=== PATIENT | male | born 1955 | race Caucasian/White ===

== ENCOUNTER 2017-01-03 12:47 | Outpatient (CLI) | payer MEDICAID ==
[~2017-01-03 12:47] MED LIST: CARVEDILOL 25MG25 MG PO; FENOFIBRIC ACI135 MG PO; FUROSEMIDE40 MG PO; GLIMEPIRIDE 2MG2 MG PO; LANOXIN0.125 MG PO; LEVOTHYROXIN0.125 MG PO; LISINOPRIL/HCTZ1 TA3 FT; PRAVASTATIN 40M40 MG PO; SPIRONOLACTONE25 MG NG; WARFARIN 3MG TAB3 MG PO
== END 2017-01-03 15:28 ==
LOC: ACC 12:47
DX: Z95.2 Presence of prosthetic heart valve (principal); Z79.01 Long term (current) use of anticoagulants; Z51.81 Encounter for therapeutic drug level monitoring
CPT/HCPCS: G0463

== ENCOUNTER 2017-01-07 12:42 | Outpatient (CLI) | payer MEDICAID | END 2017-01-07 14:48 | LOC: ACC 12:42 | DX: Z95.2 Presence of prosthetic heart valve (principal); Z79.01 Long term (current) use of anticoagulants; Z51.81 Encounter for therapeutic drug level monitoring | CPT/HCPCS: G0463 ==

== ENCOUNTER 2017-01-17 23:47 | Emergency (ER) | payer MEDICAID ==
[~2017-01-17] VITALS: Ht 170.2 cm; Wt 117.9 kg
[2017-01-18] MEDS ORDERED: NATURE'S BLEND500 M2 PO (00:06)
[2017-01-18 00:41] LABS: HEMOGLOBIN 11.8 g/dL (14.1-18.0); LYMPH # 1.7 K/mm3 (0.7-4.5); LYMPH % 19.9 % (10-50)
--- NOTE | 2017-01-18 00:46 | Emergency Room Report ---
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 N Clinical Suspician of Infection? N Mental Status: 1 - Regular (Normal Baseline) Sepsis Risk:Low Sepsis Risk Have you (or family members/close friends) recently traveled outside the [place]? N If Yes, where/when: Have you had exposure to infectious disease within the past month? N TB? Other? Specify: Source patient, RN notes reviewed, family, old records Exam Limitations no limitations Comment acute onset of lt upper ext pain with dec use and feeling - pt is diabetic and has a fib with mech valve placed in 09/05- he has been compliant with coumadin but inr 1.8 friday - Cardiac Chest Pain Chest pain indicative of cardiac No Timing/Duration this evening Severity severe ALLERGIES Coded Allergies: Penicillins (01/18/17) Home Medications Reported Medications Glimepiride (Glimepiride 2MG Tablet) 2 MG PO DAILY #1.5 Spironolactone (Spironolactone) 25 MG NG BID #0.5 PRAVASTATIN SODIUM (Pravastatin Sodium) 80 MG PO QHS Carvedilol (Carvedilol 25MG) 25 MG PO BID Lisinopril & Hctz (Lisinopril-Hctz 10-12.5 MG Tab) 1 TAB FT DAILY WARFARIN SOD (Warfarin 3MG) 3 MG PO DAILY Furosemide (Furosemide 40MG) 40 MG PO QHS Levothyroxine Sodium (Levothyroxine 0.125MG) 0.125 MG PO DAILY FENOFIBRIC ACID (CHOLINE) (Fenofibric Acid) 135 MG PO QHS DIGOXIN (Digox) 0.125 MG PO QHS CINNAMON BARK (Cinnamon) 1,000 MG PO BID History Medical History General CAD? No Angina: Yes [place]: Yes Hypertension? Yes Hyperlipidemia? Yes CHF? No DVT? No PE? No COPD? No Asthma? No Anemia? No GERD? No Gastric ulcers? No GI Bleed? No Hernia? No Thyroid Problems? No Hypothyroidism? No CVA? No Seizures? No Diabetes? Yes Insulin Dependent: No Insulin Pump: No Home FSBS? Yes Renal Insuffiency? No End Stage Renal Disease? No UTI? No Stones? No BPH? No GB Disease: No Nephritic Syndrome? No Asplenia? No Hepatitis? No Arthritis? No Migraines? No Cataracts? No Glaucoma? No MRSA? No HIV? No TB? No Anxiety? No Depression? No Cancer? No More? No Immunization Hx Ped.Immunizations UTD No DT/Tetanus Unknown Surgical Hx Previous Surgery?Y ANGIOPLASTY X2 HERNIA X4 GALLBLADDER Coronary Artery Bypass mechanical heart valve Social History Smoking Hx Smoker: Never Smoker Tobacco: No Alcohol Alcohol: Yes Drugs none Review of Systems All Other Systems Reviewed and Negative Constitutional denies fever Eyes denies drainage ENT denies: ear discharge, epistaxis, throat pain. Respiratory denies cough, denies shortness of breath, denies wheezing Cardiovascular denies chest pain, denies syncope Gastrointestinal denies abdominal pain, denies diarrhea, denies vomiting Genitourinary denies: dysuria, frequency, hesitancy, hematuria. Musculoskeletal denies back pain, denies joint pain, denies neck pain Skin denies rash Psychiatric/Neurological denies headache, denies seizure Physical Exam Vital Signs Vital Signs Date Time Temp Pulse Resp B/P Pulse O2 O2 Flow FiO2 Ox Delivery Rate 01/18 0302 62 20 116/46 100 01/18 0154 64 20 109/61 95 01/17 2355 98.0 72 20 118/53 95 - WBC >12,000 or <4,000 or 10% bands? 2 or more SIRS Criteria Met? B/P:116/46 MAP:74 Creatinine >2.0? UA output<0.5ml/kg/hr for 2 hrs? Platelet count >100,000? Lactate >2.0mmol/1? INR >1.2 or PTT > than 60 sec? Evidence of Organ Dysfunction? Provider documented clinical suspician of infection? N Sepsis Criteria Count: 1 Sepsis Risk: Low Sepsis Risk General Appearance no apparent distress Eye Exam - bilateral eye PERRL, bilateral eye EOMI Ear, Nose, Throat normal ENT inspection Neck non-tender Respiratory Status No: respiratory distress. Lung Sounds bilateral: lungs clear. 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 No Results/Orders Laboratory Tests 01/18/1729: Hemoglobin A1c 10.6 H 01/18/1729: Sodium 123 L, Potassium 3.5, Chloride 88 L, Carbon Dioxide 23, BUN 57 H, Creatinine 2.3 H, Estimated Creat Clear 56, Estimated GFR (MDRD) 29, Glucose 397 H, Calcium 9.2, Total Bilirubin 0.6, AST 39 H, ALT 25, Alkaline Phosphatase 40 L, Troponin I 0.15 H, Total Protein 7.0, Albumin 2.9 L, Globulin 4.1 H, Albumin/Globulin Ratio 0.7 L, PT 14.8 H, INR 1.38 H, WBC 8.7 , RBC 3.78 L, Hgb 11.8 L, Hct 34.2 L, MCV 90.5, RDW 13.6, Plt Count 247, MPV 6.6 L, Gran % 73.5, Gran # 6.4, Lymphocytes % 19.9, Monocytes % 4.6, Eosinophils % 1.3, Basophils % 0.7, Lymphocytes # 1.7, Monocytes # 0.4, Eosinophils # 0.1, Basophils # 0.1, PUBS MCHC 34.7, MCH 31.4 H Current Medication Orders Sig/Henny Start time Last Medication Dose Route Stop Time Status Admin Heparin Sodium 7,500 UNITS ONCE ONE 01/18 300 DC 01/18 (Porcine) IV 01/18 301 0303 Heparin Sodium/ 500 ML .[id number] 01/18 300 AC 01/18 Dextrose IV 0303 Heparin Sodium/ 500 ML .STK-MED ONE 01/18 0257 DC Dextrose IV Heparin Sodium 0 .STK-MED ONE 01/18 0256 DC (Porcine) .ROUTE Sodium Chloride 10 ML PRN PRN 01/18 30 AC IV 01/19 0023 Orders Procedure Date/time Status PROTHROMBIN TIME 01/18 0230 Complete 12 LEAD EKG-BESSON (INITIAL) 01/18 0134 Active 12 LEAD EKG-BESSON (INITIAL) 01/18 38 Active ELECTROCARDIOGRAM REQUEST 01/19 24 Active [id number] VIEWS 01/19 24 Active IV SALINE LOCK 01/19 24 Active TROPONIN I 01/19 24 Complete GLYCOHEMOGLOBIN (A1C) 01/19 24 Complete COMPLETE METABOLIC PANEL 01/19 24 Complete CBC WITH AUTO DIFF 01/19 24 Complete CM/EKG CM/EKG 1 Monitor Rhythm Atrial Fibrillation EKG no EKG for comparison, non-spec. ST/Twave chgs CM/EKG 2 Monitor Rhythm Atrial Fibrillation EKG non-spec. ST/Twave chgs Departure Departure Time of Disposition 236 Disposition DC/XFER from ER to [facility] Clinical Impression Primary Impression: Occlusion of artery of upper extremity Secondary Impressions: A-fib Qualifiers: Atrial fibrillation type: chronic Qualified Code: I48.2 - Chronic atrial fibrillation Diabetes mellitus Qualifiers: Diabetes mellitus type: type 1 Diabetes mellitus complication status: with unspecified complications Qualified Code: E10.8 - Type 1 diabetes mellitus with unspecified complications Elevated troponin I level Mechanical heart valve present Renal insufficiency Condition STABLE Referrals Gopal Alberts MD (Family) discussed with dr rock ED Critical Care Critical Care Yes Time spent 30-74 min Vital system(s) involved: art occlusion I was present at bedside for Coordinating pt's care, Interpreting EKGs/Strips , During my initial exam, Reviewing lab results, Reviewing old records, Discussing pt condition, For re-examinations at 0308
[2017-01-18 03:58] VITALS: BP 108/74
--- NOTE | 2017-01-18 09:25 | RADIOLOGY REPORT PS360 ---
[id number] VIEWS INDICATION: Left shoulder pain. No injury TECHNIQUE: 3 views left shoulder. COMPARISON: None available FINDINGS: Humeral head and neck intact. Glenohumeral joint and AC joint intact. Perhaps Minor degenerative changes AC joint No fracture nor dislocation apparent. Visualized joint space well maintained. Normal mineralization. There is a tubular curve C shaped area one image superior to the mid left clavicle possibly. This is either within overlying clothing or could reflect a calcified vessel. Not of current significance. Minor apical pleural thickening also noted IMPRESSION: Left shoulder intact. Scant degenerative changes AC joint Minor observations in text
--- OUTSIDE RECORDS SUMMARY | 2017-01-19 21:17 | External Medical Summary Rpt ---
Author Author [facility] Organization [facility] Address Unknown Phone Unavailable Care Team Providers Care Claims Service Adjustor Name Role Phone IVON, (REF) PCP [phone] [facility] [id number] Date(s): 07/09/16 - 08/14/16 [facility] [address] [place], [place] [address]- Discharge Disposition: OP Self Care or Home Attending Physician: TONIA MCDANIEL MD Admitting Physician: TONIA MCDANIEL MD Referring Physician: TONIA MCDANIEL MD Reason for Visit ATHSCL HEART DISEASE OF [place] CORONARY ARTERY W/O ANG PCTRS Vital Signs No data available for this section Problem List Condition Effective Status Health Informant Dates Status Allergic Active patient rhinitis(Con firmed) Asthma(Confi Active patient rmed) Cardiac Active patient arrhythmia- a fib(Confirme d) COPD(Confirm Active patient ed) Coronary Active patient artery disease(Conf irmed) Diabetes Active patient mellitus type II(Confirmed ) Heart Active patient valve(Confir med) Hyperlipidem Active patient ia(Confirmed ) Hypertension Active patient (Confirmed) Myocardial Active patient infarction- 2003 and (Confi rmed) Sleep Active patient apnea(Confir med) Stented Active patient coronary artery-(Confirmed) Thyroid Active patient disease(Conf irmed) Allergies, Adverse Reactions, Alerts Substance Reaction Severity Status penicillin Active Medications No data available for this section Results No data available for this section Immunizations No data available for this section Procedures No data available for this section Social History Social History Response Type Smoking Status Former smoker Assessment and Plan No data available for this section Hospital Discharge Instructions No data available for this section
--- OUTSIDE RECORDS SUMMARY | 2017-01-19 21:17 | External Medical Summary Rpt ---
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
--- OUTSIDE RECORDS SUMMARY | 2017-01-19 21:18 | External Medical Summary Rpt ---
Author Author , Organization [employer] Address Unknown Phone Unavailable Care Team Providers Care Switchboard Operator Supervisor Name Role Phone LEATHA YASMIN, Unavailable Unavailable LEATHA YASMIN IVON, IVON Unavailable Unavailable IVON KEI, IVON Unavailable Unavailable [facility] Un[facility] Unavailable INC, [facility], Unavailable Unavailable [facility] Rebel Monkey Unavailable Unavailable MEDICAL G, [email or web address] CITY[facility] Research [facility] AMELIA HERNANDEZ, Unavailable Unavailable CISNEROSJOSE A HERNANDEZ, Unavailable Unavailable [facility] J[facility] Unavailable Unavailable EQU[facility], [facility] Unavailable Unavailable [facility], [facility], Unavailable Unavailable 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 ANGINA PECTORIS I482 CHRONIC 11-18-2016 [facility] ATRIAL HEALTH FIBRILLATIO MEDICAL G N I5043 ACUTE ON 11-18-2016 [facility] CHRONIC HEALTH COMB MEDICAL G SYSTOLIC & DIASTOLIC CHF E039 HYPOTHYROID 10-30-2016 [facility] UNSPECIFIED GROUP E119 TYPE 2 10-30-2016 [facility] MELLITUS GROUP WITHOUT COMPLICATIO NS E663 OVERWEIGHT 10-30-2016 [facility] G4733 OBSTRUCTIVE 10-25-2016 [facility] ADULT MEDICAL PEDIATRIC EQUIPME J449 CHRONIC 10-25-2016 [facility] OBSTRUCTIVE HOME PULMONARY MEDICAL DISEASE UNS EQUIPME I10 ESSENTIAL 08-22-2016 [facility] HYPERTENSIO INC N I4891 UNSPECIFIED 08-14-2016 [facility] ATRIAL HOSPITAL FIBRILLATIO N I5023 ACUTE CHRON 08-14-2016 [facility] HEART MEDICAL G FAILURE I509 HEART 08-14-2016 [facility] FAILURE HOSPITAL UNSPECIFIED I517 CARDIOMEGAL 08-14-2016 [facility] Y HOSPITAL R931 ABNORMAL 08-14-2016 [facility] FINDINGS ON HOSPITAL DX IMAGING HEART & COR CIRC Z969 PRESENCE OF 08-14-2016 [facility] FUNCTIONAL [facility] IMPLANT UNSPECIFIED I129 HYPERTENSIV 07-29-2016 [facility] W/STAGE 1-4 [facility] CKD OR UNS CKD N183 CHRONIC 07-29-2016 [facility] STAGE 3 MODERATE E785 HYPERLIPIDE 07-09-2016 [facility] UNSPECIFIED MEDICAL G [id number] VITREOUS 06-26-2016 AMELIA THAKURTARAH DAVID N RIGHT EYE [id number] VITREOUS 06-26-2016 [facility] THAKURTARAH DAVID N LEFT EYE E11.9 TYPE 2 DIABETES MELLITUS WITHOUT COMPLICATIO NS I48.91 UNSPECIFIED ATRIAL FIBRILLATIO N 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 N28.9 DISORDER OF KIDNEY AND URETER, UNSPECIFIED R74.8 ABNORMAL LEVELS OF OTHER SERUM ENZYMES Z95.2 PRESENCE OF PROSTHETIC HEART VALVE Allergies, Adverse Reactions, Alerts Clinical Alert Notifications Alert Diabetes: no eye exam in the last 365 days Diabetes: no influenza vaccine in the last 365 days Medications Na ND Rx Da Fi Fi Am Da Di Ph RX Ph St me C No te ll ll ou ys ag ar # ys at rm s nt no ma ic us Or Da si cy ia de te s n re d WA 00 03 04 30 30 00 HO Ac RF 09 -2 -1 .0 00 ME ti AR 31 1- 4- 00 06 TO ve IN 71 20 20 08 WN 50 17 17 35 SO 1 91 PH DI AR UM MA 3 CY MG OF TA CY BL NT ET HI AN A FU 69 03 04 45 30 00 HO Ac RO 31 -2 -1 .0 00 ME ti SE 50 1- 4- 00 06 TO ve MS 11 20 20 07 WN DE 71 17 17 37 0 31 PH 40 AR MA MG CY TA OF BL ET CY NT HI AN A DI 00 03 04 30 30 00 HO Ac GO 11 -2 -1 .0 00 ME ti XI 59 1- 4- 00 06 TO ve N 82 20 20 07 WN 25 20 17 17 37 0 1 30 PH MC AR G MA TA CY BL ET OF CY NT HI AN A KS 68 03 04 30 30 00 HO Ac AV 18 -2 -1 .0 00 ME ti 00 1- 4- 00 06 TO ve TA 48 20 20 07 WN TI 80 17 17 99 N 9 09 PH SO AR DI MA UM CY 80 OF MG CY NT TA HI B AN A CA 68 03 04 60 30 00 HO Ac RV 00 -2 -1 .0 00 ME ti ED 10 1- 4- 00 06 TO ve IL 15 20 20 07 WN OL 20 17 17 99 3 11 PH 25 AR MA MG CY TA OF BL ET CY NT HI AN A SP 53 03 04 15 30 00 HO Ac IR 74 -2 -1 .0 00 ME ti ON 60 1- 4- 06 TO ve OL 51 20 20 07 WN AC 10 17 17 99 TO 1 12 PH NE AR MA 25 CY MG OF TA CY BL NT ET HI AN A LI 68 03 04 30 30 00 HO Ac SI 18 -2 -1 .0 00 ME ti NO 00 1- 4- 00 06 TO ve KS 51 20 20 07 WN IL 80 17 17 99 -H [address] AR Z MA 10 CY -1 2. OF 5 MG CY NT TA HI B AN A FE 00 03 04 30 30 00 HO Ac NO 37 -2 -1 .0 00 ME ti FI 83 1- 4- 00 06 TO ve BR 06 20 20 08 WN AT 67 17 17 15 E 7 04 PH 14 AR 5 MA MG CY TA OF BL ET CY NT HI AN A LE 00 03 04 30 30 00 HO Ac VO 52 -2 -1 .0 00 ME ti TH 71 1- 4- 00 06 TO ve YR 34 20 20 08 WN OX 70 17 17 15 IN 1 05 PH E AR 12 MA 5 CY MC G OF TA BL CY ET NT HI AN A GL 68 03 04 45 30 00 HO Ac IM 00 -2 -1 .0 00 ME ti EP 10 1- 4- 00 06 TO ve IR 17 20 20 08 WN ID 80 17 17 15 E 3 08 PH 2 AR MG MA CY TA BL OF ET CY NT HI AN A CA 00 03 04 30 30 00 HO Ac LC 90 -1 -0 .0 00 ME ti IU 43 4- 7- 00 06 TO ve M 23 20 20 08 WN 60 39 17 17 10 0- 2 65 PH AR T MA D3 CY 40 OF 0 TA CY BL NT ET HI AN A DI 00 02 03 30 30 00 HO Ac GO 11 -1 -1 .0 00 ME ti XI 59 6- 7- 00 06 TO ve N 82 20 20 07 WN 25 20 17 17 37 0 1 30 PH MC AR G MA TA CY BL ET OF CY NT HI AN A FU 69 02 03 45 30 00 HO Ac RO 31 -1 -1 .0 00 ME ti SE 50 6- 7- 00 06 TO ve MS 11 20 20 07 WN DE 71 17 17 37 0 31 PH 40 AR MA MG CY TA OF BL ET CY NT HI AN A FE 00 02 03 30 30 00 HO Ac NO 37 -1 -1 .0 00 ME ti FI 83 6- 7- 00 06 TO ve BR 06 20 20 08 WN AT 67 17 17 15 E 7 04 PH 14 AR 5 MA MG CY TA OF BL ET CY NT HI AN A GL 68 02 03 45 30 00 HO Ac IM 00 -1 -1 .0 00 ME ti EP 10 6- 7- 00 06 TO ve IR 17 20 20 08 WN ID 80 17 17 15 E 3 08 PH 2 AR MG MA CY TA BL OF ET CY NT HI AN A LE 00 02 03 30 30 00 HO Ac VO 52 -1 -1 .0 00 ME ti TH 71 6- 7- 00 06 TO ve YR 34 20 20 08 WN OX 70 17 17 15 IN 1 05 PH E AR 12 MA 5 CY MC G OF TA BL CY ET NT HI AN A WA 00 02 03 30 30 00 HO Ac RF 09 -1 -1 .0 00 ME ti AR 31 6- 7- 00 06 TO ve IN 71 20 20 07 WN 50 17 17 59 SO 1 09 PH DI AR UM MA 3 CY MG OF TA CY BL NT ET HI AN A KS 68 02 03 30 30 00 HO Ac AV 18 -1 -1 .0 00 ME ti 00 6- 7- 00 06 TO ve TA 48 20 20 07 WN TI 80 17 17 99 N 9 09 PH SO AR DI MA UM CY 80 OF MG CY NT TA HI B AN A CA 68 02 03 60 30 00 HO Ac RV 00 -1 -1 .0 00 ME ti ED 10 6- 7- 00 06 TO ve IL 15 20 20 07 WN OL 20 17 17 99 3 11 PH 25 AR MA MG CY TA OF BL ET CY NT HI AN A SP 53 02 03 15 30 00 HO Ac IR 74 -1 -1 .0 00 ME ti ON 60 6- 7- 00 06 TO ve OL 51 20 20 07 WN AC 10 17 17 99 TO 1 12 PH NE AR MA 25 CY MG OF TA CY BL NT ET HI AN A LI 68 02 03 30 30 00 HO Ac SI 18 -1 -1 .0 00 ME ti NO 00 6- 7- 06 TO ve KS 51 20 20 07 WN IL 80 17 17 99 -H [address] AR Z MA 10 CY -1 2. OF 5 MG CY NT TA HI B AN A CA 00 02 03 30 30 00 HO Ac LC 90 -0 -0 .0 00 ME ti IU 43 8- 3- 00 06 TO ve M 23 20 20 08 WN 60 39 17 17 10 0- 2 65 PH AR T MA D3 CY 40 OF 0 TA CY BL NT ET HI AN A AC 00 02 03 30 30 00 HO Ac ET 09 -0 -0 .0 00 ME ti AM 30 8- 3- 04 TO ve IN 15 20 20 02 WN OP 01 17 17 13 HE 0 94 PH N- AR CO MA D CY #3 OF TA BL CY ET NT HI AN A WA 00 01 02 30 30 00 HO Ac RF 09 -1 -1 .0 00 ME ti AR 31 9- 7- 00 06 TO ve IN 71 20 20 07 WN 50 17 17 59 SO 1 09 PH DI AR UM MA 3 CY MG OF TA CY BL NT ET HI AN A GL 68 01 02 45 30 00 HO Ac IM 00 -1 -1 .0 00 ME ti EP 10 9- 7- 06 TO ve IR 17 20 20 07 WN ID 80 17 17 46 E 3 91 PH 2 AR MG MA CY TA BL OF ET CY NT HI AN A DI 00 01 02 30 30 00 HO Ac GO 11 -1 -1 .0 00 ME ti XI 59 9- 7- 00 06 TO ve N 82 20 20 07 WN 25 20 17 17 37 0 1 30 PH MC AR G MA TA CY BL ET OF CY NT HI AN A FU 69 01 02 45 30 00 HO Ac RO 31 -1 -1 .0 00 ME ti SE 50 9- 7- 00 06 TO ve MS 11 20 20 07 WN DE 71 17 17 37 0 31 PH 40 AR MA MG CY TA OF BL ET CY NT HI AN A FE 00 01 02 30 30 00 HO Ac NO 37 -1 -1 .0 00 ME ti FI 83 9- 7- 00 06 TO ve BR 06 20 20 07 WN AT 67 17 17 46 E 7 90 PH 14 AR 5 MA MG CY TA OF BL ET CY NT HI AN A LE 00 01 02 30 30 00 HO Ac VO 52 -1 -1 .0 00 ME ti TH 71 9- 7- 00 06 TO ve YR 34 20 20 07 WN OX 70 17 17 54 IN 1 01 PH E AR 12 MA 5 CY MC G OF TA BL CY ET NT HI AN A LI 68 01 02 30 30 00 HO Ac SI 18 -2 -1 .0 00 ME ti NO 00 0- 7- 00 06 TO ve KS 51 20 20 07 WN IL 80 17 17 99 -H [address] AR Z MA 10 CY -1 2. OF 5 MG CY NT TA HI B AN A SP 53 01 02 15 30 00 HO Ac IR 74 -2 -1 .0 00 ME ti ON 60 0- 7- 00 06 TO ve OL 51 20 20 07 WN AC 10 17 17 99 TO 1 12 PH NE AR MA 25 CY MG OF TA CY BL NT ET HI AN A CA 68 01 02 60 30 00 HO Ac RV 00 -2 -1 .0 00 ME ti ED 10 0- 7- 00 06 TO ve IL 15 20 20 07 WN OL 20 17 17 99 3 11 PH 25 AR MA MG CY TA OF BL ET CY NT HI AN A KS 68 01 02 30 30 00 HO Ac AV 18 -2 -1 .0 00 ME ti 00 0- 7- 00 06 TO ve TA 48 20 20 07 WN TI 80 17 17 99 N 9 09 PH SO AR DI MA UM CY 80 OF MG CY NT TA HI B AN A SP 53 12 01 15 30 00 HO Ac IR 74 -1 -0 .0 00 ME ti ON 60 3- 9- 00 06 TO ve OL 51 20 20 05 WN AC 10 16 17 65 TO 1 56 PH NE AR MA 25 CY MG OF TA CY BL NT ET HI AN A KS 68 12 01 30 30 00 HO Ac AV 18 -1 -0 .0 00 ME ti 00 3- 9- 00 06 TO ve TA 48 20 20 05 WN TI 80 16 17 65 N 9 58 PH SO AR DI MA UM CY 80 OF MG CY NT TA HI B AN A CA 68 12 01 60 30 00 HO Ac RV 00 -1 -0 .0 00 ME ti ED 10 3- 9- 00 06 TO ve IL 15 20 20 05 WN OL 20 16 17 65 3 61 PH 25 AR MA MG CY TA OF BL ET CY NT HI AN A LI 68 12 01 30 30 00 HO Ac SI 18 -1 -0 .0 00 ME ti NO 00 3- 9- 00 06 TO ve KS 51 20 20 05 WN IL 80 16 17 65 -H [address] AR Z MA 10 CY -1 2. OF 5 MG CY NT TA HI B AN A DI 00 12 01 30 30 00 HO Ac GO 11 -1 -0 .0 00 ME ti XI 59 3- 9- 00 06 TO ve N 82 20 20 07 WN 25 20 16 17 37 0 1 30 PH MC AR G MA TA CY BL ET OF CY NT HI AN A FU 69 12 01 45 30 00 HO Ac RO 31 -1 -0 .0 00 ME ti SE 50 3- 9- 00 06 TO ve MS 11 20 20 07 WN DE 71 16 17 37 0 31 PH 40 AR MA MG CY TA OF BL ET CY NT HI AN A FE 00 12 01 30 30 00 HO Ac NO 37 -1 -0 .0 00 ME ti FI 83 3- 9- 00 06 TO ve BR 06 20 20 07 WN AT 67 16 17 46 E 7 90 PH 14 AR 5 MA MG CY TA OF BL ET CY NT HI AN A LE 00 12 01 30 30 00 HO Ac VO 52 -1 -0 .0 00 ME ti TH 71 3- 9- 00 06 TO ve YR 34 20 20 07 WN OX 70 16 17 54 IN 1 01 PH E AR 12 MA 5 CY MC G OF TA BL CY ET NT HI AN A Procedures Procedure DOS Code Location Performer Comment PROTHROMB 48660 [facility] INC INC POLYSOM 77091 [facility] 6/>YRS 7 [facility] SLEEP 4/> INC INC ADDL KENDRA ATTND PROTHROMB 87845 [facility] G[facility] IN TIME 7 [facility] INC INC ECG 88419 [facility] ROUTINE 7 [facility] ECG MEDICAL W/LEAST G 12 LDS W/I&R HEMOGLOBI 47261 [facility] N 7 [facility] GLYCOS[place] [address] [facility] FREE 7 [facility] [place] [address] [facility] G[facility] THYROID 7 [facility] STIMULATI INC INC NG HORMONE TSH PROTHROMB 84108 [facility] IN TIME 7 [facility] HEADGEAR A7035 [facility] ALLEN USED 7 HOME HOME W/POSITIV MEDICAL MEDICAL E AIRWAY EQUIPME EQUIPME PRESSURE DEVICE FULL FACE A7030 [facility] MASK 7 HOME HOME USED MEDICAL MEDICAL W/POS EQUIPME EQUIPME ARWAY PRESS DEVICE EA TUBING A7037 [facility] ALLEN USED WITH 7 HOME HOME POSITIVE MEDICAL MEDICAL AIRWAY EQUIPME EQUIPME PRESSURE DEVICE PROTHROMB 21172 [facility] IN TIME 7 [facility] HOSPITAL G0463 [facility] OUTPATIEN 7 [facility] HOSP T CLIN INC INC VISIT ASSESS & MGMT PT HOSPITAL G0463 [facility] G[facility] OUTPATIEN 7 [facility] HOSP T CLIN INC INC VISIT ASSESS & MGMT PT PROTHROMB 10977 [facility] IN TIME 7 [facility] PROTHROMB 04401 [facility] IN TIME 6 [facility] HOSPITAL G0463 [facility] OUTPATIEN 6 [facility] CLIN INC INC VISIT ASSESS & MGMT PT HOSPITAL G0463 [facility] G[facility] OUTPATIEN 6 [facility] HOSP T CLIN INC INC VISIT ASSESS & MGMT PT PROTHROMB 84808 [facility] IN TIME 6 [facility]OS[facility] PROTHROMB 30757 [facility] IN TIME 6 [facility] COLLECTIO 89879 [facility] N VENOUS 6 [facility] BLOOD INC INC VENIPUNCT URE THERAPEUT 32990 [facility] IC 6 [facility] PROPHYLAC INC INC TIC/DX INJECTION SUBQ/IM PROTHROMB 45212 [facility] IN TIME 6 [facility] INC INC HOSPITAL G0463 [facility] OUTPATIEN 6 [facility] T CLIN INC INC VISIT ASSESS & [place] [address] [facility] BLOOD/URI 6 [facility] C ACID INC INC PROTHROMB 90494 [facility] G[facility] IN TIME 6 [facility] INC INC ALBUMIN 47997 [facility] URINE 6 [facility] MICROALBU INC INC MIN QUANTIATI VE 25 14276 [facility] HYDROXY 6 [facility] INCLUDES INC INC FRACTIONS IF PERFORMED COLLECTIO 18076 [facility] N VENOUS 6 [facility] [place] [address] [facility] G[facility] PARATHORM 6 [facility] ONE INC INC BLOOD 00169 [facility] COUNT 6 [facility] COMPLETE INC INC AUTO&AUTO DIFRNTL WBC URNLS DIP 43868 [facility] 6 [facility] STICK/TAB INC INC LET REAGENT AUTO MICROSCOP Y RENAL 25830 [facility] FUNCTION 6 [facility] PANEL INC INC CALCIUM 51588 [facility] IONIZED 6 [place] [address] [facility] RETROPERI 6 [facility] TONEAL INC [place] [address] [place] [facility] RETROPERI 6 MEDICAL YASMIN TONEAL IMAGING REAL TIME ASS W/IMAGE LIMITED COLLECTIO 44975 [facility] N VENOUS [address] [place] [address] HOSPITAL BLOOD VENIPUNCT URE PROTHROMB 52893 [facility] IN TIME [address] [place] [address] HOSPITAL ECHO 21257 [facility] ABD[facility] ID [facility] XIANG 2D MEDICAL W/WOM-MOD G E COMPL SPEC&COLR D BASIC 96262 [facility] METABOLIC [address] [place] [address] PANEL CALCIUM TOTAL PROTHROMB 03686 [facility] IN TIME 6 [facility] INC INC HOSPITAL G0463 [facility] OUTPATIEN 6 [facility] T CLIN INC INC VISIT ASSESS & MGMT PT HOSPITAL G0463 [facility] OUTPATIEN 6 [facility] T CLIN INC INC VISIT ASSESS & MGMT PT COLLECTIO 79289 [facility] N VENOUS 6 [facility] BLOOD INC INC VENIPUNCT URE PROTHROMB 71933 RADHACAROLA LOPEZON IN TIME 6 [facility] INC INC COLLECTIO 08056 [facility] N VENOUS 6 [facility] BLOOD INC INC VENIPUNCT URE HOSPITAL G0463 [facility] LOPEZON OUTPATIEN 6 [facility] T CLIN INC INC VISIT ASSESS & MGMT PT PROTHROMB 52901 [facility] G[facility] IN TIME 6 [facility] INC INC COLLECTIO 58506 [facility] N VENOUS 6 [facility] BLOOD INC INC VENIPUNCT URE CREATININ 31875 [facility] E OTHER 6 [facility] SOURCE INC INC 25 06051 [facility] HYDROXY 6 [facility] INCLUDES INC INC FRACTIONS IF PERFORMED BLOOD 55085 [facility] COUNT 6 [facility] COMPLETE INC INC AUTO&[place] [address] [facility] PARATHORM 6 [facility] ONE INC INC PROTEIN 21982 [facility] XCPT 6 [facility] REFRACTOM INC INC ETRY SERUM PLASMA/WH L BLD RENAL 71963 [facility] FUNCTION 6 [facility] PANEL INC INC URNLS DIP 69882 [facility] 6 [facility] STICK/TAB INC INC LET REAGENT AUTO MICROSCOP Y PROTHROMB 73791 [facility] IN TIME 6 [facility] INC INC HOSPITAL G0463 [facility] OUTPATIEN 6 [facility] T CLIN INC INC VISIT ASSESS & MGMT PT HOSPITAL G0463 [facility] OUTPATIEN 6 [facility] T CLIN INC INC VISIT ASSESS & MGMT PT PROTHROMB 45017 [facility] G[facility] IN TIME 6 [facility] INC INC ECG [id number] [place] [address] ROUTINE 6 [facility] ECG MEDICAL W/LEAST G 12 LDS W/I&R PROTHROMB 97312 [facility] IN TIME 6 [facility] INC INC HOSPITAL G0463 [facility] G[facility] OUTPATIEN 6 [facility] T CLIN INC INC VISIT ASSESS & MGMT PT HOSPITAL G0463 [facility] OUTPATIEN 6 [facility] T CLIN INC INC VISIT ASSESS & MGMT PT COLLECTIO 45900 [facility] G[facility] N VENOUS 6 [facility] BLOOD INC INC VENIPUNCT URE PROTHROMB 64804 [facility] IN TIME 6 [facility] INC INC COLLECTIO 86643 [facility] G[facility] N VENOUS 6 [facility] BLOOD INC INC VENIPUNCT URE COMPREHEN 07911 [facility] SIVE 6 [facility] METABOLIC INC INC PANEL HEMOGLOBI 60667 [facility] N 6 [facility] GLYCOSYLA INC INC AJAY A1C LIPID 48851 [facility] G[facility] PANEL 6 [facility] INC INC BLOOD 89742 [facility] COUNT 6 [facility] COMPLETE INC INC AUTO&[place] [address] [facility] THYROID 6 [facility] STIMULATI [place] [address] [facility]IA FREE 6 [facility] THYROXINE INC [facility] G0463 [facility] G[facility] OUTPATIEN 6 [facility] T CLIN INC INC VISIT ASSESS & MGMT PT PROTHROMB 99203 [facility]IA IN TIME 6 [facility]OSPITAL G0463 [facility] OUTPATIEN 6 [facility] T CLIN INC INC VISIT ASSESS & MGMT PT PROTHROMB 16118 [facility] IN TIME 6 [facility] INC INC COLLECTIO 77504 [facility] N VENOUS 6 [facility] BLOOD INC INC VENIPUNCT URE Encounters Encounter Start End Date Code Location Performer Type Date HOSPITAL [facility] [place] [facility] INC T OFFICE 46818 [facility] OUT[facility]EN 7 7 [facility] T VISIT 5 INC MINUTES [facility]OSP[facility] - 7 7 [facility]EN [facility] OFFICE 27627 [facility] OUTPATIEN 7 7 [facility] T VISIT 5 INC MINUTES [facility]OSPITAL [facility] - 7 7 [facility] OFFICE 49153 [facility] OUTPATIEN 7 7 [facility] T VISIT MEDICAL 25 G MINUTES OFFICE 35022 [facility] OUTPATIEN 7 7 PHYSICIAN T VISIT S GROUP 25 MINUTES HOSPITAL [facility] - 7 7 [facility] OUTPATIEN [facility] OFFICE 98917 [facility] OUTPATIEN 7 7 [facility] T VISIT 5 INC MINUTES [facility] RADHA - 7 7 [facility] - 7 7 [facility] - 7 7 [facility] - 6 6 [facility] - 6 6 [facility] - 6 6 [facility] - 6 6 [facility] - 6 6 [facility] - 6 6 [facility] - 6 6 [facility] RADHA - 6 6 [facility] - 6 6 [facility] - 6 6 [facility] OUTPATIEN INC OFFICE 64953 [place] [facility] OUTPATIEN 6 6 MEDICAL T NEW 45 SERV MINUTES [facility] RADHA - 6 6 [facility] - 6 6 [facility] - 6 6 [facility]PATIEN [facility] OFFICE 13118 [facility] OUTPATIEN 6 6 [facility] T VISIT MEDICAL 40 G MINUTES [facility] - 6 6 [facility] RAD[facility] - 6 6 [facility] OUTPATIEN [facility] T OFFICE 56322 AMELIA CISNEROS OUTPATIEN 6 6 DAVID JAM T VISIT 25 MINUTES [facility] RADHA - 6 6 [facility] OUTPATIEN [facility] OFFICE 43754 [facility] 6 PHYSICIAN KEI T VISIT S GROUP 25 MINUT[facility] RADHA - 6 6 [facility] - 6 6 [facility]
--- OUTSIDE RECORDS SUMMARY | 2017-01-19 21:18 | External Medical Summary Rpt ---
Author Author , Organization [employer] Address Unknown Phone Unavailable Care Team Providers Care Charge Attendant Name Role Phone LEATHA YASMIN, Unavailable Unavailable LEATHA YASMIN IVON, IVON Unavailable Unavailable IVON KEI, IVON Unavailable Unavailable [facility] Un[facility] Un[facility], [facility], Unavailable Unavailable [facility] Unavailable Unavailable MEDICAL G, [facility] AMELIA HERNANDEZ, Unavailable Unavailable CISNEROSJOSE A HERNANEDZ, Unavailable Unavailable [facility] J[facility] Unavailable Unavailable [facility], [facility] Unavailable Unavailable [facility], [facility], Unavailable Unavailable [facility] VIOLETA MCDANIEL Unavailable Unavailable VIOLETA FALLON Unavailable Unavailable XIANG ALONSOGAVIN BURT XIANG Unavailable Unavailable Purpose Continuity of Care Document - 06-03-2016 through 2016 Problems Code Diagnosis DOS Provider Status [id number] ENCOUNTER 12-09-2016 [facility] THERAPEUTIC INC DRUG LEVEL MONITORING Z7901 SENIOR CARE 12-09-2016 [facility] CURRENT USE [facility] OF INC ANTICOAGULA NTS Z952 PRESENCE OF 12-09-2016 [facility]OST[facility] HEART INC VALVE G4730 SLEEP APNEA 11-29-2016 [facility] UNSPECIFIED INC I2510 ASHD [place] 11-18-2016 [facility] 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 ANGINA PECTORIS I482 CHRONIC 11-18-2016 [facility] ATRIAL HEALTH FIBRILLATIO MEDICAL G N I5043 ACUTE ON 11-18-2016 [facility] CHRONIC HEALTH COMB MEDICAL G SYSTOLIC & DIASTOLIC CHF E039 HYPOTHYROID 10-30-2016 [facility] UNSPECIFIED GROUP E119 TYPE 2 10-30-2016 [facility] DI[facility]ET[facility] PHYSICIANS MELLITUS GROUP WITHOUT COMPLICATIO NS E663 OVERWEIGHT 10-30-2016 [facility] G4733 OBSTRUCTIVE 10-25-2016 [facility] APNEA ADULT MEDICAL PEDIATRIC EQUIPME J449 CHRONIC 10-25-2016 [facility] OBSTRUCTIVE HOME PULMONARY MEDICAL DISEASE UNS EQUIPME I10 ESSENTIAL 08-22-2016 [facility] HOSP HYPERTENSIO INC N I4891 UNSPECIFIED 08-14-2016 [facility] ATRIAL HOSPITAL FIBRILLATIO N I5023 ACUTE CHRON 08-14-2016 [facility] HEART MEDICAL G FAILURE I509 HEART 08-14-2016 [facility] FAILURE HOSPITAL UNSPECIFIED I517 CARDIOMEGAL 08-14-2016 [facility] Y HOSPITAL R931 ABNORMAL 08-14-2016 [facility] FINDINGS ON HOSPITAL DX IMAGING HEART & COR CIRC Z969 PRESENCE OF 08-14-2016 [facility] FUNCTIONAL [facility] IMPLANT UNSPECIFIED I129 HYPERTENSIV 07-29-2016 [facility] W/STAGE 1-4 [facility] CKD OR UNS CKD N183 CHRONIC 07-29-2016 [facility] DIS[facility] STAGE 3 MODERATE E785 HYPERLIPIDE 07-09-2016 [facility] UNSPECIFIED MEDICAL G M09141 VITREOUS 06-26-2016 AMELIA THAKURTARAH DAVID N RIGHT EYE [id number] VITREOUS 06-26-2016 AM[facility] THAKURTARAH DAVID N LEFT [...] 50 1- 4- 00 06 TO ve IA 11 20 20 07 WN DE 71 [...] ET OF CY NT HI AN A IN 68 03 04 30 30 00 HO [...] 00 1- 4- 00 06 TO ve IN 51 20 20 07 WN IL 80 [...] 50 6- 7- 00 06 TO ve IA 11 20 20 07 WN DE 71 [...] CY BL NT ET HI AN A IN 68 02 03 30 30 00 HO [...] NO 00 6- 7- 06 TO ve IN 51 20 20 07 WN IL 80 [...] 50 9- 7- 00 06 TO ve IA 11 20 20 07 WN DE 71 [...] 00 0- 7- 00 06 TO ve IN 51 20 20 07 WN IL 80 [...] BL ET CY NT HI AN A IN 68 01 02 30 30 00 HO [...] CY BL NT ET HI AN A IN 68 12 01 30 30 00 HO [...] 00 3- 9- 00 06 TO ve IN 51 20 20 05 WN IL 80 [...] 50 3- 9- 00 06 TO ve IA 11 20 20 07 WN DE 71 [...] Procedure DOS Code Location Performer Comment PROTHROMB 15314 [facility] IN [facility] 7 [facility] INC INC POLYSOM 64291 [facility] GARCIA 6/>YRS 7 [facility] SLEEP 4/> INC INC ADDL KENDRA ATTND PROTHROMB 99707 [facility] GARCIA IN TIME 7 [facility] INC INC ECG 29066 [facility] ROUTINE 7 [facility] ECG MEDICAL W/LEAST G 12 LDS W/I&R HEMOGLOBI 05745 [facility] G[facility]IA N 7 [facility] GLYCOSY[place] [address] [facility] GARCIA FREE 7 [facility] [place] [address] [facility] G[facility]IA THYROID 7 [facility] STIMULATI INC INC NG HORMONE TSH PROTHROMB 96577 [facility] TIME [facility] HEADGEAR A7035 [facility] ALLEN USED 7 HOME HOME W/POSITIV MEDICAL MEDICAL E AIRWAY EQUIPME EQUIPME PRESSURE DEVICE FULL FACE A7030 [facility] MASK 7 HOME HOME USED MEDICAL MEDICAL W/POS EQUIPME EQUIPME ARWAY PRESS DEVICE EA TUBING A7037 [facility] ALLEN USED WITH 7 HOME HOME POSITIVE MEDICAL MEDICAL AIRWAY EQUIPME EQUIPME PRESSURE DEVICE PROTHROMB 05705 [facility] H[facility] G0463 [facility] OUTPATIEN 7 [facility] T [facility] INC INC VISIT ASSESS & MGMT PT HOSPITAL G0463 [facility] G[facility] OUTPATIEN 7 [facility] INC INC VISIT ASSESS & MGMT PT PROTHROMB 42424 [facility] PROTHROMB 70614 [facility] TIME [facility] G0463 [facility] GARCIA OUTPATIEN 6 [facility] INC INC VISIT ASSESS & MGMT PT HOSPITAL G0463 [facility] G[facility]IA OUTPATIEN 6 [facility] T CLIN INC INC VISIT ASSESS & MGMT PT PROTHROMB 57320 [facility] GARCIA IN TIME 6 [facility] PROTHROMB 39974 [facility] IN TIME 6 [facility] COLLECTIO 87918 RAD[facility] N VENOUS 6 [facility] BLOOD INC INC VENIPUNCT URE THERAPEUT 46745 RAD[facility] GARCIA IC 6 [facility] PROPHYLAC INC INC TIC/DX INJECTION SUBQ/IM PROTHROMB 30655 [facility]IA IN TIME 6 [facility] INC INC HOSPITAL G0463 [facility] GARCIA OUTPATIEN 6 [facility] T CLIN INC INC VISIT ASSESS & [place] [address] RAD[facility] GARCIA BLOOD/URI 6 [facility] C ACID INC INC PROTHROMB 06460 [facility] G[facility]IA IN TIME 6 [facility] INC INC ALBUMIN 21523 [facility] GARCIA URINE 6 [facility] MICROALBU INC INC MIN QUANTIATI VE 25 12506 RAD[facility] GARCIA HYDROXY 6 [facility] INCLUDES INC INC FRACTIONS IF PERFORMED COLLECTIO 03434 RAD[facility] GARCIA N VENOUS 6 [facility] [place] [address] [facility] GARCIA PARATHORM 6 [facility] ONE INC INC BLOOD 43360 [facility] GARCIA COUNT 6 [facility] COMPLETE INC INC AUTO&AUTO DIFRNTL WBC URNLS DIP 07447 [facility] G[facility]IA 6 [facility] STICK/TAB INC INC LET REAGENT AUTO MICROSCOP Y RENAL 50072 [facility] FUNCTION 6 [facility] PANEL INC INC CALCIUM 13725 [facility] GARCIA IONIZED 6 [place] [address] [facility] GARCIA RETROPERI 6 [facility] TONEAL INC INC REAL TIME W/[place] [address] [place] [facility]HA RETROPERI 6 MEDICAL YASMIN TONEAL IMAGING REAL TIME ASS W/IMAGE LIMITED COLLECTIO 41990 [facility] N VENOUS [address] [place] [address] HOSPITAL BLOOD VENIPUNCT URE PROTHROMB 87359 [facility] IN TIME [address] [place] [address] HOSPITAL ECHO 13395 [facility] XIANG 2D MEDICAL W/WOM-MOD G E COMPL SPEC&COLR D BASIC 02538 [facility] METABOLIC [address] [place] [address] PANEL CALCIUM TOTAL PROTHROMB 06607 [facility] G[facility]IA IN TIME 6 [facility] INC INC HOSPITAL G0463 [facility] GARCIA OUTPATIEN 6 [facility] T CLIN INC INC VISIT ASSESS & MGMT PT HOSPITAL G0463 RADHA RADHA OUTPATIEN 6 [facility] T CLIN INC INC VISIT ASSESS & MGMT PT COLLECTIO 67875 RAD[facility] RADHA N VENOUS 6 [facility] BLOOD INC INC VENIPUNCT URE PROTHROMB 70858 RADHACAROLA LOPEZON IN TIME 6 [facility]OS[facility] INC INC COLLECTIO 76582 RADHA [facility]HA N VENOUS 6 [facility] BLOOD INC INC VENIPUNCT URE HOSPITAL G0463 RADHA LOPEZON OUTPATIEN 6 [facility] T CLIN INC INC VISIT ASSESS & MGMT PT PROTHROMB 97253 [facility] GARCIA IN TIME 6 [facility] INC INC COLLECTIO 36285 RADHA RADHA N VENOUS 6 [facility] BLOOD INC INC VENIPUNCT URE CREATININ 82664 [facility] GARCIA E OTHER 6 [facility] SOURCE INC INC 25 19820 [facility] GARCIA HYDROXY 6 [facility] INCLUDES INC INC FRACTIONS IF PERFORMED BLOOD 44364 [facility] GARCIA COUNT 6 [facility] COMPLETE INC INC AUTO&[place] [address] RAD[facility] GARCIA PARATHORM 6 [facility] ONE INC INC PROTEIN 71064 [facility] GARCIA XCPT 6 [facility] REFRACTOM INC INC ETRY SERUM PLASMA/WH L BLD RENAL 62672 [facility] GARCIA FUNCTION 6 [facility] PANEL INC INC URNLS DIP 04742 [facility] GARCIA 6 [facility] STICK/TAB INC INC LET REAGENT AUTO MICROSCOP Y PROTHROMB 18202 RAD[facility] GARCIA IN TIME 6 [facility] INC INC HOSPITAL G0463 RADHA GARCIA OUTPATIEN 6 [facility] T CLIN INC INC VISIT ASSESS & MGMT PT HOSPITAL G0463 [facility] GARCIA OUTPATIEN 6 [facility] T CLIN INC INC VISIT ASSESS & MGMT PT PROTHROMB 14834 [facility] GARCIA IN TIME 6 [facility] INC INC ECG [id number] [place] [address] ROUTINE 6 [facility] ECG MEDICAL W/LEAST G 12 LDS W/I&R PROTHROMB 11084 [facility] GARCIA IN TIME 6 [facility] INC INC HOSPITAL G0463 [facility] GARCIA OUTPATIEN 6 [facility] T CLIN INC INC VISIT ASSESS & MGMT PT HOSPITAL G0463 RADHA RADHA OUTPATIEN 6 [facility] T CLIN INC INC VISIT ASSESS & MGMT PT COLLECTIO 92568 [facility] GARCIA N VENOUS 6 [facility] BLOOD INC INC VENIPUNCT URE PROTHROMB 26286 [facility] GARCIA IN TIME 6 [facility] INC INC COLLECTIO 13854 [facility] GARCIA N VENOUS 6 [facility] BLOOD INC INC VENIPUNCT URE COMPREHEN 84031 [facility] GARCIA SIVE 6 [facility] METABOLIC INC INC PANEL HEMOGLOBI 86280 [facility] GARCIA N 6 [facility] GLYCOSYLA INC INC AJAY A1C LIPID 30877 RAD[facility] GARCIA PANEL 6 [facility] INC INC BLOOD 35474 [facility]ARCIA COUNT 6 [facility] COMPLETE INC INC AUTO&[place] [address] RAD[facility]ARCIA THYROID 6 [facility] STIMULATI [place] [address] RADHA GARCIA FREE 6 [facility] THYROXINE INC [facility] G0463 RAD[facility] GARCIA OUTPATIEN 6 [facility] T CLIN INC INC VISIT ASSESS & MGMT PT PROTHROMB 83639 [facility] GARCIA IN TIME 6 [facility] INC HOSPITAL G0463 [facility] GARCIA OUTPATIEN 6 [facility] T CLIN INC INC VISIT ASSESS & MGMT PT PROTHROMB 14439 [facility] GARCIA IN TIME 6 [facility] INC INC COLLECTIO 68657 RAD[facility] GARCIA N VENOUS 6 [facility] BLOOD INC INC VENIPUNCT URE Encounters Encounter Start End Date Code Location Performer Type Date HOSPITAL [facility] [place] [facility]IEN INC T OFFICE 85608 [facility] OUTPATIEN 7 7 [facility] T VISIT 5 INC MINUTES [facility] - 7 7 [facility] OFF[facility] 97602 [facility] OUTPATIEN 7 7 [facility] T VISIT 5 INC MINUTES [facility]OSP[facility] - 7 7 [facility] OFF[facility] 85040 [facility] OUTPATIEN 7 7 [facility] VISIT MEDICAL 25 G MINUTES OFFICE 04528 [facility] OUTPATIEN 7 7 PHYSICIAN T VISIT S GROUP 25 MINUTES HOSPITAL [facility] - 7 7 [facility] OFFICE 76017 [facility] OUTPATIEN 7 7 [facility] T VISIT 5 INC MINUTES [facility] RADHA - 7 7 [facility] 7 7 [facility] - 6 6 [facility] - 6 6 [facility] - 6 6 [facility] - 6 6 [facility] - 6 6 [facility] - 6 6 [facility] - 6 6 [facility] - 6 6 [facility] - 6 6 [facility] - 6 6 [facility] OUTPATIEN INC OFFICE 63698 [place] [facility] OUTPATIEN 6 6 MEDICAL T NEW 45 SERV MINUTES [facility] RADHA - 6 6 [facility] 6 6 [facility] 6 6 [facility] OFFICE 97717 [facility] OUTPATIEN 6 6 [facility] T VISIT MEDICAL 40 G MINUTES [facility] RADHA - 6 6 [facility] - 6 6 [facility] OUTPATIEN [facility] T OFFICE 21249 AMELIA CISNEROS OUTPATIEN 6 6 DAVID JAM T VISIT 25 MINUTES [facility] RADHA - 6 6 [facility] OFF[facility] 04832 [facility] 6 6 PHYSICIAN KEI T VISIT S GROUP 25 MINUTES [facility] RADHA - 6 6 [facility]
--- OUTSIDE RECORDS SUMMARY | 2017-01-19 21:21 | External Medical Summary Rpt ---
Author Author , Organization [employer] Address Unknown Phone Unavailable Care Team Providers Care Buyer Tobacco Head Name Role Phone LEATHA YASMIN, Unavailable Unavailable LEATHA YASMIN IVON, IVON Unavailable Unavailable IVON KEI, IVON Unavailable Unavailable [facility] Un[facility] Unavailable INC, [facility], Unavailable Unavailable [facility] Unavailable Unavailable [facility] AMELIA HERNANDEZ, Unavailable Unavailable [facility] DAVID HERNANDEZ, Unavailable Unavailable [facility] J[facility] Unavailable Unavailable EQUIPME, [facility] Unavailable [facility]available [facility], [facility], Unavailable Unavailable [facility] VIOLETA MCDANIEL Unavailable Unavailable VIOLETA FALLON Unavailable Unavailable XIANG OTOOLE, GAVIN OTOOLE Unavailable Unavailable Purpose Continuity of Care Document - 06-03-2016 through 2016 Problems Code Diagnosis DOS Provider Status [id number] ENCOUNTER 12-09-2016 [facility] THERAPEUTIC INC DRUG LEVEL MONITORING Z7901 RETIREMENT 12-09-2016 [facility] CURRENT USE [facility] OF INC ANTICOAGULA NTS Z952 PRESENCE OF 12-09-2016 [facility] HEART INC VALVE G4730 SLEEP APNEA 11-29-2016 [facility] UNSPECIFIED INC I2510 ASHD [place] 11-18-2016 [facility] 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 ANGINA PECTORIS I482 CHRONIC 11-18-2016 [facility] ATRIAL HEALTH FIBRILLATIO MEDICAL G N I5043 ACUTE ON 11-18-2016 [facility] CHRONIC HEALTH COMB MEDICAL G SYSTOLIC & DIASTOLIC CHF E039 HYPOTHYROID 10-30-2016 [facility] PHYSICIANS UNSPECIFIED GROUP E119 TYPE 2 10-30-2016 [facility] DIABETES PHYSICIANS MELLITUS GROUP WITHOUT COMPLICATIO NS E663 OVERWEIGHT 10-30-2016 [facility] G4733 OBSTRUCTIVE 10-25-2016 [facility] ADULT MEDICAL PEDIATRIC EQUIPME J449 CHRONIC 10-25-2016 [facility] PULMONARY MEDICAL DISEASE UNS EQUIPME I10 ESSENTIAL 08-22-2016 [facility] HYPERTENSIO INC N I4891 UNSPECIFIED 08-14-2016 [facility] A[facility]IAL HOSPITAL FIBRILLATIO N I5023 ACUTE CHRON 08-14-2016 [facility] HEART MEDICAL G FAILURE I509 HEART 08-14-2016 [facility] FAILURE [facility] UNSPECIFIED I517 CARDIOMEGAL 08-14-2016 [facility] Y HOSPITAL R931 ABNORMAL 08-14-2016 [facility] FINDINGS ON HOSPITAL DX IMAGING HEART & COR CIRC Z969 PRESENCE OF 08-14-2016 [facility] FUNCTIONAL [facility] IMPLANT UNSPECIFIED I129 HYPERTENSIV 07-29-2016 [place] [facility] W/STAGE 1-4 [facility] CKD OR UNS CKD N183 CHRONIC 07-29-2016 [facility] DISEASE [facility] STAGE 3 MODERATE E785 HYPERLIPIDE 07-09-2016 [facility] UNSPECIFIED MEDICAL G [id number] VITREOUS 06-26-2016 [facility] REYESCHANDAN HERNANDEZ N RIGHT EYE [id number] VITREOUS 06-26-2016 [facility] MARYCRUZ HERNANDEZ N LEFT EYE Medications Na ND Rx Da Fi Fi Am Da Di Ph RX Ph St me C No te ll ll ou ys ag ar # ys at rm s nt no ma ic us Or Da si cy ia de te s n re d GL 68 03 04 45 30 00 HO Ac IM 00 -2 -1 .0 00 ME ti EP 10 06 TO ve IR 17 20 20 08 WN ID 80 17 17 15 E 3 08 PH 2 AR MG MA CY TA BL OF ET CY NT HI AN A LE 00 03 04 30 30 00 HO Ac VO 52 -2 -1 .0 00 ME ti TH 71 06 TO ve YR 34 20 20 08 WN OX 70 17 17 15 IN 1 05 PH E AR 12 MA 5 CY MC G OF TA BL CY ET NT HI AN A FE 00 03 04 30 30 00 HO Ac NO 37 -2 -1 .0 00 ME ti FI 83 4 06 TO ve BR 06 20 20 08 WN AT 67 17 17 15 E 7 04 PH 14 AR 5 MA MG CY TA OF BL ET CY NT HI AN A LI 68 03 04 30 30 00 HO Ac SI 18 -2 -1 .0 00 ME ti NO 00 06 TO ve MD 51 20 20 07 WN IL 80 17 17 99 -H [address] AR Z MA 10 CY -1 2. OF 5 MG CY NT TA HI B AN A SP 53 03 04 15 30 00 HO Ac IR 74 -2 -1 .0 00 ME ti ON 60 1- 4- 00 06 TO ve OL 51 20 20 07 WN AC 10 17 17 99 TO 1 12 PH NE AR MA 25 CY MG OF TA CY BL NT ET HI AN A CA 68 03 04 60 30 00 HO Ac RV 00 -2 -1 .0 00 ME ti ED 10 1- 4- 00 06 TO ve IL 15 20 20 07 WN OL 20 17 17 99 3 11 PH 25 AR MA MG CY TA OF BL ET CY NT HI AN A MD 68 03 04 30 30 00 HO Ac AV 18 -2 -1 .0 00 ME ti 00 1- 4- 00 06 TO ve TA 48 20 20 07 WN TI 80 17 17 99 N 9 09 PH SO AR DI MA UM CY 80 OF MG CY NT TA HI B AN A DI 00 03 04 30 30 00 HO Ac GO 11 -2 -1 .0 00 ME ti XI 59 1- 4- 00 06 TO ve N 82 20 20 07 WN 25 20 17 17 37 0 1 30 PH MC AR G MA TA CY BL ET OF CY NT HI AN A FU 69 03 04 45 30 00 HO Ac RO 31 -2 -1 .0 00 ME ti SE 50 1- 4- 00 06 TO ve OK 11 20 20 07 WN DE 71 17 17 37 0 31 PH 40 AR MA MG CY TA OF BL ET CY NT HI AN A WA 00 03 04 30 30 00 HO Ac RF 09 -2 -1 .0 00 ME ti AR 31 1- 4- 00 06 TO ve IN 71 20 20 08 WN 50 17 17 35 SO 1 91 PH DI AR UM MA 3 CY MG OF TA CY BL NT ET HI AN A CA 00 03 04 [...] 00 ME ti NO 00 6- 7- 00 06 TO ve MD 51 20 20 07 WN IL 80 17 17 99 -H [address] AR Z MA 10 CY -1 2. OF 5 MG CY NT TA HI B AN A SP 53 02 03 15 30 00 HO Ac IR 74 -1 -1 .0 00 ME ti ON 60 6- 7- 00 06 TO ve OL 51 20 20 07 WN AC 10 17 17 99 TO 1 12 PH NE AR MA 25 CY MG OF TA CY BL NT ET HI AN A CA 68 02 03 60 30 00 HO Ac RV 00 -1 -1 .0 00 ME ti ED 10 6- 7- 00 06 TO ve IL 15 20 20 07 WN OL 20 17 17 99 3 11 PH 25 AR MA MG CY TA OF BL ET CY NT HI AN A MD 68 02 03 30 30 00 HO Ac AV 18 -1 -1 .0 00 ME ti 00 6- 7- 00 06 TO ve TA 48 20 20 07 WN TI 80 17 17 99 N 9 09 PH SO AR DI MA UM CY 80 OF MG CY NT TA HI B AN A WA 00 02 03 30 30 00 HO Ac RF 09 -1 -1 .0 00 ME ti AR 31 6- 7- 00 06 TO ve IN 71 20 20 07 WN 50 17 17 59 SO 1 09 PH DI AR UM MA 3 CY MG OF TA CY BL NT ET HI AN A LE 00 02 03 30 30 00 HO Ac VO 52 -1 -1 .0 00 ME ti TH 71 6- 7- 00 06 TO ve YR 34 20 20 08 WN OX 70 17 17 15 IN 1 05 PH E AR 12 MA 5 CY MC G OF TA BL CY ET NT HI AN A GL 68 02 03 45 30 00 HO Ac IM 00 -1 -1 .0 00 ME ti EP 10 6- 7- 00 06 TO ve IR 17 20 20 08 WN ID 80 17 17 15 E 3 08 PH 2 AR MG MA CY TA BL OF ET CY NT HI AN A FE 00 02 03 30 30 00 HO Ac NO 37 -1 -1 .0 00 ME ti FI 83 6- 7- 00 06 TO ve BR 06 20 20 08 WN AT 67 17 17 15 E 7 04 PH 14 AR 5 MA MG CY TA OF BL ET CY NT HI AN A FU 69 02 03 45 30 00 HO Ac RO 31 -1 -1 .0 00 ME ti SE 50 6- 7- 00 06 TO ve OK 11 20 20 07 WN DE 71 17 17 37 0 31 PH 40 AR MA MG CY TA OF BL ET CY NT HI AN A DI 00 02 03 30 30 00 HO Ac GO 11 -1 -1 .0 00 ME ti XI 59 6- 7- 00 06 TO ve N 82 20 20 07 WN 25 20 17 17 37 0 1 30 PH MC AR G MA TA CY BL ET OF CY NT HI AN A AC 00 02 03 30 30 00 HO Ac ET 09 -0 -0 .0 00 ME ti AM 30 8- 3- 00 04 TO ve IN 15 20 20 02 WN OP 01 17 17 13 HE 0 94 PH N- AR CO MA D CY #3 OF TA BL CY ET NT HI AN A CA 00 03 30 30 00 HO Ac LC 90 -0 -0 .0 00 ME ti IU 43 8- 3- 00 06 TO ve M 23 20 20 08 WN 60 39 17 17 10 0- 2 65 PH AR T MA D3 CY 40 OF 0 TA CY BL NT ET HI AN A LE 02 30 30 00 HO Ac VO 52 -1 -1 .0 00 ME ti TH 71 9- 7- 00 06 TO ve YR 34 20 20 07 WN OX 70 17 17 54 IN 1 01 PH E AR 12 MA 5 CY MC G OF TA BL CY ET NT HI AN A FE 02 30 30 00 HO Ac NO 37 -1 -1 .0 00 ME ti FI 83 9- 7- 00 06 TO ve BR 06 20 20 07 WN AT 67 17 17 46 E 7 90 PH 14 AR 5 MA MG CY TA OF BL ET CY NT HI AN A FU 69 01 02 45 30 00 HO Ac RO 31 -1 -1 .0 00 ME ti SE 50 9- 7- 00 06 TO ve OK 11 20 20 07 WN DE 71 17 17 37 0 31 PH 40 AR MA MG CY TA OF BL ET CY NT HI AN A DI 02 30 30 00 HO Ac GO 11 -1 -1 .0 00 ME ti XI 59 9- 7- 00 06 TO ve N 82 20 20 07 WN 25 20 17 17 37 0 1 30 PH MC AR G MA TA CY BL ET OF CY NT HI AN A GL 68 01 02 45 30 00 HO Ac IM 00 -1 -1 .0 00 ME ti EP 10 9- 7- 00 06 TO ve IR 17 20 20 07 WN ID 80 17 17 46 E 3 91 PH 2 AR MG MA CY TA BL OF ET CY NT HI AN A WA 00 02 30 30 00 HO Ac RF 09 -1 -1 .0 00 ME ti AR 31 9- 7- 00 06 TO ve IN 71 20 20 07 WN 50 17 17 59 SO 1 09 PH DI AR UM MA 3 CY MG OF TA CY BL NT ET HI AN A MD 68 01 02 30 30 00 HO Ac AV 18 -2 -1 .0 00 ME ti 00 0- 7- 00 06 TO ve TA 48 20 20 07 WN TI 80 17 17 99 N 9 09 PH SO AR DI MA UM CY 80 OF MG CY NT TA HI B AN A CA 68 01 02 60 30 00 HO Ac RV 00 -2 -1 .0 00 ME ti ED 10 0- 7- 00 06 TO ve IL 15 20 20 07 WN OL 20 17 17 99 3 11 PH 25 AR MA MG CY TA OF BL ET CY NT HI AN A SP 53 01 02 15 30 00 HO Ac IR 74 -2 -1 .0 00 ME ti ON 60 0- 7- 00 06 TO ve OL 51 20 20 07 WN AC 10 17 17 99 TO 1 12 PH NE AR MA 25 CY MG OF TA CY BL NT ET HI AN A LI 68 01 02 30 30 00 HO Ac SI 18 -2 -1 .0 00 ME ti NO 00 0- 7- 00 06 TO ve MD 51 20 20 07 WN IL 80 17 17 99 -H [address] AR Z MA 10 CY -1 2. OF 5 MG CY NT TA HI B AN A LE 00 12 01 30 30 00 HO Ac VO 52 -1 -0 .0 00 ME ti TH 71 3- 9- 00 06 TO ve YR 34 20 20 07 WN OX 70 16 17 54 IN 1 01 PH E AR 12 MA 5 CY MC G OF TA BL CY ET NT HI AN A FE 00 12 01 30 30 00 HO Ac NO 37 -1 -0 .0 00 ME ti FI 83 3- 9- 00 06 TO ve BR 06 20 20 07 WN AT 67 16 17 46 E 7 90 PH 14 AR 5 MA MG CY TA OF BL ET CY NT HI AN A FU 69 12 01 45 30 00 HO Ac RO 31 -1 -0 .0 00 ME ti SE 50 3- 9- 00 06 TO ve OK 11 20 20 07 WN DE 71 16 17 37 0 31 PH 40 AR MA MG CY TA OF BL ET CY NT HI AN A DI 00 12 01 30 30 00 HO Ac GO 11 -1 -0 .0 00 ME ti XI 59 3- 9- 00 06 TO ve N 82 20 20 07 WN 25 20 16 17 37 0 1 30 PH MC AR G MA TA CY BL ET OF CY NT HI AN A LI 68 12 01 30 30 00 HO Ac SI 18 -1 -0 .0 00 ME ti NO 00 3 06 TO ve MD 51 20 20 05 WN IL 80 16 17 65 -H [address] AR Z MA 10 CY -1 2. OF 5 MG CY NT TA HI B AN A CA 68 12 01 60 30 00 HO Ac RV 00 -1 -0 .0 00 ME ti ED 10 3- 06 TO ve IL 15 20 20 05 WN OL 20 16 17 65 3 61 PH 25 AR MA MG CY TA OF BL ET CY NT HI AN A MD 68 12 01 30 30 00 HO Ac AV 18 -1 -0 .0 00 ME ti 00 06 TO ve TA 48 20 20 05 WN TI 80 16 17 65 N 9 58 PH SO AR DI MA UM CY 80 OF MG CY NT TA HI B AN A SP 53 12 01 15 30 00 HO Ac IR 74 -1 -0 .0 00 ME ti ON 60 06 TO ve OL 51 20 20 05 WN AC 10 16 17 65 TO 1 56 PH NE AR MA 25 CY MG OF TA CY BL NT ET HI AN A Procedures Procedure DOS Code Location Performer Comment PROTHROMB 82313 [facility] IN TIME 7 [facility] INC INC POLYSOM 56169 [facility] G[facility] 6/>YRS 7 [facility] SLEEP 4/> INC INC ADDL KENDRA ATTND PROTHROMB 14685 [facility] G[facility] IN TIME 7 [facility] INC INC ECG 29036 [facility] ROUTINE 7 [facility] MEDICAL W/LEAST G 12 LDS W/I&[place] [address] [facility] FREE 7 [facility] [place] [address] [facility] G[facility] THYROID 7 [facility] STIMULATI INC INC NG HORMONE TSH HEMOGLOBI 04923 [facility] G[facility] N 7 [facility] GLYCOSYLA INC INC AJAY A1C TUBING A7037 [facility] ALLEN USED WITH 7 HOME HOME POSITIVE MEDICAL MEDICAL AIRWAY EQUIPME EQUIPME PRESSURE DEVICE FULL FACE A7030 [facility] CUNNINGHAMRELL MASK 7 HOME HOME USED MEDICAL MEDICAL W/POS EQUIPME EQUIPME ARWAY PRESS DEVICE EA PROTHROMB 45264 [facility] G[facility] IN TIME 7 [facility] A7035 [facility] ALLEN USED 7 HOME HOME W/POSITIV MEDICAL MEDICAL E AIRWAY EQUIPME EQUIPME PRESSURE DEVICE HOSPITAL G0463 [facility] OUTPATIEN 7 [facility] T CLIN INC INC VISIT ASSESS & MGMT PT PROTHROMB 33756 [facility] IN TIME 7 [facility] G0463 [facility] G[facility] OUTPATIEN 7 [facility] T CLIN INC INC VISIT ASSESS & MGMT PT PROTHROMB 79733 [facility] IN TIME 7 [facility] PROTHROMB 60180 [facility] IN TIME 6 [facility] G0463 [facility] G[facility] OUTPATIEN 6 [facility] T CLIN INC INC VISIT ASSESS & MGMT PT PROTHROMB 44802 [facility] IN TIME 6 [facility] G0463 [facility] G[facility] OUTPATIEN 6 [facility] T CLIN INC INC VISIT ASSESS & MGMT PT THERAPEUT 58401 [facility] IC 6 [facility] PROPHYLAC INC INC TIC/DX INJECTION SUBQ/IM PROTHROMB 27641 [facility] IN TIME 6 [facility] INC COLLECTIO 84686 [facility] N VENOUS 6 [facility] BLOOD INC INC VENIPUNCT URE PROTHROMB 10571 [facility] IN TIME 6 [facility] G0463 [facility] G[facility] OUTPATIEN 6 [facility] T CLIN INC INC VISIT ASSESS & MGMT PT CALCIUM 94784 [facility] IONIZED 6 [facility] [place] [address] [facility] BLOOD/URI 6 [facility] C ACID INC INC ALBUMIN 35070 [facility] URINE 6 [facility] MICROALBU INC INC MIN QUANTIATI VE 25 75228 [facility] G[facility] HYDROXY 6 [facility] INCLUDES [place] [address] [facility] G[facility] PARATHORM 6 [facility] ONE INC INC PROTHROMB 78804 [facility] IN TIME 6 [facility] INC INC COLLECTIO 48185 [facility] N VENOUS 6 [facility] BLOOD INC INC VENIPUNCT URE RENAL 64516 [facility] FUNCTION 6 [facility] PANEL INC INC URNLS DIP 00796 [facility]IA 6 [facility] STICK/TAB INC INC LET REAGENT AUTO MICROSCOP Y BLOOD 92630 [facility] COUNT 6 [facility] COMPLETE INC INC AUTO&[place] [address] [facility] RETROPERI 6 [facility] TONEAL INC [place] [address] [facility] RETROPERI 6 MEDICAL YASMIN TONEAL IMAGING REAL TIME ASS W/IMAGE LIMITED ECHO 72439 [facility] MCDANIEL TTC R-T 6 [facility] 2D MEDICAL W/WOM-MOD G E COMPL SPEC&COLR D COLLECTIO 70709 [facility] N VENOUS [address] [place] [address] BLOOD VENIPUNCT URE PROTHROMB 12216 [facility] IN TIME [address] [place] [address] HOSPITAL BASIC 77159 [facility] METABOLIC [address] [place] [address] HOSPITAL PANEL CALCIUM [facility] G0463 [facility] OUTPATIEN 6 [facility] T CLIN INC INC VISIT ASSESS & MGMT PT PROTHROMB 27110 [facility] G[facility] IN TIME 6 [facility] INC INC PROTHROMB 07093 [facility]HA IN TIME 6 [facility] INC INC COLLECTIO 75786 [facility] N VENOUS 6 [facility] BLOOD INC INC VENIPUNCT URE HOSPITAL G0463 [facility] OUTPATIEN 6 [facility] T CLIN INC INC VISIT ASSESS & MGMT PT HOSPITAL G0463 [facility] OUTPATIEN 6 [facility] T CLIN INC INC VISIT ASSESS & MGMT PT COLLECTIO 89284 [facility] N VENOUS 6 [facility] BLOOD INC INC VENIPUNCT URE PROTHROMB 32230 [facility] G[facility]IA IN TIME 6 [facility] INC INC COLLECTIO 85176 [facility]HA N VENOUS 6 [facility] [place] [address] [facility] GARCIA PARATHORM 6 [facility]OS[facility] ONE INC INC 25 63698 [facility] G[facility] HYDROXY 6 [facility] INCLUDES INC INC FRACTIONS IF PERFORMED BLOOD 55643 [facility] G[facility]IA COUNT 6 [facility] COMPLETE INC INC AUTO&AUTO DIFRNTL WBC URNLS DIP 68029 [facility] LOPEZON 6 [facility] STICK/TAB INC INC LET REAGENT AUTO MICROSCOP Y CREATININ 80902 [facility] E OTHER 6 [facility] SOURCE INC INC RENAL 08284 [facility] FUNCTION 6 [facility] PANEL INC INC PROTEIN 26630 [facility] XCPT 6 [facility] REFRACTOM INC INC ETRY SERUM PLASMA/WH L [facility] G0463 [facility]IA OUTPATIEN 6 [facility] T CLIN INC INC VISIT ASSESS & MGMT PT PROTHROMB 73309 [facility] GARCIA IN TIME 6 [facility] INC INC HOSPITAL G0463 [facility] OUTPATIEN 6 [facility] T CLIN INC INC VISIT ASSESS & MGMT PT PROTHROMB 98645 [facility] G[facility] IN TIME 6 [facility] INC INC ECG 62788 [facility] ROUTINE 6 [facility] ECG MEDICAL W/LEAST G 12 LDS W/I&R HOSPITAL G0463 [facility] G[facility]IA OUTPATIEN 6 [facility] T CLIN INC INC VISIT ASSESS & MGMT PT PROTHROMB 45874 [facility] GARCIA IN TIME 6 [facility] INC INC COLLECTIO 80738 RAD[facility] GARCIA N VENOUS 6 [facility] BLOOD INC INC VENIPUNCT URE HOSPITAL G0463 [facility] G[facility]IA OUTPATIEN 6 [facility] T CLIN INC INC VISIT ASSESS & MGMT PT PROTHROMB 62525 [facility]IA IN TIME 6 [facility] INC INC COLLECTIO 38818 [facility] G[facility] N VENOUS 6 [facility] BLOOD INC INC VENIPUNCT URE COMPREHEN 10760 [facility] G[facility]IA SIVE 6 [facility] [place] [address] [facility] GARCIA FREE 6 [facility] [place] [address] [facility] G[facility] THYROID 6 [facility] STIMULATI INC INC NG HORMONE TSH LIPID 64655 [facility] G[facility]IA PANEL 6 [facility] INC INC BLOOD 15560 [facility] COUNT 6 [facility] COMPLETE INC INC AUTO&AUTO DIFRNTL WBC HEMOGLOBI 27614 [facility] G[facility]IA N 6 [facility] GLYCOSYLA INC INC AJAY A1C PROTHROMB 57628 [facility] GARCIA IN TIME 6 [facility] INC INC HOSPITAL G0463 [facility]ARCIA OUTPATIEN 6 [facility] T CLIN INC INC VISIT ASSESS & MGMT PT HOSPITAL G0463 [facility] GARCIA OUTPATIEN 6 [facility] T CLIN INC INC VISIT ASSESS & MGMT PT PROTHROMB 83156 [facility]ARCIA IN TIME 6 [facility] INC INC COLLECTIO 28583 [facility] GARCIA N VENOUS 6 [facility] BLOOD INC INC VENIPUNCT URE Encounters Encounter Start End Date Code Location Performer Type Date OFFICE 37919 [facility] OUTPATIEN 7 7 [facility] T VISIT 5 INC MINUTES [facility]OSPITAL [facility] - 7 7 [facility] 7 [facility] OUTPATIEN [facility] T OFFICE 23116 RADHA OUTPATIEN 7 7 [facility] T [facility]ISIT 5 INC MINUTES HOSPITAL [facility] - 7 7 [facility] OUTPATIEN [facility] T OFFICE 39103 [facility] VIO[facility] OUTPAT[facility] 7 [facility] 25 G MINUTES [facility]OSPITAL [facility] - 7 7 [facility] OUTPATIEN [facility] OFFICE 83900 [facility] OUTPATIEN 7 7 PHYSICIAN T VISIT S GROUP 25 MINUTES HOSPITAL RAD[facility] - 7 7 [facility] OUTPATIEN [facility] OFFICE 14439 [facility] OUTPATIEN 7 7 [facility] T VISIT 5 INC MINUTES [facility] RADHA - 7 7 [facility] OUTPATIEN [facility] RADHA - 7 7 [facility] OUTPATIEN [facility] RADHA - 6 6 [facility] OUTPATIEN [facility] RADHA - 6 6 [facility] OUTPATIEN [facility] RADHA - 6 6 [facility] OUTPATIEN [facility] RADHA - 6 6 [facility] OUTPATIEN [facility] RADHA - 6 6 [facility] OUTPATIEN [facility] RADHA - 6 6 [facility] OUTPATIEN [facility] [address] RADHA - 6 6 [facility] OUTPATIEN [facility] RADHA - 6 6 [facility] OUTPATIEN [facility] RADHA - 6 6 [facility] OUTPATIEN [facility] OFFICE 6[address] [place] GAVIN OTOOLE OUTPATIEN 6 6 MEDICAL T NEW 45 SERV MINUTES [facility] RADHA - 6 6 [facility] OUTPATIEN [facility] RADHA - 6 6 [facility] OUTPATIEN [facility] RADHA - 6 6 [facility] OUTPATIEN [facility] T OFFICE 70007 SYDNEE MCDANIEL OUTPATIEN 6 6 [facility] T VISIT MEDICAL 40 G MINUTES [facility] RADHA - 6 6 [facility] OUTPATIEN [facility] - 6 6 [facility] OUTPATIEN [facility] T OFFICE 33867 AMELIA CISNEROS OUTPATIEN 6 6 JAM DAVID T VISIT 25 MINUTES [facility] RADHA - 6 6 [facility] OUTPATIEN [facility] OFFICE 47633 [facility] OUTPATIEN 6 6 PHYSICIAN KEI T VISIT S GROUP 25 MINUTES [facility] RADHA - 6 6 [facility] OUTPATIEN [facility] RADHA - 6 6 [facility] OUTPATIEN [facility]
--- OUTSIDE RECORDS SUMMARY | 2017-01-19 21:21 | External Medical Summary Rpt ---
Demographics Preferred Language Ugandan Marital Status Unknown Quaker Affiliation Unknown Race Unknown Ethnic Group Unknown Author Author , Organization [employer] Address Unknown Phone Unavailable Purpose Continuity of Care Document - through 2016 Immunization No patient found.
--- OUTSIDE RECORDS SUMMARY | 2017-01-19 21:21 | External Medical Summary Rpt ---
Author Author , Organization [employer] Address Unknown Phone Unavailable Care Team Providers Care Local Coordinator Name Role Phone LEATHA YASMIN, Unavailable Unavailable LEATHA YASMIN IVON, IVON Unavailable Unavailable IVON KEI, IVON Unavailable Unavailable [facility] Un[facility] Unavailable INC, [facility], Unavailable Unavailable [facility] Unavailable [facility]available [facility], [facility] AMELIA HERNANDEZ, Unavailable Unavailable [facility] DAVID HERNANDEZ, Unavailable Unavailable [facility] J[facility] Unavailable Unavailable [facility], [facility] Unavailable [facility]available [facility], [facility], Unavailable Unavailable [facility] VIOLETA MCDANIEL Unavailable Unavailable VIOLETA FALLON Unavailable Unavailable XIANG OTOOLE, GAVIN OTOOLE Unavailable Unavailable Purpose Continuity of Care Document - 06-03-2016 through 2016 Problems Code Diagnosis DOS Provider Status Z5181 ENCOUNTER 12-09-2016 [facility] THERAPEUTIC INC DRUG LEVEL MONITORING Z7901 LONGTERM 12-09-2016 [facility] CURRENT USE [facility] OF INC ANTICOAGULA NTS Z952 PRESENCE OF 12-09-2016 [facility] HEART INC VALVE G4730 SLEEP APNEA 11-29-2016 [facility] UNSPECIFIED INC I2510 ASHD [place] 11-18-2016 [facility] 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 ANGINA PECTORIS I482 CHRONIC 11-18-2016 [facility] ATRIAL HEALTH FIBRILLATIO MEDICAL G N I5043 ACUTE ON 11-18-2016 [facility] CHRONIC HEALTH COMB MEDICAL G SYSTOLIC & DIASTOLIC CHF E039 HYPOTHYROID 10-30-2016 [facility] ISM PHYSICIANS UNSPECIFIED GROUP E119 TYPE 2 10-30-2016 [facility] DIABETES PHYSICIANS MELLITUS GROUP WITHOUT COMPLICATIO NS E663 OVERWEIGHT 10-30-2016 [facility] G4733 OBSTRUCTIVE 10-25-2016 [facility] APNEA ADULT MEDICAL PEDIATRIC EQUIPME J449 CHRONIC 10-25-2016 [facility] PULMONARY MEDICAL DISEASE UNS EQUIPME I10 ESSENTIAL 08-22-2016 [facility] HYPERTENSIO INC N I4891 UNSPECIFIED 08-14-2016 [facility] ATRIAL HOSPITAL FIBRILLATIO N I5023 ACUTE CHRON 08-14-2016 [facility] HEART MEDICAL G FAILURE I509 HEART 08-14-2016 [facility] FAILURE [facility] UNSPECIFIED I517 CARDIOMEGAL 08-14-2016 [facility] Y HOSPITAL R931 ABNORMAL 08-14-2016 [facility] FINDINGS ON HOSPITAL DX IMAGING HEART & COR CIRC Z969 PRESENCE OF 08-14-2016 [facility] FUNCTIONAL [facility] IMPLANT UNSPECIFIED I129 HYPERTENSIV 07-29-2016 [place] [facility] SERV W/STAGE 1-4 [facility] CKD OR UNS CKD N183 CHRONIC 07-29-2016 [facility] DISEASE [facility] STAGE 3 MODERATE E785 HYPERLIPIDE 07-09-2016 [facility] UNSPECIFIED MEDICAL G I82553 VITREOUS 06-26-2016 AMELIA REYESCHANDAN HERNANDEZ N RIGHT EYE X37826 VITREOUS 06-26-2016 [facility] MARYCRUZ HERNANDEZ N LEFT [...] ME ti NO 00 06 TO ve SD 51 20 20 07 WN IL 80 [...] BL ET CY NT HI AN A SD 68 03 04 30 30 00 HO [...] 50 1- 4- 00 06 TO ve MA 11 20 20 07 WN DE 71 [...] 00 6- 7- 00 06 TO ve SD 51 20 20 07 WN IL 80 [...] BL ET CY NT HI AN A SD 68 02 03 30 30 00 HO [...] 50 6- 7- 00 06 TO ve MA 11 20 20 07 WN DE 71 [...] 50 9- 7- 00 06 TO ve MA 11 20 20 07 WN DE 71 [...] CY BL NT ET HI AN A SD 68 01 02 30 30 00 HO [...] 00 0- 7- 00 06 TO ve SD 51 20 20 07 WN IL 80 [...] 50 3- 9- 00 06 TO ve MA 11 20 20 07 WN DE 71 [...] ti NO 00 3 06 TO ve SD 51 20 20 05 WN IL 80 [...] BL ET CY NT HI AN A SD 68 12 01 30 30 00 HO [...] Procedure DOS Code Location Performer Comment PROTHROMB 55474 [facility] GARCIA IN TIME 7 [facility] INC INC POLYSOM 73619 [facility] GARCIA 6/>YRS 7 [facility] SLEEP 4/> INC INC ADDL KENDRA ATTND PROTHROMB 24327 [facility]ARCIA IN TIME 7 [facility] INC INC ECG 48314 [facility] ROUTINE 7 [facility] ECG MEDICAL W/LEAST G 12 LDS W/I&[place] [address] [facility] GARCIA FREE 7 [facility] [place] [address] [facility] THYROID 7 [facility] STIMULATI INC INC NG HORMONE TSH HEMOGLOBI 43910 [facility] GARCIA N 7 [facility] GLYCOSYLA INC INC AJAY A1C TUBING A7037 [facility] ALLEN USED WITH 7 HOME HOME POSITIVE MEDICAL MEDICAL AIRWAY EQUIPME EQUIPME PRESSURE DEVICE FULL FACE A7030 [facility] CUNNINGHAMRELL MASK 7 HOME HOME USED MEDICAL MEDICAL W/POS EQUIPME EQUIPME ARWAY PRESS DEVICE EA PROTHROMB 32609 [facility] GARCIA IN TIME 7 [facility] HEADGEAR A7035 [facility] ALLEN USED 7 HOME HOME W/POSITIV MEDICAL MEDICAL E AIRWAY EQUIPME EQUIPME PRESSURE DEVICE HOSPITAL G0463 [facility] G[facility]IA OUTPATIEN 7 [facility] INC INC VISIT ASSESS & MGMT PT PROTHROMB 51340 [facility] G[facility]IA IN TIME 7 [facility] G0463 [facility] OUTPATIEN 7 [facility] T CLIN INC INC VISIT ASSESS & MGMT PT PROTHROMB 11930 [facility] GARCIA IN TIME 7 [facility] PROTHROMB 56206 [facility] GARCIA IN TIME 6 [facility] G0463 [facility]IA OUTPATIEN 6 [facility] INC INC VISIT ASSESS & MGMT PT PROTHROMB 45043 [facility] GARCIA IN TIME 6 [facility] G0463 [facility] OUTPATIEN 6 [facility] INC INC VISIT ASSESS & MGMT PT THERAPEUT 20752 [facility] G[facility]IA IC 6 [facility] PROPHYLAC INC INC TIC/DX INJECTION SUBQ/IM PROTHROMB 74353 [facility] GARCIA IN TIME 6 [facility] INC COLLECTIO 84874 RAD[facility] GARCIA N VENOUS 6 [facility] BLOOD INC INC VENIPUNCT URE PROTHROMB 72377 [facility] GARCIA IN TIME 6 [facility] G0463 [facility] G[facility] OUTPATIEN 6 [facility] T CLIN INC INC VISIT ASSESS & MGMT PT CALCIUM 62709 [facility] G[facility]IA IONIZED 6 [facility] [place] [address] RAD[facility] GARCIA BLOOD/URI 6 [facility] C ACID INC INC ALBUMIN 75833 RAD[facility] GARCIA URINE 6 [facility] MICROALBU INC INC MIN QUANTIATI VE 25 62064 RADHA GARCIA HYDROXY 6 [facility] INCLUDES [place] [address] RAD[facility] GARCIA PARATHORM 6 [facility] ONE INC INC PROTHROMB 13352 [facility] GARCIA IN TIME 6 [facility] INC INC COLLECTIO 04331 [facility] GARCIA N VENOUS 6 [facility] BLOOD INC INC VENIPUNCT URE RENAL 52761 [facility] G[facility] FUNCTION 6 [facility] PANEL INC INC URNLS DIP 53052 [facility] G[facility]IA 6 [facility] STICK/TAB INC INC LET REAGENT AUTO MICROSCOP Y BLOOD 91156 [facility] G[facility] COUNT 6 [facility] COMPLETE INC INC AUTO&[place] [address] [facility] G[facility]IA RETROPERI 6 [facility] TONEAL INC [place] [address] [facility] LUMPKINTanvi LEATHA RETROPERI 6 MEDICAL YASMIN TONEAL IMAGING REAL TIME ASS W/IMAGE LIMITED ECHO 49316 [facility] LUMPKINVALENTIN MCDANIEL TTC R-T 6 [facility] 2D MEDICAL W/WOM-MOD G E COMPL SPEC&COLR D COLLECTIO 81932 [facility] N VENOUS [address] [place] [address] BLOOD VENIPUNCT URE PROTHROMB 84073 [facility] IN TIME [address] [place] [address] HOSPITAL BASIC 96521 [facility] METABOLIC [address] [place] [address] HOSPITAL PANEL CALCIUM [facility] G0463 [facility] G[facility] OUTPATIEN 6 [facility] T CLIN INC INC VISIT ASSESS & MGMT PT PROTHROMB 02908 [facility] G[facility]IA IN TIME 6 [facility] INC INC PROTHROMB 12693 RADHA RADHA IN TIME 6 [facility] INC INC COLLECTIO 12420 [facility] G[facility]IA N VENOUS 6 [facility] BLOOD INC INC VENIPUNCT URE HOSPITAL G0463 [facility] GARCIA OUTPATIEN 6 [facility] T CLIN INC INC VISIT ASSESS & MGMT PT HOSPITAL G0463 [facility] GARCIA OUTPATIEN 6 [facility] T CLIN INC INC VISIT ASSESS & MGMT PT COLLECTIO 48572 [facility] GARCIA N VENOUS 6 [facility] BLOOD INC INC VENIPUNCT URE PROTHROMB 09147 [facility] GARCIA IN TIME 6 [facility] INC INC COLLECTIO 49552 RADHA [facility]HA N VENOUS 6 [facility] [place] [address] RAD[facility] GARCIA PARATHORM 6 [facility] ONE INC INC 25 45637 [facility] G[facility]IA HYDROXY 6 [facility] INCLUDES INC INC FRACTIONS IF PERFORMED BLOOD 00963 [facility] G[facility]IA COUNT 6 [facility] COMPLETE INC INC AUTO&AUTO DIFRNTL WBC URNLS DIP 07310 [facility] LOPEZON 6 [facility] STICK/TAB INC INC LET REAGENT AUTO MICROSCOP Y CREATININ 03434 [facility] G[facility]IA E OTHER 6 [facility] SOURCE INC INC RENAL 98528 [facility] GARCIA FUNCTION 6 [facility] PANEL INC INC PROTEIN 12303 [facility]ARCIA XCPT 6 [facility] REFRACTOM INC INC ETRY SERUM PLASMA/WH L [facility]OSP[facility] G0463 [facility] GARCIA OUTPATIEN 6 [facility] T CLIN INC INC VISIT ASSESS & MGMT PT PROTHROMB 37552 [facility] GARCIA IN TIME 6 [facility] INC [facility]OSPITAL G0463 [facility]ARCIA OUTPATIEN 6 [facility] T CLIN INC INC VISIT ASSESS & MGMT PT PROTHROMB 52902 [facility] GARCIA IN TIME 6 [facility] INC INC ECG 72539 [facility] ROUTINE 6 [facility] ECG MEDICAL W/LEAST G 12 LDS [facility] G0463 [facility] GARCIA OUTPATIEN 6 [facility] T CLIN INC INC VISIT ASSESS & MGMT PT PROTHROMB 44429 [facility] GARCIA IN TIME 6 [facility] INC INC COLLECTIO 17768 [facility] G[facility]IA N VENOUS 6 [facility] BLOOD INC INC VENIPUNCT URE HOSPITAL G0463 [facility] GARCIA OUTPATIEN 6 [facility] CLIN INC INC VISIT ASSESS & MGMT PT PROTHROMB 84734 [facility] GARCIA IN TIME 6 [facility] INC INC COLLECTIO 06641 [facility] G[facility] N VENOUS 6 [facility] BLOOD INC INC VENIPUNCT URE COMPREHEN 80613 [facility] GARCIA SIVE 6 [facility] [place] [address] [facility] GARCIA FREE 6 [facility] [place] [address] [facility] G[facility] THYROID 6 [facility] STIMULATI INC INC NG HORMONE TSH LIPID 35284 [facility] GACRIA PANEL 6 [facility] INC INC BLOOD 93845 [facility] G[facility] COUNT 6 [facility] COMPLETE INC INC AUTO&AUTO DIFRNTL WBC HEMOGLOBI 99121 [facility] G[facility] N 6 [facility] GLYCOSYLA INC INC AJAY A1C PROTHROMB 22475 [facility] GARCIA IN TIME 6 [facility] INC HOSPITAL G0463 [facility] GARCIA OUTPATIEN 6 [facility] T CLIN INC INC VISIT ASSESS & MGMT PT HOSPITAL G0463 [facility] GARCIA OUTPATIEN 6 [facility] T CLIN INC INC VISIT ASSESS & MGMT PT PROTHROMB 62408 [facility] GARCIA IN TIME 6 [facility] INC INC COLLECTIO 93229 [facility] G[facility]IA N VENOUS 6 [facility] BLOOD INC INC VENIPUNCT URE Encounters Encounter Start End Date Code Location Performer Type Date OFFICE 59611 [facility] OUTPATIEN 7 7 [facility] T [facility]ISIT 5 INC MINUTES [facility]OSP[facility] - 7 7 [facility] - 7 7 [facility] OUTPAT[facility]EN [facility] T OFFICE 25512 [facility] OUTPATIEN 7 7 [facility] T [facility]ISIT 5 INC MINUTES [facility]OSPITAL [facility] - 7 7 [facility] OUTPAT[facility] T OFFICE 71233 [facility] V[facility]PAT[facility] G MINUTES [facility] - 7 7 [facility]PATIEN [facility] OFFICE 79252 [facility] OUTPATIEN 7 7 PHYSICIAN T VISIT S GROUP 25 MINUTES HOSPITAL [facility] - 7 7 [facility] OUTPATIEN [facility] OFFICE 22465 [facility] OUTPATIEN 7 7 [facility] T VISIT 5 INC MINUTES [facility] RADHA - 7 7 [facility] OUT[facility]EN [facility] RADHA - 7 7 [facility] RADHA - 6 6 [facility] RADHA - 6 6 [facility] RADHA - 6 6 [facility] RADHA - 6 6 [facility] RADHA - 6 6 [facility]PATIEN [facility] RAHDA - 6 6 [facility]PATIEN [facility] [address] RADHA - 6 6 [facility]PATI[facility] RADHA - 6 6 [facility] RADHA - 6 6 [facility] OUTPATIEN [facility] OFFICE 29221 [place] GAVIN OTOOLE OUTPATIEN 6 6 MEDICAL T NEW 45 SERV MINUTES [facility] RADHA - 6 6 [facility]PATIEN [facility] RADHA - 6 6 [facility]PATI[facility] RADHA - 6 6 [facility]PATI[facility] T OFFICE 50425 SYDNEE MCDANIEL OUTPATIEN 6 6 [facility] T VISIT MEDICAL 40 G MINUTES [facility] RADHA - 6 6 [facility] OUTPATIEN [facility] RADHA - 6 6 [facility] T OFFICE 93902 AMELIA CISNEROS OUTPATIEN 6 6 JAM DAVID T VISIT 25 MINUTES [facility] RADHA - 6 6 [facility] OUTPATIEN [facility] OFFICE 07373 [facility] OUTPATIEN 6 6 PHYSICIAN KEI T VISIT S GROUP 25 MINUTES [facility] RADHA - 6 6 [facility] OUT[facility]IEN [facility] RADHA - 6 6 [facility] OUT[facility]IEN [facility]
--- OUTSIDE RECORDS SUMMARY | 2017-01-19 21:21 | External Medical Summary Rpt ---
Demographics Preferred Language Palauan Marital Status Unknown Nondenominational Affiliation Unknown Race Unknown Ethnic Group Unknown Author Author , Organization [employer] Address Unknown Phone Unavailable Purpose Continuity of Care Document - through 2016 Immunization No patient found.
--- OUTSIDE RECORDS SUMMARY | 2017-01-19 21:24 | External Medical Summary Rpt ---
Author Author , Organization [employer] Address Unknown Phone Unavailable Care Team Providers Care Weigher Bulker Name Role Phone LEATHA YASMIN, Unavailable Unavailable LEATHA YASMIN IVON, IVON Unavailable Unavailable IVON KEI, IVON Unavailable Unavailable [facility] Un[facility] Un[facility], [facility], Unavailable Unavailable [facility] Unavailable Unavailable MEDICAL G, [facility], [facility] AMELIA HERNANDEZ, Unavailable Unavailable CISNEROSJOSE A HERNANDEZ, Unavailable Unavailable [facility] Unavailable Unavailable [facility], [facility] Unavailable Unavailable [facility], [facility], Unavailable Unavailable [facility] VIOLETA MCDANIEL Unavailable Unavailable VIOLETA FALLON Unavailable Unavailable XIAGN ALONSOGAVIN BURT XIANG Unavailable Unavailable Purpose Continuity of Care Document - 06-03-2016 through 2016 Problems Code Diagnosis DOS Provider Status [id number] ENCOUNTER 12-09-2016 [facility] THERAPEUTIC INC DRUG LEVEL MONITORING Z7901 CARE HOME 12-09-2016 [facility] CURRENT USE [facility] OF INC ANTICOAGULA NTS Z952 PRESENCE OF 12-09-2016 [facility] PROST[facility]TIC [facility] HEART INC VALVE G4730 SLEEP APNEA 11-29-2016 [facility] UNSPECIFIED INC I2510 ASHD [place] 11-18-2016 [facility] 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 ANGINA PECTORIS I482 CHRONIC 11-18-2016 [facility] ATRIAL HEALTH FIBRILLATIO MEDICAL G N I5043 ACUTE ON 11-18-2016 [facility] CHRONIC HEALTH COMB MEDICAL G SYSTOLIC & DIASTOLIC CHF E039 HYPOTHYROID 10-30-2016 [facility] ISM PHYSICIANS UNSPECIFIED GROUP E119 TYPE 2 10-30-2016 [facility] DIABETES PHYSICIANS MELLITUS GROUP WITHOUT COMPLICATIO NS E663 OVERWEIGHT 10-30-2016 [facility] G4733 OBSTRUCTIVE 10-25-2016 [facility] ADULT MEDICAL PEDIATRIC EQUIPME J449 CHRONIC 10-25-2016 [facility] OBSTRUCTIVE HOME PULMONARY MEDICAL DISEASE UNS EQUIPME I10 ESSENTIAL 08-22-2016 [facility] HOSP HYPERTENSIO INC N I4891 UNSPECIFIED 08-14-2016 [facility] ATRIAL HOSPITAL FIBRILLATIO N I5023 ACUTE CHRON 08-14-2016 [facility] HEART MEDICAL G FAILURE I509 HEART 08-14-2016 [facility] FAILURE HOSPITAL UNSPECIFIED I517 CARDIOMEGAL 08-14-2016 [facility] Y HOSPITAL R931 ABNORMAL 08-14-2016 [facility] FINDINGS ON HOSPITAL DX IMAGING HEART & COR CIRC Z969 PRESENCE OF 08-14-2016 [facility] FUNCTIONAL [facility] IMPLANT UNSPECIFIED I129 HYPERTENSIV 07-29-2016 [facility] W/STAGE 1-4 [facility] CKD OR UNS CKD N183 CHRONIC 07-29-2016 [facility] STAGE 3 MODERATE E785 HYPERLIPIDE 07-09-2016 [facility] UNSPECIFIED MEDICAL G W50312 VITREOUS 06-26-2016 AMELIA THAKURTARAH DAVID N RIGHT EYE [id number] VITREOUS 06-26-2016 AMEL[facility] THAKURTARAH DAVID N LEFT [...] -1 .0 00 ME ti EP 10 4- 06 TO ve IR 17 20 20 [...] 00 1- 4- 00 06 TO ve WV 51 20 20 07 WN IL 80 [...] BL ET CY NT HI AN A WV 68 03 04 30 30 00 HO [...] 50 1- 4- 00 06 TO ve LA 11 20 20 07 WN DE 71 [...] 00 6- 7- 00 06 TO ve WV 51 20 20 07 WN IL 80 [...] BL ET CY NT HI AN A WV 68 02 03 30 30 00 HO [...] 50 6- 7- 00 06 TO ve LA 11 20 20 07 WN DE 71 [...] ET NT HI AN A CA 00 02 03 30 30 00 HO Ac LC 90 -0 -0 .0 00 ME ti IU 43 8- 3- 00 06 TO ve M 23 20 20 08 WN 60 39 17 17 10 0- 2 65 PH AR T MA D3 CY 40 OF 0 TA CY BL NT ET HI AN A LE 00 01 02 30 30 00 HO Ac VO 52 -1 -1 .0 00 ME ti TH 71 9- 7- 00 06 TO ve YR 34 20 20 07 WN OX 70 17 17 54 IN 1 01 PH E AR 12 MA 5 CY MC G OF TA BL CY ET NT HI AN A FE 00 01 [...] 50 9- 7- 00 06 TO ve LA 11 20 20 07 WN DE 71 [...] CY NT HI AN A WA 00 01 02 30 30 00 HO Ac RF 09 -1 -1 .0 00 ME ti AR 31 9- 7- 00 06 TO ve IN 71 20 20 07 WN 50 17 17 59 SO 1 09 PH DI AR UM MA 3 CY MG OF TA CY BL NT ET HI AN A WV 68 01 02 30 30 00 HO [...] 00 0- 7- 00 06 TO ve WV 51 20 20 07 WN IL 80 [...] 50 3- 9- 00 06 TO ve LA 11 20 20 07 WN DE 71 [...] 00 3- 9- 00 06 TO ve WV 51 20 20 05 WN IL 80 [...] BL ET CY NT HI AN A WV 68 12 01 30 30 00 HO [...] Procedure DOS Code Location Performer Comment PROTHROMB 48473 [facility] INC INC POLYSOM 62975 [facility] GARCIA 6/>YRS 7 [facility] SLEEP 4/> INC INC ADDL KENDRA ATTND PROTHROMB 80218 [facility] TIME 7 [facility] INC ECG 65348 [facility] ROUTINE 7 [facility] ECG MEDICAL W/LEAST G 12 LDS W/I&[place] [address] [facility] G[facility]IA FREE 7 [facility] [place] [address] [facility] THYROID 7 [facility] STIMULATI [facility] INC NG HORMONE TSH HEMOGLOBI 09746 [facility] N 7 [facility] GLYCOSYLA INC INC AJAY A1C TUBING A7037 [facility] USED WITH 7 HOME HOME POSITIVE MEDICAL MEDICAL AIRWAY EQUIPME EQUIPME PRESSURE DEVICE FULL FACE A7030 [facility] CUNNINGHAMRELL MASK 7 HOME HOME USED MEDICAL MEDICAL W/POS EQUIPME EQUIPME ARWAY PRESS DEVICE EA PROTHROMB 47632 [facility] GARCIA IN TIME 7 [facility] HEADGEAR A7035 [facility] ALLEN USED 7 HOME HOME W/POSITIV MEDICAL MEDICAL E AIRWAY EQUIPME EQUIPME PRESSURE DEVICE PROTHROMB 74354 [facility] GARCIA IN TIME 7 [facility] HOSPITAL G0463 [facility] G[facility] OUTPATIEN 7 [facility] HOSP T CLIN INC INC VISIT ASSESS & MGMT PT HOSPITAL G0463 [facility] G[facility] OUTPATIEN 7 [facility] HOSP T CLIN INC INC VISIT ASSESS & MGMT PT PROTHROMB 07003 [facility] GARCIA IN TIME 7 [facility] PROTHROMB 66605 [facility] GARCIA IN TIME 6 [facility] HOSPITAL G0463 [facility]ARCIA OUTPATIEN 6 [facility] T CLIN INC INC VISIT ASSESS & MGMT PT PROTHROMB 09907 [facility] GARCIA IN TIME 6 [facility] HOSPITAL G0463 [facility] GARCIA OUTPATIEN 6 [facility] HOSP T CLIN INC INC VISIT ASSESS & MGMT PT COLLECTIO 94169 [facility] G[facility] N VENOUS 6 [facility] BLOOD INC INC VENIPUNCT URE THERAPEUT 04678 [facility] IC 6 [facility] PROPHYLAC INC INC TIC/DX INJECTION SUBQ/IM PROTHROMB 60345 [facility] GARCIA IN TIME 6 [facility] PROTHROMB 02196 [facility] GARCIA IN TIME 6 [facility] INC HOSPITAL G0463 [facility] GARCIA OUTPATIEN 6 [facility] T CLIN INC INC VISIT ASSESS & MGMT PT 25 33782 RADHA GARCIA HYDROXY 6 [facility] INCLUDES [place] [address] [facility] GARCIA PARATHORM 6 [facility] [place] [place] [address] [facility] GARCIA BLOOD/URI 6 [facility] C ACID INC INC ALBUMIN 14130 [facility] URINE 6 [facility] MICROALBU INC INC MIN QUANTIATI VE CALCIUM 58658 [facility] G[facility] IONIZED 6 [facility] INC INC COLLECTIO 93372 RAD[facility] N VENOUS 6 [facility] BLOOD INC INC VENIPUNCT URE RENAL 41993 RAD[facility] G[facility]IA FUNCTION 6 [facility] PANEL INC INC URNLS DIP 48848 [facility] G[facility]IA 6 [facility] STICK/TAB INC INC LET REAGENT AUTO MICROSCOP Y BLOOD 79559 [facility] COUNT 6 [facility] COMPLETE INC INC AUTO&AUTO DIFRNTL WBC PROTHROMB 34083 RAD[facility] RADHA IN TIME 6 [place] [address] [facility] GARCIA RETROPERI 6 [facility] TONEAL INC INC REAL [place] [address] [place] [facility]HA RETROPERI 6 MEDICAL YASMIN TONEAL IMAGING REAL TIME ASS W/IMAGE LIMITED ECHO 50365 [facility] R-T 6 [facility] XIANG 2D MEDICAL W/WOM-MOD G E COMPL SPEC&COLR D COLLECTIO 51843 [facility] N VENOUS 6 [facility] HOSPITAL BLOOD VENIPUNCT URE BASIC 85002 [facility] METABOLIC [address] [place] [address] HOSPITAL PANEL CALCIUM TOTAL PROTHROMB 41150 [facility] IN TIME 6 [facility] HOSPITAL PROTHROMB 06824 [facility] GARCIA IN TIME 6 [facility] INC INC HOSPITAL G0463 [facility] GARCIA OUTPATIEN 6 [facility] T CLIN INC INC VISIT ASSESS & MGMT PT HOSPITAL G0463 RADHA LOPEZON OUTPATIEN 6 [facility] T CLIN INC INC VISIT ASSESS & MGMT PT COLLECTIO 53862 RAD[facility] LOPEZON N VENOUS 6 [facility] BLOOD INC INC VENIPUNCT URE PROTHROMB 07625 [facility] GARCIA IN TIME 6 [facility] INC INC PROTHROMB 39852 [facility] GARCIA IN TIME 6 [facility] INC INC COLLECTIO 77911 [facility] GARCIA N VENOUS 6 [facility] BLOOD INC INC VENIPUNCT URE HOSPITAL G0463 [facility] GARCIA OUTPATIEN 6 [facility] T CLIN INC INC VISIT ASSESS & MGMT PT 25 16454 RADHA RADHA HYDROXY 6 [facility] INCLUDES [place] [address] RAD[facility] GARCIA PARATHORM 6 [facility] ONE INC INC COLLECTIO 56302 [facility] GARCIA N VENOUS 6 [facility] BLOOD INC INC VENIPUNCT URE CREATININ 62831 [facility] GARCIA E OTHER 6 [facility] SOURCE INC INC PROTEIN 20578 [facility] GARCIA XCPT 6 [facility] REFRACTOM INC INC ETRY SERUM PLASMA/WH L BLD BLOOD 60608 [facility] GARCIA COUNT 6 [facility] COMPLETE INC INC AUTO&AUTO DIFRNTL WBC URNLS DIP 55274 [facility] GARCIA 6 [facility] STICK/TAB INC INC LET REAGENT AUTO MICROSCOP Y RENAL 58263 [facility] GARCIA FUNCTION 6 [facility] PANEL INC INC HOSPITAL G0463 [facility] GARCIA OUTPATIEN 6 [facility] T CLIN INC INC VISIT ASSESS & MGMT PT PROTHROMB 92940 [facility] GARCIA IN TIME 6 [facility] INC INC HOSPITAL G0463 [facility] GARCIA OUTPATIEN 6 [facility] T CLIN INC INC VISIT ASSESS & MGMT PT PROTHROMB 42006 [facility] GARCIA IN TIME 6 [facility] INC INC ECG [id number] [place] [address] ROUTINE 6 [facility] ECG MEDICAL W/LEAST G 12 LDS [facility] G0463 [facility] GARCIA OUTPATIEN 6 [facility] T CLIN INC INC VISIT ASSESS & MGMT PT PROTHROMB 04159 RAD[facility] RADHA IN TIME 6 [facility] INC INC HOSPITAL G0463 [facility] GARCIA OUTPATIEN 6 [facility] T CLIN INC INC VISIT ASSESS & MGMT PT PROTHROMB 22178 [facility] GARCIA IN TIME 6 [facility] INC INC COLLECTIO 83252 [facility] GARC[facility] N VENOUS 6 [facility] BLOOD INC INC VENIPUNCT URE COLLECTIO 88279 [facility] G[facility]IA N VENOUS 6 [facility] [place] [address] RAD[facility] GARCIA FREE 6 [facility] [place] [address] [facility]ARCIA THYROID 6 [facility] STIMULATI INC INC NG HORMONE TSH COMPREHEN 95968 [facility] G[facility] SIVE 6 [facility] H[facility] METABOLIC INC INC PANEL LIPID 36128 [facility] G[facility] PANEL 6 [facility] INC INC HEMOGLOBI 67033 [facility] G[facility]IA N 6 [facility] GLYCOSYLA INC INC AJAY A1C BLOOD 06231 [facility] GARCIA COUNT 6 [facility] COMPLETE INC INC AUTO&AUTO DIFRNTL WBC PROTHROMB 70629 [facility]ARCIA IN TIME 6 [facility] INC INC HOSPITAL G0463 [facility] GARCIA OUTPATIEN 6 [facility] T CLIN INC INC VISIT ASSESS & MGMT PT HOSPITAL G0463 [facility] GARCIA OUTPATIEN 6 [facility] T CLIN INC INC VISIT ASSESS & MGMT PT PROTHROMB 85401 [facility] GARCIA IN TIME 6 [facility] INC INC COLLECTIO 21392 [facility] GARCIA N VENOUS 6 [facility] BLOOD INC INC VENIPUNCT URE Encounters Encounter Start End Date Code Location Performer Type Date HOSPITAL [facility] [place] [facility] OUTPATIEN INC T OFFICE 50133 [facility] OUTPATIEN 7 7 [facility] T VISIT 5 INC MINUTES [facility]OSPITAL [facility] - 7 7 [facility] OUTPATIEN [facility] RADHA - 7 7 [facility] OUTPATIEN [facility] OFFICE 63163 [facility] OUTPATIEN 7 7 MEM [facility] T [facility]ISIT 5 INC MINUTES OFFICE 38013 [facility] OUTPATI[facility] 7 7 [facility] T VISIT MEDICAL 25 G MINUTES OFFICE 70607 [facility] OUTPATIEN 7 7 PHYSICIAN T [facility]ISIT S GROUP 25 MINUTES HOSPITAL [facility] - 7 7 [facility] RAD[facility] - 7 7 [facility] OUTPATIEN [facility] OFFICE 03478 [facility] OUTPATIEN 7 7 [facility] T [facility]ISIT 5 INC [facility] RAD[facility] - 7 7 [facility] RADHA - 7 7 [facility] RAD[facility] - 6 6 [facility] - 6 6 [facility]PAT[facility] - 6 6 [facility] - 6 6 [facility] RAD[facility] - 6 6 [facility] - 6 6 [facility] - 6 6 [facility] RAD[facility] - 6 6 [facility]PATI[facility] - 6 6 [facility] RADHA - 6 6 [facility] OUTPATIEN INC OFFICE 93941 [place] [facility] [facility] OUTPATIEN 6 6 MEDICAL T NEW 45 SERV MINUTES [facility] RADHA - 6 6 [facility]PATIEN [facility] - 6 6 [facility] - 6 6 [facility]PATIEN [facility] OFFICE 51891 [facility] 6 6 [facility] T VISIT MEDICAL 40 G MINUTES [facility] RADHA - 6 6 [facility]EN [facility] RADHA - 6 6 [facility] OUTPATIEN [facility] T OFFICE 24105 AMELIA CISNEROS OUTPATIEN 6 6 DAVID JAM T VISIT 25 MINUTES [facility] RADHA - 6 6 [facility] OUTPATIEN [facility] OFFICE 91872 [facility] PHYSICIAN KEI T VISIT S GROUP 25 MINUTES [facility] RADHA - 6 6 [facility] - 6 6 [facility]EN [facility]
--- OUTSIDE RECORDS SUMMARY | 2017-01-19 21:24 | External Medical Summary Rpt ---
Author Author , Organization [employer] Address Unknown Phone Unavailable Care Team Providers Care Flat Spring Assembler Name Role Phone LEATHA YASMIN, Unavailable Unavailable LEATHA YASMIN IVON, IVON Unavailable Unavailable IVON KEI, IVON Unavailable Unavailable [facility] Un[facility] Un[facility] INC, [facility], Unavailable Unavailable [facility] [employer] [facility]available Unavailable MEDICAL G, Public [facility], [facility] AMELIA HERNANDEZ, Unavailable Unavailable CISNEROSJOSE A HERNANDEZ, Unavailable Unavailable [facility] Unavailable Unavailable [facility], [facility] Unavailable Unavailable [facility], [facility], Unavailable Unavailable [facility] VIOLETA MCDANIEL Unavailable Unavailable VIOLETA FALLON Unavailable Unavailable XIANG ALONSOGAVIN BURT XIANG Unavailable Unavailable Purpose Continuity of Care Document - 06-03-2016 through 2016 Problems Code Diagnosis DOS Provider Status Z5181 ENCOUNTER 12-09-2016 [facility] THERAPEUTIC INC DRUG LEVEL MONITORING Z7901 PRISON 12-09-2016 [facility] CURRENT USE [facility] OF INC ANTICOAGULA NTS Z952 PRESENCE OF 12-09-2016 [facility] HEART INC VALVE G4730 SLEEP APNEA 11-29-2016 [facility] UNSPECIFIED INC I2510 ASHD WILTON 11-18-[address] 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 ATRIAL HEALTH FIBRILLATIO MEDICAL G N I5043 ACUTE ON 11-18-[address] [facility] CHRONIC HEALTH COMB MEDICAL G SYSTOLIC & DIASTOLIC CHF E039 HYPOTHYROID 10-30-2016 [facility]YSIC[facility]ANS UNSPECIFIED GROUP E119 TYPE 2 10-30-2016 [facility] DIABETES PHYSICIANS MELLITUS GROUP WITHOUT COMPLICATIO NS E663 OVERWEIGHT 10-30-2016 [facility] G4733 OBSTRUCTIVE 10-25-2016 [facility] APNEA ADULT MEDICAL PEDIATRIC EQUIPME J449 CHRONIC 10-25-2016 [facility] OBSTRUCTIVE HOME PULMONARY MEDICAL DISEASE UNS EQUIPME I10 ESSENTIAL 08-22-2016 [facility] HOSP HYPERTENSIO INC N I4891 UNSPECIFIED 08-14-2016 [facility] FIBRILLATIO N I5023 ACUTE CHRON 08-14-2016 [facility] HEART MEDICAL G FAILURE I509 HEART 08-14-2016 [facility] FAILURE HOSPITAL UNSPECIFIED I517 CARDIOMEGAL 08-14-2016 [facility] Y HOSPITAL R931 ABNORMAL 08-14-2016 [facility] FINDINGS ON HOSPITAL DX IMAGING HEART & COR CIRC Z969 PRESENCE OF 08-14-2016 [facility] FUNCTIONAL [facility] IMPLANT UNSPECIFIED I129 HYPERTENSIV 07-29-2016 [place] [facility] W/STAGE 1-4 [facility] CKD OR UNS CKD N183 CHRONIC 07-29-2016 [place] [facility] DISE[facility] STAGE 3 MODERATE E785 HYPERLIPIDE 07-09-2016 [facility] UNSPECIFIED MEDICAL G [id number] VITREOUS 06-26-2016 [facility] THAKURTARAH DAVID N RIGHT EYE [id number] VITREOUS 06-26-2016 [facility] THAKURTARAH DAVID N LEFT [...] 00 1- 4- 00 06 TO ve AK 51 20 20 07 WN IL 80 [...] BL ET CY NT HI AN A AK 68 03 04 30 30 00 HO [...] 50 1- 4- 00 06 TO ve ID 11 20 20 07 WN DE 71 [...] 00 6- 7- 00 06 TO ve AK 51 20 20 07 WN IL 80 [...] BL ET CY NT HI AN A AK 68 02 03 30 30 00 HO [...] 50 6- 7- 00 06 TO ve ID 11 20 20 07 WN DE 71 [...] 50 9- 7- 00 06 TO ve ID 11 20 20 07 WN DE 71 [...] CY BL NT ET HI AN A AK 68 01 02 30 30 00 HO [...] 00 0- 7- 00 06 TO ve AK 51 20 20 07 WN IL 80 [...] 50 3- 9- 00 06 TO ve ID 11 20 20 07 WN DE 71 [...] 00 3- 9- 00 06 TO ve AK 51 20 20 05 WN IL 80 [...] BL ET CY NT HI AN A AK 68 12 01 30 30 00 HO [...] Procedure DOS Code Location Performer Comment PROTHROMB 74285 [facility] INC INC POLYSOM 83106 [facility] GARCIA 6/>YRS 7 [facility] SLEEP 4/> INC INC ADDL KENDRA ATTND PROTHROMB 04846 [facility] G[facility] IN TIME 7 [facility] INC INC ECG 26421 [facility] ROUTINE 7 [facility] ECG MEDICAL W/LEAST G 12 LDS W/I&[place] [address] [facility] G[facility]IA FREE 7 [facility] [place] [address] [facility] G[facility] THYROID 7 [facility] STIMULATI [facility] INC NG HORMONE TSH HEMOGLOBI 70048 [facility] GARCIA N 7 [facility] GLYCOSYLA INC INC AJAY A1C TUBING A7037 [facility] USED WITH 7 HOME HOME POSITIVE MEDICAL MEDICAL AIRWAY EQUIPME EQUIPME PRESSURE DEVICE FULL FACE A7030 [facility] CUNNINGHAMRELL MASK 7 HOME HOME USED MEDICAL MEDICAL W/POS EQUIPME EQUIPME ARWAY PRESS DEVICE EA PROTHROMB 14968 [facility] GARCIA IN TIME 7 [facility] A7035 [facility] ALLEN USED 7 HOME HOME W/POSITIV MEDICAL MEDICAL E AIRWAY EQUIPME EQUIPME PRESSURE DEVICE PROTHROMB 23374 [facility] GARCIA IN TIME 7 [facility] G0463 [facility] GARCIA OUTPATIEN 7 [facility] HOSP T CLIN INC INC VISIT ASSESS & MGMT PT HOSPITAL G0463 [facility]IA OUTPATIEN 7 [facility] HOSP T CLIN INC INC VISIT ASSESS & MGMT PT PROTHROMB 16588 [facility] TIME 7 [facility] PROTHROMB 21888 [facility] GARCIA IN TIME 6 [facility] G0463 [facility] GARCIA OUTPATIEN 6 [facility] T CLIN INC INC VISIT ASSESS & MGMT PT PROTHROMB 68383 [facility] GARCIA IN TIME 6 [facility] G0463 [facility] GARCIA OUTPATIEN 6 [facility] HOSP T CLIN INC INC VISIT ASSESS & MGMT PT COLLECTIO 89342 [facility] GARCIA N VENOUS 6 [facility] BLOOD INC INC VENIPUNCT URE THERAPEUT 76597 [facility] IC 6 [facility] PROPHYLAC INC INC TIC/DX INJECTION SUBQ/IM PROTHROMB 52142 [facility] GARCIA IN TIME 6 [facility] HOSP [facility] PROTHROMB 94992 [facility] GARCIA IN TIME 6 [facility] INC INC HOSPITAL G0463 RAD[facility] GARCIA OUTPATIEN 6 [facility] T CLIN INC INC VISIT ASSESS & MGMT PT 25 15888 [facility] GARCIA HYDROXY 6 [facility] INCLUDES [place] [address] [facility] GARCIA PARATHORM 6 [facility] [place] [place] [address] [facility] GARCIA BLOOD/URI 6 [facility] C ACID INC INC ALBUMIN 53536 [facility] GARICA URINE [address] [facility] MICROALBU INC INC MIN QUANTIATI VE CALCIUM 84483 [facility] G[facility]IA IONIZED 6 [facility] INC INC COLLECTIO 45656 [facility] GARCIA N VENOUS [address] [facility] BLOOD INC INC VENIPUNCT URE RENAL 64762 [facility] GARCIA FUNCTION [address] [facility] PANEL INC INC URNLS DIP 10117 [facility] G[facility]IA 6 [facility] STICK/TAB INC INC LET REAGENT AUTO MICROSCOP Y BLOOD 64007 [facility] G[facility] COUNT 6 [facility] COMPLETE INC INC AUTO&AUTO DIFRNTL WBC PROTHROMB 85448 RAD[facility] RADHA IN TIME 6 [place] [address] RAD[facility] GARCIA RETROPERI [address] [facility] [facility] TONEAL INC [place] [address] [place] [facility] RETROPERI 6 MEDICAL YASMIN TONEAL IMAGING REAL TIME ASS W/IMAGE LIMITED ECHO 51707 [facility] R-T 6 [facility] XIANG 2D MEDICAL W/WOM-MOD G E COMPL SPEC&COLR D COLLECTIO 52350 [facility] N VENOUS 6 [facility] HOSPITAL BLOOD VENIPUNCT URE BASIC 81694 [facility] METABOLIC [address] [place] [address] HOSPITAL PANEL CALCIUM TOTAL PROTHROMB 81914 [facility] IN TIME 6 [facility] HOSPITAL PROTHROMB 73280 [facility] GARCIA IN TIME 6 [facility] INC INC HOSPITAL G0463 [facility] GARCIA OUTPATIEN 6 [facility] T CLIN INC INC VISIT ASSESS & MGMT PT HOSPITAL G0463 [facility] LOPEZON OUTPATIEN 6 [facility]OS[facility] T CLIN INC INC VISIT ASSESS & MGMT PT COLLECTIO 04907 RAD[facility] LOPEZON N VENOUS 6 [facility]OS[facility] BLOOD INC INC VENIPUNCT URE PROTHROMB 56221 [facility] GARCIA IN TIME 6 [facility] INC INC PROTHROMB 06487 [facility] GARCIA IN TIME 6 [facility] INC INC COLLECTIO 31236 [facility] GARCIA N VENOUS 6 [facility] BLOOD INC INC VENIPUNCT URE HOSPITAL G0463 [facility] GARCIA OUTPATIEN 6 [facility] T CLIN INC INC VISIT ASSESS & MGMT PT 25 94013 RADHA RADHA HYDROXY 6 [facility] INCLUDES INC [place] [address] RAD[facility] GARCIA PARATHORM 6 [facility] ONE INC INC COLLECTIO 29522 [facility] GARCIA N VENOUS 6 [facility] BLOOD INC INC VENIPUNCT URE CREATININ 06717 [facility] GARCIA E OTHER 6 [facility] SOURCE INC INC PROTEIN 67893 [facility] GARCIA XCPT [address] [facility] REFRACTOM INC INC ETRY SERUM PLASMA/WH L BLD BLOOD 41646 [facility] GARCIA COUNT 6 [facility] COMPLETE INC INC AUTO&AUTO DIFRNTL WBC URNLS DIP 41693 [facility] G[facility]IA 6 [facility] STICK/TAB INC INC LET REAGENT AUTO MICROSCOP Y RENAL 50528 [facility] GARCIA FUNCTION 6 [facility] PANEL INC INC HOSPITAL G0463 [facility] GARCIA OUTPATIEN 6 [facility] T CLIN INC INC VISIT ASSESS & MGMT PT PROTHROMB 17722 RADHA GARCIA IN TIME 6 [facility] INC INC HOSPITAL G0463 [facility] GARCIA OUTPATIEN 6 [facility] T CLIN INC INC VISIT ASSESS & MGMT PT PROTHROMB 60495 [facility] GARCIA IN TIME 6 [facility] INC INC ECG [id number] [place] [address] ROUTINE 6 [facility] ECG MEDICAL W/LEAST G 12 LDS W/I&R HOSPITAL G0463 [facility] GARCIA OUTPATIEN 6 [facility] T CLIN INC INC VISIT ASSESS & MGMT PT PROTHROMB 57133 [facility] RADHA IN TIME 6 [facility] INC INC HOSPITAL G0463 [facility] GARCIA OUTPATIEN 6 [facility] T CLIN INC INC VISIT ASSESS & MGMT PT PROTHROMB 15471 [facility] GARCIA IN TIME 6 [facility] INC INC COLLECTIO 64932 [facility] GARCIA N VENOUS [address] [facility] BLOOD INC INC VENIPUNCT URE COLLECTIO 22015 RADHA [facility]ARCIA N VENOUS [address] [facility] [place]LOOD [place] [address] RADHA GARCIA FREE [address] [facility] [address] RAD[facility]ARCIA THYROID [address] [facility] STIMULATI INC INC NG HORMONE TSH COMPREHEN 22352 [facility] GARCIA SIVE [address] [facility] METABOLIC INC INC PANEL LIPID 04467 RAD[facility] GARCIA PANEL [address] [facility] INC INC HEMOGLOBI 02060 [facility] GARCIA N [address] [facility] GLYCOSYLA INC INC AJAY A1C BLOOD 85901 RADHA GARCIA COUNT [address] [facility] COMPLETE INC INC AUTO&AUTO DIFRNTL WBC PROTHROMB 55403 [facility] GARCIA IN TIME 6 [facility] INC INC HOSPITAL G0463 [facility] GARCIA OUTPATIEN 6 [facility] T CLIN INC INC VISIT ASSESS & MGMT PT HOSPITAL G0463 [facility] GARCIA OUTPATIEN 6 [facility] T CLIN INC INC VISIT ASSESS & MGMT PT PROTHROMB 76447 [facility] GARCIA IN TIME 6 [facility] INC INC COLLECTIO 88795 RADHA GARCIA N VENOUS [address] [facility] BLOOD INC INC VENIPUNCT URE Encounters Encounter Start End Date Code Location Performer Type Date HOSPITAL [facility] [place] [facility] OUT[facility]IEN INC T OFFICE 60026 [facility] OUTPATIEN 7 7 [facility] T VISIT 5 INC MINUTES HOSPITAL [facility] - 7 7 [facility] OUTPATIEN [facility] HOSPITAL RADHA - 7 7 [facility] OUTPATIEN [facility] OFFICE 70994 [facility] OUTPATIEN 7 7 [facility] T [facility]ISIT 5 INC MINUTES OFFICE 53536 [facility] OUTPATIEN 7 7 [facility] T VISIT MEDICAL 25 G MINUTES OFFICE 65734 [facility] OUTPATIEN 7 7 PHYSICIAN T [facility]ISIT S GROUP 25 MINUTES HOSPITAL RAD[facility] - 7 7 [facility]IEN [facility] RAD[facility] - 7 7 [facility] OUTPATIEN [facility] OFFICE 23853 [facility] OUTPATIEN 7 7 [facility] T [facility]ISIT 5 INC [facility] RADHA - 7 7 [facility]PATIEN [facility] - 7 7 [facility] - 6 6 [facility] - 6 6 [facility] - 6 6 [facility] RADHA - 6 6 [facility] RADHA - 6 6 [facility] OUTPATIEN [facility] RAD[facility] 6 6 [facility]PAT[facility]EN [facility] - 6 6 [facility] RADHA - 6 6 [facility] OUTPATIEN [facility] RAD[facility] 6 6 [facility] OUTPATIEN [facility] RAD[facility] 6 6 [facility] OUTPATIEN INC OFFICE 50761 [place] [facility] [facility] OUTPATIEN 6 6 MEDICAL T NEW 45 SERV MINUTES [facility] RADHA - 6 6 [facility] OUTPATIEN [facility] - 6 6 [facility] - 6 6 [facility] OUTPATIEN [facility] OFFICE 83292 [facility] OUTPATIEN 6 6 [facility] T [facility]ISIT MEDICAL 40 G MINUTES [facility] RADHA - 6 6 [facility] OUTPATIEN [facility] RADHA - 6 6 [facility] OUTPATIEN [facility] T OFFICE 39008 AMELIA CISNEROS OUTPATI[facility] 6 6 DAVID JAM T VISIT 25 MINUTES [facility] RADHA - 6 6 [facility] OUTPATIEN [facility] OFFICE 82725 [facility] PHYSICIAN KEI T VISIT S GROUP 25 MINUTES [facility] RADHA - 6 6 [facility]PATIEN [facility] RAD[facility] - 6 6 [facility]
--- OUTSIDE RECORDS SUMMARY | 2017-01-19 21:26 | External Medical Summary Rpt ---
Author Author , Organization [employer] Address Unknown Phone Unavailable Care Team Providers Care Architectural Draftsperson Name Role Phone LEATHA YASMIN, Unavailable Unavailable LEATHA YASMIN IVON, IVON Unavailable Unavailable IVON KEI, IVON Unavailable Unavailable [facility] Un[facility] Un[facility] INC, [facility], Unavailable Unavailable [facility] Unavailable [facility]available MEDICAL G, [employer] [facility], [facility] AMELIA HERNANDEZ, Unavailable Unavailable CISNEROS DAVID HERNANDEZ, Unavailable Unavailable [facility] JAM [facility] Unavailable Unavailable [facility], [facility] Unavailable Unavailable [facility], [facility], Unavailable Unavailable [facility] VIOLETA MCDANIEL Unavailable Unavailable VIOLETA FALLON Unavailable Unavailable XIANG OTOOLE, GAVIN OTOOLE Unavailable Unavailable Purpose Continuity of Care Document - 06-03-2016 through 2016 Problems Code Diagnosis DOS Provider Status [id number] ENCOUNTER 12-09-2016 [facility] THERAPEUTIC INC DRUG LEVEL MONITORING Z7901 SENIOR LIVING 12-09-2016 [facility] CURRENT USE [facility] OF INC ANTICOAGULA NTS Z952 PRESENCE OF 12-09-2016 [facility] HEART INC VALVE G4730 SLEEP APNEA 11-29-2016 [facility] UNSPECIFIED INC I2510 ASHD TONAWANDA 11-18-2016 [facility] 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 ANGINA PECTORIS I482 CHRONIC 11-18-2016 [facility] ATRIAL HEALTH FIBRILLATIO MEDICAL G N I5043 ACUTE ON 11-18-2016 [facility] CHRONIC HEALTH COMB MEDICAL G SYSTOLIC & DIASTOLIC CHF E039 HYPOTHYROID 10-30-2016 [facility] ISM PHYSICIANS UNSPECIFIED GROUP E119 TYPE 2 10-30-2016 [facility] DIABETES PHYSICIANS MELLITUS GROUP WITHOUT COMPLICATIO NS E663 OVERWEIGHT 10-30-2016 [facility] G4733 OBSTRUCTIVE 10-25-2016 [facility] ADULT MEDICAL PEDIATRIC EQUIPME J449 CHRONIC 10-25-2016 [facility] PULMONARY MEDICAL DISEASE UNS EQUIPME I10 ESSENTIAL 08-22-2016 [facility] HYPERTENSIO INC N I4891 UNSPECIFIED 08-14-2016 [facility]IAL [facility]OSPITAL FIBRILLATIO N I5023 ACUTE CHRON 08-14-2016 [facility] HEART MEDICAL G FAILURE I509 HEART 08-14-2016 [facility] FAILURE [facility] UNSPECIFIED I517 CARDIOMEGAL 08-14-2016 [facility] Y HOSPITAL R931 ABNORMAL 08-14-2016 [facility] DX IMAGING HEART & COR CIRC Z969 PRESENCE OF 08-14-2016 [facility] FUNCTIONAL [facility] IMPLANT UNSPECIFIED I129 HYPERTENSIV 07-29-2016 [facility] W/STAGE 1-4 [facility] CKD OR UNS CKD N183 CHRONIC 07-29-2016 [facility] DISEASE [facility] STAGE 3 MODERATE E785 HYPERLIPIDE 07-09-2016 [facility] UNSPECIFIED MEDICAL G S83062 VITREOUS 06-26-2016 AMEL[facility] REYESCHANDAN HERNANDEZ N RIGHT EYE S74570 VITREOUS 06-26-2016 AMELIA MARYCRUZ HERNANDEZ N LEFT [...] ME ti NO 00 06 TO ve MN 51 20 20 07 WN IL 80 [...] BL ET CY NT HI AN A MN 68 03 04 30 30 00 HO [...] 00 6- 7- 00 06 TO ve MN 51 20 20 07 WN IL 80 [...] BL ET CY NT HI AN A MN 68 02 03 30 30 00 HO [...] CY BL NT ET HI AN A MN 68 01 02 30 30 00 HO [...] 00 0- 7- 00 06 TO ve MN 51 20 20 07 WN IL 80 [...] ti NO 00 3 06 TO ve MN 51 20 20 05 WN IL 80 [...] BL ET CY NT HI AN A MN 68 12 01 30 30 00 HO Ac AV 18 -1 -0 .0 00 ME ti 00 3 06 TO ve TA 48 20 20 [...] Procedure DOS Code Location Performer Comment PROTHROMB 44506 [facility] GARCIA IN TIME 7 [facility] INC INC POLYSOM 34564 [facility] GARCIA 6/>YRS 7 [facility] SLEEP 4/> INC INC ADDL KENDRA ATTND PROTHROMB 51294 [facility] GARCIA IN TIME 7 [facility] INC INC ECG 19851 [facility] ROUTINE 7 [facility] ECG MEDICAL W/LEAST G 12 LDS W/I&R HEMOGLOBI 24924 RADHA GARCIA N 7 [facility] GLYCOS[place] [address] RAD[facility] GARCIA FREE 7 [facility] [place] [address] [facility] G[facility] THYROID 7 [facility] STIMULATI INC INC NG HORMONE TSH FULL FACE A7030 [facility] MASK 7 HOME HOME USED MEDICAL MEDICAL W/POS EQUIPME EQUIPME ARWAY PRESS DEVICE EA TUBING A7037 [facility] ALLEN USED WITH 7 HOME HOME POSITIVE MEDICAL MEDICAL AIRWAY EQUIPME EQUIPME PRESSURE DEVICE PROTHROMB 80247 [facility] GARCIA IN TIME 7 [facility] INC INC HEADGEAR A7035 [facility] USED 7 HOME HOME W/POSITIV MEDICAL MEDICAL E AIRWAY EQUIPME EQUIPME PRESSURE DEVICE PROTHROMB 74515 RAD[facility] GARCIA IN TIME 7 [facility] G0463 [facility] OUTPATIEN 7 [facility] T CLIN INC INC VISIT ASSESS & MGMT PT HOSPITAL G0463 [facility] OUTPATIEN 7 [facility] T CLIN INC INC VISIT ASSESS & MGMT PT PROTHROMB 03728 [facility] GARCIA IN TIME 7 [facility] PROTHROMB 44312 [facility] GARCIA IN TIME 6 [facility] G0463 [facility]IA OUTPATIEN 6 [facility] T CLIN INC INC VISIT ASSESS & MGMT PT HOSPITAL G0463 [facility] G[facility] OUTPATIEN 6 [facility] T CLIN INC INC VISIT ASSESS & MGMT PT PROTHROMB 00664 [facility] GARCIA IN TIME 6 [facility] INC INC PROTHROMB 01631 [facility] GARCIA IN TIME 6 [facility] INC INC COLLECTIO 45086 [facility] GARCIA N VENOUS 6 [facility] BLOOD INC INC VENIPUNCT URE THERAPEUT 71336 [facility] GARCIA IC 6 [facility] PROPHYLAC INC INC TIC/DX INJECTION SUBQ/IM PROTHROMB 29029 [facility] GARCIA IN TIME 6 [facility] G0463 RAD[facility] GARCIA OUTPATIEN 6 [facility] T CLIN INC INC VISIT ASSESS & [place] [address] RADHA GARCIA BLOOD/URI 6 [facility] C ACID INC INC PROTHROMB 99420 [facility] GARCIA IN TIME 6 [facility] INC INC CALCIUM 62418 RAD[facility] GARCIA IONIZED 6 [facility] INC INC COLLECTIO 34701 [facility]HA [facility] N VENOUS 6 [facility] BLOOD INC INC VENIPUNCT URE URNLS DIP 61679 [facility] GARCIA 6 [facility] STICK/TAB INC INC LET REAGENT AUTO MICROSCOP Y RENAL 21649 [facility] GARCIA FUNCTION 6 [facility] PANEL INC INC BLOOD 14495 [facility] GARCIA COUNT 6 [facility] COMPLETE INC INC AUTO&[place] [address] RAD[facility] GARCIA PARATHORM 6 [facility] ONE INC INC ALBUMIN 24797 RAD[facility] GARCIA URINE 6 MEM [facility]OS[facility] MICROALBU INC INC MIN QUANTIATI VE 25 06746 RAD[facility] GARCIA HYDROXY 6 [facility] [place] [address] ARDHA GARCIA RETROPERI 6 [facility] TONEAL [place] [address] [place] LEATHA RETROPERI 6 MEDICAL YASMIN TONEAL IMAGING REAL TIME ASS W/IMAGE LIMITED ECHO 27381 [facility] T[facility]/WOM-MOD G E COMPL SPEC&COLR D COLLECTIO 93332 [facility] N VENOUS [address] [place] [address] BLOOD VENIPUNCT URE PROTHROMB 27387 [facility] IN TIME 6 [facility] BASIC 59716 [facility] METABOLIC [address] [place] [address] HOSPITAL PANEL CALCIUM [facility] G0463 [facility] GARCIA OUTPATIEN 6 [facility] T CLIN INC INC VISIT ASSESS & MGMT PT PROTHROMB 11867 [facility] GARCIA IN TIME 6 [facility] INC INC HOSPITAL G0463 [facility] GARCIA OUTPATIEN 6 [facility] T CLIN INC INC VISIT ASSESS & MGMT PT COLLECTIO 34619 [facility] LOPEZON N VENOUS 6 [facility] BLOOD INC INC VENIPUNCT URE PROTHROMB 98283 [facility] GARCIA IN TIME 6 [facility] INC INC PROTHROMB 45990 [facility] GARCIA IN TIME 6 [facility] INC INC COLLECTIO 64349 [facility] GARCIA N VENOUS 6 [facility] BLOOD INC INC VENIPUNCT URE HOSPITAL G0463 [facility] G[facility] OUTPATIEN 6 [facility] T CLIN INC INC VISIT ASSESS & MGMT PT PROTEIN 31995 [facility] GARCIA XCPT 6 [facility] REFRACTOM INC INC ETRY SERUM PLASMA/WH L BLD COLLECTIO 44404 [facility] GARCIA N VENOUS 6 [facility] BLOOD INC INC VENIPUNCT URE RENAL 69527 [facility] GARCIA FUNCTION 6 [facility] PANEL INC INC CREATININ 48207 [facility] LOPEZON E OTHER 6 [facility] SOURCE INC INC BLOOD 07430 [facility] GARCIA COUNT 6 [facility] COMPLETE INC INC AUTO&AUTO DIFRNTL WBC URNLS DIP 79501 [facility]HA RADHA 6 [facility] STICK/TAB INC INC [place] [address] [facility] GARCIA PARATHORM 6 [facility] ONE INC INC 25 59521 RADHACAROLA GARCIA HYDROXY 6 [facility] INCLUDES INC INC FRACTIONS IF PERFORMED HOSPITAL G0463 RAD[facility] GARCIA OUTPATIEN 6 [facility] T CLIN INC INC VISIT ASSESS & MGMT PT PROTHROMB 11676 [facility] GARCIA IN TIME 6 [facility] INC INC PROTHROMB 02607 [facility] GARCIA IN TIME 6 [facility] INC [facility]OSPITAL G0463 [facility] G[facility] OUTPATIEN 6 [facility] T CLIN INC INC VISIT ASSESS & MGMT PT ECG 09038 [facility] ROUTINE 6 [facility] XIANG ECG MEDICAL W/LEAST G 12 LDS W/I&R HOSPITAL G0463 [facility] GARCIA OUTPATIEN 6 [facility] T CLIN INC INC VISIT ASSESS & MGMT PT PROTHROMB 42091 [facility] GARCIA IN TIME 6 [facility] INC INC PROTHROMB 25022 [facility] GARCIA IN TIME 6 [facility] INC [facility]OSPITAL G0463 [facility] GARCIA OUTPATIEN 6 [facility] T CLIN INC INC VISIT ASSESS & MGMT PT COLLECTIO 09600 [facility] G[facility]IA N VENOUS 6 [facility] BLOOD INC INC VENIPUNCT URE COLLECTIO 19522 [facility] G[facility]IA N VENOUS 6 [facility] [place] [address] [facility] G[facility]IA THYROID 6 [facility] STIMULATI INC INC NG HORMONE TSH BLOOD 08542 [facility] G[facility]IA COUNT 6 [facility] COMPLETE INC INC AUTO&AUTO DIFRNTL WBC COMPREHEN 39570 [facility] G[facility] SIVE 6 [facility] METABOLIC INC INC PANEL LIPID 93651 [facility] LOPEZON PANEL 6 [facility] INC INC HEMOGLOBI 18433 [facility] GARCIA N 6 [facility] GLYCOSYLA [place] [address] [facility] FREE 6 [facility] THYROXINE INC INC PROTHROMB 44912 [facility] GARCIA IN TIME 6 [facility] INC HOSPITAL G0463 [facility] G[facility] OUTPATIEN 6 [facility] T CLIN INC INC VISIT ASSESS & MGMT PT HOSPITAL G0463 [facility]HA OUTPATIEN 6 [facility] T CLIN INC INC VISIT ASSESS & MGMT PT PROTHROMB 62627 RADHA [facility]HA IN TIME 6 [facility] INC INC COLLECTIO 38035 [facility] GARCIA N VENOUS 6 [facility] BLOOD INC INC VENIPUNCT URE Encounters Encounter Start End Date Code Location Performer Type Date HOSPITAL [facility] - 7 7 [facility] INC T OFFICE 91281 [facility] OUT[facility]EN 7 7 [facility] T [facility]ISIT 5 INC [facility] RADHA - 7 7 [facility] RADHA - 7 7 [facility] OUTPATIEN INC T OFFICE 62003 [facility] OUTPATIEN 7 7 [facility] T [facility]ISIT 5 INC MINUTES OFFICE 49872 [facility] 25 G MINUTES OFFICE 31705 [facility] OUTPATIEN 7 7 PHYSICIAN T VISIT S GROUP 25 MINUTES HOSPITAL [facility] - 7 7 [facility] RADHA - 7 7 [facility] OUTPATIEN [facility] OFFICE 96529 [facility] OUTPATIEN 7 7 [facility] T [facility]ISIT 5 INC MINUTES [facility] RAD[facility] 7 [facility] 6 [facility] - 6 6 [facility] - 6 6 [facility] RADHA - 6 6 [facility] - 6 6 [facility] 6 6 [facility] [address] RAD[facility] - 6 6 [facility] 6 6 [facility] - 6 6 [facility]PATIEN [facility] OFFICE [address] [place] GAVIN OTOOLE OUTPATIEN 6 6 MEDICAL T NEW 45 SERV MINUTES [facility] RADHA - 6 6 [facility]PATIEN [facility] RADHA - 6 6 [facility]PAT[facility] RADHA - 6 6 [facility] T OFFICE 65182 SYDNEE MCDANIEL OUTPATIEN 6 6 [facility] T VISIT MEDICAL 40 G MINUTES [facility] - 6 6 [facility] - 6 6 [facility]EN [facility] T OFFICE 13587 AMELIA CISNEROS OUTPATIEN 6 6 JAM DAVID T VISIT 25 MINUTES [facility] RADHA - 6 6 [facility] OUTPATIEN [facility] OFFICE 42445 [facility] OUTPATIEN 6 6 PHYSICIAN KEI T VISIT S GROUP 25 MINUTES [facility] RADHA - 6 6 [facility]EN [facility] RADHA - 6 6 [facility]
--- OUTSIDE RECORDS SUMMARY | 2017-01-19 21:26 | External Medical Summary Rpt ---
Author Author , Organization [employer] Address Unknown Phone Unavailable Care Team Providers [employer] Name Role Phone LEATHA YASMIN, Unavailable Unavailable LEATHA YASMIN IVON, IVON Unavailable Unavailable IVON KEI, IVON Unavailable Unavailable [facility] Un[facility] Un[facility] INC, [facility], Unavailable Unavailable [facility] Unavailable [facility]available MEDICAL [facility], [facility], [facility] AMELIA HERNANDEZ, Unavailable Unavailable CISNEROS DAVID HERNANDEZ, Unavailable Unavailable [facility] J[facility] Unavailable Unavailable EQUIPME, [facility] Unavailable Unavailable [facility], [facility], Unavailable Unavailable [facility] VIOLETA MCDANIEL Unavailable Unavailable VIOLETA FALLON Unavailable Unavailable XIANG OTOOLE, GAVIN OTOOLE Unavailable Unavailable Purpose Continuity of Care Document - 06-03-2016 through 2016 Problems Code Diagnosis DOS Provider Status [id number] ENCOUNTER 12-09-2016 [facility] THERAPEUTIC INC DRUG LEVEL MONITORING Z7901 MCC 12-09-2016 [facility] CURRENT USE [facility] OF INC ANTICOAGULA NTS Z952 PRESENCE OF 12-09-2016 [facility] HEART INC VALVE G4730 SLEEP APNEA 11-29-2016 [facility] UNSPECIFIED INC I2510 ASHD VENETIE 11-18-2016 [facility] 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 ANGINA PECTORIS I482 CHRONIC 11-18-2016 [facility] ATRIAL HEALTH FIBRILLATIO MEDICAL G N I5043 ACUTE ON 11-18-2016 [facility] CHRONIC HEALTH COMB MEDICAL G SYSTOLIC & DIASTOLIC CHF E039 HYPOTHYROID 10-30-2016 [facility] ISM PHYSICIANS UNSPECIFIED GROUP E119 TYPE 2 10-30-2016 [facility] DIABETES PHYSICIANS MELLITUS GROUP WITHOUT COMPLICATIO NS E663 OVERWEIGHT 10-30-2016 [facility] G4733 OBSTRUCTIVE 10-25-2016 [facility] ADULT MEDICAL PEDIATRIC EQUIPME J449 CHRONIC 10-25-2016 [facility] PULMONARY MEDICAL DISEASE UNS EQUIPME I10 ESSENTIAL 08-22-2016 [facility] HYPERTENSIO INC N I4891 UNSPECIFIED 08-14-2016 [facility] ATRIAL HOSPITAL FIBRILLATIO N I5023 ACUTE CHRON 08-14-2016 [facility] HEART MEDICAL G FAILURE I509 HEART 08-14-2016 [facility] UNSPECIFIED I517 CARDIOMEGAL 08-14-2016 [facility] Y HOSPITAL R931 ABNORMAL 08-14-2016 [facility] FINDINGS ON HOSPITAL DX IMAGING HEART & COR CIRC Z969 PRESENCE OF 08-14-2016 [facility] FUNCTIONAL [facility] IMPLANT UNSPECIFIED I129 HYPERTENSIV 07-29-2016 [place] [facility] W/STAGE 1-4 [facility] CKD OR UNS CKD N183 CHRONIC 07-29-2016 [facility] DISEASE [facility] STAGE 3 MODERATE E785 HYPERLIPIDE 07-09-2016 [facility] UNSPECIFIED MEDICAL G [id number] VITREOUS 06-26-2016 AMELIA REYESCHANDAN HERNANDEZ N RIGHT EYE [id number] VITREOUS 06-26-2016 AMELIA MARYCRUZ HERNANDEZ N LEFT [...] ME ti NO 00 06 TO ve IA 51 20 20 07 WN IL 80 [...] BL ET CY NT HI AN A IA 68 03 04 30 30 00 HO [...] 50 1- 4- 00 06 TO ve NV 11 20 20 07 WN DE 71 [...] 00 6- 7- 00 06 TO ve IA 51 20 20 07 WN IL 80 [...] BL ET CY NT HI AN A IA 68 02 03 30 30 00 HO [...] 50 6- 7- 00 06 TO ve NV 11 20 20 07 WN DE 71 [...] 50 9- 7- 00 06 TO ve NV 11 20 20 07 WN DE 71 [...] CY BL NT ET HI AN A IA 68 01 02 30 30 00 HO [...] 00 0- 7- 00 06 TO ve IA 51 20 20 07 WN IL 80 [...] 50 3- 9- 00 06 TO ve NV 11 20 20 07 WN DE 71 [...] ti NO 00 3 06 TO ve IA 51 20 20 05 WN IL 80 [...] BL ET CY NT HI AN A IA 68 12 01 30 30 00 HO [...] Procedure DOS Code Location Performer Comment PROTHROMB 22723 [facility] GARCIA IN TIME 7 [facility] INC INC POLYSOM 74282 [facility] GARCIA 6/>YRS 7 [facility] SLEEP 4/> INC INC ADDL KENDRA ATTND PROTHROMB 36142 [facility] G[facility]IA IN TIME 7 [facility] INC INC ECG 58407 [facility] ROUTINE 7 [facility] ECG MEDICAL W/LEAST G 12 LDS W/I&R HEMOGLOBI 27132 RAD[facility] GARCIA N 7 [facility] GLYCOS[place] [address] [address] RADHA GARCIA FREE 7 [facility] [place] [address] [facility] G[facility] THYROID 7 [facility] STIMULATI INC INC NG HORMONE TSH FULL FACE A7030 [facility] MASK 7 HOME HOME USED MEDICAL MEDICAL W/POS EQUIPME EQUIPME ARWAY PRESS DEVICE EA TUBING A7037 [facility] ALLEN USED WITH 7 HOME HOME POSITIVE MEDICAL MEDICAL AIRWAY EQUIPME EQUIPME PRESSURE DEVICE PROTHROMB 85208 [facility] GARCIA IN TIME 7 [facility] INC INC HEADGEAR A7035 [facility] ALL[facility] USED 7 HOME HOME W/POSITIV MEDICAL MEDICAL E AIRWAY EQUIPME EQUIPME PRESSURE DEVICE PROTHROMB 96253 RAD[facility] GARCIA IN TIME 7 [facility] G0463 RAD[facility] GARCIA OUTPATIEN 7 [facility] T CLIN INC INC VISIT ASSESS & MGMT PT HOSPITAL G0463 RADHA GARCIA OUTPATIEN 7 [facility] T CLIN INC INC VISIT ASSESS & MGMT PT PROTHROMB 55091 [facility] GARCIA IN TIME 7 [facility] PROTHROMB 18306 RADHA GARCIA IN TIME 6 [facility] G0463 RAD[facility] GARCIA OUTPATIEN 6 [facility] T CLIN INC INC VISIT ASSESS & MGMT PT HOSPITAL G0463 [facility] G[facility]IA OUTPATIEN 6 [facility] T CLIN INC INC VISIT ASSESS & MGMT PT PROTHROMB 33158 [facility] GARCIA IN TIME 6 [facility] INC INC PROTHROMB 34540 [facility] G[facility] IN TIME 6 [facility] INC COLLECTIO 77123 [facility] N VENOUS 6 [facility] BLOOD INC INC VENIPUNCT URE THERAPEUT 44809 [facility] IC 6 [facility] PROPHYLAC INC INC TIC/DX INJECTION SUBQ/IM PROTHROMB 80238 [facility] GARCIA IN TIME 6 [facility] G0463 RAD[facility] GARCIA OUTPATIEN 6 [facility] T CLIN INC INC VISIT ASSESS & [place] [address] RADHA GARCIA BLOOD/URI 6 [facility] C ACID INC INC PROTHROMB 64298 RAD[facility] GARCIA IN TIME 6 [facility] INC INC CALCIUM 91670 RAD[facility] GARCIA IONIZED 6 [facility] INC INC COLLECTIO 11315 RADHA [facility]HA N VENOUS 6 [facility] BLOOD INC INC VENIPUNCT URE URNLS DIP 79222 [facility] GARCIA 6 [facility] STICK/TAB INC INC LET REAGENT AUTO MICROSCOP Y RENAL 05448 [facility] G[facility]IA FUNCTION 6 [facility] PANEL INC INC BLOOD 82031 [facility] GARCIA COUNT 6 [facility] COMPLETE INC INC AUTO&[place] [address] RAD[facility] GARCIA PARATHORM 6 [facility] ONE INC INC ALBUMIN 49076 [facility] G[facility]IA URINE 6 [facility]OS[facility] MICROALBU INC INC MIN QUANTIATI VE 25 49227 RAD[facility] HYDROXY 6 [facility] [place] [address] RAD[facility] GARCIA RETROPERI 6 [facility]OS[facility] TONEAL [place] [address] [place] [facility]HA RETROPERI 6 MEDICAL YASMIN TONEAL IMAGING REAL TIME ASS W/IMAGE LIMITED ECHO 95757 [facility] VIO[facility] TTC R-T [facility] W/WOM-MOD G E COMPL SPEC&COLR D COLLECTIO 76009 [facility] N VENOUS [address] [place] [address] BLOOD VENIPUNCT URE PROTHROMB 13369 [facility] IN TIME 6 [facility] BASIC 18821 [facility] METABOLIC [address] [place] [address] HOSPITAL PANEL CALCI[facility] G0463 RAD[facility] GARCIA OUTPATIEN 6 [facility] T CLIN INC INC VISIT ASSESS & MGMT PT PROTHROMB 33562 [facility] GARCIA IN TIME 6 [facility] INC INC HOSPITAL G0463 [facility] GARCIA OUTPATIEN 6 [facility] T CLIN INC INC VISIT ASSESS & MGMT PT COLLECTIO 05223 [facility] LOPEZON N VENOUS 6 [facility]OS[facility] BLOOD INC INC VENIPUNCT URE PROTHROMB 02412 [facility] GARCIA IN TIME 6 [facility] INC INC PROTHROMB 79809 [facility] GARCIA IN TIME 6 [facility] INC INC COLLECTIO 53553 [facility] G[facility]IA N VENOUS 6 [facility] BLOOD INC INC VENIPUNCT URE HOSPITAL G0463 [facility] GARCIA OUTPATIEN 6 [facility] T CLIN INC INC VISIT ASSESS & MGMT PT PROTEIN 39885 [facility] GARCIA XCPT 6 [facility] REFRACTOM INC INC ETRY SERUM PLASMA/WH L BLD COLLECTIO 37566 [facility] GARCIA N VENOUS 6 [facility] BLOOD INC INC VENIPUNCT URE RENAL 04189 [facility] GARCIA FUNCTION 6 [facility] PANEL INC INC CREATININ 29239 [facility] LOPEZON E OTHER 6 [facility] SOURCE INC INC BLOOD 33087 [facility] GARCIA COUNT 6 [facility] COMPLETE INC INC AUTO&AUTO DIFRNTL WBC URNLS DIP 49161 [facility] RADHA 6 [facility] STICK/TAB INC INC [place] [address] [facility] GARCIA PARATHORM 6 [facility] ONE INC INC 25 24543 RADHACAROLA GARCIA HYDROXY 6 [facility] INCLUDES INC INC FRACTIONS IF PERFORMED HOSPITAL G0463 RADHA GARCIA OUTPATIEN 6 [facility] T CLIN INC INC VISIT ASSESS & MGMT PT PROTHROMB 97599 [facility] GARCIA IN TIME 6 [facility] INC INC PROTHROMB 51140 [facility] GARCIA IN TIME 6 [facility] INC INC HOSPITAL G0463 [facility] GARCIA OUTPATIEN 6 [facility] T CLIN INC INC VISIT ASSESS & MGMT PT ECG 92871 [facility] VIOLETA ROUTINE 6 [facility] XIANG ECG MEDICAL W/LEAST G 12 LDS W/I&R HOSPITAL G0463 [facility] GARCIA OUTPATIEN 6 [facility] T CLIN INC INC VISIT ASSESS & MGMT PT PROTHROMB 33690 [facility] GARCIA IN TIME 6 [facility] INC INC PROTHROMB 82730 RADHA GARCIA IN TIME 6 [facility] INC INC HOSPITAL G0463 RADHA GARCIA OUTPATIEN 6 [facility] T CLIN INC INC VISIT ASSESS & MGMT PT COLLECTIO 39454 [facility] GARCIA N VENOUS 6 [facility] BLOOD INC INC VENIPUNCT URE COLLECTIO 30955 [facility] G[facility]IA N VENOUS 6 [facility] [place] [address] [facility] G[facility] THYROID 6 [facility] STIMULATI INC INC NG HORMONE TSH BLOOD 63831 [facility] G[facility]IA COUNT 6 [facility] COMPLETE INC INC AUTO&AUTO DIFRNTL WBC COMPREHEN 04346 [facility] G[facility] SIVE 6 [facility] METABOLIC INC INC PANEL LIPID 41026 [facility] LOPEZON PANEL 6 [facility] INC INC HEMOGLOBI 65086 [facility] GARCIA N 6 [facility] GLYCOSYLA [place] [address] [facility] GARCIA FREE 6 [facility] THYROXINE INC INC PROTHROMB 35952 [facility] GARCIA IN TIME 6 [facility] INC INC HOSPITAL G0463 [facility] GARCIA OUTPATIEN 6 [facility] T CLIN INC INC VISIT ASSESS & MGMT PT HOSPITAL G0463 [facility]HA OUTPATIEN 6 [facility] T CLIN INC INC VISIT ASSESS & MGMT PT PROTHROMB 40326 [facility] RADHA IN TIME 6 [facility] INC INC COLLECTIO 37918 [facility] GARCIA N VENOUS 6 [facility] BLOOD INC INC VENIPUNCT URE Encounters Encounter Start End Date Code Location Performer Type Date HOSPITAL [facility] - 7 7 [facility] INC T OFFICE 57729 [facility] OUTPATIEN 7 7 [facility] T VISIT 5 INC [facility] RADHA - 7 7 [facility] OUTPAT[facility]EN [facility] RADHA - 7 7 [facility] OUTPATIEN INC T OFFICE 85812 [facility] OUTPATIEN 7 7 [facility] T VISIT 5 INC MINUTES OFFICE 72295 [facility] V[facility] OUTPATI[facility] 25 G MINUTES OFFICE 83959 [facility] 7 PHYSICIAN T VISIT S GROUP 25 MINUTES HOSPITAL RADHA - 7 7 [facility] OUTPAT[facility]EN [facility] RADHA - 7 7 [facility]PAT[facility]EN [facility] OFFICE 12351 [facility] OUTPATIEN 7 7 [facility] T VISIT 5 INC MINUTES [facility] 7 [facility] 6 6 [facility] - 6 [facility] - 6 6 [facility] RADHA - 6 6 [facility]PATI[facility] - 6 6 [facility] - 6 6 [facility] [address] RADHA - 6 6 [facility] - 6 6 [facility] RADHA - 6 6 [facility] OUTPATIEN [facility] OFFICE [address] [place] GAVIN OTOOLE OUTPATIEN 6 6 MEDICAL T NEW 45 SERV MINUTES [facility] RADHA - 6 6 [facility] OUTPATIEN [facility] RADHA - 6 6 [facility] OUTPATIEN [facility] RADHA - 6 [address] [facility] [address] [facility] T OFFICE 93581 SYDNEE MCDANIEL OUTPATIEN 6 6 [facility] T VISIT MEDICAL 40 G MINUTES [facility] - 6 6 [facility]PATIEN [facility] RADHA - 6 6 [facility] T OFFICE 60489 AMELIA CISNEROS OUTPATIEN 6 6 JAM DAVID T VISIT 25 MINUTES [facility] - 6 6 [facility]EN [facility] OFFICE 25786 [facility] 6 6 PHYSICIAN KEI T VISIT S GROUP 25 MINUTES [facility] - 6 6 [facility] OUTPATIEN [facility] RADHA - 6 6 [facility] OUTPATIEN [facility]
--- OUTSIDE RECORDS SUMMARY | 2017-01-19 21:28 | External Medical Summary Rpt ---
Demographics Preferred Language Malian Marital Status Unknown Christianity Affiliation Unknown Race Unknown Ethnic Group Unknown Author Author , Organization [employer] Address Unknown Phone Unavailable Purpose Continuity of Care Document - through 2016 Immunization No patient found.
--- OUTSIDE RECORDS SUMMARY | 2017-01-19 21:28 | External Medical Summary Rpt ---
Demographics Preferred Language Bangladeshi Marital Status Unknown Zoroastrianism Affiliation Unknown Race Unknown Ethnic Group Unknown Author Author , Organization [employer] Address Unknown Phone Unavailable Purpose Continuity of Care Document - through 2016 Immunization No patient found.
== END 2017-01-18 03:55 | disposition short-term general hospital (02) ==
LOC: ER 23:47
PROVIDERS: Emergency Medicine
DX: I70.298 Other atherosclerosis of native arteries of extremities, other extremity (principal); I48.2 Chronic atrial fibrillation; E10.8 Type 1 diabetes mellitus with unspecified complications; Z95.2 Presence of prosthetic heart valve; I10 Essential (primary) hypertension

== ENCOUNTER 2017-01-24 15:00 | Outpatient (CLI) | payer MEDICAID ==
[~2017-01-24 15:00] MED LIST changes: +NATURE'S BLEND500 M2 PO
== END 2017-01-24 15:44 ==
LOC: ACC 15:00
DX: Z95.2 Presence of prosthetic heart valve (principal); Z79.01 Long term (current) use of anticoagulants; Z51.81 Encounter for therapeutic drug level monitoring
CPT/HCPCS: G0463

== ENCOUNTER 2017-02-01 11:09 | Emergency (ER) | payer MEDICAID ==
[~2017-02-01] VITALS: Ht 170.2 cm; Wt 112.5 kg
[2017-02-01] MEDS ORDERED: [UNRECOGNIZED DRUG - OTHER] IJ (11:23)
[2017-02-01] MEDS ORDERED: NOVOLIN 70/30 710 ML SC (11:23)
[2017-02-01] MEDS ORDERED: ASPIRIN ADULT L81 M2 PO (11:23)
[2017-02-01] MEDS ORDERED: DIGOXIN0.25 M1 PO (11:24)
[2017-02-01] MEDS ORDERED: BACTROBAN2% TP (11:45)
--- NOTE | 2017-02-01 11:47 | Emergency Room Report ---
See Addendum History of Present Illness Time Seen by 1132 Presenting Problem in Triage Pt arrived:Walked Presenting Problem:BLISTER NOTED IN INCISION SITE ON L ARM-ANTECUBITAL AREA. PT STATES BLISTER WAS NOTICED LASTNIGHT. PT REPORTS INCISION IS FROM A BLOOD CLOT REMOVAL. NO DRAINAGE NOTED AT THIS TIME. 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 N Clinical Suspician of Infection? N Mental Status: 1 - Regular (Normal Baseline) Sepsis Risk:Low Sepsis Risk Have you (or family members/close friends) recently traveled outside the [place]? N If Yes, where/when: Have you had exposure to infectious disease within the past month? N TB? Other? Specify: Source patient, RN notes reviewed Exam Limitations no limitations Comment Pt had a blood clot excised from left antecubital space about 2 to 3 weeks ago at . Last night he noticed a purulent blister over the incsion and comes to the ED for evaluation. NO fever and no redness around the wound. He is on skilled nursing Warfarin and had INR=2.3 yesterday and is also on Lovenox at this time from the surgery he had about 2 to 3 weeks ago Cardiac Chest Pain Chest pain indicative of cardiac No ALLERGIES Coded Allergies: Penicillins (01/18/17) Home Medications Reported Medications Spironolactone (Spironolactone) 25 MG NG BID #0.5 PRAVASTATIN SODIUM (Pravastatin Sodium) 80 MG PO QHS Carvedilol (Carvedilol 25MG) 25 MG PO BID Lisinopril & Hctz (Lisinopril-Hctz 10-12.5 MG Tab) 1 TAB FT DAILY WARFARIN SOD (Warfarin 3MG) 3 MG PO DAILY Furosemide (Furosemide 40MG) 40 MG PO QHS Levothyroxine Sodium (Levothyroxine 0.125MG) 0.125 MG PO DAILY FENOFIBRIC ACID (CHOLINE) (Fenofibric Acid) 135 MG PO QHS CINNAMON BARK (Cinnamon) 1,000 MG PO BID INSULIN NPH HUM/REG INSULIN HM (Novolin 70-30 100 Unit/Ml Vial) 30 UNITS SC BID #20 Aspirin 81 MG PO DAILY #30 Enoxaparin Sodium 100 MG IJ BID #20 Digoxin 0.25 MG PO DAILY #30 History Medical History General CAD? No Angina: Yes [place]: Yes Hypertension? Yes Hyperlipidemia? Yes CHF? No DVT? Yes PE? No COPD? No Asthma? No Anemia? No GERD? No Gastric ulcers? No GI Bleed? No Hernia? No Thyroid Problems? No Hypothyroidism? No CVA? No Seizures? No Diabetes? Yes Insulin Dependent: Yes Insulin Pump: No Home FSBS? Yes Renal Insuffiency? No End Stage Renal Disease? No UTI? No Stones? No BPH? No GB Disease: No Nephritic Syndrome? No Asplenia? No Hepatitis? No Sickle Cell Disease? No Arthritis? No Migraines? No Cataracts? No Glaucoma? No MRSA? No HIV? No TB? No Anxiety? No Depression? No Cancer? No More? No Immunization Hx DT/Tetanus Unknown Surgical Hx Previous Surgery?Y ANGIOPLASTY X2 HERNIA X4 GALLBLADDER Coronary Artery Bypass mechanical heart valve DVT REMOVED LUE Social History Smoking Hx Smoker: Never Smoker Tobacco: No Alcohol Alcohol: Yes Review of Systems All Other Systems Reviewed and Negative Constitutional see HPI Skin see HPI Physical Exam Vital Signs Vital Signs Date Time Temp Pulse Resp B/P Pulse O2 O2 Flow FiO2 Ox Delivery Rate 02/01 1117 97.7 94 18 135/80 97 General Appearance normal appearance, WD/WN, no apparent distress Respiratory Status No: respiratory distress. 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 No Departure Departure Time of Disposition 1142 Disposition DC Home or Self Care(routine) Clinical Impression Primary Impression: Skin infection Condition STABLE Referrals Lexus SINGLETON,Gopal Hammond (PCP): 3 Days-Call Office Patient Instructions Debridement of a Wound, Infection, or Burn, DI for Debridement of a Wound, Infection, or Burn, DI for Wound Infection, Surgical Site Infection Additional Instructions Clean wound daily with hydrogen peroxide and then place antibiotic dressing over it using Bactroban Discharge Counseling Counseled pt/family regarding diagnosis, medications/RX, home care, follow up needs Prescriptions Current Visit Scripts MUPIROCIN 2% (Bactroban Oint) 1 GM TP DAILY #1 TUBE ED Critical Care Critical Care No If Critical Care minutes are documented, the time involved in the performance of seperately reportable procedures was not counted toward critical care time documented. I directly delivered medical care to this critically ill and/or injured patient. Timely evaluation and treatment was necessary to address the significant organ system(s) dysfunction present in this patient. at 1144
--- OUTSIDE RECORDS SUMMARY | 2017-02-01 11:57 | External Medical Summary Rpt ---
Author Author , Organization [employer] Address Unknown Phone Unavailable Care Team Providers Care Earth Moving Technician Name Role Phone LEATHA YASMIN, Unavailable Unavailable LEATHA YASMIN IVON, IVON Unavailable Unavailable IVON KEI, IVON Unavailable Unavailable [facility] Un[facility] Un[facility] INC, [facility], Unavailable Unavailable [facility] Unavailable Unavailable MEDICAL G, [facility] Chat& (ChatAnd) [facility], [facility] AMELIA HERNANDEZ, Unavailable Unavailable [facility] AMELIA JAM, Unavailable Unavailable [facility] Unavailable Unavailable [facility], [facility] Unavailable Unavailable [facility], [facility], Unavailable Unavailable [facility] VIOLETA MCDANIEL Unavailable Unavailable VIOLETA XIANG, VIOLETA Unavailable Unavailable XIANG ALONSO XIANG, ALONSO XIANG Unavailable Unavailable Purpose Continuity of Care Document - 06-03-2016 through 2016 Problems Code Diagnosis DOS Provider Status E03.9 Hypothyroid 01-29-2017 ism, unspecified 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 E11.65 Type 2 01-29-2017 diabetes mellitus with hyperglycem ia E78.5 Hyperlipide 01-29-2017 vincnet, unspecified G47.33 Obstructive 01-29-2017 sleep apnea (adult) (pediatric) I12.9 Hypertensiv 01-29-2017 e chronic kidney disease with stage 1 through stage 4 chronic kidney disease, or unspecified chronic kidney disease 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 I25.5 Ischemic 01-29-2017 cardiomyopa thy I48.91 Unspecified 01-29-2017 atrial fibrillatio n 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 N18.9 Chronic 01-29-2017 kidney disease, unspecified R00.1 Bradycardia 01-29-2017 , unspecified 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 Z79.4 MCFP 01-29-2017 (current) use of insulin Z86.718 Personal 01-29-2017 history of other venous thrombosis and embolism Z87.891 Personal 01-29-2017 history of nicotine dependence Z95.1 Presence of 01-29-2017 aortocorona ry bypass graft Z95.2 Presence of 01-29-2017 prosthetic heart valve I99.8 Other 01-18-2017 disorder of circulatory system Z5181 ENCOUNTER 01-07-2017 [facility] THERAPEUTIC INC DRUG LEVEL MONITORING Z7901 FARM BOSS 01-07-2017 [facility] CURRENT USE [facility] OF INC ANTICOAGULA NTS Z952 PRESENCE OF 01-07-2017 [facility] HEART INC VALVE G4730 SLEEP APNEA 11-29-2016 [facility] UNSPECIFIED INC I2510 ASHD [place] 11-18-2016 [facility] 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 ANGINA PECTORIS I482 CHRONIC 11-18-2016 [facility] ATRIAL HEALTH FIBRILLATIO MEDICAL G N I5043 ACUTE ON 11-18-2016 [facility] CHRONIC HEALTH COMB MEDICAL G SYSTOLIC & DIASTOLIC CHF E039 HYPOTHYROID 10-30-2016 [facility] ISM PHYSICIANS UNSPECIFIED GROUP E119 TYPE 2 10-30-2016 [facility] DIABETES PHYSICIANS MELLITUS GROUP WITHOUT COMPLICATIO NS E663 OVERWEIGHT 10-30-2016 [facility] G4733 OBSTRUCTIVE 10-25-2016 [facility] ADULT MEDICAL PEDIATRIC EQUIPME J449 CHRONIC 10-25-2016 [facility] OBSTRUCTIVE HOME PULMONARY MEDICAL DISEASE UNS EQUIPME I10 ESSENTIAL 08-22-2016 [facility] HYPERTENSIO INC N I4891 UNSPECIFIED 08-14-2016 [facility]TRIAL HOSPITAL FIBRILLATIO N I5023 ACUTE CHRON 08-14-2016 [facility] SYSTOLIC HEALTH HEART MEDICAL G FAILURE I509 HEART 08-14-2016 [facility] FAILURE HOSPITAL UNSPECIFIED I517 CARDIOMEGAL 08-14-2016 [facility] R931 ABNORMAL 08-14-2016 [facility] FINDINGS ON HOSPITAL DX IMAGING HEART & COR CIRC Z969 PRESENCE OF 08-14-2016 [facility] FUNCTIONAL [facility] IMPLANT UNSPECIFIED I129 HYPERTENSIV 07-29-2016 [place] [facility] W/STAGE 1-4 [facility] CKD OR UNS CKD N183 CHRONIC 07-29-2016 [place] [facility] DISE[facility] STAGE 3 MODERATE E785 HYPERLIPIDE 07-09-2016 [facility] UNSPECIFIED MEDICAL G C02402 VITREOUS 06-26-2016 AMELIA HERNANDEZ N RIGHT EYE H93137 VITREOUS 06-26-2016 AMELIA HERNANDEZ N LEFT EYE E11.9 TYPE 2 DIABETES MELLITUS WITHOUT COMPLICATIO NS N28.9 DISORDER OF KIDNEY AND URETER, UNSPECIFIED R74.8 ABNORMAL LEVELS OF OTHER SERUM ENZYMES Allergies, Adverse Reactions, Alerts Clinical Alert Notifications [...] ia de te s n re d EN 00 04 05 11 14 00 HO Ac OX 70 -1 -1 .1 00 ME ti AP 38 4- 2- 99 06 TO ve AR 61 20 20 08 WN IN 02 17 17 50 3 86 PH 12 AR 0 MA MG CY /0 .8 OF ML CY NT SY HI R AN A GL 68 03 04 45 [...] 00 1- 4- 00 06 TO ve VA 51 20 20 07 WN IL 80 [...] 00 ME ti ED 10 1- 4- 06 TO ve IL 15 20 20 07 WN OL 20 17 17 99 3 11 PH 25 AR MA MG CY TA OF BL ET CY NT HI AN A VA 68 03 04 30 30 00 HO Ac AV 18 -2 -1 .0 00 ME ti 00 - 4- 06 TO ve TA 48 20 20 07 WN TI 80 17 17 99 N 9 09 PH SO AR DI MA UM CY 80 OF MG CY NT TA HI B AN A DI 00 03 04 30 30 00 HO Ac GO 11 -2 -1 .0 00 ME ti XI 59 - - 06 TO ve N 82 20 20 07 WN 25 20 17 17 37 0 1 30 PH MC AR G MA TA CY BL ET OF CY NT HI AN A FU 69 03 04 45 30 00 HO Ac RO 31 -2 -1 .0 00 ME ti SE 50 1- 4- 06 TO ve NH 11 20 20 07 WN DE 71 17 17 37 0 31 PH 40 AR MA MG CY TA OF BL ET CY NT HI AN A WA 00 03 04 30 30 00 HO Ac RF 09 -2 -1 .0 00 ME ti AR 31 1- 4- 06 TO ve IN 71 20 20 08 WN 50 17 17 35 SO 1 91 PH DI AR UM MA 3 CY MG OF TA CY BL NT ET HI AN A CA 00 03 04 30 30 00 HO Ac LC 90 -1 -0 .0 00 ME ti IU 43 4- 7- 06 TO ve M 23 20 20 08 WN 60 39 17 17 10 0- 2 65 PH AR T MA D3 CY 40 OF 0 TA CY BL NT ET HI AN A LI 68 02 03 30 30 00 HO Ac SI 18 -1 -1 .0 00 ME ti NO 00 6- - 06 TO ve VA 51 20 20 07 WN IL 80 [...] BL ET CY NT HI AN A VA 68 02 03 30 30 00 HO [...] 50 6- 7- 00 06 TO ve NH 11 20 20 07 WN DE 71 [...] CY BL NT ET HI AN A VA 68 01 02 30 30 00 HO [...] 00 0- 7- 00 06 TO ve VA 51 20 20 07 WN IL 80 17 17 99 -H [address] AR Z MA 10 CY -1 2. OF 5 MG CY NT TA HI B AN A LE 00 01 02 30 [...] 50 9- 7- 00 06 TO ve NH 11 20 20 07 WN DE 71 [...] NT ET HI AN A LE 00 12 01 [...] 50 3- 9- 00 06 TO ve NH 11 20 20 07 WN DE 71 [...] 00 3- 9- 00 06 TO ve VA 51 20 20 05 WN IL 80 16 17 65 -H [address] AR Z MA 10 CY -1 2. OF 5 MG CY NT TA HI B AN A CA 68 12 01 60 30 00 HO Ac RV 00 -1 -0 .0 00 ME ti ED 10 3- 9- 06 TO ve IL 15 20 20 05 WN OL 20 16 17 65 3 61 PH 25 AR MA MG CY TA OF BL ET CY NT HI AN A VA 68 12 01 30 30 00 HO Ac AV 18 -1 -0 .0 00 ME ti 00 3 9 06 TO ve TA 48 20 20 05 WN TI 80 16 17 65 N 9 58 PH SO AR DI MA UM CY 80 OF MG CY NT TA HI B AN A SP 53 12 01 15 30 00 HO Ac IR 74 -1 -0 .0 00 ME ti ON 60 3 06 TO ve OL 51 20 20 05 WN AC 10 16 17 65 TO 1 56 PH NE AR MA 25 CY MG OF TA CY BL NT ET HI AN A Results Labs Lab Lab Date Result Refere Interp Status Commen Order Detail nces retati t Range on UF PPP [employer] Supervisor-aCnc (01-23-2017 10:15) [facility] PPP 0.30 complet 017 IU/mL ed [employer] Supervisor-aC 10:15 [place] UF PPP [employer] Supervisor-aCnc (01-23-2017 04:06) [facility] PPP 0.23 complet 017 IU/mL ed [employer] Supervisor-aC 04:06 nc Phosphate SerPl-mCnc (01-22-2017 09:08) Phospha 1.8 2.5-4.5 complet te 017 mg/dL ed SerPl-m 09:08 Cnc Magnesium SerPl-mCnc (01-22-2017 09:08) Magnesi 1.8 1.9-2.4 complet um 017 mg/dL ed SerPl-m 09:08 [facility] PPP [employer] Supervisor-aCnc (01-22-2017 09:06) [facility] PPP 0.32 complet 017 IU/mL ed [employer] Supervisor-aC 09:06 nc UF PPP [employer] Supervisor-aCnc (01-22-2017 03:13) [facility] PPP 0.33 complet 017 IU/mL ed [employer] Supervisor-aC 03:13 nc Phosphate SerPl-mCnc (01-22-2017 03:13) Phospha 1.7 2.5-4.5 complet te 017 mg/dL ed SerPl-m 03:13 Cnc Magnesium SerPl-mCnc (01-22-2017 03:13) Magnesi 1.6 1.9-2.4 complet um 017 mg/dL ed SerPl-m 03:13 Cnc UFH PPP [employer] Supervisor-aCnc (01-21-2017 20:29) [facility] PPP 0.26 complet 017 IU/mL ed [employer] Supervisor-aC 20:29 nc UFH PPP [employer] Supervisor-aCnc (01-21-2017 13:23) [facility]FH PPP 0.18 complet 017 IU/mL ed [employer] Supervisor-aC 13:23 nc UFH PPP [employer] Supervisor-aCnc (01-21-2017 06:06) UFH PPP 0.14 complet 017 IU/mL ed [employer] Supervisor-aC 06:06 nc Phosphate SerPl-mCnc (01-21-2017 03:05) Phospha 1.4 2.5-4.5 complet te 017 mg/dL ed SerPl-m 03:05 Cnc Magnesium SerPl-mCnc (01-21-2017 03:05) Magnesi 1.8 1.9-2.4 complet um 017 mg/dL ed SerPl-m 03:05 Cnc UFH PPP [employer] Supervisor-aCnc (01-20-2017 22:15) UFH PPP LE11 complet 017 <0.11 L ed [employer] Supervisor-aC 22:15 IU/mL nc Sodium Ur-sCnc (01-20-2017 20:59) Sodium 39 complet Ur-sCnc 017 mmol/L ed 20:59 Creat Ur-mCnc (01-20-2017 20:59) Creat 68 complet Ur-mCnc 017 mg/dL ed 20:59 UFH PPP [employer] Supervisor-aCnc (01-20-2017 16:32) UFH PPP LE11 complet 017 <0.11 L ed [employer] Supervisor-aC 16:32 IU/mL nc UFH PPP [employer] Supervisor-aCnc (01-20-2017 11:28) UFH PPP > 1.10 complet 017 IU/mL ed [employer] Supervisor-aC 11:28 nc Hgb A1c MFr Bld (01-20-2017 04:12) Hgb A1c 10.6 % 4.7-6.0 complet MFr 017 ed Bld 04:12 Phosphate SerPl-mCnc (01-20-2017 04:12) Phospha 2.0 2.5-4.5 complet te 017 mg/dL ed SerPl-m 04:12 Cnc Magnesium SerPl-mCnc (01-20-2017 04:12) Magnesi 1.8 1.9-2.4 complet um 017 mg/dL ed SerPl-m 04:12 Cnc UFH PPP [employer] Supervisor-aCnc (01-20-2017 04:12) UFH PPP 1.02 complet 017 IU/mL ed [employer] Supervisor-aC 04:12 nc UFH PPP [employer] Supervisor-aCnc (01-19-2017 21:15) UFH PPP 2 0.30 complet 017 IU/mL ed [employer] Supervisor-aC 21:15 nc Digoxin SerPl-mCnc (01-19-2017 13:57) Digoxin 1.6 0.8-2.0 complet 017 ng/mL ed SerPl-m 13:57 Cnc UFH PPP [employer] Supervisor-aCnc (01-19-2017 13:57) UFH PPP 0.28 complet 017 IU/mL ed [employer] Supervisor-aC 13:57 nc Phosphate SerPl-mCnc (01-19-2017 05:18) Phospha 01-19-2 2.5 2.5-4.5 complet te 017 mg/dL ed SerPl-m 05:18 Cnc Magnesium SerPl-mCnc (01-19-2017 05:18) Magnesi 01-19-2 2.1 1.9-2.4 complet um 017 mg/dL ed SerPl-m 05:18 Cnc UFH PPP [employer] Supervisor-aCnc (01-19-2017 05:01) UFH PPP 2 0.24 complet 017 IU/mL ed [employer] Supervisor-aC 05:01 nc UFH PPP [employer] Supervisor-aCnc (01-18-2017 23:11) UFH PPP 0.24 complet 017 IU/mL ed [employer] Supervisor-aC 23:11 nc Phosphate SerPl-mCnc (01-18-2017 22:58) Phospha 2.5 2.5-4.5 complet te 017 mg/dL ed SerPl-m 22:58 Cnc Magnesium SerPl-mCnc (01-18-2017 22:58) Magnesi 1.8 1.9-2.4 complet um 017 mg/dL ed SerPl-m 22:58 Cnc UFH PPP [employer] Supervisor-aCnc (01-18-2017 18:24) UFH PPP 0.27 complet 017 IU/mL ed [employer] Supervisor-aC 18:24 nc UFH PPP [employer] Supervisor-aCnc (01-18-2017 11:46) UFH PPP 0.32 complet 017 IU/mL ed [employer] Supervisor-aC 11:46 nc UFH PPP [employer] Supervisor-aCnc (01-18-2017 05:40) UFH PPP 0.88 complet 017 IU/mL ed [employer] Supervisor-aC 05:40 nc Procedures Procedure DOS Code Location Performer Comment PROTHROMB 61319 [facility] INC PROTHROMB 10174 [facility] INC PROTHROMB 00145 [facility] IN TIME 7 [facility] INC INC PROTHROMB 85712 [facility] IN TIME 7 [facility] INC INC POLYSOM 21465 [facility] G[facility]IA 6/>YRS 7 [facility] SLEEP 4/> INC INC ADDL KENDRA ATTND PROTHROMB 22418 [facility] IN TIME 7 [facility] INC INC ECG 49387 [facility] ROUTINE 7 [facility] ECG MEDICAL W/LEAST G 12 LDS W/I&[place] [address] [facility] G[facility]IA FREE 7 [facility] [place] [address] [facility] THYROID 7 [facility] STIMULATI INC INC NG HORMONE TSH HEMOGLOBI 11103 [facility] G[facility]IA N 7 [facility] GLYCOSYLA INC INC AJAY A1C FULL FACE A7030 [facility] CUNNINGHAMRELL MASK 7 HOME HOME USED MEDICAL MEDICAL W/POS EQUIPME EQUIPME ARWAY PRESS DEVICE EA HEADGEAR A7035 [facility] ALLEN USED 7 HOME HOME W/POSITIV MEDICAL MEDICAL E AIRWAY EQUIPME EQUIPME PRESSURE DEVICE PROTHROMB 03655 [facility] G[facility] IN TIME 7 [facility] TUBING A7037 [facility] ALLEN USED WITH 7 HOME HOME POSITIVE MEDICAL MEDICAL AIRWAY EQUIPME EQUIPME PRESSURE DEVICE PROTHROMB 33900 [facility] IN TIME 7 [facility] G0463 [facility] OUTPATIEN 7 [facility] HOSP T CLIN INC INC VISIT ASSESS & MGMT PT HOSPITAL G0463 [facility] G[facility] OUTPATIEN 7 [facility] HOSP T CLIN INC INC VISIT ASSESS & MGMT PT PROTHROMB 40786 [facility] IN TIME 7 [facility] G0463 [facility] OUTPATIEN 6 [facility] HOSP T CLIN INC INC VISIT ASSESS & MGMT PT PROTHROMB 60064 [facility] IN TIME 6 [facility] G0463 [facility] OUTPATIEN 6 [facility] HOSP T CLIN INC INC VISIT ASSESS & MGMT PT PROTHROMB 63632 [facility] IN TIME 6 [facility] HOSP INC INC PROTHROMB 61087 [facility] IN TIME 6 [facility] HOSP INC INC THERAPEUT 93178 [facility] IC 6 [facility] PROPHYLAC INC INC TIC/DX INJECTION SUBQ/IM COLLECTIO 87978 [facility] N VENOUS 6 [facility] BLOOD INC INC VENIPUNCT URE PROTHROMB 97199 [facility] IN TIME 6 [facility] G0463 [facility] OUTPATIEN 6 [facility] T CLIN INC INC VISIT ASSESS & MGMT PT CALCIUM 94493 [facility] IONIZED 6 [place] [address] [facility] G[facility]IA BLOOD/URI 6 [facility] [place] [address] [facility] G[facility] PARATHORM 6 [facility] ONE INC INC PROTHROMB 04554 [facility] IN TIME 6 [facility] INC INC ALBUMIN 95692 [facility] URINE 6 [facility] MICROALBU INC INC MIN QUANTIATI VE 25 95290 [facility] G[facility] HYDROXY 6 [facility] INCLUDES INC INC FRACTIONS IF PERFORMED COLLECTIO 65793 [facility] N VENOUS 6 [facility] BLOOD INC INC VENIPUNCT URE RENAL 76916 [facility] FUNCTION 6 [facility] PANEL INC INC URNLS DIP 23455 [facility] G[facility]IA 6 [facility] STICK/TAB INC INC LET REAGENT AUTO MICROSCOP Y BLOOD 37328 [facility] COUNT 6 [facility] COMPLETE INC INC AUTO&[place] [address] [facility] RETROPERI 6 [facility] TONEAL INC [place] [address] ODELLKYA LEATHA RETROPERI 6 MEDICAL YASMIN TONEAL IMAGING REAL TIME ASS W/IMAGE LIMITED ECHO 91780 [facility] [address] [place] [address] 2D W/WOM-MOD E COMPL SPEC&COLR D COLLECTIO 04620 [facility] N VENOUS [address] [place] [address] BLOOD VENIPUNCT URE PROTHROMB 95257 [facility] IN TIME [address] [place] [address] HOSPITAL BASIC 22855 [facility] METABOLIC [address] [place] [address] PANEL CALCIUM [facility] G0463 [facility] OUTPATIEN 6 [facility] T CLIN INC INC VISIT ASSESS & MGMT PT PROTHROMB 06694 [facility] G[facility] IN TIME 6 [facility] INC INC COLLECTIO 06519 RADHA LOPEZON N VENOUS 6 [facility] BLOOD INC INC VENIPUNCT URE PROTHROMB 62175 [facility] GARCIA IN TIME 6 [facility] INC INC HOSPITAL G0463 [facility] GARCIA OUTPATIEN 6 [facility] T CLIN INC INC VISIT ASSESS & MGMT PT HOSPITAL G0463 [facility] GARCIA OUTPATIEN 6 [facility] T CLIN INC INC VISIT ASSESS & MGMT PT PROTHROMB 08612 [facility] GARCIA IN TIME 6 [facility] INC INC COLLECTIO 89294 [facility] N VENOUS 6 [facility] BLOOD INC INC VENIPUNCT URE RENAL 54033 [facility] G[facility]IA FUNCTION 6 [facility] PANEL INC INC URNLS DIP 21255 [facility] GARCIA 6 [facility] STICK/TAB INC INC LET REAGENT AUTO MICROSCOP Y COLLECTIO 39376 [facility] G[facility] N VENOUS 6 [facility] BLOOD INC INC VENIPUNCT URE CREATININ 12062 [facility] E OTHER 6 [facility] [place] [address] [facility] GARCIA PARATHORM 6 [facility] ONE INC INC 25 55361 RADHACAROLA GARCIA HYDROXY 6 [facility] INCLUDES INC INC FRACTIONS IF PERFORMED PROTEIN 08095 [facility] XCPT 6 [facility] REFRACTOM INC INC ETRY SERUM PLASMA/WH L BLD BLOOD 49098 [facility] LOPEZON COUNT 6 [facility] COMPLETE INC INC AUTO&AUTO DIFRNTL WBC PROTHROMB 11885 [facility]IA IN TIME 6 [facility] INC INC HOSPITAL G0463 [facility] G[facility] OUTPATIEN 6 [facility] T CLIN INC INC VISIT ASSESS & MGMT PT HOSPITAL G0463 RADHA RADHA OUTPATIEN 6 [facility] T CLIN INC INC VISIT ASSESS & MGMT PT PROTHROMB 54312 [facility] RADHA IN TIME 6 [facility] INC INC ECG 74957 [facility]/LEAST G [facility] G0463 [facility] G[facility] OUTPATIEN 6 [facility] T CLIN INC INC VISIT ASSESS & MGMT PT PROTHROMB 44875 [facility]HA RADHA IN TIME 6 [facility] INC INC PROTHROMB 49174 [facility] GARCIA IN TIME 6 [facility] INC INC COLLECTIO 41373 [facility] G[facility] N VENOUS 6 [facility] BLOOD INC INC VENIPUNCT URE HOSPITAL G0463 [facility] OUTPATIEN 6 [facility] T CLIN INC INC VISIT ASSESS & MGMT PT COLLECTIO 25393 [facility] GARCIA N VENOUS 6 [facility] BLOOD INC INC VENIPUNCT URE HEMOGLOBI 72404 [facility] RADHA N 6 [facility] GLYCOSYLA INC INC AJAY A1C LIPID 24919 [facility] LOPEZON PANEL 6 [facility] INC INC COMPREHEN 94942 RAD[facility] LOPEZON SIVE 6 [facility] [place] [address] RADHA GARCIA THYROID 6 [facility] STIMULATI [place] [address] RADHA GARCIA FREE 6 [facility] THYROXINE INC INC BLOOD 29146 [facility] GARCIA COUNT 6 [facility] COMPLETE INC INC AUTO&AUTO DIFRNTL [facility] G0463 [facility] GARCIA OUTPATIEN 6 [facility] T CLIN INC INC VISIT ASSESS & MGMT PT PROTHROMB 09453 [facility] GARCIA IN TIME 6 [facility] INC INC HOSPITAL G0463 [facility] GARCIA OUTPATIEN 6 [facility] T CLIN INC INC VISIT ASSESS & MGMT PT PROTHROMB 60909 RADHA RADHA IN TIME 6 [facility] INC INC COLLECTIO 26232 [facility] RADHA N VENOUS 6 [facility] BLOOD INC INC VENIPUNCT URE Encounters Encounter Start End Date Code Location Performer Type Date HOSPITAL [facility] - Ethel 7 [facility] OUTPATIEN INC T OFFICE 89441 [facility] MONROYEN 7 7 [facility] T VISIT 5 INC MINUTES HOSPITAL RAD[facility] - 7 7 [facility] OUTPATIEN INC T OFFICE 50282 [facility] OUTPATIEN 7 7 [facility] T VISIT 5 INC [facility] RADHA - 7 7 [facility] OUTPATIEN INC T OFFICE 74055 [facility] OUTPATIEN 7 7 [facility] T VISIT 5 INC MINUTES OFFICE 89483 [facility] OUTPATIEN 7 7 [facility] T VISIT 5 INC [facility] RADHA - 7 7 [facility] RADHA - 7 7 [facility] OUTPATIEN INC OFFICE 21753 [facility] OUTPATIEN 7 7 [facility] T VISIT 5 INC [facility] RADHA - 7 7 [facility] OUTPATIEN INC OFFICE 14946 [facility] 7 [facility] G MINUTES OFFICE 82460 [facility] OUTPATIEN 7 7 PHYSICIAN T VISIT S GROUP 25 MINUTES HOSPITAL RADHA - 7 7 [facility] RADHA - 7 7 [facility] OUTPATIEN INC T OFFICE 47214 [facility] OUTPATIEN 7 7 [facility] T VISIT 5 INC [facility] RADHA - 7 7 [facility] - 7 7 [facility] - 6 6 [facility] RADHA - 6 6 [facility] OUTPATIEN INC [facility] RADHA - 6 6 [facility] OUTPATIEN [facility] - 6 6 [facility] - 6 6 [facility] - 6 6 [facility] - 6 6 [facility] 6 [facility] 6 [facility] 6 6 [facility]ICE [id number] [place] [facility]PATIEN 6 6 MEDICAL T NEW 45 SERV MINUTES [facility] - 6 6 [facility] 6 6 [facility] 6 6 [facility] [id number] [facility] 6 [facility] VIS[facility] MEDICAL 40 G MINUT[facility] - 6 6 [facility] 6 6 [facility] OFFICE [id number] [facility] OUTPATIEN 6 6 JAM JAM T [facility]ISIT 25 MINUTES [facility] - 6 6 [facility] OFFICE [id number] [facility] OUTPATIEN 6 6 PHYSICIAN KEI T [facility]ISIT S GROUP 25 MINUTES [facility] - 6 6 [facility] 6 6 [facility]
--- OUTSIDE RECORDS SUMMARY | 2017-02-01 11:57 | External Medical Summary Rpt ---
Author Author , Organization [employer] Address Unknown Phone Unavailable Care Team Providers Care Power Wood Sawyer Name Role Phone LEATHA YASMIN, Unavailable Unavailable LEATHA YASMIN IVON, IVON Unavailable Unavailable IVON KEI, IVON Unavailable Unavailable [facility] Un[facility] Unavailable INC, [facility], [facility]available Unavailable [facility] Unavailable Unavailable MEDICAL [facility], [facility], [facility] AMELIA HERNANDEZ, Unavailable Unavailable [facility] AMELIA JAM, Unavailable Unavailable [facility] Unavailable Unavailable EQUIPME, [facility] Unavailable Unavailable E[facility]ME, [facility], Unavailable Unavailable [facility] VIOLETA MCDANIEL Unavailable Unavailable VIOLETA XIANG, VIOLETA Unavailable Unavailable XIANG ALONSO XIANG, ALONSO XIANG Unavailable Unavailable Purpose Continuity of Care Document - 06-03-2016 through 2016 Problems Code Diagnosis DOS Provider Status E03.9 Hypothyroid 01-29-2017 ism, unspecified 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 E11.65 Type 2 01-29-2017 diabetes mellitus with hyperglycem ia E78.5 Hyperlipide 01-29-2017 vincent, unspecified G47.33 Obstructive 01-29-2017 sleep apnea (adult) (pediatric) I12.9 Hypertensiv 01-29-2017 e chronic kidney disease with stage 1 through stage 4 chronic kidney disease, or unspecified chronic kidney disease 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 I25.5 Ischemic 01-29-2017 cardiomyopa thy I48.91 Unspecified 01-29-2017 atrial fibrillatio n 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 N18.9 Chronic 01-29-2017 kidney disease, unspecified R00.1 Bradycardia 01-29-2017 , unspecified 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 Z79.4 care home 01-29-2017 (current) use of insulin Z86.718 Personal 01-29-2017 history of other venous thrombosis and embolism Z87.891 Personal 01-29-2017 history of nicotine dependence Z95.1 Presence of 01-29-2017 aortocorona ry bypass graft Z95.2 Presence of 01-29-2017 prosthetic heart valve I99.8 Other 01-18-2017 disorder of circulatory system Z5181 ENCOUNTER 01-07-2017 [facility] THERAPEUTIC INC DRUG LEVEL MONITORING 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 [facility] CURRENT USE [facility] OF INC ANTICOAGULA NTS Z952 PRESENCE OF 01-07-2017 [facility] HEART INC VALVE G4730 SLEEP APNEA 11-29-2016 [facility] UNSPECIFIED INC I2510 ASHD NEWHALEN 11-18-2016 [facility] 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 ANGINA PECTORIS I482 CHRONIC 11-18-2016 [facility] ATRIAL HEALTH FIBRILLATIO MEDICAL G N I5043 ACUTE ON 11-18-2016 [facility] CHRONIC HEALTH COMB MEDICAL G SYSTOLIC & DIASTOLIC CHF E039 HYPOTHYROID 10-30-2016 [facility] UNSPECIFIED GROUP E119 TYPE 2 10-30-2016 [facility] DIABETES PHYSICIANS MELLITUS GROUP WITHOUT COMPLICATIO NS E663 OVERWEIGHT 10-30-2016 [facility] G4733 OBSTRUCTIVE 10-25-2016 [facility]ULT [facility]EDIATRIC EQUIPME J449 CHRONIC 10-25-2016 [facility] OBSTRUCTIVE HOME PULMONARY MEDICAL DISEASE UNS EQUIPME I10 ESSENTIAL 08-22-2016 [facility] HYPERTENSIO INC N I4891 UNSPECIFIED 08-14-2016 [facility] ATRIAL [facility]PITAL FIBRILLATIO N I5023 ACUTE CHRON 08-14-2016 [facility] SYSTOLIC HEALTH HEART MEDICAL G FAILURE I509 HEART 08-14-2016 [facility] FAILURE HOSPITAL UNSPECIFIED I517 CARDIOMEGAL 08-14-2016 [facility] R931 ABNORMAL 08-14-2016 [facility] FINDINGS ON HOSPITAL DX IMAGING HEART & COR CIRC Z969 PRESENCE OF 08-14-2016 [facility] FUNCTIONAL [facility] IMPLANT UNSPECIFIED I129 HYPERTENSIV 07-29-2016 [place] [facility] W/STAGE 1-4 [facility]OUNDATION CKD OR UNS CKD N183 CHRONIC 07-29-2016 [facility] DISE[facility] STAGE 3 MODERATE E785 HYPERLIPIDE 07-09-2016 [facility] UNSPECIFIED MEDICAL G [id number] VITREOUS 06-26-2016 AM[facility] HERNANDEZ N RIGHT EYE [id number] VITREOUS 06-26-2016 AM[facility]IA HERNANDEZ N LEFT EYE [...] 00 1- 4- 00 06 TO ve WI 51 20 20 07 WN [place] 80 [...] BL ET CY NT HI AN A WI 68 03 04 30 30 00 HO [...] SE 50 1- 4- 06 TO ve MN 11 20 20 07 WN DE 71 [...] NO 00 6- - 06 TO ve WI 51 20 20 07 WN IL 80 [...] BL ET CY NT HI AN A WI 68 02 03 30 30 00 HO [...] 50 6- 7- 00 06 TO ve MN 11 20 20 07 WN DE 71 [...] CY BL NT ET HI AN A WI 68 01 02 30 30 00 HO [...] 00 0- 7- 00 06 TO ve WI 51 20 20 07 WN IL 80 [...] 50 9- 7- 00 06 TO ve MN 11 20 20 07 WN DE 71 [...] 50 3- 9- 00 06 TO ve MN 11 20 20 07 WN DE 71 [...] 00 3- 9- 00 06 TO ve WI 51 20 20 05 WN IL 80 [...] BL ET CY NT HI AN A WI 68 12 01 30 30 00 HO [...] nces retati t Range on UF PPP [facility]re [facility] (01-23-2017 10:15) [facility] PPP 0.30 complet 017 IU/mL ed Fibre [facility] [place]-aC 10:15 mi UF PPP [facility]re [facility] (01-23-2017 04:06) [facility] PPP 0.23 complet 017 IU/mL ed Fibre [facility] 04:06 nc Phosphate SerPl-mCnc (01-22-2017 09:08) Phospha 1.8 2.5-4.5 complet te 017 mg/dL ed SerPl-m 09:08 Cnc Magnesium SerPl-mCnc (01-22-2017 09:08) Magnesi 1.8 1.9-2.4 complet um 017 mg/dL ed SerPl-m 09:08 [facility] PPP Fibre [facility]ement [place] (01-22-2017 09:06) [facility] PPP 0.32 complet 017 IU/mL ed Fibre [facility]ement [place]-aC 09:06 nc UF PPP Fibre [facility] (01-22-2017 03:13) [facility] PPP 0.33 complet 017 IU/mL ed Fibre [facility]ement [place]-a[facility] 03:13 nc Phosphate SerPl-mCnc (01-22-2017 03:13) Phospha 1.7 2.5-4.5 complet te 017 mg/dL ed SerPl-m 03:13 Cnc Magnesium SerPl-mCnc (01-22-2017 03:13) Magnesi 1.6 1.9-2.4 complet um 017 mg/dL ed SerPl-m 03:13 Cnc UFH PPP Fibre [facility] [place] (01-21-2017 20:29) [facility] PPP 0.26 complet 017 IU/mL ed Fibre [facility] [place] 20:29 nc UFH PPP Fibre [facility]ement [place] (01-21-2017 13:23) UFH PPP 0.18 complet 017 IU/mL ed Fibre [facility] 13:23 nc UFH PPP Fibre [facility]ement [place] (01-21-2017 06:06) UFH PPP 0.14 complet 017 IU/mL ed Fibre [facility] [place] 06:06 nc Phosphate SerPl-mCnc (01-21-2017 03:05) Phospha 1.4 2.5-4.5 complet te 017 mg/dL ed SerPl-m 03:05 Cnc Magnesium SerPl-mCnc (01-21-2017 03:05) Magnesi 1.8 1.9-2.4 complet um 017 mg/dL ed SerPl-m 03:05 Cnc UFH PPP Fibre [facility] [place] (01-20-2017 22:15) UFH PPP LE11 complet 017 <0.11 L ed Fibre [facility] 22:15 IU/mL nc Sodium Ur-sCnc (01-20-2017 20:59) Sodium 39 complet Ur-sCnc 017 mmol/L ed 20:59 Creat Ur-mCnc (01-20-2017 20:59) Creat 68 complet Ur-mCnc 017 mg/dL ed 20:59 UFH PPP Fibre [facility]ement [place] (01-20-2017 16:32) UFH PPP LE11 complet 017 <0.11 L ed Fibre [facility] [place] 16:32 IU/mL nc UFH PPP Fibre [facility] [place] (01-20-2017 11:28) UFH PPP > 1.10 complet 017 IU/mL ed Fibre [facility] [place] 11:28 nc Hgb A1c MFr Bld (01-20-2017 04:12) Hgb A1c 10.6 % 4.7-6.0 complet MFr 017 ed Bld 04:12 Phosphate SerPl-mCnc (01-20-2017 04:12) Phospha 2.0 2.5-4.5 complet te 017 mg/dL ed SerPl-m 04:12 Cnc Magnesium SerPl-mCnc (01-20-2017 04:12) Magnesi 1.8 1.9-2.4 complet um 017 mg/dL ed SerPl-m 04:12 Cnc UFH PPP Fibre [facility]ement [place]-a[facility] (01-20-2017 04:12) UFH PPP 1.02 complet 017 IU/mL ed Fibre [facility]-aC 04:12 nc UFH PPP Fibre [facility] [place] (01-19-2017 21:15) UFH PPP 2 0.30 complet 017 IU/mL ed Fibre [facility] 21:15 nc Digoxin SerPl-mCnc (01-19-2017 13:57) Digoxin 1.6 0.8-2.0 complet 017 ng/mL ed SerPl-m 13:57 Cnc UFH PPP Fibre [facility]ement [place] (01-19-2017 13:57) UFH PPP 0.28 complet 017 IU/mL ed Fibre [facility] 13:57 nc Phosphate SerPl-mCnc (01-19-2017 05:18) Phospha 01-19-2 2.5 2.5-4.5 complet te 017 mg/dL ed SerPl-m 05:18 Cnc Magnesium SerPl-mCnc (01-19-2017 05:18) Magnesi 01-19-2 2.1 1.9-2.4 complet um 017 mg/dL ed SerPl-m 05:18 Cnc UFH PPP Fibre [facility]ement [place] (01-19-2017 05:01) UFH PPP 2 0.24 complet 017 IU/mL ed Fibre [facility]ement [facility]-aC 05:01 nc UFH PPP Fibre Cement [place]-a[facility]nc (01-18-2017 23:11) UFH PPP 0.24 complet 017 IU/mL ed Fibre [facility]ement [facility]-aC 23:11 nc Phosphate SerPl-mCnc (01-18-2017 22:58) Phospha 2.5 2.5-4.5 complet te 017 mg/dL ed SerPl-m 22:58 Cnc Magnesium SerPl-mCnc (01-18-2017 22:58) Magnesi 1.8 1.9-2.4 complet um 017 mg/dL ed SerPl-m 22:58 Cnc UFH PPP Fibre Cement [place]-a[facility]nc (01-18-2017 18:24) UFH PPP 0.27 complet 017 IU/mL ed Fibre [facility]ement [facility]-a[facility] 18:24 nc UFH PPP Fibre [facility]ement [place] (01-18-2017 11:46) UFH PPP 0.32 complet 017 IU/mL ed Fibre [facility]ement [facility]-a[facility] 11:46 nc UFH PPP Fibre [facility]ement [place] (01-18-2017 05:40) UFH PPP 0.88 complet 017 IU/mL ed Fibre [facility]ement [facility] 05:40 nc Procedures Procedure DOS Code Location Performer Comment PROTHROMB 34215 [facility] IN [facility] 7 [facility] INC INC PROTHROMB 17220 RAD[facility] GARCIA IN TIME 7 [facility] INC INC PROTHROMB 88196 RADHA GARCIA IN TIME 7 [facility] INC INC PROTHROMB 42467 RAD[facility] GARCIA IN TIME 7 [facility] INC INC POLYSOM 03565 RADHA GARCIA 6/>YRS 7 [facility] SLEEP 4/> INC INC ADDL KENDRA ATTND PROTHROMB 18902 [facility] GARCIA IN TIME 7 [facility] INC INC ECG 35067 [facility] ROUTINE 7 [facility] ECG MEDICAL W/LEAST G 12 LDS W/I&[place] [address] [facility] GARCIA FREE 7 [facility] [place] [address] [facility] THYROID 7 [facility] STIMULATI INC INC NG HORMONE TSH HEMOGLOBI 63589 [facility] G[facility]IA N 7 [facility] GLYCOSYLA INC INC AJAY A1C FULL FACE A7030 [facility] CUNNINGHAMRELL MASK 7 HOME HOME USED MEDICAL MEDICAL W/POS EQUIPME EQUIPME ARWAY PRESS DEVICE EA HEADGEAR A7035 [facility] ALLEN USED 7 HOME HOME W/POSITIV MEDICAL MEDICAL E AIRWAY EQUIPME EQUIPME PRESSURE DEVICE PROTHROMB 65383 [facility] GARCIA IN TIME 7 [facility] TUBING A7037 [facility] ALLEN USED WITH 7 HOME HOME POSITIVE MEDICAL MEDICAL AIRWAY EQUIPME EQUIPME PRESSURE DEVICE PROTHROMB 49027 RADHA GRACIA IN TIME 7 [facility] G0463 RAD[facility] GARCIA OUTPATIEN 7 [facility] T CLIN INC INC VISIT ASSESS & MGMT PT HOSPITAL G0463 RAD[facility]ARCIA OUTPATIEN 7 [facility] T CLIN INC INC VISIT ASSESS & MGMT PT PROTHROMB 69331 RAD[facility] GARCIA IN TIME 7 [facility] G0463 [facility] GARCIA OUTPATIEN 6 [facility]OS[facility] T CLIN INC INC VISIT ASSESS & MGMT PT PROTHROMB 99484 [facility] GARCIA IN TIME 6 [facility] G0463 RAD[facility]ARCIA OUTPATIEN 6 [facility] HOS[facility] T CLIN INC INC VISIT ASSESS & MGMT PT PROTHROMB 72162 [facility] GARCIA IN TIME 6 [facility]OS[facility] INC INC PROTHROMB 84297 [facility] GARCIA IN TIME 6 [facility]OS[facility] INC INC THERAPEUT 54486 RAHDA GARCIA IC 6 [facility] PROPHYLAC INC INC TIC/DX INJECTION SUBQ/IM COLLECTIO 37183 [facility]IA N VENOUS 6 [facility] BLOOD INC INC VENIPUNCT URE PROTHROMB 95804 [facility] GARCIA IN TIME 6 [facility] G0463 [facility] G[facility] OUTPATIEN 6 [facility] T CLIN INC INC VISIT ASSESS & MGMT PT CALCIUM 06286 [facility] G[facility]IA IONIZED 6 [place] [address] [facility] GARCIA BLOOD/URI 6 [facility] [place] [address] RADHA GARCIA PARATHORM 6 [facility] ONE INC INC PROTHROMB 46883 [facility] GARCIA IN TIME 6 [facility] INC INC ALBUMIN 75930 [facility] G[facility]IA URINE 6 [facility] MICROALBU INC INC MIN QU[place]IATI VE 25 99841 [facility] G[facility] HYDROXY 6 [facility] INCLUDES INC INC FRACTIONS IF PERFORMED COLLECTIO 13402 [facility] N VENOUS 6 [facility] BLOOD INC INC VENIPUNCT URE RENAL 52743 [facility] G[facility]IA FUNCTION 6 [facility] PANEL INC INC URNLS DIP 44986 [facility] GARCIA 6 [facility] STICK/TAB INC INC LET REAGENT AUTO MICROSCOP Y BLOOD 15067 [facility] G[facility]IA COUNT 6 [facility] COMPLETE INC INC AUTO&[place] [address] [facility] G[facility]IA RETROPERI 6 [facility] TONEAL INC [place] [address] ODELLKYA LEATHA RETROPERI 6 MEDICAL YASMIN TONEAL IMAGING REAL TIME ASS W/IMAGE LIMITED ECHO 72981 [facility] R[facility]T [address] [place] [address] 2D W/WOM-MOD E COMPL SPEC&COLR D COLLECTIO 73320 [facility] N VENOUS [address] [place] [address] BLOOD VENIPUNCT URE PROTHROMB 84344 [facility] IN TIME [address] [place] [address] HOSPITAL BASIC 39891 [facility] METABOLIC [address] [place] [address] PANEL CALCIUM [facility] G0463 [facility] GARCIA OUTPATIEN 6 [facility] T CLIN INC INC VISIT ASSESS & MGMT PT PROTHROMB 60654 [facility] GARCIA IN TIME 6 [facility] INC INC COLLECTIO 09752 RADHA LOPEZON N VENOUS 6 [facility] BLOOD INC INC VENIPUNCT URE PROTHROMB 12173 RAD[facility] GARCIA IN TIME 6 [facility] INC INC HOSPITAL G0463 RADHA GARCIA OUTPATIEN 6 [facility] T CLIN INC INC VISIT ASSESS & MGMT PT HOSPITAL G0463 RADHA GARCIA OUTPATIEN 6 [facility] T CLIN INC INC VISIT ASSESS & MGMT PT PROTHROMB 59008 [facility] GARCIA IN TIME 6 [facility] INC INC COLLECTIO 81070 [facility] GARCIA N VENOUS 6 [facility] BLOOD INC INC VENIPUNCT URE RENAL 12544 [facility] GARCIA FUNCTION 6 [facility] PANEL INC INC URNLS DIP 29910 RAD[facility] GARCIA 6 [facility] STICK/TAB INC INC LET REAGENT AUTO MICROSCOP Y COLLECTIO 34899 [facility] G[facility]IA N VENOUS 6 [facility] BLOOD INC INC VENIPUNCT URE CREATININ 24088 [facility] GARCIA E OTHER 6 [facility] [place] [address] [facility] GARCIA PARATHORM 6 [facility] ONE INC INC 25 30379 RADHACAROLA GARCIA HYDROXY 6 [facility] INCLUDES INC INC FRACTIONS IF PERFORMED PROTEIN 61939 [facility] GARCIA XCPT 6 [facility] REFRACTOM INC INC ETRY SERUM PLASMA/WH L BLD BLOOD 04834 [facility] LOPEZON COUNT 6 [facility] COMPLETE INC INC AUTO&AUTO DIFRNTL WBC PROTHROMB 57087 [facility] GARCIA IN TIME 6 [facility] INC INC HOSPITAL G0463 [facility] GARCIA OUTPATIEN 6 [facility] T CLIN INC INC VISIT ASSESS & MGMT PT HOSPITAL G0463 RADHA RADHA OUTPATIEN 6 [facility] T CLIN INC INC VISIT ASSESS & MGMT PT PROTHROMB 07805 RADHA RADHA IN TIME 6 [facility] INC INC ECG 82868 [facility] ROUTINE 6 [facility] MEDICAL W/LEAST G 12 LDS [facility] G0463 [facility] GARCIA OUTPATIEN 6 [facility] T CLIN INC INC VISIT ASSESS & MGMT PT PROTHROMB 89756 RADHA RADHA IN TIME 6 [facility] INC INC PROTHROMB 10035 [facility] GARCIA IN TIME 6 [facility] INC INC COLLECTIO 48106 RAD[facility] GARCIA N VENOUS 6 [facility] BLOOD INC INC VENIPUNCT URE HOSPITAL G0463 [facility] GARCIA OUTPATIEN 6 [facility] T CLIN INC INC VISIT ASSESS & MGMT PT COLLECTIO 20031 [facility] GARCIA N VENOUS 6 [facility] BLOOD INC INC VENIPUNCT URE HEMOGLOBI 48510 RADHA RADHA N 6 [facility] GLYCOSYLA INC INC AJAY A1C LIPID 64434 RADHA LOPEZON PANEL 6 [facility] INC INC COMPREHEN 69834 RADHA LOPEZON SIVE 6 [facility] [place] [address] RAD[facility] GARCIA THYROID 6 [facility] STIMULATI [place] [address] RADHA GARCIA FREE 6 [facility] THYROXINE INC INC BLOOD 70002 [facility] GARCIA COUNT 6 [facility] COMPLETE INC INC AUTO&AUTO DIFRNTL WBC HOSPITAL G0463 [facility] GARCIA OUTPATIEN 6 [facility] T CLIN INC INC VISIT ASSESS & MGMT PT PROTHROMB 91924 [facility]HA GARCIA IN TIME 6 [facility] INC INC HOSPITAL G0463 [facility] GARCIA OUTPATIEN 6 [facility] T CLIN INC INC VISIT ASSESS & MGMT PT PROTHROMB 76943 RADHA RADHA IN TIME 6 [facility] INC INC COLLECTIO 35894 [facility]HA RADHA N VENOUS 6 [facility] BLOOD INC INC VENIPUNCT URE Encounters Encounter Start End Date Code Location Performer Type Date HOSPITAL [facility] - Ethel 7 [facility] OUTPATIEN INC T OFFICE 71340 RADHA MONROYEN 7 7 [facility] T VISIT 5 INC MINUTES HOSPITAL RADHA - 7 7 [facility] OUTPATIEN INC T OFFICE 54407 [facility] OUTPATIEN 7 7 [facility] T [facility]ISIT 5 [facility] - 7 7 [facility] OUTPATIEN INC T OFFICE 79314 [facility] OUTPATIEN 7 7 [facility] T VISIT 5 INC MINUTES OFFICE 18058 [facility] OUTPATIEN 7 7 [facility] T VISIT 5 INC [facility] RADHA - 7 7 [facility] RADHA - 7 7 [facility] OUTPATIEN INC OFFICE 49144 [facility] OUTPATIEN 7 7 [facility] T VISIT 5 INC [facility] ARDHA - 7 7 [facility] OUTPATIEN INC OFFICE 07706 [facility] OUTPATIEN 7 7 [facility] T VISIT MEDICAL 25 G MINUTES OFFICE 48273 [facility] OUTPATIEN 7 7 PHYSICIAN T VISIT S GROUP 25 MINUTES HOSPITAL RADHA - 7 7 [facility] OUTPATIEN [facility] RADHA - 7 7 [facility] OUTPATIEN INC T OFFICE 41576 [facility] OUTPATIEN 7 7 [facility] T VISIT 5 INC [facility] RADHA - 7 7 [facility] OUTPAT[facility]EN INC [facility] RAD[facility] - 7 7 [facility] RADHA - 6 6 [facility]PAT[facility] RADHA - 6 6 [facility] OUTPATIEN [facility] RADHA - 6 6 [facility] OUTPATIEN INC [facility] RADHA - 6 6 [facility] OUTPATIEN [facility] RADHA - 6 6 [facility]PATIEN [facility] RADHA - 6 6 [facility] OUTPATIEN [facility] MARCOS - 6 6 [facility] - 6 [facility] - 6 6 [facility] - 6 6 [facility] OUTPATIEN [facility]ICE 47113 [place] [facility] OUTPATIEN 6 6 MEDICAL T NEW 45 SERV MINUTES [facility] - 6 6 [facility] - 6 6 [facility] - 6 6 [facility] 66452 [facility] 6 [facility] T [facility]ISIT MEDICAL 40 G MINUTES [facility] RADHA - 6 6 [facility] - 6 6 [facility] 07035 [facility] AMELIA OUTPATIEN 6 6 JAM JAM T VISIT 25 MINUTES [facility]HA - 6 6 [facility] 37205 [facility] OUTPATIEN 6 6 PHYSICIAN KEI T VISIT S GROUP 25 MINUTES [facility] RADHA - 6 6 [facility] - 6 6 [facility]
--- OUTSIDE RECORDS SUMMARY | 2017-02-01 12:00 | External Medical Summary Rpt ---
Author Author , Organization [employer] Address Unknown Phone Unavailable Care Team Providers Care Organizational Development Manager Name Role Phone LEATHA YASMIN, Unavailable Unavailable LEATHA YASMIN IVON, IVON Unavailable Unavailable IVON KEI, IVON Unavailable Unavailable [facility] Un[facility] Unavailable INC, [facility], Unavailable Unavailable [facility] Unavailable Unavailable MED[facility], [facility], [facility] AMELIA HERNANDEZ, Unavailable Unavailable CISNEROS DAVID HERNANDEZ, Unavailable Unavailable [facility]IS[facility] JAM [facility] Unavailable Unavailable EQUIPME, [facility] Unavailable Unavailable [facility], [facility], Unavailable Unavailable [facility] VIOLETA MCDANIEL Unavailable Unavailable VIOLETA FALLON Unavailable Unavailable XIANG OTOOLE, GAVIN OTOOLE Unavailable Unavailable Purpose Continuity of Care Document - 06-03-2016 through 2016 Problems Code Diagnosis DOS Provider Status [id number] ENCOUNTER 01-07-2017 [facility] THERAPEUTIC INC DRUG LEVEL MONITORING Z7901 CARE HOME 01-07-2017 [facility] CURRENT USE [facility] OF INC ANTICOAGULA NTS Z952 PRESENCE OF 01-07-2017 [facility]OST[facility] HEART INC VALVE G4730 SLEEP APNEA 11-29-2016 [facility] UNSPECIFIED INC I2510 ASHD [place] BAND 11-18-2016 [facility] 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 ANGINA PECTORIS I482 CHRONIC 11-18-2016 [facility] ATRIAL HEALTH FIBRILLATIO MEDICAL G N I5043 ACUTE ON 11-18-2016 [facility] CHRONIC HEALTH COMB MEDICAL G SYSTOLIC & DIASTOLIC CHF E039 HYPOTHYROID 10-30-2016 [facility] UNSPECIFIED GROUP E119 TYPE 2 10-30-2016 [facility] MELLITUS GROUP WITHOUT COMPLICATIO NS E663 OVERWEIGHT 10-30-2016 [facility] G4733 OBSTRUCTIVE 10-25-2016 [facility] ADULT MEDICAL PEDIATRIC EQUIPME J449 CHRONIC 10-25-2016 [facility] PULMONARY MEDICAL DISEASE UNS EQUIPME I10 ESSENTIAL 08-22-2016 [facility] HYPERTENSIO INC N I4891 UNSPECIFIED 08-14-2016 [facility] ATRIAL HOSPITAL FIBRILLATIO N I5023 ACUTE CHRON 08-14-2016 [facility] HEART MEDICAL G FAILURE I509 HEART 08-14-2016 [facility] FAILURE HOSPITAL UNSPECIFIED I517 CARDIOMEGAL 08-14-2016 [facility] Y HOSPITAL R931 ABNORMAL 08-14-2016 [facility] FINDINGS ON HOSPITAL DX IMAGING HEART & COR CIRC Z969 PRESENCE OF 08-14-2016 [facility] FUNCTIONAL [facility] IMPLANT UNSPECIFIED I129 HYPERTENSIV 07-29-2016 [facility] W/STAGE 1-4 [facility] CKD OR UNS CKD N183 CHRONIC 07-29-2016 [facility] STAGE 3 MODERATE E785 HYPERLIPIDE 07-09-2016 [facility] UNSPECIFIED MEDICAL G [id number] VITREOUS 06-26-2016 AMELIA REYESCHANDAN HERNANDEZ N RIGHT EYE [id number] VITREOUS 06-26-2016 AMELIA MARYCRUZ HERNANDEZ N LEFT [...] .1 00 ME ti AP 38 4- 99 06 TO ve AR 61 20 [...] -1 .0 00 ME ti TH 71 - 4- 00 06 TO ve YR 34 20 20 08 WN OX 70 17 17 15 IN 1 05 PH E AR 12 MA 5 CY MC G OF TA BL CY ET NT HI AN A FE 00 03 04 30 30 00 HO Ac NO 37 -2 -1 .0 00 ME ti FI 83 4- 06 TO ve BR 06 20 20 08 WN AT 67 17 17 15 E 7 04 PH 14 AR 5 MA MG CY TA OF BL ET CY NT HI AN A LI 68 03 04 30 30 00 HO Ac SI 18 -2 -1 .0 00 ME ti NO 00 1- 4- 00 06 TO ve PA 51 20 20 07 WN IL 80 [...] BL ET CY NT HI AN A PA 68 03 04 30 30 00 HO [...] 50 1- 4- 00 06 TO ve WV 11 20 20 07 WN DE 71 [...] 00 6- 7- 00 06 TO ve PA 51 20 20 07 WN IL 80 [...] BL ET CY NT HI AN A PA 68 02 03 30 30 00 HO [...] 50 6- 7- 00 06 TO ve WV 11 20 20 07 WN DE 71 [...] ET HI AN A LE 00 02 30 30 00 HO Ac VO 52 -1 -1 .0 00 ME ti TH 71 9- 7- 00 06 TO ve YR 34 20 20 07 WN OX 70 17 17 54 IN 1 01 PH E AR 12 MA 5 CY MC G OF TA BL CY ET NT HI AN A FE 00 02 30 30 00 HO Ac NO [...] 50 9- 7- 00 06 TO ve WV 11 20 20 07 WN DE 71 [...] CY BL NT ET HI AN A PA 68 01 02 30 30 00 HO [...] 00 0- 7- 00 06 TO ve PA 51 20 20 07 WN IL 80 [...] 50 3- 9- 00 06 TO ve WV 11 20 20 07 WN DE 71 16 17 37 0 31 PH 40 AR MA MG CY TA OF BL ET CY NT HI AN A DI 00 12 01 30 30 00 HO Ac GO 11 -1 -0 .0 00 ME ti XI 59 3- 9- 06 TO ve N 82 20 20 07 WN 25 20 16 17 37 0 1 30 PH MC AR G MA TA CY BL ET OF CY NT HI AN A LI 68 12 01 30 30 00 HO Ac SI 18 -1 -0 .0 00 ME ti NO 00 3 06 TO ve PA 51 20 20 05 WN IL 80 16 17 65 -H [address] AR Z MA 10 CY -1 2. OF 5 MG CY NT TA HI B AN A CA 68 12 01 60 30 00 HO Ac RV 00 -1 -0 .0 00 ME ti ED 10 3- 9 06 TO ve IL 15 20 20 05 WN OL 20 16 17 65 3 61 PH 25 AR MA MG CY TA OF BL ET CY NT HI AN A PA 68 12 01 30 30 00 HO [...] Procedure DOS Code Location Performer Comment PROTHROMB 20332 [facility] IN TIME 7 [facility] INC PROTHROMB 29535 [facility] IN TIME [facility] INC PROTHROMB 03584 [facility] IN TIME 7 [facility] INC PROTHROMB 54168 [facility] IN TIME 7 [facility] INC INC POLYSOM 62933 [facility]IA 6/>YRS 7 [facility] SLEEP 4/> INC INC ADDL KENDRA ATTND PROTHROMB 50856 [facility] G[facility] IN TIME 7 [facility] INC INC ECG 08505 [facility] ROUTINE 7 [facility] ECG MEDICAL W/LEAST G 12 LDS W/I&[place] [address] [facility] GARCIA FREE 7 [facility] [place] [address] [facility] G[facility] THYROID 7 [facility] STIMULATI INC INC NG HORMONE TSH HEMOGLOBI 74150 [facility] N 7 [facility] GLYCOSYLA INC INC AJAY A1C TUBING A7037 [facility] ALLEN USED WITH 7 HOME HOME POSITIVE MEDICAL MEDICAL AIRWAY EQUIPME EQUIPME PRESSURE DEVICE FULL FACE A7030 [facility] MASK 7 HOME HOME USED MEDICAL MEDICAL W/POS EQUIPME EQUIPME ARWAY PRESS DEVICE EA HEADGEAR A7035 [facility] ALLEN USED 7 HOME HOME W/POSITIV MEDICAL MEDICAL E AIRWAY EQUIPME EQUIPME PRESSURE DEVICE PROTHROMB 63975 [facility] IN TIME 7 [facility] INC INC PROTHROMB 86384 [facility] IN TIME 7 [facility] G0463 [facility] OUTPATIEN 7 [facility] T CLIN INC INC VISIT ASSESS & MGMT PT HOSPITAL G0463 [facility] OUTPATIEN 7 [facility] T CLIN INC INC VISIT ASSESS & MGMT PT PROTHROMB 62591 [facility] IN TIME 7 [facility] INC INC PROTHROMB 08694 [facility] IN TIME 6 [facility] G0463 [facility] OUTPATIEN 6 [facility] T CLIN INC INC VISIT ASSESS & MGMT PT HOSPITAL G0463 [facility] OUTPATIEN 6 [facility] T CLIN INC INC VISIT ASSESS & MGMT PT PROTHROMB 51021 [facility] IN TIME 6 [facility] INC INC THERAPEUT 94430 [facility] IC 6 [facility] PROPHYLAC INC INC TIC/DX INJECTION SUBQ/IM COLLECTIO 77906 [facility] N VENOUS 6 [facility] BLOOD INC INC VENIPUNCT URE PROTHROMB 80077 [facility] IN TIME 6 [facility] INC INC HOSPITAL G0463 [facility] OUTPATIEN 6 [facility] T CLIN INC INC VISIT ASSESS & MGMT PT PROTHROMB 08086 [facility] G[facility] IN TIME 6 [facility] INC INC CALCIUM 14487 [facility] IONIZED 6 [facility] INC INC PROTHROMB 47381 [facility] IN TIME 6 [place] [address] [facility] BLOOD/URI 6 [facility] C ACID INC INC COLLECTIO 55309 [facility] G[facility] N VENOUS 6 [facility] BLOOD INC INC VENIPUNCT URE ALBUMIN 86403 [facility] URINE 6 [facility] MICROALBU INC INC MIN QUANTIATI VE 25 06559 [facility] G[facility] HYDROXY 6 [facility] INCLUDES [place] [address] [facility] G[facility]IA PARATHORM 6 [facility] ONE INC INC BLOOD 26690 [facility] COUNT 6 [facility] COMPLETE INC INC AUTO&AUTO DIFRNTL WBC RENAL 22998 [facility] FUNCTION 6 [facility] PANEL INC INC URNLS DIP 82220 [facility]IA 6 [facility] STICK/TAB INC [place] [address] [facility] G[facility] RETROPERI 6 [facility] TONEAL INC [place] [address] [place] [facility] RETROPERI 6 MEDICAL YASMIN TONEAL IMAGING REAL TIME ASS W/IMAGE LIMITED ECHO 15171 [facility] VIOLETA [facility] R-T 6 IN HEALTH XIANG 2D MEDICAL W/WOM-MOD G E COMPL SPEC&COLR D COLLECTIO 50586 [facility] N VENOUS [address] [place] [address] BLOOD VENIPUNCT URE PROTHROMB 67994 [facility] IN TIME 6 [facility] HOSPITAL BASIC 09739 [facility] METABOLIC [address] [place] [address] HOSPITAL PANEL CALCIUM [facility] G0463 [facility]IA OUTPATIEN 6 [facility] T CLIN INC INC VISIT ASSESS & MGMT PT PROTHROMB 36145 [facility] G[facility] IN TIME 6 [facility] INC INC HOSPITAL G0463 [facility] OUTPATIEN 6 [facility] T CLIN INC INC VISIT ASSESS & MGMT PT COLLECTIO 28876 [facility] N VENOUS 6 [facility] BLOOD INC INC VENIPUNCT URE PROTHROMB 91323 [facility] IN TIME 6 [facility] INC INC PROTHROMB 19585 [facility] IN TIME 6 [facility] INC INC COLLECTIO 66028 [facility] G[facility] N VENOUS 6 [facility] BLOOD INC INC VENIPUNCT URE HOSPITAL G0463 RAD[facility]HA OUTPATIEN 6 [facility] T CLIN INC INC VISIT ASSESS & MGMT PT COLLECTIO 96369 [facility] N VENOUS 6 [facility] BLOOD INC INC VENIPUNCT URE CREATININ 06061 [facility] E OTHER 6 [facility] SOURCE INC INC 25 46471 [facility] HYDROXY 6 [facility] INCLUDES INC INC FRACTIONS IF PERFORMED PROTEIN 07100 [facility] XCPT 6 [facility] REFRACTOM INC INC ETRY SERUM PLASMA/[place] [address] [facility] G[facility]IA PARATHORM 6 [facility] ONE INC INC BLOOD 47225 [facility] COUNT 6 [facility] COMPLETE INC INC AUTO&AUTO DIFRNTL WBC URNLS DIP 79870 [facility]IA 6 [facility] STICK/TAB INC INC LET REAGENT AUTO MICROSCOP Y RENAL 47560 [facility] FUNCTION 6 [facility] PANEL INC INC HOSPITAL G0463 [facility] OUTPATIEN 6 [facility] T CLIN INC INC VISIT ASSESS & MGMT PT PROTHROMB 34212 [facility] IN TIME 6 [facility] INC INC HOSPITAL G0463 [facility] OUTPATIEN 6 [facility] T CLIN INC INC VISIT ASSESS & MGMT PT PROTHROMB 82614 [facility] G[facility] IN TIME 6 [facility] INC INC ECG 34747 [facility] ROUTINE 6 [facility] ECG MEDICAL W/LEAST G 12 LDS W/I&R PROTHROMB 92615 [facility] IN TIME 6 [facility] INC INC HOSPITAL G0463 RAD[facility] RADHA OUTPATIEN 6 [facility] T CLIN INC INC VISIT ASSESS & MGMT PT HOSPITAL G0463 [facility] OUTPATIEN 6 [facility] T CLIN INC INC VISIT ASSESS & MGMT PT PROTHROMB 44680 [facility] G[facility] IN TIME 6 [facility] INC INC COLLECTIO 36914 [facility] N VENOUS 6 [facility] BLOOD INC INC VENIPUNCT URE COLLECTIO 11848 [facility] N VENOUS 6 [facility] [place] [address] [facility] THYROID 6 [facility] STIMULATI INC INC NG HORMONE TSH COMPREHEN 62716 [facility] SIVE 6 [facility] METABOLIC INC INC PANEL BLOOD 15129 [facility] COUNT 6 [facility] COMPLETE INC INC AUTO&[place] [address] [facility] FREE 6 [facility] THYROXINE INC INC LIPID 79933 [facility] PANEL 6 [facility] INC INC HEMOGLOBI 33647 [facility] N 6 [facility] GLYCOSYLA INC INC AJAY A1C PROTHROMB 77425 [facility] GARCIA IN TIME 6 [facility] INC INC HOSPITAL G0463 [facility]ARCIA OUTPATIEN 6 [facility] T CLIN INC INC VISIT ASSESS & MGMT PT HOSPITAL G0463 [facility] OUTPATIEN 6 [facility] T CLIN INC INC VISIT ASSESS & MGMT PT PROTHROMB 28562 [facility] IN TIME 6 [facility] INC INC COLLECTIO 67115 [facility] N VENOUS 6 [facility] BLOOD INC INC VENIPUNCT URE Encounters Encounter Start End Date Code Location Performer Type Date HOSPITAL [facility] - 7 7 [facility] OUTPATIEN INC T OFFICE 90872 [facility] 7 7 [facility] T VISIT 5 INC MINUTES OFFICE 74030 [facility] 7 7 [facility] T VISIT 5 INC MINUTES [facility]OSPITAL [facility] - 7 7 [facility] - 7 7 [facility] OUTPATIEN INC T OFFICE 33450 [facility]EN 7 7 [facility] T VISIT 5 INC MINUTES OFFICE 16666 [facility] 7 7 [facility] T VISIT 5 INC MINUTES [facility]OSP[facility] - 7 7 [facility] - 7 7 [facility] - 7 7 [facility] OUTPATIEN INC T OFFICE 23156 [facility]EN 7 7 [facility] T VISIT 5 INC MINUTES OFFICE 71857 [facility] OUTPATIEN 7 7 IN HEALTH T VISIT MEDICAL 25 G MINUTES HOSPITAL [facility] - 7 7 [facility] OUTPATIEN INC T OFFICE 36443 [facility] OUTPATIEN 7 7 PHYSICIAN T VISIT S GROUP 25 MINUTES OFFICE 59897 [facility] OUTPATIEN 7 7 [facility] T VISIT 5 INC MINUTES HOSPITAL RAD[facility] - 7 7 [facility] OUTPATIEN INC [facility] - 7 7 [facility] OUTPATIEN [facility] - 7 7 [facility] OUTPATIEN [facility] - 6 6 [facility] OUTPATIEN INC [facility] - 6 6 [facility] OUTPATIEN [facility] RAD[facility] - 6 6 [facility]PATIEN [facility] RADHA - 6 6 [facility]PATIEN [facility] RAD[facility] - 6 6 [facility] OUTPATIEN [facility] RADHA - 6 6 [facility] OUTPATIEN [facility] - [address] [place] [address] [facility] 6 6 [facility]PATIEN [facility] - 6 6 [facility]PATIEN [facility] RADHA - 6 6 [facility]PATIEN [facility] OFFICE 28095 [facility] XIANG OUTPATIEN 6 6 MEDICAL T NEW 45 SERV MINUTES [facility] RADHA - 6 6 [facility]PATIEN [facility] RADHA - 6 6 [facility]PATIEN [facility] - 6 6 [facility] OUTPATIEN [facility] OFF[facility] 28989 [facility] XIANG T [facility]ISIT MEDICAL 40 G MINUTES [facility] RADHA - 6 6 [facility] OUTPATIEN [facility] RAD[facility] - 6 6 [facility] OUTPATIEN [facility] T OFFICE 01256 [facility] AMELIA OUTPATIEN 6 6 DAVID JAM T VISIT MINUTES [facility] RADHA - 6 6 [facility] OUTPATIEN [facility] OFF[facility] 10231 [facility]ON OUTPATIEN 6 6 PHYSICIAN KEI T VISIT S GROUP 25 MINUTES [facility] RADHA - 6 6 [facility] OUTPATIEN [facility] RADHA - 6 6 [facility] OUTPATIEN [facility]
--- OUTSIDE RECORDS SUMMARY | 2017-02-01 12:00 | External Medical Summary Rpt ---
Author Author , Organization [employer] Address Unknown Phone Unavailable Care Team Providers Care Collar Padder Blindstitch Name Role Phone LEATHA YASMIN, Unavailable Unavailable LEATHA YASMIN IVON, IVON Unavailable Unavailable IVON KEI, IVON Unavailable Unavailable [facility] Un[facility] Un[facility] INC, [facility], [facility]available Unavailable [facility] Unavailable [facility], [facility] AMELIA HERNANDEZ, Unavailable Unavailable C[facility]NER[facility] DAVID HERNANDEZ, Unavailable Unavailable [facility] Unavailable Unavailable E[facility], [facility] Unavailable Unavailable [facility], [facility], Unavailable Unavailable [facility] VIOLETA MCDANIEL Unavailable Unavailable [facility] Unavailable Unavailable XIANG OTOOLE, GAVIN OTOOLE Unavailable Unavailable Purpose Continuity of Care Document - 06-03-2016 through 2016 Problems Code Diagnosis DOS Provider Status [id number] ENCOUNTER 01-07-2017 [facility] THERAPEUTIC INC DRUG LEVEL MONITORING Z7901 PENITENTIARY 01-07-2017 [facility] CURRENT USE [facility] OF INC ANTICOAGULA NTS Z952 PRESENCE OF 01-07-2017 [facility]OST[facility] HEART INC VALVE G4730 SLEEP APNEA 11-29-2016 [facility] UNSPECIFIED INC I2510 ASHD KENAITZE 11-18-2016 [facility] 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 ANGINA PECTORIS I482 CHRONIC 11-18-2016 [facility] ATRIAL HEALTH FIBRILLATIO MEDICAL G N I5043 ACUTE ON 11-18-2016 [facility] CHRONIC HEALTH COMB MEDICAL G SYSTOLIC & DIASTOLIC CHF E039 HYPOTHYROID 10-30-[address] [facility]M PHYSICIANS UNSPECIFIED GROUP E119 TYPE 2 10-30-[address] [facility] DIABETES PHYSICIANS MELLITUS GROUP WITHOUT COMPLICATIO NS E663 OVERWEIGHT 10-30-[address] [facility] G4733 OBSTRUCTIVE 10-25-2016 [facility] ADULT MEDICAL PEDIATRIC EQUIPME J449 CHRONIC 10-25-2016 [facility] PULMONARY MEDICAL DISEASE UNS EQUIPME I10 ESSENTIAL 08-22-2016 [facility] HYPERTENSIO INC N I4891 UNSPECIFIED 08-14-2016 [facility] ATRIAL HOSPITAL FIBRILLATIO N I5023 ACUTE CHRON 08-14-2016 [facility] HEART MEDICAL G FAILURE I509 HEART 08-14-2016 [facility] FAILURE HOSPITAL UNSPECIFIED I517 CARDIOMEGAL 08-14-2016 [facility] Y HOSPITAL R931 ABNORMAL 08-14-2016 [facility] FINDINGS ON HOSPITAL DX IMAGING HEART & COR CIRC Z969 PRESENCE OF 08-14-2016 [facility] FUNCTIONAL [facility] IMPLANT UNSPECIFIED I129 HYPERTENSIV 07-29-2016 [place] [facility] W/STAGE 1-4 [facility]ATION CKD OR UNS CKD N183 CHRONIC 07-29-2016 [place] [facility] DISE[facility] STAGE 3 MODERATE E785 HYPERLIPIDE 07-09-2016 [facility] UNSPECIFIED MEDICAL G [id number] VITREOUS 06-26-2016 AMELIA REYESCHANDAN HERNANDEZ N RIGHT EYE [id number] VITREOUS 06-26-2016 AMELIA MARYCRUZ HERNADNEZ N LEFT EYE Medications Na ND Rx [...] 00 1- 4- 00 06 TO ve WA 51 20 20 07 WN IL 80 [...] ET CY NT HI AN A WA 68 03 04 30 30 00 HO [...] 50 1- 4- 00 06 TO ve NC 11 20 20 07 WN DE 71 [...] 00 6- 7- 00 06 TO ve WA 51 20 20 07 WN IL 80 [...] ET CY NT HI AN A WA 68 02 03 30 30 00 HO [...] 50 6- 7- 00 06 TO ve NC 11 20 20 07 WN DE 71 [...] 50 9- 7- 00 06 TO ve NC 11 20 20 07 WN DE 71 [...] CY BL NT ET HI AN A WA 68 01 02 30 30 00 HO [...] 00 0- 7- 00 06 TO ve WA 51 20 20 07 WN IL 80 [...] 50 3- 9- 00 06 TO ve NC 11 20 20 07 WN DE 71 [...] ti NO 00 3 06 TO ve WA 51 20 20 05 WN IL 80 [...] ET CY NT HI AN A WA 68 12 01 30 30 00 HO [...] Procedure DOS Code Location Performer Comment PROTHROMB 94183 [facility] IN TIME 7 [facility] INC INC PROTHROMB 18071 [facility] IN TIME 7 [facility] INC INC PROTHROMB 89798 [facility] IN TIME 7 [facility] INC INC PROTHROMB 79274 [facility] G[facility] IN TIME 7 [facility] INC INC POLYSOM 80188 RAD[facility] AGRCIA 6/>YRS 7 MEM H[facility] SLEEP 4/> INC INC ADDL KENDRA ATTND PROTHROMB 12261 [facility] G[facility] IN TIME 7 [facility] INC INC ECG 06777 [facility] ROUTINE 7 [facility] ECG MEDICAL W/LEAST G 12 LDS W/I&[place] [address] [facility] G[facility]IA FREE 7 [facility] [place] [address] [facility] THYROID 7 [facility] STIMULATI INC INC NG HORMONE TSH HEMOGLOBI 42848 [facility] N 7 [facility] GLYCOSYLA INC INC AJAY A1C TUBING A7037 [facility] ALLEN USED WITH 7 HOME HOME POSITIVE MEDICAL MEDICAL AIRWAY EQUIPME EQUIPME PRESSURE DEVICE FULL FACE A7030 [facility] MASK 7 HOME HOME USED MEDICAL MEDICAL W/POS EQUIPME EQUIPME ARWAY PRESS DEVICE EA HEADGEAR A7035 [facility] ALLEN USED 7 HOME HOME W/POSITIV MEDICAL MEDICAL E AIRWAY EQUIPME EQUIPME PRESSURE DEVICE PROTHROMB 99356 [facility] G[facility]IA IN TIME 7 [facility] INC INC PROTHROMB 65739 [facility] GARCIA IN TIME 7 [facility] G0463 RAD[facility] GARCIA OUTPATIEN 7 [facility] T CLIN INC INC VISIT ASSESS & MGMT PT HOSPITAL G0463 RAD[facility]IA OUTPATIEN 7 [facility] T CLIN INC INC VISIT ASSESS & MGMT PT PROTHROMB 99481 [facility] GARCIA IN TIME 7 [facility] INC INC PROTHROMB 71229 [facility] IN TIME 6 [facility] G0463 [facility] G[facility]IA OUTPATIEN 6 [facility] T CLIN INC INC VISIT ASSESS & MGMT PT HOSPITAL G0463 [facility] G[facility] OUTPATIEN 6 [facility] T CLIN INC INC VISIT ASSESS & MGMT PT PROTHROMB 81830 [facility] G[facility]IA IN TIME 6 [facility] INC INC THERAPEUT 31897 [facility] IC 6 [facility] PROPHYLAC INC INC TIC/DX INJECTION SUBQ/IM COLLECTIO 26500 [facility] N VENOUS 6 [facility] BLOOD INC INC VENIPUNCT URE PROTHROMB 73067 [facility] IN TIME 6 [facility] INC INC HOSPITAL G0463 [facility] OUTPATIEN 6 [facility] T CLIN INC INC VISIT ASSESS & MGMT PT PROTHROMB 19587 [facility] G[facility] IN TIME 6 [facility] INC INC CALCIUM 70988 [facility] IONIZED 6 [facility] INC INC PROTHROMB 83924 [facility] IN TIME 6 [place] [address] [facility] G[facility]IA BLOOD/URI 6 [facility] C ACID INC INC COLLECTIO 53408 [facility] G[facility] N VENOUS 6 [facility] BLOOD INC INC VENIPUNCT URE ALBUMIN 70113 [facility] G[facility] URINE 6 [facility] MICROALBU INC INC MIN QUANTIATI VE 25 13351 [facility] G[facility]IA HYDROXY 6 MEM HOS[facility] INCLUD[place] [address] [facility] G[facility]IA PARATHORM 6 [facility] ONE INC INC BLOOD 47406 [facility] COUNT 6 [facility] COMPLETE INC INC AUTO&AUTO DIFRNTL WBC RENAL 24188 [facility] FUNCTION 6 [facility] PANEL INC INC URNLS DIP 69330 [facility] G[facility]IA 6 [facility] STICK/TAB INC [place] [address] [facility] G[facility]IA RETROPERI 6 [facility] TONEAL [place] [address] [place] [facility] RETROPERI 6 MEDICAL YASMIN TONEAL IMAGING REAL TIME ASS W/IMAGE LIMITED ECHO 00121 [facility] R-T 6 [facility]ALTH XIANG 2D MEDICAL W/WOM-MOD G E COMPL SPEC&COLR D COLLECTIO 59007 [facility] N VENOUS [address] [place] [address] BLOOD VENIPUNCT URE PROTHROMB 97813 [facility] IN TIME 6 [facility] BASIC 15196 [facility] METABOLIC [address] [place] [address] HOSPITAL PANEL [facility] G0463 [facility] GARCIA OUTPATIEN 6 [facility] T CLIN INC INC VISIT ASSESS & MGMT PT PROTHROMB 52814 [facility] GARCIA IN TIME 6 [facility] INC INC HOSPITAL G0463 [facility] GARCIA OUTPATIEN 6 [facility] T CLIN INC INC VISIT ASSESS & MGMT PT COLLECTIO 26328 RAD[facility] GARCIA N VENOUS 6 [facility]OS[facility] BLOOD INC INC VENIPUNCT URE PROTHROMB 19364 [facility] IN TIME 6 [facility] INC INC PROTHROMB 86729 [facility] IN TIME 6 [facility] INC INC COLLECTIO 33249 [facility] G[facility] N VENOUS 6 [facility] BLOOD INC INC VENIPUNCT URE HOSPITAL G0463 RADHA RADHA OUTPATIEN 6 [facility] T CLIN INC INC VISIT ASSESS & MGMT PT COLLECTIO 84837 [facility] G[facility]IA N VENOUS 6 [facility] BLOOD INC INC VENIPUNCT URE CREATININ 61872 [facility] GARCIA E OTHER 6 [facility] SOURCE INC INC 25 77835 [facility] G[facility]IA HYDROXY 6 [facility] INCLUDES INC INC FRACTIONS IF PERFORMED PROTEIN 10668 [facility] GARCIA XCPT 6 [facility] REFRACTOM INC INC ETRY SERUM PLASMA/[place] [address] RAD[facility] GARCIA PARATHORM 6 [facility] ONE INC INC BLOOD 70311 [facility] COUNT 6 [facility] COMPLETE INC INC AUTO&AUTO DIFRNTL WBC URNLS DIP 03772 [facility] G[facility]IA 6 [facility] STICK/TAB INC INC LET REAGENT AUTO MICROSCOP Y RENAL 69856 [facility] FUNCTION 6 [facility] PANEL INC INC HOSPITAL G0463 [facility] OUTPATIEN 6 [facility] T CLIN INC INC VISIT ASSESS & MGMT PT PROTHROMB 92853 [facility] G[facility] IN TIME 6 [facility] INC INC HOSPITAL G0463 [facility] OUTPATIEN 6 [facility] T CLIN INC INC VISIT ASSESS & MGMT PT PROTHROMB 94786 [facility] G[facility] IN TIME 6 [facility] INC INC ECG 55939 [facility] ROUTINE 6 [facility] ECG MEDICAL W/LEAST G 12 LDS W/I&R PROTHROMB 28403 [facility]HA IN TIME 6 [facility] INC INC HOSPITAL G0463 RADHA RADHA OUTPATIEN 6 [facility] T CLIN INC INC VISIT ASSESS & MGMT PT HOSPITAL G0463 [facility]HA OUTPATIEN 6 [facility] T CLIN INC INC VISIT ASSESS & MGMT PT PROTHROMB 20676 [facility] G[facility]IA IN TIME 6 [facility] INC INC COLLECTIO 70868 [facility] G[facility] N VENOUS 6 [facility] BLOOD INC INC VENIPUNCT URE COLLECTIO 96297 [facility] G[facility]IA N VENOUS 6 [facility] [place] [address] [facility] THYROID 6 [facility] STIMULATI INC INC NG HORMONE TSH COMPREHEN 54116 [facility] SIVE 6 [facility] METABOLIC INC INC PANEL BLOOD 99613 [facility] G[facility]IA COUNT 6 [facility] COMPLETE INC INC AUTO&[place] [address] [facility]ARCIA FREE 6 [facility] THYROXINE INC INC LIPID 87570 [facility] PANEL 6 [facility] INC INC HEMOGLOBI 72735 [facility] GARCIA N 6 [facility] GLYCOSYLA INC INC AJAY A1C PROTHROMB 70946 [facility] G[facility]IA IN TIME 6 [facility] INC INC HOSPITAL G0463 [facility] OUTPATIEN 6 [facility] T CLIN INC INC VISIT ASSESS & MGMT PT HOSPITAL G0463 [facility] OUTPATIEN 6 [facility] T CLIN INC INC VISIT ASSESS & MGMT PT PROTHROMB 92088 [facility] IN TIME 6 [facility] INC INC COLLECTIO 20228 [facility] N VENOUS 6 [facility] BLOOD INC INC VENIPUNCT URE Encounters Encounter Start End Date Code Location Performer Type Date HOSPITAL [facility] - 7 7 [facility] OUTPATIEN INC T OFFICE 23608 [facility] 7 7 [facility] T VISIT 5 INC MINUTES OFFICE 22974 [facility] 7 7 [facility] T VISIT 5 INC MINUTES [facility]OSPITAL [facility] - 7 7 [facility] - 7 7 [facility] OUTPATIEN INC T OFFICE 36014 [facility] OUTPATIEN 7 7 [facility] T VISIT 5 INC MINUTES OFFICE 42102 [facility] OUTPATIEN 7 7 [facility] T VISIT 5 INC MINUTES [facility]OSP[facility] - 7 7 [facility] - 7 7 [facility] - 7 7 [facility] OUTPATIEN INC T OFFICE 68872 [facility] OUTPATIEN 7 7 [facility] T VISIT 5 INC MINUTES OFFICE 75287 [facility] OUTPATIEN 7 7 [facility] T VISIT MEDICAL 25 G MINUTES HOSPITAL [facility] - 7 7 [facility] OUTPATIEN INC T OFFICE 98045 [facility] OUTPATIEN 7 7 PHYSICIAN T VISIT S GROUP 25 MINUTES OFFICE 53800 [facility] OUTPATIEN 7 7 [facility] T VISIT 5 INC MINUTES HOSPITAL RAD[facility] - 7 7 [facility] OUTPATIEN INC [facility] - 7 7 [facility]PATIEN [facility] - 7 7 [facility] OUTPATI[facility] - 6 6 [facility] OUTPATIEN INC [facility] - 6 6 [facility] - 6 6 [facility] - 6 6 [facility] - 6 6 [facility] - 6 6 [facility]PATIEN [facility] - [address] [place] [address] [facility] - 6 6 [facility] - 6 6 [facility]PATI[facility] - 6 6 [facility] OUTPATIEN [facility] OFFICE 57624 [facility] XIANG OUTPATIEN 6 6 MEDICAL T NEW 45 SERV MINUTES [facility] RADHA - 6 6 [facility]PATI[facility]HA - 6 6 [facility]PATIEN [facility] - 6 6 [facility] OUTPATIEN [facility] OFFICE 70997 [facility] 6 [facility] XIANG T VISIT MEDICAL 40 G MINUTES [facility] RADHA - 6 6 [facility] OUTPATIEN [facility] RADHA - 6 6 [facility] OUTPATIEN [facility] T OFFICE 98998 CISNEROS AMELIA OUTPATIEN 6 6 DAVID JAM T VISIT MINUTES [facility] RADHA - 6 6 [facility] OUTPATIEN [facility] OFFICE [address] [facility] IVON OUTPATIEN 6 6 PHYSICIAN KEI T VISIT S GROUP 25 MINUTES [facility] RADHA - 6 6 [facility] OUTPATIEN [facility] RADHA - 6 6 [facility] OUTPATIEN [facility]
--- OUTSIDE RECORDS SUMMARY | 2017-02-01 12:01 | External Medical Summary Rpt ---
Demographics Preferred Language Indian Marital Status Unknown Mormon Affiliation Unknown Race Unknown Ethnic Group Unknown Author Author , Organization [employer] Address Unknown Phone Unavailable Purpose Continuity of Care Document - through 2016 Immunization No patient found.
--- OUTSIDE RECORDS SUMMARY | 2017-02-01 12:01 | External Medical Summary Rpt ---
Demographics Preferred Language Palestinian Marital Status Unknown Christian Affiliation Unknown Race Unknown Ethnic Group Unknown Author Author , Organization [employer] Address Unknown Phone Unavailable Purpose Continuity of Care Document - through 2016 Immunization No patient found.
[2017-02-01 12:09] VITALS: BP 143/66
== END 2017-02-01 12:10 | disposition home or self-care (01) ==
LOC: ER 11:09
DX: L02.414 Cutaneous abscess of left upper limb (principal)

== ENCOUNTER 2017-06-08 16:41 | Emergency (ER) | payer MEDICAID ==
[~2017-06-08] VITALS: Ht 170.2 cm; Wt 104.3 kg
[~2017-06-08 16:41] MED LIST changes: +ASPIRIN ADULT L81 M2 PO; +BACTROBAN2% TP; -LISINOPRIL/HCTZ1 TA3 FT; +LISINOPRIL/HCTZ1 TA3 PO; +NOVOLIN 70/30 710 ML SC; +ROBAXIN-750750 MG PO; -SPIRONOLACTONE25 MG NG; +SPIRONOLACTONE25 MG PO; +[UNRECOGNIZED DRUG - OTHER] IJ
--- NOTE | 2017-06-08 17:19 | Emergency Room Report ---
History of Present Illness Time Seen by 2406 Presenting Problem in Triage Pt arrived:Wheelchair Presenting Problem:PT C/O TROUBLE URINATING. 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 N Clinical Suspician of Infection? N Mental Status: 1 - Regular (Normal Baseline) Sepsis Risk:Low Sepsis Risk Have you (or family members/close friends) recently traveled outside the [place]? N If Yes, where/when: Have you had exposure to infectious disease within the past month? N TB? Other? Specify: 61 years old white male with cardiac history on Coumadin. He started having had difficulty urinating and dribbling for the past 2 day. Unable to urinate since 3 :30 AM. He arrived to the ED catheter was placed with 200 mL of urine output. He is scheduled to see his primary care physician Dr. Travis in the morning. He has no fever no chills no nausea no vomiting Source patient, RN notes reviewed, family Exam Limitations no limitations ALLERGIES Coded Allergies: Penicillins (01/18/17) Home Medications Active Scripts MUPIROCIN 2% (Bactroban Oint) 1 GM TP DAILY #1 TUBE Prov: 02/01/17 Methocarbamol (Robaxin 750MG) 750 MG PO BID #14 TAB Prov: 05/26/17 Reported Medications Spironolactone (Spironolactone) 25 MG NG BID #0.5 PRAVASTATIN SODIUM (Pravastatin Sodium) 80 MG PO QHS Carvedilol (Carvedilol 25MG) 25 MG PO BID Lisinopril & Hctz (Lisinopril-Hctz 10-12.5 MG Tab) 1 TAB FT DAILY WARFARIN SOD (Warfarin 3MG) 3 MG PO DAILY Furosemide (Furosemide 40MG) 40 MG PO QHS Levothyroxine Sodium (Levothyroxine 0.125MG) 0.125 MG PO DAILY FENOFIBRIC ACID (CHOLINE) (Fenofibric Acid) 135 MG PO QHS CINNAMON BARK (Cinnamon) 1,000 MG PO BID INSULIN NPH HUM/REG INSULIN HM (Novolin 70-30 100 Unit/Ml Vial) 30 UNITS SC BID #20 Aspirin 81 MG PO DAILY #30 Enoxaparin Sodium 100 MG IJ BID #20 Digoxin 0.25 MG PO DAILY #30 History Medical History General CAD? No Angina: Yes TX: Yes Hypertension? Yes Hyperlipidemia? Yes CHF? No DVT? Yes PE? No COPD? No Asthma? No Anemia? No GERD? No Gastric ulcers? No GI Bleed? No Hernia? No Thyroid Problems? No Hypothyroidism? No CVA? No Seizures? No Diabetes? Yes Insulin Dependent: Yes Insulin Pump: No Home FSBS? Yes Renal Insuffiency? No End Stage Renal Disease? No UTI? No Stones? No BPH? No GB Disease: No Nephritic Syndrome? No Asplenia? No Hepatitis? No Sickle Cell Disease? No Arthritis? No Migraines? No Cataracts? No Glaucoma? No MRSA? No HIV? No TB? No Anxiety? No Depression? No Cancer? No More? No Immunization Hx DT/Tetanus Unknown Surgical Hx Previous Surgery?Y ANGIOPLASTY X2 HERNIA X4 GALLBLADDER Coronary Artery Bypass mechanical heart valve DVT REMOVED LUE Social History Smoking Hx Smoker: Never Smoker Tobacco: No Alcohol Alcohol: Yes Review of Systems All Other Systems Reviewed and Negative Constitutional no symptoms reported Eyes no symptoms reported ENT no symptoms reported. Respiratory no symptoms reported Cardiovascular no symptoms reported Gastrointestinal no symptoms reported Genitourinary see HPI. Musculoskeletal no symptoms reported Skin no symptoms reported Psychiatric/Neurological no symptoms reported Physical Exam Vital Signs Vital Signs Date Time Temp Pulse Resp B/P Pulse O2 O2 Flow FiO2 Ox Delivery Rate 06/08 1646 98.2 95 16 150/85 98 General Appearance normal appearance, WD/WN Eye Exam - bilateral eye normal exam, bilateral eye PERRL, bilateral eye EOMI Ear, Nose, Throat hearing grossly normal, normal ENT inspection Neck normal inspection, non-tender, supple, full range of motion Respiratory Status Yes: trachea midline, chest symmetrical, non tender chest. No: respiratory distress. Lung Sounds bilateral: normal breath sounds, lungs clear. 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 No Results/Orders Laboratory Tests 06/08/17 1800: Urine Color YELLOW, Urine Appearance CLEAR, Urine pH 6.0, Ur Specific Ucon 1.010, Urine Protein TRACE H, Urine Ketones NEGATIVE, Urine Blood TRACE-LYSED, Urine Nitrate NEGATIVE, Urine Bilirubin NEGATIVE, Urine Urobilinogen 0.2, Ur Leukocyte Esterase NEGATIVE, Urine Glucose TRACE H 06/08/17 1740: Sodium 133 L, Potassium 4.0, Chloride 97 L, Carbon Dioxide 24, BUN 48 H, Creatinine 1.8 H, Estimated Creat Clear 64, Estimated GFR (MDRD) 39, Glucose 254 H, Calcium 9.0, PT 22.9 H, INR 2.10 H, WBC 4.5 L, RBC 3.43 L, Hgb 10.4 L, Hct 31.0 L, MCV 90.5, RDW 15.6, Plt Count 189, MPV 8.1, Gran % 68.6, Gran # 3.1, Lymphocytes % 19.0, Monocytes % 6.1, Eosinophils % 4.7, Basophils % 1.6, Lymphocytes # 0.9, Monocytes # 0.3, Eosinophils # 0.2, Basophils # 0.1, PUBS MCHC 33.4, MCH 30.2 Orders Procedure Date/time Status URINALYSIS/COMPLETE 06/08 1718 Complete PROTHROMBIN TIME 06/08 1718 Complete CBC WITH AUTO DIFF 06/08 1718 Complete BASIC METABOLIC PROFILE 06/08 1718 Complete Departure Departure Time of Disposition 1804 Disposition DC Home or Self Care(routine) Clinical Impression Primary Impression: Urinary (tract) obstruction Secondary Impressions: Chronic renal disease, Encounter for monitoring coumadin therapy Condition STABLE Referrals Prachi SINGLETON,Tushar Additional Instructions 1- kEEP A LEG BAG AND EMPTY IT Q 6 AND PRN 2- SEE DR SHILA NICHOLAS 3- FOLLOW UP WITH UROLOGY ON FRIDAY WE DISCUSSED. 4- RETURN IF NEEDED. Discharge Counseling Counseled pt/family regarding diagnosis, test results, medications/RX, home care, follow up needs Prescriptions Current Visit Scripts NITROFURANTOIN MONOHYD/M-CRYST (Macrobid 100 MG Capsule) 100 MG PO Q12 #6 CAP ED Critical Care Critical Care No If Critical Care minutes are documented, the time involved in the performance of seperately reportable procedures was not counted toward critical care time documented. I directly delivered medical care to this critically ill and/or injured patient. Timely evaluation and treatment was necessary to address the significant organ system(s) dysfunction present in this patient. at 1808
[2017-06-08 17:51] LABS: HEMOGLOBIN 10.4 g/dL (14.1-18.0); LYMPH # 0.9 K/mm3 (0.7-4.5)
[2017-06-08 18:05] LABS: URINE BILIRUBIN - DIPSTICK NEGATIVE (NEG); URINE BLOOD TRACE-LYSED (NEG)
[2017-06-08] MEDS ORDERED: MACROBID100 M3 PO (18:06)
[2017-06-08 18:13] LABS: URINE SQUAMOUS CELLS OCC #/hpf (OCC)
[2017-06-08 18:21] VITALS: BP 146/70
== END 2017-06-08 18:22 | disposition home or self-care (01) ==
LOC: ER 16:41
PROVIDERS: Emergency Medicine
DX: N13.9 Obstructive and reflux uropathy, unspecified (principal); E11.22 Type 2 diabetes mellitus with diabetic chronic kidney disease; N18.9 Chronic kidney disease, unspecified; I10 Essential (primary) hypertension; Z79.4 Long term (current) use of insulin; I25.2 Old myocardial infarction; Z79.01 Long term (current) use of anticoagulants; E78.5 Hyperlipidemia, unspecified; Z86.718 Personal history of other venous thrombosis and embolism; Z79.82 Long term (current) use of aspirin; Z79.899 Other long term (current) drug therapy

== ENCOUNTER 2017-06-11 13:09 | Inpatient (IN) | payer MEDICAID ==
[~2017-06-11] VITALS: Ht 170.2 cm; Wt 109.5 kg
[~2017-06-11 13:09] MED LIST changes: +MACROBID100 M3 PO
[2017-06-11 13:12] VITALS: BP 142/90
--- NOTE | 2017-06-11 13:51 | Emergency Room Report ---
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 N Clinical Suspician of Infection? N Mental Status: 1 - Regular (Normal Baseline) Sepsis Risk:Low Sepsis Risk Have you (or family members/close friends) recently traveled outside the [place]? N If Yes, where/when: Have you had exposure to infectious disease within the past month? N TB? Other? Specify: Source patient, RN notes reviewed Exam Limitations no limitations Comment Pt had a catheter placed in the bladder on Friday in the ER due to acute urinary retention. Today he took the catheter out without completely deflating the balloon and he started bleeding from the penis. He is on coumadin for Chronic AFib and also has a Mechanical Mitral valve. The bleeding has stopped when he got to the ED but he comes in for evlauation Cardiac Chest Pain Chest pain indicative of cardiac No ALLERGIES Coded Allergies: Penicillins (01/18/17) Home Medications Active Scripts MUPIROCIN 2% (Bactroban Oint) 1 GM TP DAILY #1 TUBE Prov: 02/01/17 Methocarbamol (Robaxin 750MG) 750 MG PO BID #14 TAB Prov: 05/26/17 NITROFURANTOIN MONOHYD/M-CRYST (Macrobid 100 MG Capsule) 100 MG PO Q12 #6 CAP Prov: 06/08/17 Reported Medications Spironolactone (Spironolactone) 25 MG NG BID #0.5 PRAVASTATIN SODIUM (Pravastatin Sodium) 80 MG PO QHS Carvedilol (Carvedilol 25MG) 25 MG PO BID Lisinopril & Hctz (Lisinopril-Hctz 10-12.5 MG Tab) 1 TAB FT DAILY WARFARIN SOD (Warfarin 3MG) 3 MG PO DAILY Furosemide (Furosemide 40MG) 40 MG PO QHS Levothyroxine Sodium (Levothyroxine 0.125MG) 0.125 MG PO DAILY FENOFIBRIC ACID (CHOLINE) (Fenofibric Acid) 135 MG PO QHS CINNAMON BARK (Cinnamon) 1,000 MG PO BID INSULIN NPH HUM/REG INSULIN HM (Novolin 70-30 100 Unit/Ml Vial) 30 UNITS SC BID #20 Aspirin 81 MG PO DAILY #30 Enoxaparin Sodium 100 MG IJ BID #20 Digoxin 0.25 MG PO DAILY #30 History Medical History General CAD? No Angina: Yes ID: Yes Hypertension? Yes Hyperlipidemia? Yes CHF? No DVT? Yes PE? No COPD? No Asthma? No Anemia? No GERD? No Gastric ulcers? No GI Bleed? No Hernia? No Thyroid Problems? Yes Hypothyroidism? No CVA? No Seizures? No Diabetes? Yes Insulin Dependent: Yes Insulin Pump: No Home FSBS? Yes Renal Insuffiency? No End Stage Renal Disease? No UTI? No Stones? No BPH? No GB Disease: No Nephritic Syndrome? No Asplenia? No Hepatitis? No Sickle Cell Disease? No Arthritis? No Migraines? No Cataracts? No Glaucoma? No MRSA? No HIV? No TB? No Anxiety? No Depression? No Cancer? No More? No Immunization Hx DT/Tetanus Unknown Surgical Hx Previous Surgery?Y ANGIOPLASTY X2 HERNIA X4 GALLBLADDER Coronary Artery Bypass mechanical heart valve DVT REMOVED LUE Social History Smoking Hx Smoker: Former Smoker Tobacco: Yes Type Cigarettes Alcohol Alcohol: Yes Review of Systems All Other Systems Reviewed and Negative Constitutional see HPI Respiratory see HPI Cardiovascular see HPI Genitourinary see HPI. Physical Exam Vital Signs Vital Signs Date Time Temp Pulse Resp B/P Pulse O2 O2 Flow FiO2 Ox Delivery Rate 06/11 1312 98.4 96 18 142/90 98 General Appearance normal appearance, WD/WN, no apparent distress Respiratory Status No: respiratory distress. 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 No Results/Orders Laboratory Tests 06/11/17 1358: Urine Color RED, Urine Appearance TURBID, Urine pH 7.0, Ur Specific [place] 1.015, Urine Protein 3+ H, Urine Ketones TRACE H, Urine Blood 3+ H, Urine Nitrate POSITIVE H, Urine Bilirubin NEGATIVE, Urine Urobilinogen 4.0, Ur Leukocyte Esterase 1+ H, Urine RBC TNTC, Urine WBC 3-5, Ur Squamous Epith Cells 3-5, Urine Bacteria 2+, Urine Glucose 3+ H 06/11/17 1335: PT 17.0 H, INR 1.57 H, APTT 24.8, Digoxin 1.07 L 06/11/17 1330: Sodium 130 L, Potassium 3.7, Chloride 96 L, Carbon Dioxide 27, BUN 51 H, Creatinine 2.4 H, Estimated Creat Clear 49 L, Estimated GFR (MDRD) 28, Glucose 347 H, Calcium 9.0 Current Medication Orders Sig/Henny Start time Last Medication Dose Route Stop Time Status Admin Warfarin Sodium 0 .STK-MED ONE 06/11 1523 DC .ROUTE Warfarin Sodium 3 MG ONCE ONE 06/11 1515 DC 06/11 PO 06/11 1516 1528 Orders Procedure Date/time Status Decision to admit 06/11 1547 Active BASIC METABOLIC PROFILE 06/11 1513 Complete CULTURE, URINE 06/11 1358 Active URINALYSIS/COMPLETE 06/11 1350 Complete PARTIAL THROMBOPLASTIN TIME 06/11 1319 Complete PROTHROMBIN TIME 06/11 1319 Complete DIGOXIN 06/11 1319 Complete Departure Departure Time of Disposition 1622 Disposition Still a Patient Clinical Impression Primary Impression: Acute on chronic renal failure Qualifiers: Acute renal failure type: unspecified Chronic kidney disease stage: stage 3 (moderate) Qualified Code: N17.9 - Acute kidney failure, unspecified Secondary Impressions: Chronic atrial fibrillation, Cystitis with hematuria, Mechanical heart valve present Condition STABLE Referrals Lexus SINGLETON,Gopal Hammond (Family) Additional Instructions Admitted to OBS to Dr. Alberts by Dr. Alberts Discharge Counseling Counseled pt/family regarding diagnosis, test results, medications/RX, home care, follow up needs ED Critical Care Critical Care No If Critical Care minutes are documented, the time involved in the performance of seperately reportable procedures was not counted toward critical care time documented. I directly delivered medical care to this critically ill and/or injured patient. Timely evaluation and treatment was necessary to address the significant organ system(s) dysfunction present in this patient. at 1625
[2017-06-11 14:09] LABS: URINE BILIRUBIN - DIPSTICK NEGATIVE (NEG); URINE BLOOD 3+ (NEG)
[2017-06-11 17:00] VITALS: BP 148/88
[2017-06-11 19:00] VITALS: BP 110/57
--- NOTE | 2017-06-11 20:45 | HISTORY AND PHYSICAL REPORT ---
Demographics: Admit date: 06/11/17 Chief complaint: hematuria PRIMARY DIAGNOSIS: ACUTE ON CHRONIC RENAL FAILURE Allergies: Coded Allergies: Penicillins (01/18/17) History of present illness: History of present illness: this wm who has mechanical valve and is on coumadin was seen in the ed about 2 days ago with acute urinary retention and cloud placed and has hx of some prostate issues in past with 1 episode in past - he removed cloud and noted blood in urine and presented to ed with abn ua and possible uti and acute on chronic renal failure - Past medical history: Family HX Family Hx Insignificant Yes Immunization HX DT/Tetanus Unknown Pneumonia Never Had TB Test in last year No General CAD? No Angina: Yes OR: Yes Hypertension? Yes Hyperlipidemia? Yes CHF? No DVT? Yes PE? No COPD? No Asthma? No Anemia? No GERD? No Gastric ulcers? No GI Bleed? No Hernia? No Thyroid Problems? Yes Hypothyroidism? No CVA? No Seizures? No Diabetes? Yes Insulin Dependent: Yes Insulin Pump: No Home FSBS? Yes Renal Insuffiency? No UTI? No Stones? No BPH? No GB Disease: No Nephritic Syndrome? No Asplenia? No Hepatitis? No Sickle Cell Disease? No Arthritis? No Migraines? No Cataracts? No Glaucoma? No MRSA? No HIV? No TB? No Anxiety? No Depression? No Cancer? No More? No Past Surgical HX Previous Surgery?Y ANGIOPLASTY X2 HERNIA X4 GALLBLADDER Coronary Artery Bypass mechanical heart valve DVT REMOVED LUE Current home meds: Active Scripts Methocarbamol (Robaxin 750MG) 750 MG PO BID #14 TAB Prov: 05/26/17 NITROFURANTOIN MONOHYD/M-CRYST (Macrobid 100 MG Capsule) 100 MG PO Q12 #6 CAP Prov: 06/08/17 Reported Medications Spironolactone (Spironolactone) 25 MG NG BID #0.5 PRAVASTATIN SODIUM (Pravastatin Sodium) 80 MG PO QHS Carvedilol (Carvedilol 25MG) 25 MG PO BID Lisinopril & Hctz (Lisinopril-Hctz 10-12.5 MG Tab) 1 TAB FT DAILY WARFARIN SOD (Warfarin 3MG) 3 MG PO DAILY Furosemide (Furosemide 40MG) 40 MG PO QHS Levothyroxine Sodium (Levothyroxine 0.125MG) 0.125 MG PO DAILY FENOFIBRIC ACID (CHOLINE) (Fenofibric Acid) 135 MG PO QHS CINNAMON BARK (Cinnamon) 1,000 MG PO BID INSULIN NPH HUM/REG INSULIN HM (Novolin 70-30 100 Unit/Ml Vial) 30 UNITS SC BID #20 Enoxaparin Sodium 100 MG IJ BID #20 Digoxin 0.25 MG PO DAILY #30 Social Hx: Smoking HX Tobacco Yes Type Cigarettes Are you/the child exposed to second-hand smoke: No Alcohol Alcohol: Yes How much do you drink 1-2 Drinks Per Day For how long Longer Than 5 Years When was your last drink 48-72 Hours Ago Hx of Drug Use Drug Use? No Patien't marital status is Patient's support system is good Review of systems: Constitutional see HPI, weakness. No: fever. Eyes No: drainage. Ears, Nose, Mouth, Throat No ear pain, No epistaxis, No throat pain Respiratory No: cough, shortness of breath, wheezing. Cardiovascular No chest pain, No palpitations, No syncope Gastrointestinal/Abdominal see HPI, nausea, poor appetite, poor fluid intake, No vomiting Genitourinary see HPI, hematuria. No: dysuria, frequency, hesitancy, scrotal/testicular pain. Musculoskeletal No: back pain, joint pain, joint swelling, neck pain. Skin No: rash. Neurological No: headache, seizure disorder. Psychiatric No: depressed. Exam: Lab data for last 24 hours: Laboratory Tests 06/11/17 1358: Urine Color RED, Urine Appearance TURBID, Urine pH 7.0, Ur Specific [place] 1.015, Urine Protein 3+ H, Urine Ketones TRACE H, Urine Blood 3+ H, Urine Nitrate POSITIVE H, Urine Bilirubin NEGATIVE, Urine Urobilinogen 4.0, Ur Leukocyte Esterase 1+ H, Urine RBC TNTC, Urine WBC 3-5, Ur Squamous Epith Cells 3-5, Urine Bacteria 2+, Urine Glucose 3+ H 06/11/17 1335: PT 17.0 H, INR 1.57 H, APTT 24.8, Digoxin 1.07 L 06/11/17 1330: Sodium 130 L, Potassium 3.7, Chloride 96 L, Carbon Dioxide 27, BUN 51 H, Creatinine 2.4 H, Estimated Creat Clear 49 L, Estimated GFR (MDRD) 28, Glucose 347 H, Calcium 9.0 Microbiology 06/11 1358 URINE CC: Urine Culture - RECD Admission vital signs: 1ST Vital Signs Result Date Time Pulse Ox 98 06/11 1312 B/P 142/90 06/11 1312 Temp 98.4 06/11 1312 Pulse 96 06/11 1312 Resp 18 06/11 1312 O2 Delivery OXYGEN 06/11 1700 Exam General appearance: alert Eyes: PERRLA ENT: dry mucous membranes Neck: no JVD Cardiovascular: regular rate & rhythm, mech valve Respiratory: no respiratory distress, trachea midline, diminished breath sounds ABD: soft Genitourinary: no hematuria Extremities: moves all Musculoskeletal: equal muscle strength Skin: dry 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 Mechanical heart valve present 2. Acute on chronic renal failure 3. Cystitis with hematuria Plan: will see urology and give ivf at 0685
[2017-06-11 23:58] VITALS: BP 121/67
[2017-06-12] VITALS (23 sets, daily range): BP systolic 106–145; BP diastolic 46–85
--- NOTE | 2017-06-12 06:25 | RADIOLOGY REPORT PS360 ---
CT ABD PELVIS W/O CONTRAST CLINICAL INDICATION: HEMATURIA ORDERING PHYSICIAN: Gopal Alberts MD PATIENT AGE: 61 years COMPARISON: None TECHNIQUE: Axial images obtained with sagittal and coronal reformats. PROCEDURE: Oral Contrast: None IV Contrast: None . FINDINGS: Prior median sternotomy and mitral valve repair. Hepatic steatosis. Prior cholecystectomy without biliary dilatation. Spleen, pancreas, and adrenal glands are unremarkable. Renal arterial calcifications. No obstructing renal or ureteral calculi. There is mild stranding of the perinephric renal fat more so on the left. This is nonspecific. Urinary bladder is decompressed with wall thickening and adjacent stranding of the fat which may be related to cystitis. Follow-up suggested in this patient with hematuria. Postsurgical changes abdominal wall. No intestinal obstruction or free air. No evidence of appendicitis or diverticulitis. There is mild diverticulosis of the sigmoid colon. Atherosclerotic changes of aorta without aneurysm. No acute bony anomalies. IMPRESSION: 1. Thickening of the urinary bladder wall with adjacent stranding of the fat may be related to cystitis. Neoplasm is not excluded. Follow-up recommended. 2. Other nonacute findings as described above.
[2017-06-12 06:52] LABS: LYMPH # 1.4 K/mm3 (0.7-4.5); LYMPH % 19.8 % (10-50)
[2017-06-12 07:17] LABS: HEMOGLOBIN 8.7 g/dL (14.1-18.0)
--- NOTE | 2017-06-12 07:33 | PHARMACY CLINIC NOTE ---
Patient Demographics Patient Demographics Admission date: 06/11/17 Date: 06/12/17 Time: 0732 Allergies Coded Allergies: Penicillins (01/18/17) HEIGHT- FT: 5 IN: 7.00 K.516 VTE General Information Labs: Laboratory Tests 06/12 06/11 0605 1335 Coagulation PT (9.4 - 11.8 SECONDS) 17.0 H INR (0.9 - 1.1) 1.57 H APTT (23.6 - 34.0 SECONDS) 24.8 Hematology Hgb (14.1 - 18.0 g/dL) 8.7 L Hct (42.0 - 52.0 %) 26.8 L Plt Count (142 - 424 K/mm3) 213 Disclaimer The following section includes nursing documentation that has been pulled in for pharmacy review. Patient's VTE score: 2 Patient's VTE Risk: VERY LOW RISK Clinical trial participant? No VTE prophylaxis [id number] VTE prophylaxis ordered? Yes Type of prophylaxis/treatment: AJAY at 0733
--- NOTE | 2017-06-12 07:45 | ACUTE CARE PROGRESS NOTE (QUA) ---
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 Mechanical heart valve present 2. Acute on chronic renal failure 3. Cystitis with hematuria 4. Anemia Patient condition Stable Plan: order additional tests This inpt stay is expected to cross 2 MNs from start of care Yes Comments: will recheck h/h and discuss coumadin with phar and await urology consult but urine better Antibiotic Stewardship (2) Current Culture Results Microbiology 06/11 1358 URINE CC: Urine Culture - RES at 0721
--- NOTE | 2017-06-12 07:45 | ACUTE CARE PROGRESS NOTE (QUA) ---
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 Mechanical heart valve present 2. Acute on chronic renal failure 3. Cystitis with hematuria 4. Anemia Patient condition Stable Plan: order additional tests This inpt stay is expected to cross 2 MNs from start of care Yes Comments: will recheck h/h and discuss coumadin with phar and await urology consult but urine better Antibiotic Stewardship (2) Current Culture Results Microbiology 06/11 1358 URINE CC: Urine Culture - RES at 0798
[2017-06-12] MEDS ORDERED: WARFARIN SODIUM3 MG PO (08:12)
[2017-06-12 08:46] LABS: ABO BLOOD TYPE A; RH BLOOD TYPE POSITIVE
[2017-06-12 09:19] LABS: ANTIHUMAN GLOB CROSSMATCH COMPAT
[2017-06-12 09:24] LABS: ANTIHUMAN GLOB CROSSMATCH COMPAT
[2017-06-12 14:56] LABS: LYMPH # 1.5 K/mm3 (0.7-4.5); LYMPH % 20.7 % (10-50)
[2017-06-12 14:58] LABS: HEMOGLOBIN 10.5 g/dL (14.1-18.0)
[2017-06-13 04:09] VITALS: BP 150/76
[2017-06-13 07:28] VITALS: BP 136/91
[2017-06-13 08:04] VITALS: BP 136/91
--- NOTE | 2017-06-13 09:05 | ACUTE CARE PROGRESS NOTE (QUA) ---
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 Mechanical heart valve present 2. Acute on chronic renal failure 3. Cystitis with hematuria 4. Anemia Patient condition Improving Plan: order additional tests This inpt stay is expected to cross 2 MNs from start of care Yes Comments: will ambulate and check labs and will give diuretic at 0904
--- NOTE | 2017-06-13 09:05 | ACUTE CARE PROGRESS NOTE (QUA) ---
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 Mechanical heart valve present 2. Acute on chronic renal failure 3. Cystitis with hematuria 4. Anemia Patient condition Improving Plan: order additional tests This inpt stay is expected to cross 2 MNs from start of care Yes Comments: will ambulate and check labs and will give diuretic at 0904
[2017-06-13 11:33] VITALS: BP 129/84
--- NOTE | 2017-06-13 12:14 | DISCHARGE SUMMARY STANDARD ---
Demographics Admit date: 06/11/17 Discharge date: 06/13/17 History of present illness History of present illness this wm who has mechanical valve and is on coumadin was seen in the ed about 2 days ago with acute urinary retention and cloud placed and has hx of some prostate issues in past with 1 episode in past - he removed cloud and noted blood in urine and presented to ed with abn ua and possible uti and acute on chronic renal failure - Hospital Course Hospital Course: pt has did better in hospital with ivf and abx - he has less hematuria and his coumadin/inr was regulated with phar- pt had symptomatic anemia and had transfusion also which helped- pt will be d/c and followed closely as op Discharge diagnoses Problem List 1. Mechanical heart valve present 2. Acute on chronic renal failure 3. Cystitis with hematuria 4. Anemia Medications Medications: Discharge meds are as noted. Comment: will check urine culture Follow up Follow up in office in: 7 DAYS with: Gopal Alberts MD Comment: will follow as op at 1214
[2017-06-13 13:30] VITALS: BP 129/84
== END 2017-06-13 13:30 | disposition home or self-care (01) | DRG 690 ==
LOC: ER 13:09 → 2ND 16:07 → ER 16:07 → 2ND 16:38
PROVIDERS: Emergency Medicine; General Practice
DX: N30.91 Cystitis, unspecified with hematuria (principal); N17.9 Acute kidney failure, unspecified; E11.22 Type 2 diabetes mellitus with diabetic chronic kidney disease; I12.9 Hypertensive chronic kidney disease with stage 1 through stage 4 chronic kidney disease, or unspecified chronic kidney disease; N18.9 Chronic kidney disease, unspecified; Z95.5 Presence of coronary angioplasty implant and graft; Z95.1 Presence of aortocoronary bypass graft; Z79.4 Long term (current) use of insulin; Z95.2 Presence of prosthetic heart valve; Z79.01 Long term (current) use of anticoagulants
CPT/HCPCS: P9016

== ENCOUNTER 2017-06-14 13:58 | Emergency (ER) | payer MEDICAID ==
[~2017-06-14] VITALS: Ht 170.2 cm; Wt 90.7 kg
[~2017-06-14 13:58] MED LIST changes: +WARFARIN SODIUM3 MG PO
[2017-06-14 15:19] LABS: HEMOGLOBIN 10.5 g/dL (14.1-18.0); LYMPH # 1.3 K/mm3 (0.7-4.5); LYMPH % 21.8 % (10-50)
--- NOTE | 2017-06-14 15:53 | Emergency Room Report ---
History of Present Illness Time Seen by [id number] Presenting Problem in Triage Pt arrived:Walked Presenting Problem:BLOODY DRAINAGE FROM PENIS LIKE PREVIOUS VISIT. 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 N Clinical Suspician of Infection? N Mental Status: 1 - Regular (Normal Baseline) Sepsis Risk:Low Sepsis Risk Have you (or family members/close friends) recently traveled outside the [place]? N If Yes, where/when: Have you had exposure to infectious disease within the past month? TB? Other? Specify: 61 years old white female was recently discharged from the hospital on Coumadin and Lovenox bridge. He had an episode of hematuria and decided to come and be checked. The bleeding hasn't stopped and his INR is 1.5. Coumadin because of a metallic valve. I explained to the family that he needs to continue on Lovenox until his INR therapeutic on. With the with the primary care physician Dr. Travis in the morning, I made then aware of the risks of having hematuria and a massive stroke. Source patient, RN notes reviewed, family, old records Exam Limitations no limitations ALLERGIES Coded Allergies: Penicillins (06/14/17) Home Medications Discontinued Scripts Methocarbamol (Robaxin 750MG) 750 MG PO BID #14 TAB Prov: 05/26/17 DC: 06/13/17 1217 NITROFURANTOIN MONOHYD/M-CRYST (Macrobid 100 MG Capsule) 100 MG PO Q12 #6 CAP Prov: 06/08/17 DC: 06/13/17 1217 Reported Medications DIGOXIN (Digox) 0.125 MG PO DAILY Spironolactone (Spironolactone) 25 MG PO BID #0.5 TAB WARFARIN SOD (Warfarin 3MG) 3 MG PO SuTuThSa PRAVASTATIN SODIUM (Pravastatin Sodium) 80 MG PO QHS Carvedilol (Carvedilol 25MG) 25 MG PO BID Levothyroxine Sodium (Levothyroxine 0.125MG) 0.125 MG PO DAILY FENOFIBRIC ACID (CHOLINE) (Fenofibric Acid) 135 MG PO QHS CINNAMON BARK (Cinnamon) 1,000 MG PO BID INSULIN NPH HUM/REG INSULIN HM (Novolin 70-30 100 Unit/Ml Vial) 30 UNITS SC BID #20 Enoxaparin Sodium 100 MG IJ BID #20 Discontinued Reported Medications Lisinopril & Hctz (Lisinopril-Hctz 10-12.5 MG Tab) 1 TAB PO DAILY Warfarin Sodium (Warfarin 3MG) 1.5 MG PO MoWeFr Furosemide (Furosemide 40MG) 40 MG PO QHS History Medical History General CAD? No Angina: Yes [place]: Yes Hypertension? Yes Hyperlipidemia? Yes CHF? No DVT? Yes PE? No COPD? No Asthma? No Anemia? No GERD? No Gastric ulcers? No GI Bleed? No Hernia? No Thyroid Problems? Yes Hypothyroidism? No CVA? No Seizures? No Diabetes? Yes Insulin Dependent: Yes Insulin Pump: No Home FSBS? Yes Renal Insuffiency? No End Stage Renal Disease? No UTI? No Stones? No BPH? No GB Disease: No Nephritic Syndrome? No Asplenia? No Hepatitis? No Sickle Cell Disease? No Arthritis? No Migraines? No Cataracts? No Glaucoma? No MRSA? No HIV? No TB? No Anxiety? No Depression? No Cancer? No More? No Immunization Hx Ped.Immunizations UTD Yes DT/Tetanus Unknown Pneumonia Refuses Surgical Hx Previous Surgery?Y ANGIOPLASTY X2 HERNIA X4 GALLBLADDER Coronary Artery Bypass mechanical heart valve DVT REMOVED LUE Family History Family Hx Diabetes Yes CAD Yes Hypertension Yes Hyperlipidemia Yes Cancer No TB No Social History Smoking Hx Smoker: Never Smoker Tobacco: No Alcohol Alcohol: Yes Review of Systems All Other Systems Reviewed and Negative Constitutional no symptoms reported Eyes no symptoms reported ENT no symptoms reported. Respiratory no symptoms reported Cardiovascular no symptoms reported Gastrointestinal no symptoms reported Genitourinary hematuria. Musculoskeletal no symptoms reported Skin no symptoms reported Psychiatric/Neurological no symptoms reported Physical Exam Vital Signs Vital Signs Date Time Temp Pulse Resp B/P Pulse O2 O2 Flow FiO2 Ox Delivery Rate 06/14 1441 97.8 82 18 144/70 99 - WBC >12,000 or <4,000 or 10% bands? 2 or more SIRS Criteria Met? B/P:144/70 MAP:94 Creatinine >2.0? UA output<0.5ml/kg/hr for 2 hrs? Platelet count >100,000? Lactate >2.0mmol/1? INR >1.2 or PTT > than 60 sec? Evidence of Organ Dysfunction? Provider documented clinical suspician of infection? N Sepsis Criteria Count: 0 Sepsis Risk: Low Sepsis Risk General Appearance normal appearance, WD/WN Eye Exam - bilateral eye normal exam, bilateral eye PERRL, bilateral eye EOMI Ear, Nose, Throat hearing grossly normal, normal ENT inspection Neck normal inspection, non-tender, supple, full range of motion Respiratory Status Yes: trachea midline, chest symmetrical, non tender chest. No: respiratory distress. Lung Sounds bilateral: normal breath sounds, lungs clear. Cardiovascular normal exam, regular rate/rhythm, no peripheral edema, no gallop, no JVD, no murmur, no rub, normal peripheral pulses Gastrointestinal normal bowel sounds, normal exam, non tender, soft, no organomegaly Male Genitalia normal genitalia, no hernia, small blood clot at the tip of the penis, no active bleeding. 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 No Results/Orders Laboratory Tests 06/14/17 1532: Lactic Acid Cancelled, Lyme Disease IgG/IgM Cancelled, Lyme IgM 41 kDa Band Cancelled 06/14/17 1531: Sodium Cancelled, Potassium Cancelled, Chloride Cancelled, Carbon Dioxide Cancelled, BUN Cancelled, Creatinine Cancelled, Estimated Creat Clear Cancelled, Estimated GFR (MDRD) Cancelled, Glucose Cancelled, Calcium Cancelled, Total Bilirubin Cancelled, AST Cancelled, ALT Cancelled, Alkaline Phosphatase Cancelled, Total Protein Cancelled, Albumin Cancelled, Globulin Cancelled, Albumin/Globulin Ratio Cancelled 06/14/17 1511: PT 17.2 H, INR 1.58 H, WBC 6.1, RBC 3.39 L, Hgb 10.5 L, Hct 31.9 L, MCV 94.0, RDW 16.3, Plt Count 231, MPV 8.0, Gran % 66.7, Gran # 4.0, Lymphocytes % 21.8, Monocytes % 6.4, Eosinophils % 3.6, Basophils % 1.4, Lymphocytes # 1.3, Monocytes # 0.4, Eosinophils # 0.2, Basophils # 0.1, PUBS MCHC 32.8, MCH 30.9 Current Medication Orders Sig/Henny Start time Last Medication Dose Route Stop Time Status Admin Ketorolac 30 MG ONCE ONE 06/14 1545 CAN Tromethamine IV 06/14 1546 Sodium Chloride 1,000 ML .Q1H1M 06/14 1545 DC IV 06/14 1645 Sodium Chloride 10 ML PRN PRN 06/14 1545 CAN IV 06/15 1531 Orders Procedure Date/time Status CULTURE, BLOOD 06/[address] HEAD REQ 06/[address] SCAN REQ 06/14 1531 Active PROTHROMBIN TIME 06/14 1453 Complete CBC WITH AUTO DIFF 06/14 1453 Complete Departure Departure Time of Disposition 1549 Disposition DC Home or Self Care(routine) Clinical Impression Primary Impression: Anticoagulated on Coumadin Secondary Impressions: Hematuria, History of mitral valve replacement with metallic valve Condition STABLE Referrals Cydney Del Valle MD Additional Instructions His hemoglobin is stable and his INR is unchanged . he had negative orhosatic pressure. I spoke with the patient and his and informed that he needs to maintain his Lovenox therapy until his Coumadin therapeutic. He needed to continue to observe the amount of bleeding and he needs to return if he becomes symptomatic with weakness dizziness or excessive bleeding. He understands the risks and benefits off and accommodation therapy in the light of his mitral metallic valve replacement. Discharge Counseling Counseled pt/family regarding diagnosis, test results, medications/RX, home care, follow up needs ED Critical Care Critical Care No If Critical Care minutes are documented, the time involved in the performance of seperately reportable procedures was not counted toward critical care time documented. I directly delivered medical care to this critically ill and/or injured patient. Timely evaluation and treatment was necessary to address the significant organ system(s) dysfunction present in this patient. at 3144
[2017-06-14 16:21] VITALS: BP 142/75
== END 2017-06-14 16:23 | disposition home or self-care (01) ==
LOC: ER 13:58
PROVIDERS: Emergency Medicine
DX: D68.9 Coagulation defect, unspecified (principal); R31.9 Hematuria, unspecified; Z95.2 Presence of prosthetic heart valve; Z88.0 Allergy status to penicillin; I10 Essential (primary) hypertension; E78.5 Hyperlipidemia, unspecified

== ENCOUNTER 2017-06-16 10:19 | Outpatient (CLI) | payer MEDICAID | END 2017-06-16 14:15 | LOC: ACC 10:19 | DX: Z95.2 Presence of prosthetic heart valve (principal); Z79.01 Long term (current) use of anticoagulants; Z51.81 Encounter for therapeutic drug level monitoring | CPT/HCPCS: G0463 ==

== ENCOUNTER 2017-06-18 12:54 | Outpatient (CLI) | payer MEDICAID | END 2017-06-18 15:49 | LOC: ACC 12:54 | DX: Z95.2 Presence of prosthetic heart valve (principal); Z79.01 Long term (current) use of anticoagulants; Z51.81 Encounter for therapeutic drug level monitoring | CPT/HCPCS: G0463 ==

== ENCOUNTER → 2017-06-20 | Outpatient (CLI) | payer MEDICAID ==
[2017-06-20 14:14] LABS: BUN 24 mg/dL (7-18)
[2017-06-20 14:17] LABS: GFR (ESTIMATED) 39 ML/MIN (>60)
== END ==
LOC: LAB 11:32 → ACC 11:32
PROVIDERS: Emergency Medicine
DX: E11.9 Type 2 diabetes mellitus without complications (principal); Z95.2 Presence of prosthetic heart valve; Z79.01 Long term (current) use of anticoagulants; Z51.81 Encounter for therapeutic drug level monitoring

== ENCOUNTER 2017-06-23 11:21 | Outpatient (CLI) | payer MEDICAID | END 2017-06-23 15:38 | LOC: ACC 11:21 | DX: Z95.2 Presence of prosthetic heart valve (principal); Z79.01 Long term (current) use of anticoagulants; Z51.81 Encounter for therapeutic drug level monitoring ==

== ENCOUNTER 2017-06-27 12:50 | Inpatient (IN) | payer MEDICAID ==
[~2017-06-27] VITALS: Ht 170.2 cm; Wt 112.3 kg
[2017-06-27 12:52] VITALS: BP 157/83; BP 187/163
--- NOTE | 2017-06-27 12:58 | Emergency Room Report ---
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 N Clinical Suspician of Infection? N Mental Status: 1 - Regular (Normal Baseline) Sepsis Risk:Possible Sepsis Risk Have you (or family members/close friends) recently traveled outside the [place]? N If Yes, where/when: Have you had exposure to infectious disease within the past month? N TB? Other? Specify: Comment The patient complains of difficulty breathing for a few days. He says that he was coming to the hospital today to go to the Coumadin clinic to have his prothrombin time done and he saw his primary care provider, Dr. Alberts, in the parking lot and told him about the shortness of breath and Dr. Alberts advised him to come to the emergency room. He has some swelling of his RIGHT leg for a few days and it is a little sore. He says he has a prior history of a DVT in that leg in 1981. He is on Coumadin for atrial fibrillation and a mechanical valve replacement. He was recently hospitalized a few weeks ago for pulling out his urinary catheter. He denies chest pain. ALLERGIES Coded Allergies: Penicillins (06/14/17) Home Medications Reported Medications Spironolactone (Spironolactone) 25 MG PO BID #0.5 TAB WARFARIN SOD (Warfarin 3MG) 3 MG PO DAILY FENOFIBRIC ACID (CHOLINE) (Fenofibric Acid) 145 MG PO QHS INSULIN NPH HUM/REG INSULIN HM (Novolin 70-30 100 Unit/Ml Vial) 35 UNITS SC BID #20 VIAL DIGOXIN (Digox) 0.25 MG PO DAILY LISINOPRIL/HYDROCHLOROTHIAZIDE (Lisinopril-Hctz 20-25 MG Tab) 1 TAB PO DAILY PRAVASTATIN SODIUM (Pravastatin Sodium) 80 MG PO QHS Carvedilol (Carvedilol 25MG) 25 MG PO BID Levothyroxine Sodium (Levothyroxine 0.125MG) 0.125 MG PO DAILY CINNAMON BARK (Cinnamon) 1,000 MG PO BID History Medical History General CAD? No Angina: Yes [place]: Yes Hypertension? Yes Hyperlipidemia? Yes CHF? No DVT? Yes PE? No COPD? No Asthma? No Anemia? No GERD? No Gastric ulcers? No GI Bleed? No Hernia? No Thyroid Problems? Yes Hypothyroidism? No CVA? No Seizures? No Diabetes? Yes Insulin Dependent: Yes Insulin Pump: No Home FSBS? Yes Renal Insuffiency? No End Stage Renal Disease? No UTI? No Stones? No BPH? No GB Disease: No Nephritic Syndrome? No Asplenia? No Hepatitis? No Sickle Cell Disease? No Arthritis? No Migraines? No Cataracts? No Glaucoma? No MRSA? No HIV? No TB? No Anxiety? No Depression? No Cancer? No More? No Immunization Hx DT/Tetanus Unknown Pneumonia Refuses Surgical Hx Previous Surgery?Y ANGIOPLASTY X2 HERNIA X4 GALLBLADDER Coronary Artery Bypass mechanical heart valve DVT REMOVED LUE Family History Family Hx Diabetes Yes CAD Yes Hypertension Yes Hyperlipidemia Yes Cancer No TB No Social History Alcohol Alcohol: Yes Review of Systems All Other Systems Reviewed and Negative Constitutional denies fever Respiratory cough, shortness of breath Cardiovascular denies chest pain, edema Physical Exam Vital Signs Vital Signs Date Time Temp Pulse Resp B/P Pulse O2 O2 Flow FiO2 Ox Delivery Rate 06/27 1628 97.8 62 20 143/90 100 ROOM AIR 06/27 1624 71 18 142/75 99 06/27 1542 98.0 76 20 156/68 98 2 06/27 1448 76 22 152/78 100 2 06/27 1341 82 20 154/81 98 4 06/27 1252 98.0 98 28 157/83 98 4 General Appearance normal appearance, WD/WN Eye Exam - bilateral eye normal exam, bilateral eye PERRL, bilateral eye EOMI Ear, Nose, Throat hearing grossly normal, normal ENT inspection Neck normal inspection, non-tender, supple, full range of motion Respiratory Status Yes: trachea midline, chest symmetrical, non tender chest. No: respiratory distress. Lung Sounds bilateral: normal breath sounds, lungs clear. Cardiovascular no peripheral edema, no gallop, no JVD, no murmur, no rub, normal peripheral pulses, irregularly irregular Peripheral Pulses Pulses normal Yes Gastrointestinal normal bowel sounds, normal exam, non tender, soft, no organomegaly Extremities moderate edema of RIGHT lower extremity. Minimal calf tenderness. No cords. Minimal edema of LEFT lower extremity. 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 No Results/Orders Laboratory Tests 06/27/17 1300: Lactic Acid 1.5 06/27/17 1300: B-Natriuretic Peptide 1200 H 06/27/17 1300: Sodium 136, Potassium 4.3, Chloride 102, Carbon Dioxide 26, BUN 12, Creatinine 1.6 H, Estimated Creat Clear 77, Estimated GFR (MDRD) 44, Glucose 139 H, Calcium 9.1, Total Bilirubin 0.8, AST 20, ALT 20, Alkaline Phosphatase 38 L, Creatine Kinase 44, CK-MB (CK-2) Rel Index 1.1, CK and CKMB Interp < 0.5, Troponin I 0.04, Total Protein 6.9, Albumin 3.0 L, Globulin 3.9 H, Albumin/ Globulin Ratio 0.8 L, PT 39.7 H, INR 3.63 H, WBC 8.1, RBC 3.07 L, Hgb 9.4 L , Hct 29.9 L, MCV 97.3, RDW 15.1, Plt Count 355, MPV 8.0, Gran % 74.5, Gran # 6.1, Lymphocytes % 16.2, Monocytes % 5.8, Eosinophils % 2.6, Basophils % 0.8, Lymphocytes # 1.3, Monocytes # 0.5, Eosinophils # 0.2, Basophils # 0.1, PUBS MCHC 31.0 L, MCH 30.2, Digoxin 2.00 Current Medication Orders Sig/Henny Start time Last Medication Dose Route Stop Time Status Admin Digoxin 0.125 MG DAILY 06/28 900 AC PO Levothyroxine Sodium 0.125 MG DAILY 06/28 900 AC PO Miscellaneous 0 DAILY 06/28 900 CAN Information * Carvedilol 25 MG BID 06/27 2100 AC PO Pravastatin Sodium 80 MG QHS 06/27 2100 AC PO Spironolactone 25 MG BID 06/27 2100 AC PO Diagnostic Test (Pha) 1 EACH W/MEALS&HS 06/27 1700 AC 06/27 FS 08/26 1659 1720 Insulin Human [rDNA See Dose W/MEALS&HS 06/27 1700 AC origin] Insts (1) SC Influenza Virus 0.5 ML PRN PRN 06/27 1615 AC Vaccine Quadrival IM Nicotine 21 MG DAILYP PRN 06/27 1615 AC TD Sodium Chloride 10 ML PRN PRN 06/27 1615 AC IV Furosemide 0 .STK-MED ONE 06/27 1552 DC .ROUTE Furosemide 40 MG ONCE ONE 06/27 1545 DC 06/27 IV 06/27 1546 1552 Sodium Chloride 10 ML PRN PRN 06/27 1300 AC IV 06/28 1300 Dose Instructions: (1)Insulin Human [rDNA origin]: SEE ADMIN CRITERIA FOR MEDIUM INTENSITY Orders Procedure Date/time Status BASIC METABOLIC PROFILE 06/28 600 Active DIET-2000 CALORIE ADA 06/27 D Complete Decision to admit 06/27 1545 Active DIGOXIN 06/27 1544 Complete BRAIN NATRIURETIC PEPTIDE 06/27 1533 Complete VENOUS LOWER EXT RT 06/27 1330 Complete PROTHROMBIN TIME 06/27 1329 Complete ELECTROCARDIOGRAM REQUEST 06/27 1301 Active IV SALINE LOCK 06/27 1301 Active CULTURE, BLOOD 06/27 1301 Active LACTIC ACID 06/27 1301 Complete CBC WITH AUTO DIFF 06/27 1301 Complete CARDIAC ENZYMES 06/27 1301 Complete CHEM 12 PROFILE 06/27 1301 Complete 12 LEAD EKG-AIDEN (INITIAL) 06/27 1300 Active ADMIT PATIENT 06/27 UNK Active PULSE OXIMETRY REQUEST 06/27 UNK Active OXYGEN REQUEST 06/27 UNK Active VITAL SIGNS 06/27 UNK Active 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 Prior electrocardiagrams reviewed. No change from prior tracings. XRAY/CT/US XRAY/CT/US XRAY chest Comment X-ray interpreted by Jian Llanos M.D.: Cardiomegaly. Small effusions. Vascular congestion. Congestive heart failure. Postsurgical changes, valve replacement. Ultrasound lower extremity Comment As per [facility] procedure, ultrasound report received from ultrasound technologist: Negative Progress - 3:38 PM: Discussed results with patient. I suspect he has congestive heart failure. He says that he was on furosemide, but on his recent admission a couple of weeks ago it was stopped. Review of records shows that he had acute on chronic renal failure at that time as well. 3:40 PM: I have discussed the case with Dr. Alberts who agrees to admit the patient to the hospital. We discussed the patient's clinical information, including history, exam, laboratory and radiology results and ED course. Per hospital procedure, I will write temporary bridge inpatient orders on the patient. Specific orders requested by the admitting physician: Lasix 40 mg IV Departure Departure Disposition Still a Patient Clinical Impression Primary Impression: Congestive heart failure Qualifiers: Congestive heart failure type: unspecified congestive heart failure type Congestive heart failure chronicity: acute on chronic Qualified Code: I50.9 - Heart failure, unspecified Condition STABLE ED Critical Care Critical Care No at 1915
[2017-06-27 13:21] LABS: LYMPH # 1.3 K/mm3 (0.7-4.5); LYMPH % 16.2 % (10-50)
[2017-06-27 13:30] LABS: HEMOGLOBIN 9.4 g/dL (14.1-18.0)
[2017-06-27 13:40] LABS: BUN 12 mg/dL (7-18)
[2017-06-27 13:41] LABS: GFR (ESTIMATED) 44 ML/MIN (>60)
--- NOTE | 2017-06-27 14:53 | CARDIOVASCULAR REPORT ---
"Venous Exam Indications: 729.5 Pain in limb. IMPRESSIONS 1. There is no evidence of significant Reflux. 2. No evidence of deep or superficial vein thrombosis involving the right lower extremity Right lower extremity venous duplex evaluation. Doppler flow study including spectral analysis, color and smith scale imaging. Location: Vascular laboratory. Patient status: Emergency department. Tables: Venous flow and imaging: + +-------+ + + |Location |Overall|Flow properties |Comments | + +-------+ + + |Right common femoral |Patent |Normal phasicity; | | | | |spontaneous; normal | | | | |augmentation; | | | | |compressible | | + +-------+ + + |Right saphenofemoral |Patent |Compressible | | |junction | | | | + +-------+ + + |Right profunda femoral|Patent |Compressible | | + +-------+ + + |Right femoral |Patent |Normal phasicity; | | | | |spontaneous; normal | | | | |augmentation; | | | | |compressible | | + +-------+ + + |Right greater |Patent |Normal phasicity; |Portion harvested | |saphenous | |spontaneous; normal |for CABG | | | |augmentation; | | | | |compressible | | + +-------+ + + |Right popliteal |Patent |Normal phasicity; | | | | |spontaneous; normal | | | | |augmentation; | | | | |compressible | | + +-------+ + + |Right posterior tibial|Patent |Compressible | | + +-------+ + + |Right peroneal |Patent |Compressible | | + +-------+ + + |Right gastrocnemius |Patent |Compressible | | + +-------+ + + |Right soleal |Patent |Compressible | | + +-------+ + + (Report amended ) Electronically signed by: Koko Hurt [id number]"
--- NOTE | 2017-06-27 15:38 | RADIOLOGY REPORT PS360 ---
CHEST(2 VIEWS-NOT PORTABLE) COMPARISON: None HISTORY: Shortness of breath TECHNIQUE: PA and lateral chest FINDINGS: The lung weller are well expanded. There is mild to moderate generalized cardio megaly. There are sternal wire sutures and surgical clips and there is a prosthetic valve most likely mitral valve. There is mild vascular congestion with slight prominence of the upper lobe vessels. There is no pleural fluid. IMPRESSION: Generalized cardio megaly with findings suggesting mild chronic congestive heart failure
[2017-06-27 16:28] VITALS: BP 143/90
[2017-06-27 16:43] VITALS: BP 143/90
[2017-06-27] MEDS ORDERED: LISINOPRIL2.5 MG PO (17:11)
[2017-06-27] MEDS ORDERED: LISINOPRIL HCTZ1 TAB PO (17:16)
[2017-06-27 19:37] VITALS: BP 159/81
[2017-06-27 20:40] VITALS: BP 159/81
[2017-06-28] VITALS (8 sets, daily range): BP systolic 111–152; BP diastolic 53–72
--- NOTE | 2017-06-28 08:32 | HISTORY AND PHYSICAL REPORT ---
Demographics: Admit date: 06/27/17 Chief complaint: sob PRIMARY DIAGNOSIS: CHF Allergies: Coded Allergies: Penicillins (06/14/17) History of present illness: History of present illness: this wm with mech valve on coumadin has increased sob w/o chest pain over the last few days - no fever or rash and has been compliant with meds - he was seen in the ed and admitted with chf - ed report added The patient complains of difficulty breathing for a few days. He says that he was coming to the hospital today to go to the Coumadin clinic to have his prothrombin time done and he saw his primary care provider, Dr. Alberts, in the parking lot and told him about the shortness of breath and Dr. Alberts advised him to come to the emergency room. He has some swelling of his RIGHT leg for a few days and it is a little sore. He says he has a prior history of a DVT in that leg in 1981. He is on Coumadin for atrial fibrillation and a mechanical valve replacement. He was recently hospitalized a few weeks ago for pulling out his urinary catheter. He denies chest pain. Past medical history: Family HX Diabetes No CAD Yes Hypertension Yes Hyperlipidemia Yes Cancer No TB No Immunization HX DT/Tetanus Unknown Flu Refused Pneumonia Never Had TB Test in last year No General CAD? No Angina: Yes IA: Yes Hypertension? Yes Hyperlipidemia? Yes CHF? No DVT? Yes PE? No COPD? No Asthma? No Anemia? No GERD? No Gastric ulcers? No GI Bleed? No Hernia? No Thyroid Problems? Yes Hypothyroidism? No CVA? No Seizures? No Diabetes? Yes Insulin Dependent: Yes Insulin Pump: No Home FSBS? Yes Renal Insuffiency? Yes UTI? No Stones? No BPH? No GB Disease: No Nephritic Syndrome? No Asplenia? No Hepatitis? No Sickle Cell Disease? No Arthritis? No Migraines? No Cataracts? No Glaucoma? No MRSA? No HIV? No TB? No Anxiety? No Depression? No Cancer? No More? Yes Additional hx: AFIB Past Surgical HX Previous Surgery?Y ANGIOPLASTY X2 HERNIA X GALLBLADDER Coronary Artery Bypass mechanical heart valve DVT REMOVED LUE Current home meds: Reported Medications Spironolactone (Spironolactone) 25 MG PO BID #0.5 TAB WARFARIN SOD (Warfarin 3MG) 3 MG PO DAILY FENOFIBRIC ACID (CHOLINE) (Fenofibric Acid) 145 MG PO QHS INSULIN NPH HUM/REG INSULIN HM (Novolin 70-30 100 Unit/Ml Vial) 35 UNITS SC BID #20 VIAL DIGOXIN (Digox) 0.25 MG PO DAILY LISINOPRIL/HYDROCHLOROTHIAZIDE (Lisinopril-Hctz 20-25 MG Tab) 1 TAB PO DAILY PRAVASTATIN SODIUM (Pravastatin Sodium) 80 MG PO QHS Carvedilol (Carvedilol 25MG) 25 MG PO BID Levothyroxine Sodium (Levothyroxine 0.125MG) 0.125 MG PO DAILY CINNAMON BARK (Cinnamon) 1,000 MG PO BID Social Hx: Smoking HX Tobacco No Type Cigarettes Packs/day < 1 PACK Alcohol Alcohol: No Hx of Drug Use Drug Use? No Patien't marital status is Patient's support system is good Review of systems: Constitutional weakness. No: fever. Eyes No: drainage. Ears, Nose, Mouth, Throat No ear discharge, No epistaxis, No throat pain Respiratory see HPI, shortness of breath, SOB with excertion, SOB at rest. No: cough, wheezing. Cardiovascular see HPI, No chest pain, No palpitations, No syncope, other Gastrointestinal/Abdominal No constipated, No vomiting Genitourinary No: dysuria, frequency, hesitancy, hematuria. Musculoskeletal No: back pain, joint pain, joint swelling, neck pain. Skin No: rash. Neurological No: headache, weakness, seizure disorder. Psychiatric No: anxious, depressed. Exam: Lab data for last 24 hours: Laboratory Tests 06/28/17 0611: POC Glucose 150 H 06/28/17 0610: Sodium 134 L, Potassium 4.1, Chloride 100, Carbon Dioxide 29, BUN 13, Creatinine 1.6 H, Estimated Creat Clear 78, Estimated GFR (MDRD) 44, Glucose 151 H, Calcium 9.5 06/27/17 2134: Magnesium 1.4 06/27/17 2046: POC Glucose 185 H 06/27/17 1720: POC Glucose 127 H 06/27/17 1300: Lactic Acid 1.5 06/27/17 1300: B-Natriuretic Peptide 1200 H 06/27/17 1300: Sodium 136, Potassium 4.3, Chloride 102, Carbon Dioxide 26, BUN 12, Creatinine 1.6 H, Estimated Creat Clear 77, Estimated GFR (MDRD) 44, Glucose 139 H, Calcium 9.1, Total Bilirubin 0.8, AST 20, ALT 20, Alkaline Phosphatase 38 L, Creatine Kinase 44, CK-MB (CK-2) Rel Index 1.1, CK and CKMB Interp < 0.5, Troponin I 0.04, Total Protein 6.9, Albumin 3.0 L, Globulin 3.9 H, Albumin/ Globulin Ratio 0.8 L, PT 39.7 H, INR 3.63 H, WBC 8.1, RBC 3.07 L, Hgb 9.4 L , Hct 29.9 L, MCV 97.3, RDW 15.1, Plt Count 355, MPV 8.0, Gran % 74.5, Gran # 6.1, Lymphocytes % 16.2, Monocytes % 5.8, Eosinophils % 2.6, Basophils % 0.8, Lymphocytes # 1.3, Monocytes # 0.5, Eosinophils # 0.2, Basophils # 0.1, PUBS MCHC 31.0 L, MCH 30.2, Digoxin 2.00 Microbiology 06/27 1300 BLOOD: Anaerobic Blood Culture - RECD 06/27 1300 BLOOD: Aerobic Blood Culture - RECD 06/27 1300 BLOOD: Anaerobic Blood Culture - RECD 06/27 1300 BLOOD: Aerobic Blood Culture - RECD Admission vital signs: 1ST Vital Signs Result Date Time Pulse Ox 98 06/27 1252 B/P 157/83 06/27 1252 O2 Flow Rate 4 06/27 1252 Temp 98.0 06/27 1252 Pulse 98 06/27 1252 Resp 28 06/27 1252 O2 Delivery ROOM AIR 06/27 1628 Exam General appearance: alert Eyes: PERRLA ENT: dry mucous membranes Neck: no JVD Cardiovascular: regular rate & rhythm, murmur Respiratory: basilar rales, diminished breath sounds ABD: soft Genitourinary: no hematuria Extremities: moves all, edema Musculoskeletal: equal muscle strength Skin: dry Neuro: alert, pneumatic tester mechanic II-XII nml as tested Additional information: pt with excerbation of chf Plan: Problem List 1. Mechanical heart valve present 2. Chronic renal failure 3. Congestive heart failure Plan: will check bnp and give add diuretic at 0832
--- NOTE | 2017-06-28 13:19 | PHARMACY CLINIC NOTE ---
Patient Demographics Patient Demographics Admission date: 06/27/17 Date: 06/28/17 Time: 1318 Allergies Coded Allergies: Penicillins (06/14/17) HEIGHT- FT: 5 IN: 7.00 K.653 VTE General Information Labs: Laboratory Tests 06/28 905 Coagulation PT (9.4 - 11.8 SECONDS) 28.7 H INR (0.9 - 1.1) 2.63 H Disclaimer The following section includes nursing documentation that has been pulled in for pharmacy review. Patient's VTE score: 5 Patient's VTE Risk: LOW RISK Clinical trial participant? No VTE prophylaxis NQF [id number] VTE prophylaxis ordered? Yes Type of prophylaxis/treatment: Heparin (WARFARIN ORDERED) at 1315
[2017-06-29] VITALS (7 sets, daily range): BP systolic 127–144; BP diastolic 56–81
[2017-06-29 06:19] LABS: HEMOGLOBIN 8.8 g/dL (14.1-18.0); LYMPH # 1.4 K/mm3 (0.7-4.5); LYMPH % 14.6 % (10-50)
--- NOTE | 2017-06-29 09:01 | ACUTE CARE PROGRESS NOTE (QUA) ---
Progress Notes Subjective Date 06/29/17 Time 0857 Note doing better Patient/family reports: feeling better Nursing reports: alert Objective Findings Last VS-Temp:97.7 B/P:144/56 Pulse:89 Resp:18 SaO2:95 ROOM AIR Last weight lbs:249 oz:1 K.973 Method:Bed Scales Exam General appearance: alert, awake Eyes: anicteric ENT: dry mucous membranes Neck: no JVD Cardiovascular: regular rate & rhythm, prosthetic valve click Respiratory: no respiratory distress ABD: soft Genitourinary: no hematuria Extremities: moves all Musculoskeletal: equal muscle strength Skin: dry Neuro: alert, display maker II-XII nml as tested Reviewed: allergies, medications, vital signs, lab results Assessment/Plan Problem List 1. Mechanical heart valve present 2. Chronic renal failure 3. Congestive heart failure Patient condition Improving Plan: make medication changes This inpt stay is expected to cross 2 MNs from start of care Yes Comments: will add lovenox today and add lasix to his meds and inc ambulationand will type and cross will consider transfuse 1 unit as pt is sob with [facility] ht valve with cad/chf at 0900
--- NOTE | 2017-06-29 09:01 | ACUTE CARE PROGRESS NOTE (QUA) ---
Progress Notes Subjective Date 06/29/17 Time 0857 Note doing better Patient/family reports: feeling better Nursing reports: alert Objective Findings Last VS-Temp:97.7 B/P:144/56 Pulse:89 Resp:18 SaO2:95 ROOM AIR Last weight lbs:249 oz:1 K.973 Method:Bed Scales Exam General appearance: alert, awake Eyes: anicteric ENT: dry mucous membranes Neck: no JVD Cardiovascular: regular rate & rhythm, prosthetic valve click Respiratory: no respiratory distress ABD: soft Genitourinary: no hematuria Extremities: moves all Musculoskeletal: equal muscle strength Skin: dry Neuro: alert, network support administrator II-XII nml as tested Reviewed: allergies, medications, vital signs, lab results Assessment/Plan Problem List 1. Mechanical heart valve present 2. Chronic renal failure 3. Congestive heart failure Patient condition Improving Plan: make medication changes This inpt stay is expected to cross 2 MNs from start of care Yes Comments: will add lovenox today and add lasix to his meds and inc ambulationand will type and cross will consider transfuse 1 unit as pt is sob with [facility] ht valve with cad/chf at 0900
[2017-06-29 12:04] LABS: ABO BLOOD TYPE A; RH BLOOD TYPE POSITIVE
[2017-06-30 00:20] VITALS: BP 165/72
[2017-06-30 04:10] VITALS: BP 163/71
[2017-06-30 08:00] VITALS: BP 138/81
[2017-06-30 09:56] VITALS: BP 136/78
[2017-06-30] MEDS ORDERED: COUMADIN4 MG PO (10:30)
--- NOTE | 2017-06-30 10:30 | ACUTE CARE PROGRESS NOTE (QUA) ---
Progress Notes Subjective Date 06/30/17 Time 0845 Patient/family reports: feeling better, no complaints Nursing reports: alert, no complaints Objective Findings Last VS-Temp:98.1 B/P:136/78 Pulse:102 Resp:20 SaO2:98 ROOM AIR Last weight lbs:247 oz:8 K.264 Method:Bed Scales Exam General appearance: normal appearance, active, no acute distress Eyes: normal exam ENT: normal exam Neck: normal inspection, full range of motion Cardiovascular: normal exam, regular rate & rhythm Respiratory: normal exam, aerating well, clear to auscultation, good air movement ABD: normal exam, soft Genitourinary: normal voiding & quantity Extremities: normal exam, full range of motion, moves all, warm Musculoskeletal: normal exam Skin: normal exam, intact, warm Neuro: normal exam, alert, intact, oriented Reviewed: allergies, medications, vital signs, lab results, radiology report Assessment/Plan Problem List 1. Mechanical heart valve present 2. Chronic renal failure 3. Congestive heart failure Qualifiers: Congestive heart failure type: unspecified congestive heart failure type Congestive heart failure chronicity: acute on chronic Qualified Code: I50.9 - Heart failure, unspecified Patient condition Stable Plan: initiate discharge plan This inpt stay is expected to cross 2 MNs from start of care Yes Comments: Dr. Alberts rounded earlier today Antibiotic Stewardship (2) Current Culture Results Microbiology 06/27 1300 BLOOD: Anaerobic Blood Culture - RES 06/27 1300 BLOOD: Aerobic Blood Culture - RES at 1022
--- NOTE | 2017-06-30 10:43 | DISCHARGE SUMMARY STANDARD ---
Demographics Admit date: 06/27/17 Discharge date: 06/30/17 History of present illness History of present illness 61 yr old wm with mech valve on coumadin has increased sob w/o chest pain over the last few days - no fever or rash and has been compliant with meds - he was seen in the ed and admitted with chf - ed report added The patient complains of difficulty breathing for a few days. He says that he was coming to the hospital today to go to the Coumadin clinic to have his prothrombin time done and he saw his primary care provider, Dr. Alberts, in the parking lot and told him about the shortness of breath and Dr. Alberts advised him to come to the emergency room. He has some swelling of his RIGHT leg for a few days and it is a little sore. He says he has a prior history of a DVT in that leg in 1981. He is on Coumadin for atrial fibrillation and a mechanical valve replacement. He was recently hospitalized a few weeks ago for pulling out his urinary catheter. He denies chest pain. Hospital Course Hospital Course: chf:echo01/25/15- LVEF is 25-35% echo today 06/30/17- 25-35%, on lisinopril, statin and coumidin Chest x ray:IMPRESSION: Generalized cardio megaly with findings suggesting mild chronic congestive heart failure Venous doppler:IMPRESSIONS 1. There is no evidence of significant Reflux. 2. No evidence of deep or superficial vein thrombosis involving the right lower extremity Patient states he feels better today. Patient will follow-up tomorrow in the Coumadin clinic to monitor his INR close. Discharge diagnoses Problem List 1. Mechanical heart valve present 2. Chronic renal failure 3. Congestive heart failure Medications Medications: Discharge meds are as noted. Follow up Follow up in office in: 4 DAYS with: Lexus SINGLETON,Gopal Hammond Comment: Lexus rounded earlier today. Follow up with Coumadin clinic tomorrow to get Coumadin dose and monitor and Pt/INR at 7215
[2017-06-30 11:27] VITALS: BP 134/70
--- NOTE | 2017-06-30 20:24 | RADIOLOGY REPORT PS360 ---
PROCEDURE: 2-D M-mode and color Doppler study INDICATIONS FOR THE TEST: Chest pain X COPD Heart Murmur Tobacco Smoking Palpitations Fatigue Syncope EdemaX HypertensionXDiabetes Mellitus Rheumatic Fever SOBXDOE ObesityXHyperlipidemiaX Family History HD Additional History CAD,CABG,MECH MV PATIENT INFORMATION HEIGHT: 67 WEIGHT:247 GENDER: Male B/P:136/78 2-D/M-MODE INTERPRETATION: 2-D MEASUREMENTS OBSERVED VALUES IN CMS Right Ventricular Dimension (RVDd) 2.7 Interventricular Septum (Thickness)(IVsd) 1.6 Left Ventricular Internal Dimensions(LVIDd) 6.2 Left Ventricular Posterior Wall (Thickness)(LVPWd) 1.2 Aortic Root 3.1 Aortic Cusp Separation 2.3 Left Atrial Dimensions (LAD) 6.0 2D 1. Left atrium is moderately enlarged, left ventricle is moderately dilated, there is severely reduced ventricular systolic function, visually estimated ejection fraction 30-35%, left ventricle is globally hypokinetic endocardial surface of very poorly visualized. 2. The right atrium and right ventricle are mildly enlarged, contractility of the right ventricle is normal. 3. The aortic valve is thickened and calcified, leaflets are not well visualized. 4. There is a mechanical prosthetic valve noted in the mitral position. 5. The pulmonic valve is poorly visualized. 6. The tricuspid valve leaflets are minimally thickened. DOPPLER INTERROGATION: 1. The aortic outflow velocities below suggestive of low cardiac output state, there is no significant aortic insufficiency seen. 2. The mitral inflow velocity, the mean gradient and the pressure half time is not recorded, hence the hemodynamics of the mitral valve cannot be calculated. There is no significant mitral regurgitation seen. 3. There is mild tricuspid regurgitation noted, tricuspid and jet velocity insufficient for calculation of the right ventricular systolic pressure. CONCLUSION: 1. Moderately enlarged left atrium, moderately dilated left ventricle, there is severely reduced left ventricular systolic function, visually estimated ejection fraction 30-35% left ventricle is globally hypokinetic, endocardial surfaces are poorly visualized. 2. Mechanical prosthetic valve noted in the mitral position, the exited hemodynamics are not obtained to predicted valve function, a repeat study with better Doppler technique is recommended. 3. Doppler evidence of low cardiac output state. 4. No significant pericardial effusion noted.
--- OUTSIDE RECORDS SUMMARY | 2017-07-04 05:05 | External Medical Summary Rpt | CCD ---
Author Author , BEKA Organization BEKA Address Unknown Phone [email or web address] Care Team Providers Care Reconstructive Surgeon Name Role Phone AYCINENA, AYCINENA Unavailable Unavailable RIOJAS, RIOJAS Unavailable Unavailable [facility] Unavailable Unavailable SERVICE, [facility] Unavailable Unavailable SERVICE, [facility] LEATHA YASMIN, Unavailable Unavailable LEATHA YASMIN GARZA, GARZA Unavailable Unavailable CORONEL, JR, CORONEL, Unavailable Unavailable JR IVON, IVON Unavailable Unavailable IVON KEI, IVON Unavailable Unavailable KEI GAMBREL, GAMBREL Unavailable Unavailable [facility] Unavailable Unavailable INC, [facility] Unavailable Unavailable HOSPITAL P, [facility], Unavailable Unavailable [facility] DELFIN LENZ Unavailable Unavailable [facility], [facility] Unavailable Unavailable MEDICAL G, [facility] MED[facility] G KMS[facility] NURSE Unavailable Unavailable PRACTITIONER GR, KMSF NURSE PRACTITIONER GR [facility], [facility] SY DAN Unavailable Unavailable AMELIA JAM, Unavailable Unavailable CISNEROS DAVID HERNANDEZ, Unavailable Unavailable CISNEROSSOLITARIO HINES Unavailable Unavailable [facility], Unavailable Unavailable [facility], [facility], Unavailable Unavailable [facility], Unavailable Unavailable [facility] PAVEZ, PAVEZ Unavailable Unavailable REALAFSANEH ZAMBRANO, Unavailable Unavailable REAL KENYA AMMON, AMMON Unavailable Unavailable CONNER, CONNER Unavailable Unavailable SADEK, SADEK Unavailable Unavailable RIMA, RIMA Unavailable Unavailable [facility] Unavailable Unavailable [facility], [facility] Unavailable Unavailable [facility], [facility], Unavailable Unavailable [facility], [facility] Unavailable [facility]available HOSPITALS, [facility] Unavailable Unavailable [facility] VIOLETA, VIOLETA Unavailable Unavailable VIOLETA XIANG, VIOLETA Unavailable Unavailable XIANG ALONSO XIANG, ALONSO XIANG Unavailable Unavailable WELLS, WELLS Unavailable Unavailable XENOS, XENOS Unavailable Unavailable Purpose Continuity of Care Document - 06-03-2016 through 2016 Problems Code Diagnosis DOS Provider Status [id number] OBSTRUCTIVE 05-30-2017 [facility] ADULT PEDIATRIC I129 HYPERTENSIV 05-26-2017 [facility], W/STAGE 1-4 PLLC CKD OR UNS CKD [id number] ACUTE EMBO 05-26-2017 [facility] THROMB [facility]NS [facility], DEEP VEINS PLLC LOW EXTREM ARIADNA M545 LOW BACK 05-26-2017 [facility] N189 CHRONIC 05-26-2017 [facility] DISEASE PLLC UNSPECIFIED Z7901 NURSING HOME 05-14-2017 [facility] OF INC ANTICOAGULA NTS Z952 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-14-2017 [facility] HEART INC VALVE Z5181 ENCOUNTER 04-18-2017 [facility] THERAPEUTIC INC DRUG LEVEL MONITORING E785 HYPERLIPIDE 03-10-2017 [facility] UNS[facility] I10 ESSENTIAL 03-10-2017 [facility] HYPERTENSIO GROUP N I4891 UNSPECIFIED 03-10-2017 [facility] FIBRILLATIO GROUP N K5730 DIVERTICULO 02-13-2017 [facility] MEDICAL INTEST W/O IMAGING ASS PERF/ABSC W/O BLEED Z1211 ENCOUNTER 02-13-2017 [facility]CREENING [facility] MALIGNANT INC NEOPLASM OF COLON [id number] ACUTE 02-04-2017 [facility] DEEP VEINS LT UP EXT D631 ANEMIA IN 02-03-2017 [facility] DISEASE E871 HYPO-OSMOLA 02-03-2017 [facility] HYPONATREMI [facility] A N183 CHRONIC 02-03-2017 [facility] DISEASE [facility] STAGE 3 MODERATE [id number] CUTANEOUS 02-01-2017 [facility] ABSCESS OF [facility] LEFT UPPER INC LIMB L0889 OTH SPEC 02-01-2017 [facility], INFECTIONS PLLC THE SKIN & SUBQ TISSUE E119 TYPE 2 01-28-2017 [facility] MELLITUS [facility] WITHOUT COMPLICATIO NS I998 OTHER 01-28-2017 [facility] DIS[facility] CIRCULATORY SYSTEM E1165 TYPE 2 01-20-2017 [facility] NURSE DIABETES PRACTITIONE MELLITUS R GR WITH HYPERGLYCEM IA 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 [facility] NURSE CURRENT USE PRACTITIONE OF INSULIN R GR I509 HEART 01-19-2017 [facility] UNSPECIFIED [facility] I5189 OTHER 01-19-2017 [facility] I[facility]-DEFINED [facility] HEART [facility] DISEASES E108 TYPE 1 01-18-2017 [facility], MELLITUS PLLC W/UNSPEC COMPLICATIO NS E1122 TYPE 2 01-18-2017 [facility] W/DIAB CHRON KIDNEY DZ I2510 ASHD [place]OS[place]-PAI[place] 01-18-2017 [place] [facility] ARTERY W/O [facility]OUND[facility] ANGINA PECTORIS I447 LEFT 01-18-2017 [facility]-BRAN [facility] CH BLOCK [facility] UNSPECIFIED I454 NONSPECIFIC 01-18-2017 [facility] INTRAVENTRI [facility] CULAR BLOCK I482 CHRONIC 01-18-2017 [facility] ATRIAL [facility], FIBRILLATIO [facility] N I498 OTHER 01-18-2017 [facility] SPECIFIED [facility] CARDIAC [facility] ARRHYTHMIAS I517 CARDIOMEGAL 01-18-2017 [place] [facility] Y [facility] Z32759 OTH 01-18-2017 [facility] P EXTREM OT EXTREMITY I708 ATHEROSCLER 01-18-2017 [facility] OS[facility] OF SERV OTHER FOUND[facility] ARTERIES I742 EMBOLISM & 01-18-2017 [place] THROMBOSIS [facility] ART THE HOSPI UPPER EXTREMITIES I8290 ACUTE 01-18-2017 [facility] EMBOLISM & AMBULANCE THROMBOSIS SERVICE OF UNSPECIFIED VEIN I959 HYPOTENSION 01-18-2017 [facility] AMBULANCE UNSPECIFIED SERVICE C57166 OTH INTRAOP 01-18-2017 [facility] FUNC SERV DIST DURING [facility] OTH SURGERY G73217 PAIN IN 01-18-2017 [facility] SHOULDER [facility] M7989 OTHER 01-18-2017 [place] [facility] SPECIFIED SERV SOFT TISSUE [facility] DISORDERS R001 BRADYCARDIA 01-18-2017 [facility] UNSPECIFIED [facility] R0989 OTH SPEC SX 01-18-2017 [facility] SIGNS [facility] INVLV THE [facility]ATION CIRC & RESP SYS R748 ABNORMAL 01-18-2017 [place] [facility] LEVELS OF SERV OTHER SERUM [facility] ENZYMES R791 ABNORMAL 01-18-2017 [place] [facility] COAGULATION SERV PROFILE [facility] R7989 OTHER SPEC 01-18-2017 [facility] ABNORMAL [facility], FINDINGS [facility] BLOOD CHEMISTRY R9431 ABNORMAL 01-18-2017 [facility] ELECTROCARD SERV IOGRAM [facility] Z4682 ENCOUNTER 01-18-2017 [facility] ADJUST [facility] NON-VASCULA R CATHETER H70525 ENCOUNTER 01-18-2017 [facility] FLW SURG TEETH/ORAL CAV U94336 PERSONAL 01-18-2017 [facility] H[facility] OT SERV VENOUS [facility] THROMBOSIS& EMBOLISM Z951 PRESENCE OF 01-18-[address] MEDICAL SERV AORTOCORONA FOUNDATION RY BYPASS GRAFT Z9911 DEPENDENCE 01-18-2017 [place] [facility] RESPIRATOR [facility] VENTILATOR STATUS E039 HYPOTHYROID 12-31-2016 [facility] UNSPECIFIED GROUP E663 OVERWEIGHT 12-31-2016 [facility] G4730 SLEEP APNEA 11-29-2016 [facility] UNSPECIFIED INC I5043 ACUTE ON 11-18-2016 [facility] CHRONIC HEALTH COMB MEDICAL G SYSTOLIC & DIASTOLIC CHF J449 CHRONIC 10-25-2016 [facility] OBSTRUCTIVE HOME PULMONARY MEDICAL DISEASE UNS EQUIPME I5023 ACUTE CHRON 08-14-2016 [facility] SYSTOLIC HEALTH HEART MEDICAL G FAILURE R931 ABNORMAL 08-14-2016 [facility] FINDINGS ON HOSPITAL DX IMAGING HEART & COR CIRC Z969 PRESENCE OF 08-14-2016 [facility] IMPLANT UNSPECIFIED [id number] VITREOUS 06-26-2016 [facility] HERNANDE[facility] N RIGHT EYE B20217 VITREOUS 06-26-2016 [facility] HERNANDE[facility] N LEFT EYE Allergies, Adverse Reactions, Alerts Clinical Alert Notifications Alert Diabetes: no eye exam in the last 365 days Diabetes: no influenza vaccine in the last 365 days Diabetes: no lipid panel in the last 365 days Member has >/= 3 hosp admit & >/= 1 ED visit in 365 days Medications Na ND Rx Da Fi Fi Am Da Di Ph RX Ph St me C No te ll ll ou ys ag ar # ys at rm s nt no ma ic us Or Da si cy ia de te s n re d ON 53 09 10 50 25 00 HO Ac ET 88 -1 -0 .0 00 ME ti OU 50 3- 6- 00 06 TO ve CH 24 20 20 09 WN 45 17 17 42 UL 0 35 PH TR AR A MA TE CY ST OF ST RI CY PS NT HI AN A ON 53 09 10 1. 1 00 HO Ac ET 88 -1 -0 00 00 ME ti OU 50 3- 6- 0 06 TO ve CH 91 20 20 09 WN 10 17 17 42 UL 1 39 PH TR AR AM MA IN CY I ME OF TE R CY NT HI AN A ON 53 09 10 10 30 00 HO Ac ET 88 -1 -0 0. 00 ME ti OU 50 3- 6- 00 06 TO ve CH 14 20 20 0 09 WN 30 17 17 42 DE 1 41 PH LI AR CA MA CY 33 G OF LA NC CY ET NT S HI AN A CA 00 05 31 30 30 00 HO Ac LC 90 -0 -2 .0 00 ME ti IU 43 6- 9- 00 06 TO ve M 23 20 20 09 WN 60 39 17 17 14 0- 2 07 PH AR T MA D3 CY 40 OF 0 TA CY BL NT ET HI AN A LE 00 05 31 30 30 00 HO Ac VO 52 -0 -2 .0 00 ME ti TH 71 6- 9- 00 06 TO ve YR 34 20 20 09 WN OX 70 17 17 14 IN 1 05 PH E AR 12 MA 5 CY MC G OF TA BL CY ET NT HI AN A SP 00 05 31 30 30 00 HO Ac IR 22 -0 -2 .0 00 ME ti ON 82 6- 9- 06 TO ve OL 80 20 20 09 WN AC 31 17 17 14 TO 1 02 PH NE AR MA 25 CY MG OF TA CY BL NT ET HI AN A IA 68 09 30 30 00 HO Ac AV 18 -0 -2 .0 00 ME ti 00 6 9- 06 TO ve TA 48 20 20 09 WN TI 80 17 17 14 N 9 01 PH SO AR DI MA UM CY 80 OF MG CY NT TA HI B AN A FE 00 05 31 30 30 00 HO Ac NO 37 -0 -2 .0 00 ME ti FI 83 6- 9- 00 06 TO ve BR 06 20 20 09 WN AT 67 17 17 13 E 7 99 PH 14 AR 5 MA MG CY TA OF BL ET CY NT HI AN A CA 68 09 60 30 00 HO Ac RV 00 -0 -2 .0 00 ME ti ED 10 6- 9- 06 TO ve IL 15 20 20 09 WN OL 20 17 17 14 3 00 PH 25 AR MA MG CY TA OF BL ET CY NT HI AN A DI 00 09 09 30 30 00 HO Ac GO 52 -0 -2 .0 00 ME ti X 71 6- 9- 00 06 TO ve 12 32 20 20 09 WN 5 40 17 17 13 MC 1 98 PH G AR TA MA BL CY ET OF CY NT HI AN A FU 00 05 31 30 30 00 HO Ac RO 37 -0 -2 .0 00 ME ti SE 80 6- 9- 00 06 TO ve SC 21 20 20 09 WN DE 61 17 17 13 0 96 PH 40 AR MA MG CY TA OF BL ET CY NT HI AN A LI 68 09 09 30 30 00 HO Ac SI 18 -0 -2 .0 00 ME ti NO 00 6- 9- 00 06 TO ve IA 51 20 20 09 WN [place] 80 17 17 13 -H [address] AR Z MA 10 CY -1 2. OF 5 MG CY NT TA HI B AN A NO 00 09 09 20 26 00 HO Ac VO 16 -0 -2 .0 00 ME ti LI 91 6- 9- 00 06 TO ve N 83 20 20 09 WN 70 71 17 17 14 -3 1 04 PH 0 AR 10 MA 0 CY UN IT OF /M L CY NT AL HI AN A ME 00 09 09 14 7 00 WA Ac TH 14 -0 -2 .0 00 L- ti OC 31 4- 9- 00 07 MA ve AR 29 20 20 50 RT BA 20 17 17 75 MO 1 58 PH L AR 75 MA 0 CY MG #5 TA 91 BL ET CA 00 07 08 30 30 00 HO Ac LC 90 -2 -1 .0 00 ME ti IU 43 6- 8- 00 06 TO ve M 23 20 20 09 WN 60 39 17 17 14 0- 2 07 PH AR T MA D3 CY 40 OF 0 TA CY BL NT ET HI AN A NO 00 07 08 20 26 00 HO Ac VO 16 -2 -1 .0 00 ME ti LI 91 1- 8- 00 06 TO ve N 83 20 20 08 WN 70 71 17 17 97 -3 1 48 PH 0 AR 10 MA 0 CY UN IT OF /M L CY NT AL HI AN A FU 00 07 08 30 30 00 HO Ac RO 37 -2 -1 .0 00 ME ti SE 80 6- 8- 00 06 TO ve SC 21 20 20 09 WN DE 61 17 17 13 0 96 PH 40 AR MA MG CY TA OF BL ET CY NT HI AN A LI 68 07 08 30 30 00 HO Ac SI 18 -2 -1 .0 00 ME ti NO 00 6- 8- 00 06 TO ve IA 51 20 20 09 WN [place] 80 17 17 13 -H [address] AR Z MA 10 CY -1 2. OF 5 MG CY NT TA HI B AN A DI 00 07 08 30 30 00 HO Ac GO 52 -2 -1 .0 00 ME ti X 71 6- 8- 00 06 TO ve 12 32 20 20 09 WN 5 40 17 17 13 MC 1 98 PH G AR TA MA BL CY ET OF CY NT HI AN A FE 00 07 08 30 30 00 HO Ac NO 37 -2 -1 .0 00 ME ti FI 83 6- 8- 00 06 TO ve BR 06 20 20 09 WN AT 67 17 17 13 E 7 99 PH 14 AR 5 MA MG CY TA OF BL ET CY NT HI AN A CA 68 07 08 60 30 00 HO Ac RV 00 -2 -1 .0 00 ME ti ED 10 6- 8- 00 06 TO ve IL 15 20 20 09 WN OL 20 17 17 14 3 00 PH 25 AR MA MG CY TA OF BL ET CY NT HI AN A IA 68 07 08 30 30 00 HO Ac AV 18 -2 -1 .0 00 ME ti 00 6- 8- 00 06 TO ve TA 48 20 20 09 WN TI 80 17 17 14 N 9 01 PH SO AR DI MA UM CY 80 OF MG CY NT TA HI B AN A SP 00 07 08 30 30 00 HO Ac IR 22 -2 -1 .0 00 ME ti ON 82 6- 8- 00 06 TO ve OL 80 20 20 09 WN AC 31 17 17 14 TO 1 02 PH NE AR MA 25 CY MG OF TA CY BL NT ET HI AN A DI 00 07 08 30 30 00 HO Ac LT 37 -2 -1 .0 00 ME ti IA 85 6- 8- 00 06 TO ve ZE 34 20 20 09 WN M 00 17 17 14 ER 1 03 PH AR 24 MA 0 CY MG OF CA PS CY UL NT E HI AN A LE 00 07 08 30 30 00 HO Ac VO 52 -2 -1 .0 00 ME ti TH 71 6- 8- 00 06 TO ve YR 34 20 20 09 WN OX 70 17 17 14 IN 1 05 PH E AR 12 MA 5 CY MC G OF TA BL CY ET NT HI AN A GL 68 07 08 45 30 00 HO Ac IM 00 -2 -1 .0 00 ME ti EP 10 6- 8- 00 06 TO ve IR 17 20 20 09 WN ID 80 17 17 14 E 3 06 PH 2 AR MG MA CY TA BL OF ET CY NT HI AN A BD 08 07 07 10 30 00 HO Ac 29 -0 -2 0. 00 ME ti IN 03 5- 8- 00 06 TO ve CARRERO 28 20 20 0 09 WN LI 41 17 17 01 N 8 52 PH SY AR R MA 1 CY ML OF 8M MX CY 31 NT G HI AN A WA 00 06 07 30 30 00 HO Ac RF 09 -2 -2 .0 00 ME ti AR 31 8- 1- 00 06 TO ve IN 71 20 20 08 WN 50 17 17 98 SO 1 44 PH DI AR UM MA 3 CY MG OF TA CY BL NT ET HI AN A GL 68 06 07 45 30 00 HO Ac IM 00 -2 -2 .0 00 ME ti EP 10 8- 1- 00 06 TO ve IR 17 20 20 08 WN ID 80 17 17 98 E 3 45 PH 2 AR MG MA CY TA BL OF ET CY NT HI AN A LE 00 06 07 30 30 00 HO Ac VO 52 -2 -2 .0 00 ME ti TH 71 8- 1- 00 06 TO ve YR 34 20 20 08 WN OX 70 17 17 98 IN 1 46 PH E AR 12 MA 5 CY MC G OF TA BL CY ET NT HI AN A FE 00 06 07 30 30 00 HO Ac NO 37 -2 -2 .0 00 ME ti FI 83 8- 1- 00 06 TO ve BR 06 20 20 08 WN AT 67 17 17 98 E 7 47 PH 14 AR 5 MA MG CY TA OF BL ET CY NT HI AN A CA 00 06 07 30 30 00 HO Ac LC 90 -2 -2 .0 00 ME ti IU 43 8- 1- 00 06 TO ve M 23 20 20 08 WN 60 39 17 17 10 0- 2 65 PH AR T MA D3 CY 40 OF 0 TA CY BL NT ET HI AN A LI 68 06 07 30 30 00 HO Ac SI 18 -2 -2 .0 00 ME ti NO 00 8- 1- 00 06 TO ve IA 51 20 20 07 WN [place] 80 17 17 99 -H [address] AR Z MA 10 CY -1 2. OF 5 MG CY NT TA HI B AN A SP 00 06 07 15 30 00 HO Ac IR 22 -2 -2 .0 00 ME ti ON 82 8- 1- 00 06 TO ve OL 80 20 20 07 WN AC 31 17 17 99 TO 1 12 PH NE AR MA 25 CY MG OF TA CY BL NT ET HI AN A CA 68 06 07 60 30 00 HO Ac RV 00 -2 -2 .0 00 ME ti ED 10 8- 1- 00 06 TO ve IL 15 20 20 07 WN OL 20 17 17 99 3 11 PH 25 AR MA MG CY TA OF BL ET CY NT HI AN A DI 00 06 07 30 30 00 HO Ac GO 11 -2 -2 .0 00 ME ti XI 59 8- 1- 00 06 TO ve N 82 20 20 07 WN 25 20 17 17 37 0 1 30 PH MC AR G MA TA CY BL ET OF CY NT HI AN A FU 69 06 07 45 30 00 HO Ac RO 31 -2 -2 .0 00 ME ti SE 50 8- 1- 00 06 TO ve SC 11 20 20 07 WN DE 71 17 17 37 0 31 PH 40 AR MA MG CY TA OF BL ET CY NT HI AN A IA 68 06 07 30 30 00 HO Ac AV 18 -2 -2 .0 00 ME ti 00 8- 1- 00 06 TO ve TA 48 20 20 07 WN TI 80 17 17 99 N 9 09 PH SO AR DI MA UM CY 80 OF MG CY NT TA HI B AN A NO 00 06 06 20 30 00 HO Ac VO 16 -0 -3 .0 00 ME ti LI 91 5- 0- 00 06 TO ve N 83 20 20 08 WN 70 71 17 17 81 -3 1 72 PH 0 AR 10 MA 0 CY UN IT OF /M L CY NT AL HI AN A WA 00 05 06 30 30 00 HO Ac RF 09 -3 -2 .0 00 ME ti AR 31 1- 3- 00 06 TO ve IN 71 20 20 08 WN 50 17 17 35 SO 1 91 PH DI AR UM MA 3 CY MG OF TA CY BL NT ET HI AN A GL 68 05 06 45 30 00 HO Ac IM 00 -3 -2 .0 00 ME ti EP 10 1- 3- 00 06 TO ve IR 17 20 20 08 WN ID 80 17 17 15 E 3 08 PH 2 AR MG MA CY TA BL OF ET CY NT HI AN A LE 00 05 06 30 30 00 HO Ac VO 52 -3 -2 .0 00 ME ti TH 71 1- 3- 00 06 TO ve YR 34 20 20 08 WN OX 70 17 17 15 IN 1 05 PH E AR 12 MA 5 CY MC G OF TA BL CY ET NT HI AN A FE 00 05 06 30 30 00 HO Ac NO 37 -3 -2 .0 00 ME ti FI 83 1- 3- 00 06 TO ve BR 06 20 20 08 WN AT 67 17 17 15 E 7 04 PH 14 AR 5 MA MG CY TA OF BL ET CY NT HI AN A CA 00 05 06 30 30 00 HO Ac LC 90 -3 -2 .0 00 ME ti IU 43 1- 3- 00 06 TO ve M 23 20 20 08 WN 60 39 17 17 10 0- 2 65 PH AR T MA D3 CY 40 OF 0 TA CY BL NT ET HI AN A LI 68 05 06 30 30 00 HO Ac SI 18 -3 -2 .0 00 ME ti NO 00 1- 3- 00 06 TO ve IA 51 20 20 07 WN [place] 80 17 17 99 -H [address] AR Z MA 10 CY -1 2. OF 5 MG CY NT TA HI B AN A SP 00 05 06 15 30 00 HO Ac IR 22 -3 -2 .0 00 ME ti ON 82 1- 3- 00 06 TO ve OL 80 20 20 07 WN AC 31 17 17 99 TO 1 12 PH NE AR MA 25 CY MG OF TA CY BL NT ET HI AN A CA 68 05 06 60 30 00 HO Ac RV 00 -3 -2 .0 00 ME ti ED 10 1- 3- 00 06 TO ve IL 15 20 20 07 WN OL 20 17 17 99 3 11 PH 25 AR MA MG CY TA OF BL ET CY NT HI AN A IA 68 05 06 30 30 00 HO Ac AV 18 -3 -2 .0 00 ME ti 00 1- 3- 00 06 TO ve TA 48 20 20 07 WN TI 80 17 17 99 N 9 09 PH SO AR DI MA UM CY 80 OF MG CY NT TA HI B AN A FU 00 05 06 45 30 00 HO Ac RO 37 -3 -2 .0 00 ME ti SE 80 1- 3- 00 06 TO ve SC 21 20 20 07 WN DE 61 17 17 37 0 31 PH 40 AR MA MG CY TA OF BL ET CY NT HI AN A DI 00 05 06 30 30 00 HO Ac GO 11 -3 -2 .0 00 ME ti XI 59 1- 3- 00 06 TO ve N 82 20 20 07 WN 25 20 17 17 37 0 1 30 PH MC AR G MA TA CY BL ET OF CY NT HI AN A EN 00 05 06 6. 4 00 HO Ac OX 70 -1 -1 40 00 ME ti AP 38 9- 6- 0 06 TO ve AR 61 20 20 08 WN IN 02 17 17 73 3 79 PH 12 AR 0 MA MG CY /0 .8 OF ML CY NT SY HI R AN A CE 65 05 06 40 10 00 EA Ac PH 86 -1 -[address] ti AL 20 3- 9- 00 00 SI ve EX 01 20 20 48 DE IN 90 17 17 74 5 51 PH 50 AR 0 MA MG CY CA OF PS CY UL NT E HI AN A IN C MU 68 05 06 22 5 00 EA Ac PI 46 -1 -[address] ti RO 20 3- 9- 00 00 SI ve CI 18 20 20 48 DE N 02 17 17 74 2% 2 52 PH AR OI MA NT CY ME NT OF CY NT HI AN A IN C EN 00 05 06 6. 4 00 HO Ac OX 70 -1 -0 40 00 ME ti AP 38 5- 9- 0 06 TO ve AR 61 20 20 08 WN IN 02 17 17 70 3 18 PH 12 AR 0 MA MG CY /0 .8 OF ML CY NT SY HI R AN A EN 00 05 06 20 10 00 KE Ac OX 95 -0 -0 .0 05 NT ti AP 51 4- 2- 00 26 UC ve AR 01 20 20 26 [place] IN 01 17 17 45 0 86 CL 10 IN 0 IC MG /M PH L AR SY MA RI CY NG E 49 05 06 30 30 00 KE Ac PI 78 -0 -0 .0 05 NT ti RI 10 4- 2- 00 26 UC ve N 08 20 20 26 [place] 81 49 17 17 45 9 87 CL MG IN IC CH EW PH AB AR LE MA CY TA BL ET OX 00 05 06 40 6 00 RI Ac YC 05 -0 -0 .0 00 TE ti OD 40 4- 2- 00 00 ve ON 55 20 20 84 AI E- 12 17 17 39 D AC 5 38 PH ET AR AM MA IN CY OP HE #3 N 91 5- 2 32 5 BD 08 05 06 10 30 00 HO Ac 29 -0 -0 0. 00 ME ti IN 03 9- 2- 00 06 TO ve CARRERO 28 20 20 0 08 WN LI 41 17 17 66 N 8 61 PH SY AR R MA 1 CY ML OF 8M MX CY 31 NT G HI AN A NO 00 05 06 20 30 00 HO Ac VO 16 -0 -0 .0 00 ME ti LI 91 9- 2- 00 06 TO ve N 83 20 20 08 WN 70 71 17 17 66 -3 1 64 PH 0 AR 10 MA 0 CY UN IT OF /M L CY NT AL HI AN A WA 00 04 05 30 30 00 HO Ac RF 09 -2 -1 .0 00 ME ti AR 31 1- 9- 00 06 TO ve IN 71 20 20 08 WN 50 17 17 35 SO 1 91 PH DI AR UM MA 3 CY MG OF TA CY BL NT ET HI AN A GL 68 04 05 45 30 00 HO Ac IM 00 -2 -1 .0 00 ME ti EP 10 06 TO ve IR 17 20 20 08 WN ID 80 17 17 15 E 3 08 PH 2 AR MG MA CY TA BL OF ET CY NT HI AN A LE 00 04 05 30 30 00 HO Ac VO 52 -2 -1 .0 00 ME ti TH 71 06 TO ve YR 34 20 20 08 WN OX 70 17 17 15 IN 1 05 PH E AR 12 MA 5 CY MC G OF TA BL CY ET NT HI AN A FE 00 04 05 30 30 00 HO Ac NO 37 -2 -1 .0 00 ME ti FI 83 06 TO ve BR 06 20 20 08 WN AT 67 17 17 15 E 7 04 PH 14 AR 5 MA MG CY TA OF BL ET CY NT HI AN A LI 68 04 05 30 30 00 HO Ac SI 18 -2 -1 .0 00 ME ti NO 00 06 TO ve IA 51 20 20 07 WN [place] 80 17 17 99 -H [address] AR Z MA 10 CY -1 2. OF 5 MG CY NT TA HI B AN A CA 68 04 05 60 30 00 HO Ac RV 00 -2 -1 .0 00 ME ti ED 10 06 TO ve IL 15 20 20 07 WN OL 20 17 17 99 3 11 PH 25 AR MA MG CY TA OF BL ET CY NT HI AN A SP 53 04 05 15 30 00 HO Ac IR 74 -2 -1 .0 00 ME ti ON 60 06 TO ve OL 51 20 20 07 WN AC 10 17 17 99 TO 1 12 PH NE AR MA 25 CY MG OF TA CY BL NT ET HI AN A IA 68 04 05 30 30 00 HO Ac AV 18 -2 -1 .0 00 ME ti 00 06 TO ve TA 48 20 20 07 WN TI 80 17 17 99 N 9 09 PH SO AR DI MA UM CY 80 OF MG CY NT TA HI B AN A FU 69 04 05 45 30 00 HO Ac RO 31 -2 -1 .0 00 ME ti SE 50 06 TO ve SC 11 20 20 07 WN DE 71 17 17 37 0 31 PH 40 AR MA MG CY TA OF BL ET CY NT HI AN A DI 00 04 05 30 30 00 HO Ac GO 11 -2 -1 .0 00 ME ti XI 59 9- 06 TO ve N 82 20 20 07 WN 25 20 17 17 37 0 1 30 PH MC AR G MA TA CY BL ET OF CY NT HI AN A CA 00 04 05 30 30 00 HO Ac LC 90 -2 -1 .0 00 ME ti IU 43 - 06 TO ve M 23 20 20 08 WN 60 39 17 17 10 0- 2 65 PH AR T MA D3 CY 40 OF 0 TA CY BL NT ET HI AN A EN 00 04 05 11 14 00 [...] -1 .0 00 ME ti FI 83 06 TO ve BR 06 20 20 08 WN AT 67 17 17 15 E 7 04 PH 14 AR 5 MA MG CY TA OF BL ET CY NT HI AN A LI 68 03 04 30 30 00 HO Ac SI 18 -2 -1 .0 00 ME ti NO 00 4- 06 TO ve IA 51 20 20 07 WN [place] 80 17 17 99 -H [address] AR Z MA 10 CY -1 2. OF 5 MG CY NT TA HI B AN A SP 53 03 04 15 30 00 HO Ac IR 74 -2 -1 .0 00 ME ti ON 60 06 TO ve OL 51 20 20 07 WN AC 10 17 17 99 TO 1 12 PH NE AR MA 25 CY MG OF TA CY BL NT ET HI AN A CA 68 03 04 60 30 00 HO Ac RV 00 -2 -1 .0 00 ME ti ED 10 06 TO ve IL 15 20 20 [...] 00 ME ti XI 59 1- 4- 06 TO ve N 82 20 20 07 WN 25 20 17 17 37 0 1 30 PH MC AR G MA TA CY BL ET OF CY NT HI AN A FU 69 03 04 45 30 00 HO Ac RO 31 -2 -1 .0 00 ME ti SE 50 1- 4- 06 TO ve SC 11 20 20 07 WN DE 71 [...] NO 00 6- 7- 06 TO ve IA 51 20 20 07 WN [place] 80 17 17 99 -H [address] AR Z MA 10 CY -1 2. OF 5 MG CY NT TA HI B AN A SP 53 02 03 15 30 00 HO Ac IR 74 -1 -1 .0 00 ME ti ON 60 6- 7- 06 TO ve OL 51 20 20 [...] 50 6- 7- 00 06 TO ve SC 11 20 20 07 WN DE 71 [...] ET CY NT HI AN A FU 01 02 45 30 00 HO Ac RO 31 -1 -1 .0 00 ME ti SE 50 9- 7- 00 06 TO ve SC 11 20 20 07 WN DE 71 17 17 37 0 31 PH 40 AR MA MG CY TA OF BL ET CY NT HI AN A DI 00 02 30 30 00 HO Ac GO [...] ET CY NT HI AN A WA 02 30 30 00 HO Ac RF [...] HI B AN A CA 68 02 60 30 00 HO Ac RV 00 -2 -1 .0 00 ME ti ED 10 0- 7- 06 TO ve IL 15 20 20 07 WN OL 20 17 17 99 3 11 PH 25 AR MA MG CY TA OF BL ET CY NT HI AN A SP 53 01 02 15 30 00 HO Ac IR 74 -2 -1 .0 00 ME ti ON 60 0- 7- 06 TO ve OL 51 20 20 07 WN AC 10 17 17 99 TO 1 12 PH NE AR MA 25 CY MG OF TA CY BL NT ET HI AN A LI 68 01 02 30 30 00 HO Ac SI 18 -2 -1 .0 00 ME ti NO 00 0- 7- 06 TO ve IA 51 20 20 07 WN [place] 80 17 17 99 -H [address] AR Z MA 10 CY -1 2. OF 5 MG CY NT TA HI B AN A LE 00 12 30 30 00 HO Ac VO 52 -1 -0 .0 00 ME ti TH 71 3 06 TO ve YR 34 20 20 07 WN OX 70 16 17 54 IN 1 01 PH E AR 12 MA 5 CY MC G OF TA BL CY ET NT HI AN A FE 00 12 01 30 30 00 HO Ac NO 37 -1 -0 .0 00 ME ti FI 83 3 9- 06 TO ve BR 06 20 20 07 WN AT 67 16 17 46 E 7 90 PH 14 AR 5 MA MG CY TA OF BL ET CY NT HI AN A FU 69 12 01 45 30 00 HO Ac RO 31 -1 -0 .0 00 ME ti SE 50 3- 9- 06 TO ve SC 11 20 20 07 WN DE 71 16 17 37 0 31 PH 40 AR MA MG CY TA OF BL ET CY NT HI AN A DI 00 12 30 30 00 HO Ac GO 11 [...] .0 00 ME ti NO 00 3 9- 06 TO ve IA 51 20 20 [...] Order Detail nces retati t Range on Glucose capillary blood glucometer (06-28-2017 12:05) Glucose = 270 70-110 complet 017 mg/dl ed capilla 12:[address] Whole blood INR measurement (06-28-2017 09:05) Comment: IS PATIENT ON ANTICOAGULANTS? Y Comment: LIST ANTICOAGULANTS: Comment: COUMADIN Prothro = 28.7 9.4-11. complet mbin 017 SECONDS 8 ed time 09:05 (PT) in platele t poor p Whole = 2.63 0.9-1.1 complet blood 017 ed INR 09:05 measure ment Comment: INDICATION INR RANGE Comment: Comment: THERAPY FOR DVT, PE, ATRIAL FIB; 2.0 - 3.0 Comment: PROPHYLAXIS FOR VTE Comment: Comment: THERAPY FOR MECHANICAL HEART 2.5 - 3.5 Comment: VALVE; PREVENTION OF SYSTEMIC Comment: EMBOLISM SECONDARY TO AMI Basic metabolic panel (06-28-2017 09:05) Serum = 132 136-145 complet sodium 017 mmoL/L ed measure 09:05 ment Serum = 3.8 3.5-5.1 complet potassi 017 mmoL/L ed um 09:05 measure ment Serum = 272 74-106 complet or 017 mg/dL ed plasma 09:05 glucose measure ment (mas Estimat = 41 >60 complet ed 017 ML/MIN ed glomeru 09:05 lar filtrat ion rate (GF Comment: REFERENCE RANGE: >60 ML/MIN/1.73 SQUARE METERS Comment: If this patient is -[place], then multiply the Comment: result by 1.210. Estimat = 73 50-200 complet ion of 017 ML/MIN ed creatin 09:05 ine renal clearan ce Serum = 1.7 0.70-1. complet or 017 mg/dL 30 ed plasma 09:05 creatin ine measure ment ( Carbon = 29 21.0-32 complet dioxide 017 mmoL/L .0 ed 09:05 measure ment Serum = 98 98-107 complet or 017 mmoL/L ed plasma 09:05 chlorid e measure ment (mo Serum = 9.3 8.5-10. complet or 017 mg/dL 1 ed plasma 09:05 calcium measure ment (mas Serum = 14 7-18 complet or 017 mg/dL ed plasma 09:05 urea nitroge n measure men Glucose capillary blood glucometer (06-28-2017 06:11) Glucose = 150 70-110 complet 017 mg/dl ed capilla 06:[address] Basic metabolic panel (06-28-2017 06:10) Serum = 13 7-18 complet or 017 mg/dL ed plasma 06:10 urea nitroge n measure men Estimat = 78 50-200 complet ion of 017 ML/MIN ed creatin 06:10 ine renal clearan ce Serum = 9.5 8.5-10. complet or 017 mg/dL 1 ed plasma 06:10 calcium measure ment (mas Serum = 151 74-106 complet or 017 mg/dL ed plasma 06:10 glucose measure ment (mas Estimat = 44 >60 complet ed 017 ML/MIN ed glomeru 06:10 lar filtrat ion rate (GF Comment: REFERENCE RANGE: >60 ML/MIN/1.73 SQUARE METERS Comment: If this patient is -[place], then multiply the Comment: result by 1.210. Serum = 1.6 0.70-1. 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: PER PROTOCOL Magnesi = 1.4 1.4-2.2 complet um 017 mg/dL ed measure 21:34 ment Glucose capillary blood glucometer (06-27-2017 20:46) Glucose = 185 70-110 complet 017 mg/dl ed capilla 20:[address] Glucose capillary blood glucometer (06-27-2017 17:20) Glucose = 127 70-110 complet 017 mg/dl ed capilla 17:[address] UFH PPP Recovery Operator Helper-aCnc (01-23-2017 10:15) UFH PPP 0.30 complet 017 IU/mL ed Recovery Operator Helper-aC 10:15 nc UFH PPP Recovery Operator Helper-aCnc (01-23-2017 04:06) UFH PPP 2 0.23 complet 017 IU/mL ed Recovery Operator Helper-aC 04:06 nc Phosphate SerPl-mCnc (01-22-2017 09:08) Phospha 1.8 2.5-4.5 complet te 017 mg/dL ed SerPl-m 09:08 Cnc Magnesium SerPl-mCnc (01-22-2017 09:08) Magnesi 2 1.8 1.9-2.4 complet um 017 mg/dL ed SerPl-m 09:08 Cnc UFH PPP Recovery Operator Helper-aCnc (01-22-2017 09:06) UFH PPP 0.32 complet 017 IU/mL ed Recovery Operator Helper-aC 09:06 nc Phosphate SerPl-mCnc (01-22-2017 03:13) Phospha 2 1.7 2.5-4.5 complet te 017 mg/dL ed SerPl-m 03:13 Cnc Magnesium SerPl-mCnc (01-22-2017 03:13) Magnesi 1.6 1.9-2.4 complet um 017 mg/dL ed SerPl-m 03:13 Cnc UFH PPP Recovery Operator Helper-aCnc (01-22-2017 03:13) UFH PPP 0.33 complet 017 IU/mL ed Recovery Operator Helper-aC 03:13 nc UFH PPP Recovery Operator Helper-aCnc (01-21-2017 20:29) UFH PPP 0.26 complet 017 IU/mL ed Recovery Operator Helper-aC 20:29 nc UFH PPP Recovery Operator Helper-aCnc (01-21-2017 13:23) UFH PPP 0.18 complet 017 IU/mL ed Recovery Operator Helper-aC 13:23 nc UFH PPP Recovery Operator Helper-aCnc (01-21-2017 06:06) UFH PPP 0.14 complet 017 IU/mL ed Recovery Operator Helper-aC 06:06 nc Phosphate SerPl-mCnc (01-21-2017 03:05) Phospha 1.4 2.5-4.5 complet te 017 mg/dL ed SerPl-m 03:05 Cnc Magnesium SerPl-mCnc (01-21-2017 03:05) Magnesi 1.8 1.9-2.4 complet um 017 mg/dL ed SerPl-m 03:05 Cnc UFH PPP Recovery Operator Helper-aCnc (01-20-2017 22:15) UFH PPP LE11 complet 017 <0.11 L ed Recovery Operator Helper-aC 22:15 IU/mL nc Sodium Ur-sCnc (01-20-2017 20:59) Sodium 39 complet Ur-sCnc 017 mmol/L ed 20:59 Creat Ur-mCnc (01-20-2017 20:59) Creat 68 complet Ur-mCnc 017 mg/dL ed 20:59 UFH PPP Recovery Operator Helper-aCnc (01-20-2017 16:32) UFH PPP LE11 complet 017 <0.11 L ed Recovery Operator Helper-aC 16:32 IU/mL nc UFH PPP Recovery Operator Helper-aCnc (01-20-2017 11:28) UFH PPP > 1.10 complet 017 IU/mL ed Recovery Operator Helper-aC 11:28 nc Phosphate SerPl-mCnc (01-20-2017 04:12) Phospha 2.0 2.5-4.5 complet te 017 mg/dL ed SerPl-m 04:12 Cnc Magnesium SerPl-mCnc (01-20-2017 04:12) Magnesi 1.8 1.9-2.4 complet um 017 mg/dL ed SerPl-m 04:12 Cnc UFH PPP Recovery Operator Helper-aCnc (01-20-2017 04:12) UFH PPP 1.02 complet 017 IU/mL ed Recovery Operator Helper-aC 04:12 nc Hgb A1c MFr Bld (01-20-2017 04:12) Hgb A1c 10.6 % 4.7-6.0 complet MFr 017 ed Bld 04:12 UFH PPP Recovery Operator Helper-aCnc (01-19-2017 21:15) UFH PPP 0.30 complet 017 IU/mL ed Recovery Operator Helper-aC 21:15 nc Digoxin SerPl-mCnc (01-19-2017 13:57) Digoxin 1.6 0.8-2.0 complet 017 ng/mL ed SerPl-m 13:57 Cnc UFH PPP Recovery Operator Helper-aCnc (01-19-2017 13:57) UFH PPP 0.28 complet 017 IU/mL ed Recovery Operator Helper-aC 13:57 nc Phosphate SerPl-mCnc (01-19-2017 05:18) Phospha 2.5 2.5-4.5 complet te 017 mg/dL ed SerPl-m 05:18 Cnc Magnesium SerPl-mCnc (01-19-2017 05:18) Magnesi 2 2.1 1.9-2.4 complet um 017 mg/dL ed SerPl-m 05:18 Cnc UFH PPP Recovery Operator Helper-aCnc (01-19-2017 05:01) UFH PPP 2 0.24 complet 017 IU/mL ed Recovery Operator Helper-aC 05:01 nc UFH PPP Recovery Operator Helper-aCnc (01-18-2017 23:11) UFH PPP 0.24 complet 017 IU/mL ed Recovery Operator Helper-aC 23:11 nc Phosphate SerPl-mCnc (01-18-2017 22:58) Phospha 2.5 2.5-4.5 complet te 017 mg/dL ed SerPl-m 22:58 Cnc Magnesium SerPl-mCnc (01-18-2017 22:58) Magnesi 1.8 1.9-2.4 complet um 017 mg/dL ed SerPl-m 22:58 Cnc UFH PPP Recovery Operator Helper-aCnc (01-18-2017 18:24) UFH PPP 0.27 complet 017 IU/mL ed Recovery Operator Helper-aC 18:24 nc UFH PPP Recovery Operator Helper-aCnc (01-18-2017 11:46) UFH PPP 0.32 complet 017 IU/mL ed Recovery Operator Helper-aC 11:46 nc UFH PPP Recovery Operator Helper-aCnc (01-18-2017 05:40) UFH PPP 0.88 complet 017 IU/mL ed Recovery Operator Helper-aC 05:40 nc Procedures Procedure DOS Code Location Performer Comment RESP ASST E0470 PATIENT PATIENT DEVC 7 AIDS INC AIDS INC BI-LEVL PRSS CAPABILIT Y W/O BACKU HUMDIFIR E0562 PATIENT PATIENT HEATED 7 AIDS INC AIDS INC USED W/POS ARWAY PRESSURE DEVICE PROTHROMB 44471 [facility] INC PROTHROMB 46829 RAD[facility] GARCIA [facility] INC RESP ASST E0470 PATIENT PATIENT DEVC 7 AIDS INC AIDS INC BI-LEVL PRSS CAPABILIT Y W/O BACKU HUMDIFIR E0562 PATIENT PATIENT HEATED 7 AIDS INC AIDS INC USED W/POS ARWAY PRESSURE DEVICE PROTHROMB 69759 RADHA GARCIA IN TIME 7 [facility] INC INC HUMDIFIR E0562 PATIENT PATIENT HEATED 7 AIDS INC AIDS INC USED W/POS ARWAY PRESSURE DEVICE RESP ASST E0470 PATIENT PATIENT DEVC 7 AIDS INC AIDS INC BI-LEVL PRSS CAPABILIT Y W/O BACKU PROTHROMB 06383 RADHA GARCIA IN TIME 7 [facility] INC INC PROTHROMB 67509 RADHA GARCIA IN TIME 7 [facility] INC PROTHROMB 48264 RADHA GARCIA IN TIME 7 [facility] INC PROTHROMB 44534 RADHA GARCIA IN TIME 7 [facility] INC COLLECTIO 10819 RADHA GARCIA N VENOUS 7 [facility] BLOOD [facility] INC VENIPUNCT URE PROTHROMB 98998 RADHA GARCIA IN TIME 7 [facility] RESP ASST E0470 PATIENT PATIENT DEVC 7 AIDS INC AIDS INC BI-LEVL PRSS CAPABILIT Y W/O BACKU HUMDIFIR E0562 PATIENT PATIENT HEATED 7 AIDS INC AIDS INC USED W/POS ARWAY PRESSURE DEVICE PROTHROMB 62296 ARDHA GARCIA IN TIME 7 [facility] INC PROTHROMB 34383 RADHA GARCIA IN TIME 7 [facility] COLLECTIO 14308 RADHA GARCIA N VENOUS 7 [facility] BLOOD INC INC VENIPUNCT URE RAD EXP G9501 [place] [facility] INDCS/EXP 7 MEDICAL TM & NO IMAGING FLUORO ASS IMG N DOC N RSN PROTHROMB 89499 RADHA RADHA IN TIME 7 [facility] INC INC RADEX 60597 RADHA LOPEZON COLON 7 [facility] BARIUM INC INC ENEMA W/WO KUB PROTHROMB 66640 RADHA GARCIA IN TIME 7 [facility] INC PROTHROMB 49981 RADHA RADHA IN TIME [address] [facility] INC INC PROTHROMB 58727 RADHA RADHA IN TIME 7 [facility] INC INC CUL BACT 44708 RADHA GARCIA XCPT 7 [facility] URINE INC INC BLOOD/STO OL AEROBIC ISOL CUL BACT 52749 RADHA GARCIA AEROBIC 7 [facility] ADDL INC INC METHS DEFINITIV E EA ISOL SUSCEPTIB 04678 RADHA GARCIA LTY STDY 7 [facility] ANTIMICRB INC INC IAL MICRO/AGA R DILUTJ PROTHROMB 05145 RADHA GARCIA IN TIME 7 [facility] INC INC PROTHROMB 77487 RADHA GARCIA IN TIME 7 [facility] INC INC HUMDIFIR E0562 PATIENT PATIENT HEATED 7 AIDS INC AIDS INC USED W/POS ARWAY PRESSURE DEVICE RESP ASST E0470 PATIENT PATIENT DEVC 7 AIDS [facility] AIDS INC BI-LEVL PRSS CAPABILIT Y W/O BACKU PROTHROMB 97142 RADHA GARCIA IN TIME 7 [facility] INC SBSQ 63736 [facility] 7 NURSE CARE/DAY PRACTITIO 15 NER GR MINUTES SBSQ 64187 [place] [address] NURSE CARE/DAY PRACTITIO 15 NER GR MINUTES SBSQ 70776 [place] [address] NURSE CARE/DAY PRACTITIO 15 NER GR MINUTES SBSQ 86983 [facility] 7 MEDICAL CARE/DAY SERV 25 FOUNDATIO MINUTES N INITIAL 50809 [facility] INPATIENT 7 NURSE CONSULT PRACTITIO NEW/ESTAB NER GR PT 80 MIN ECG 53684 YOU DELFIN ROUTINE 7 MEDICAL ECG SERV W/LEAST FOUNDATIO 12 LDS N I&R ONLY ECHO 16835 YOU KIERRA TTHRC R-T 7 MEDICAL 2D SERV W/WOM-MOD FOUNDATIO E COMPL N SPEC&COLR D ECG 32772 YOU DRIVERAN ROUTINE 7 MEDICAL ECG SERV W/LEAST FOUNDATIO 12 LDS N I&[place] [address] RADHA GARCIA TROPONIN 7 [facility] QUANTITAT INC INC ELYSSA COMPREHEN 76007 RDAHA GARCIA SIVE 7 [facility] METABOLIC INC INC PANEL LEVEL III 15414 UNIVERS[facility] SY SURG 7 Y OF PATHOLOGY [facility] GROSS&KEI ROSCOPIC EXAM BLOOD 29367 RADHA GARCIA COUNT 7 [facility] COMPLETE INC INC AUTO&[place] [address] RADHA GARCIA INFUSION 7 [facility] THERAPY/P INC INC ROPHYLAXI S /DX 1ST TO 1 HR THERAPEUT 37016 RADHA GARCIA IC 7 [facility] INJECTION INC INC IV PUSH EACH NEW DRUG INITIAL 67853 YOU [facility] INPATIENT 7 MEDICAL CONSULT SERV NEW/ESTAB FOUNDATIO PT 110 N MIN GROUND A0425 [facility] AMBULANCE PER SERVICE SERVICE STATUTE MILE RADEX 40870 RADHA GARCIA SHOULDER 7 [facility] COMPLETE INC INC MINIMUM 2 VIEWS GLUC BLD 18980 RADHA GARCIA GLUC MNTR 7 [facility] DEV INC INC CLEARED FDA SPEC HOME USE HEMOGLOBI 47132 RADHA GARCIA N 7 [facility] GLYCOSYLA INC INC AJAY A1C CRITICAL 60918 [facility] 7 PHYSICIAN ILL/INJUR S, [facility] ED PATIENT INIT 30-74 MIN EMBLC/THR 85228 YOU [facility] AX 7 MEDICAL BRACH SERV INNOMINAT FOUNDATIO E SUBCLA N ART EMBLC/THR 94764 [place] [facility] [facility] W/WO 7 MEDICAL CATH SERV RADIAL/UL FOUNDATIO TYLER ART N ARM INC INITIAL 35950 [place] [facility] 7 MEDICAL CARE/DAY SERV 70 FOUNDATIO MINUTES N ANESTHESI 02989 [place] GAMBREL A 7 MEDICAL ARTERIES SERV UPPER FOUNDATIO ARM&[place] [address] [place] SOLITAR[place] ANGIOGRAP 7 MEDICAL HY UPPER SERV EXTREMITY FOUNDATIO N PROTHROMB 82897 RADHA GARCIA IN TIME 7 [facility] INC INC ECG 59262 RADHA GARCIA ROUTINE 7 [facility] ECG INC INC W/LEAST 12 LDS TRCG ONLY W/O I&R AMB A0427 [facility] SERVICE 7 AMBULANCE AMBULANCE ALS SERVICE SERVICE EMERGENCY TRANSPORT LEVEL 1 RADIOLOGI 79959 YOU Ferraro 7 MEDICAL KENYA EXAMINATI SERV ON CHEST FOUNDATIO SINGLE N VIEW FRONTAL EXTIRPATI [id number] [facility] 7 [facility] LEFT E E AXILLARY [facility] ARTERY OPEN EXTIRPATI [id number] [place] [facility] 7 [facility]ALTH[facility] LEFT E E SUBCLAVIA HOSPITALS HOSPITALS N ARTERY OPEN EXTIRPATI [id number] [place] [facility] MATTER 7 [facility]ALTH[facility] LEFT E E ULNAR HOSPITALS HOSPITALS ARTERY OPEN APPRCH EXTIRPATI [id number] [place] [facility] ON MATTER 7 [facility]ALTHCAR HEALTHCAR LT E E RADIAL HOSPITALS HOSPITALS ARTERY OPEN APPRCH PROTHROMB 32743 RADHA GARCIA IN TIME 7 [facility] INC INC PROTHROMB 81468 RADHA GARCIA IN TIME 7 [facility] INC INC PROTHROMB 23822 RADHA GARCIA IN TIME 7 [facility] INC INC PROTHROMB 42486 RADHA GARCIA IN TIME 7 [facility] INC INC PROTHROMB 81597 RADHA GARCIA IN TIME 7 [facility] INC INC PROTHROMB 54142 RADHA GARCIA IN TIME 7 [facility] INC INC RESP ASST E0470 PATIENT PATIENT DEVC 7 AIDS INC AIDS INC BI-LEVL PRSS CAPABILIT Y W/O BACKU HUMDIFIR E0562 PATIENT PATIENT HEATED 7 AIDS INC AIDS INC USED W/POS ARWAY PRESSURE DEVICE TUBING A7037 PATIENT PATIENT USED WITH 7 AIDS INC AIDS INC POSITIVE AIRWAY PRESSURE DEVICE PROTHROMB 75866 RADHA GARCIA IN TIME 7 [facility] INC INC PROTHROMB 36008 RADHA GARCIA IN TIME 7 [facility] INC INC POLYSOM 15153 RADHA GARCIA 6/>YRS 7 [facility] SLEEP 4/> INC INC ADDL KENDRA ATTND PROTHROMB 83475 RADHA GARCIA IN TIME 7 [facility] INC INC ECG 02425 [facility] ROUTINE 7 [facility] ECG MEDICAL W/LEAST G 12 LDS W/I&R HEMOGLOBI 74871 RADHA GARCIA N [address] [facility] GLYCOSYLA [place] [address] RADHA GARCIA FREE 7 [facility] [place] [address] RADHA GARCIA THYROID 7 [facility] STIMULATI INC INC NG HORMONE TSH HEADGEAR A7035 TIFFANY TIFFANY USED 7 HOME HOME W/POSITIV MEDICAL MEDICAL E AIRWAY EQUIPME EQUIPME PRESSURE DEVICE TUBING A7037 TIFFANY ALLEN USED WITH 7 HOME HOME POSITIVE MEDICAL MEDICAL AIRWAY EQUIPME EQUIPME PRESSURE DEVICE FULL FACE A7030 TIFFANY TIFFANY MASK 7 HOME HOME USED MEDICAL MEDICAL W/POS EQUIPME EQUIPME ARWAY PRESS DEVICE EA PROTHROMB 27628 RADHA GARCIA IN TIME [address] [facility] INC INC PROTHROMB 28452 RADHA GARCIA IN TIME [address] [facility] G0463 RADHA GARCIA OUTPATIEN [address] [facility] T CLIN INC INC VISIT ASSESS & MGMT PT HOSPITAL G0463 RADHA GARCIA OUTPATIEN [address] [facility] T CLIN INC INC VISIT ASSESS & MGMT PT PROTHROMB 00052 RADHA GARCIA IN TIME [address] [facility] INC INC PROTHROMB 26153 RADHA GARCIA IN TIME [address] [facility] G0463 RADHA GARCIA OUTPATIEN [address] [facility] T CLIN INC INC VISIT ASSESS & MGMT PT HOSPITAL G0463 RADHA GARCIA OUTPATIEN [address] [facility] T CLIN INC INC VISIT ASSESS & MGMT PT PROTHROMB 67860 RADHA GARCIA IN TIME [address] [facility] INC INC THERAPEUT 19933 RADHA GARCIA IC [address] [facility] PROPHYLAC INC INC TIC/DX INJECTION SUBQ/IM PROTHROMB 53778 RADHA GARCIA IN TIME [address] [facility] INC INC COLLECTIO 98352 RADHA GARCIA N VENOUS [address] [facility] BLOOD INC INC VENIPUNCT URE PROTHROMB 10508 RADHA GARCIA IN TIME 6 [facility] INC INC HOSPITAL G0463 RADHA GARCIA OUTPATIEN 6 [facility] T CLIN INC INC VISIT ASSESS & [place] [address] RADHA GARCIA PARATHORM 6 [facility] ONE INC INC PROTHROMB 60679 RADHA GARCIA IN TIME 6 [facility] INC INC COLLECTIO 00673 RADHA GARCIA N VENOUS 6 [facility] BLOOD INC INC VENIPUNCT URE ALBUMIN 57845 RADHA GARCIA URINE 6 [facility] MICROALBU INC INC MIN QUANTIATI VE 25 36991 RADHA GARCIA HYDROXY 6 [facility] INCLUDES INC INC FRACTIONS IF PERFORMED BLOOD 21533 RADHA GARCIA COUNT 6 [facility] COMPLETE INC INC AUTO&AUTO DIFRNTL WBC RENAL 36460 RADHA GARCIA FUNCTION 6 [facility] PANEL INC INC URNLS DIP 57537 RADHA GARCIA 6 [facility] STICK/TAB INC INC LET REAGENT AUTO MICROSCOP Y CALCIUM 54518 RADHA GARCIA IONIZED 6 [place] [address] RADHA GARCIA BLOOD/URI 6 [facility] [place] [address] RADHA GARCIA RETROPERI 6 [facility] TONEAL INC [place] [address] [place] RETROPERI 6 MEDICAL YASMIN TONEAL IMAGING REAL TIME ASS W/IMAGE LIMITED ECHO 43085 [facility] [address] [place] [address] 2D W/WOM-MOD E COMPL SPEC&COLR D COLLECTIO 05976 [facility] N VENOUS [address] [place] [address] BLOOD VENIPUNCT URE BASIC 17631 [facility] METABOLIC [address] [place] [address] PANEL CALCIUM TOTAL PROTHROMB 36145 [facility] IN TIME [address] [place] [address] PROTHROMB 14310 RADHA GARCIA IN TIME 6 [facility] INC INC HOSPITAL G0463 RADHA GARCIA OUTPATIEN 6 [facility] T CLIN INC INC VISIT ASSESS & MGMT PT HOSPITAL G0463 RADHA GARCIA OUTPATIEN 6 [facility] T CLIN INC INC VISIT ASSESS & MGMT PT PROTHROMB 20781 RADHA RADHA IN TIME 6 [facility] INC INC COLLECTIO 66090 RADHA GARCIA N VENOUS 6 [facility] BLOOD INC INC VENIPUNCT URE COLLECTIO 80089 RADHA GARCIA N VENOUS 6 [facility] BLOOD INC INC VENIPUNCT URE PROTHROMB 23538 RADHA GARCIA IN TIME 6 [facility] INC INC HOSPITAL G0463 RADHA RADHA OUTPATIEN 6 [facility] T CLIN INC INC VISIT ASSESS & [place] [address] RADHA GARCIA PARATHORM 6 [facility] ONE INC INC CREATININ 83459 RADHA GARCIA E OTHER 6 [facility] SOURCE INC INC COLLECTIO 35413 RADHA GARCIA N VENOUS 6 [facility] BLOOD INC INC VENIPUNCT URE 25 14322 RADHA GARCIA HYDROXY 6 [facility] INCLUDES INC INC FRACTIONS IF PERFORMED BLOOD 62422 RADHA GARCIA COUNT 6 [facility] COMPLETE INC INC AUTO&AUTO DIFRNTL WBC RENAL 31880 RADHA GARCIA FUNCTION 6 [facility] PANEL INC INC URNLS DIP 03734 RADHA GARCIA 6 [facility] STICK/TAB INC INC LET REAGENT AUTO MICROSCOP Y PROTEIN 80797 RADHA GARCIA XCPT 6 [facility] REFRACTOM INC INC ETRY SERUM PLASMA/WH L [facility] G0463 RADHA GARCIA OUTPATIEN 6 [facility] T CLIN INC INC VISIT ASSESS & MGMT PT PROTHROMB 79224 RADHA GARCIA IN TIME 6 [facility] INC INC PROTHROMB 48949 RADHA GARCIA IN TIME 6 [facility] INC [facility]OSPITAL G0463 RADHA GARCIA OUTPATIEN 6 [facility] T CLIN INC INC VISIT ASSESS & MGMT PT ECG 95491 [facility] ROUTINE 6 [facility] ECG MEDICAL W/LEAST G 12 LDS W/I&R HOSPITAL G0463 RADHA LOPEZON OUTPATIEN 6 [facility] T CLIN INC INC VISIT ASSESS & MGMT PT PROTHROMB 06608 RADHA RADHA IN TIME 6 [facility] INC INC PROTHROMB 57352 RADHA RADHA IN TIME 6 [facility] INC INC HOSPITAL G0463 RADHA RADHA OUTPATIEN 6 [facility] T CLIN INC INC VISIT ASSESS & MGMT PT COLLECTIO 83747 RADHA GARCIA N VENOUS 6 [facility] BLOOD INC INC VENIPUNCT URE COLLECTIO 54881 RADHA GARCIA N VENOUS 6 [facility] [place] [address] RADHA GARCIA FREE 6 [facility] [address] RADHA GARCIA THYROID 6 [facility] STIMULATI INC INC NG HORMONE TSH HEMOGLOBI 80097 RADHA GARCIA N 6 [facility] GLYCOSYLA INC INC AJAY A1C LIPID 63680 RADHA GARCIA PANEL 6 [facility] INC INC BLOOD 32730 RADHA GARCIA COUNT 6 [facility] COMPLETE INC INC AUTO&AUTO DIFRNTL WBC COMPREHEN 51639 RADHA GARCIA SIVE 6 [facility] METABOLIC INC INC PANEL HOSPITAL G0463 RADHA GARCIA OUTPATIEN 6 [facility] T CLIN INC INC VISIT ASSESS & MGMT PT PROTHROMB 28184 RADHA GARCIA IN TIME 6 [facility] INC INC PROTHROMB 02686 RADHA GARCIA IN TIME 6 [facility] [id number] [facility]PATI[facility] INC VISIT ASSESS & MGMT PT COLLECTIO [id number] [facility] N VENOUS 6 [facility] BLOOD INC INC VENIPUNCT URE Encounters Encounter Start End Date Code Location Performer Type Date EMERGENCY 70513 [facility] WATTS DEPT 7 7 [facility]YSICIAN VISIT S, PLL[facility] HIGH SEVERITY& THREAT FUNJ OFFICE [id number] [facility]PATI[facility] INC T OFFICE 28708 [facility] 7 7 [facility]IC[facility] T VISIT S [facility] OUTPATIEN INC T OFFICE 31826 [facility] 7 7 [facility] T VISIT 5 INC MINUTES OFFICE 30291 [facility] V[facility] OUTPATI[facility] INC T OFFICE 14479 [facility] OUT[facility] INC T OFFICE 44768 [facility] 7 [facility] T VISIT 5 INC MINUTES OFFICE 92134 [facility] 7 [facility] V[facility] OUTPATI[facility] INC T OFFICE 08119 [facility] OUTPAT[facility] 7 7 PHYSICIAN T NEW 45 S GROUP MINUTES [facility] - 7 7 [facility] OUTPATIEN INC T OFFICE 34348 [facility] OUTPATI[facility] INC T OFFICE 52826 [facility] 7 [facility] V[facility] OUTPATIEN INC T OFFICE 87836 [facility] OUT[facility] 7 7 [facility] OUT[facility] INC T OFFICE 54030 [facility] 7 [facility] T VISIT 5 INC MINUTES OFFICE 78712 [facility]PATIEN 7 7 [facility] VISIT 5 INC MINUT[facility] - 7 7 [facility] OUTPATIEN INC T OFFICE 80603 [facility] CON[facility] 7 7 PHYSICIAN KARMEN S GROUP NEW/ESTAB PATIENT 30 MIN OFFICE 71294 [place] [facility] OUTPATIEN 7 7 MEDICAL T VISIT SERV 25 FOUNDATIO MINUTES N OFFICE 15654 [facility] 7 7 [facility] V[facility] - 7 7 [facility] OUTPATIEN INC T EMERGENCY 51849 DARLIN CORONEL 7 7 PHYSICIAN JR SHANIQUA [facility] T VISIT MODERATE SEVERITY EMERGENCY 44711 [facility] 7 7 [facility] DEPARTMEN INC T VISIT LOW/MODER SEVERITY OFFICE 50530 [facility] 7 [facility] - 7 7 [facility] OUTPATIEN INC T OFFICE 39427 [facility] 5 INC [facility] - 7 7 [facility] OUTPATI[facility] INC T OFFICE 62751 [facility] OUT[facility] 7 7 PHYSICIAN T VISIT S GROUP 25 MINUTES OFFICE 87555 [facility] 7 7 [facility] V[facility] INC [facility] - 7 7 [facility] OUTPATIEN INC T EMERGENCY 09308 [facility] DEPT 7 7 [facility] VISIT INC HIGH SEVERITY& THREAT [facility] [place] [facility] [address] [facility] 36120 [facility] OUT[facility] 7 7 [facility] T V[facility]IT 5 INC [facility]ES [facility] - 7 7 [facility]EN [facility] - 7 7 [facility] OUTPATIEN INC T OFFICE 97166 [facility] 7 7 [facility] T VISIT 5 INC MINUTES [facility] - 7 7 [facility] OUTPATIEN INC T OFFICE 77679 [facility] 7 7 [facility] T VISIT 5 INC MINUTES OFFICE 80855 [facility] 7 7 [facility] T V[facility] INC [facility] - 7 7 [facility] OUTPATIEN INC T OFFICE 25781 [facility] OUT[facility] 7 7 [facility] INC [facility] - 7 [facility] OFF[facility] [id number] [facility] 5 INC MINUT[facility] OFFICE [id number] [facility] OUTPATIEN 7 7 PHYSICIAN T [facility]ISIT S GROUP 15 MINUTES [facility] T OFFICE [id number] [facility] MINUTES OFFICE [id number] [facility] 7 [facility] - 7 7 [facility] OFFICE [id number] [facility] 7 7 [facility] OFFICE [id number] [facility] OUTPATIEN 7 7 [facility] T [facility]ISIT MEDICAL 25 G MINUTES [facility] 7 7 [facility] OFFICE [id number] [facility] OUTPATIEN 7 7 PHYSICIAN T VISIT S GROUP MINUT[facility] OFFICE [id number] [facility] 7 [facility] INC MIN[facility]ES [facility] - 7 7 [facility] - 7 7 [facility] 7 7 [facility] - 6 6 [facility] 6 6 [facility] - 6 6 [facility] - 6 6 [facility] - 6 6 [facility] 6 6 [facility] - 6 6 [facility] 6 6 [facility] T [facility] - 6 6 [facility] T OFFICE 83356 [place] [facility] OUTPATIEN 6 6 MEDICAL T NEW 45 SERV MINUTES [facility] 6 6 [facility] - 6 6 [facility] 6 6 [facility] T OFFICE [id number] [facility] OUTPATIEN 6 6 [facility] T VISIT MEDICAL 40 G MINUTES [facility] - 6 6 [facility] 6 6 [facility] T OFFICE [id number] [facility] CISNEROS OUTPATIEN 6 6 JAM J[facility] T VISIT 25 MINUTES [facility] 6 6 [facility] T OFFICE 16511 [facility] OUTPATIEN 6 6 PHYSICIAN KEI T [facility]ISIT S GROUP 25 MINUTES [facility] - 6 6 [facility] - 6 6 [facility]
--- OUTSIDE RECORDS SUMMARY | 2017-07-04 05:05 | External Medical Summary Rpt | CCD ---
Author Author , BEKA Organization BEKA Address Unknown Phone [email or web address] Care Team Providers Care Encyclopedia Research Worker Name Role Phone AYCINENA, AYCINENA Unavailable Unavailable [...] [facility] Un[facility] Unavailable INC, [facility] Unavailable Unavailable HOSPITAL P, [facility], Unavailable Unavailable [facility] DELFIN LENZ Unavailable Unavailable [facility] Un[facility], [facility] Unavailable Unavailable MEDICAL G, [facility] KMS[facility] NURSE Unavailable Unavailable PRACTITIONER [...] Unavailable Unavailable EQUIPME, [facility], Unavailable Unavailable [facility] Unavailable [facility]available HOSPITALS, [facility] Unavailable Unavailable [facility] VIOLETA, VIOLETA Unavailable Unavailable VIOLETA [...] W/STAGE 1-4 PLLC CKD OR UNS CKD [id number] ACUTE EMBO 05-26-2017 [facility] THROMB UNS PHYSICIANS, DEEP VEINS PLLC LOW EXTREM ARIADNA M545 LOW BACK 05-26-2017 [facility] PAIN PHYSICIANS, PLLC N189 CHRONIC 05-26-2017 [facility] KIDNEY PHYSICIANS, DISEASE PLLC UNSPECIFIED Z7901 MCC 05-14-2017 [facility] CURRENT USE [facility] OF INC ANTICOAGULA NTS Z952 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 NITIN PHYSICIANS UNSPECIFIED GROUP I10 ESSENTIAL 03-10-2017 [facility] PRIMARY PHYSICIANS HYPERTENSIO GROUP N I4891 UNSPECIFIED 03-10-2017 [facility] ATRIAL PHYSICIANS FIBRILLATIO GROUP N K5730 DIVERTICULO 02-13-2017 [facility] LG MEDICAL INTEST W/O IMAGING ASS PERF/ABSC W/O BLEED Z1211 ENCOUNTER 02-13-2017 [facility] SCREENING [facility] MALIGNANT INC NEOPLASM OF COLON [id number] ACUTE 02-04-2017 [facility] EMBOLISM & PHYSICIANS THROMBOSIS GROUP DEEP VEINS LT UP EXT D631 ANEMIA IN 02-03-2017 [facility] KIDNEY [facility] DISEASE E871 HYPO-OSMOLA 02-03-2017 [facility] LITY AND SERV HYPONATREMI FOUNDATION A N183 CHRONIC 02-03-2017 [facility] KIDNEY SERV DISEASE FOUNDATION STAGE 3 MODERATE R22215 CUTANEOUS 02-01-2017 [facility] ABSCESS OF [facility] LEFT UPPER INC LIMB L0889 OTH SPEC 02-01-2017 [facility] LOCAL PHYSICIANS, INFECTIONS PLLC THE SKIN & SUBQ TISSUE E119 TYPE 2 01-28-2017 [facility] DIABETES PHYSICIANS MELLITUS GROUP WITHOUT COMPLICATIO NS I998 OTHER 01-28-2017 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 [facility] NURSE CURRENT USE PRACTITIONE OF INSULIN R GR I509 HEART 01-19-2017 [place] [facility] FAILURE SERV UNSPECIFIED FOUNDATION I5189 OTHER 01-19-2017 [facility] ILL-DEFINED SERV HEART FOUNDATION DISEASES E108 TYPE 1 01-18-2017 [facility] DIABETES PHYSICIANS, MELLITUS PLLC W/UNSPEC COMPLICATIO NS E1122 TYPE 2 01-18-2017 [facility] W/DIAB CHRON KIDNEY DZ I2510 ASHD DOUGLAS 01-18-2017 [place] [facility] CORONARY SERV ARTERY W/O FOUNDATION ANGINA PECTORIS I447 LEFT 01-18-2017 [facility] BUNDLE-BRAN SERV CH BLOCK FOUNDATION UNSPECIFIED I454 NONSPECIFIC 01-18-2017 [place] [facility] INTRAVENTRI FOUNDATION CULAR BLOCK I482 CHRONIC 01-18-2017 [facility] ATRIAL PHYSICIANS, FIBRILLATIO [facility] N I498 OTHER 01-18-2017 [facility] SPECIFIED SERV CARDIAC FOUNDATION ARRHYTHMIAS I517 CARDIOMEGAL 01-18-2017 [place] [facility] Y SERV [facility] W33129 OTH 01-18-2017 [facility] P EXTREM OT EXTREMITY I708 ATHEROSCLER 01-18-2017 [facility] OSIS OF SERV OTHER FOUNDATION ARTERIES I742 EMBOLISM & 01-18-2017 [place] [facility]ROMBOSIS [facility] THE HOSPI UPPER EXTREMITIES I8290 ACUTE 01-18-2017 [facility] EMBOLISM & AMBULANCE THROMBOSIS SERVICE OF UNSPECIFIED VEIN I959 HYPOTENSION 01-18-2017 [facility] AMBULANCE UNSPECIFIED SERVICE W64927 OTH INTRAOP 01-18-2017 [facility] CARD FUNC SERV DIST DURING FOUNDATION OTH SURGERY W73534 PAIN IN 01-18-2017 [facility] LEFT MEDICAL SHOULDER IMAGING ASS M7989 OTHER 01-18-2017 [facility] SPECIFIED SERV SOFT TISSUE FOUNDATION DISORDERS R001 BRADYCARDIA 01-18-2017 [place] [facility] UNSPECIFIED FOUNDATION R0989 OTH SPEC SX 01-18-2017 [facility] & SIGNS SERV INVLV THE FOUNDATION CIRC & RESP SYS R748 ABNORMAL 01-18-2017 [place] [facility] LEVELS OF SERV OTHER SERUM FOUNDATION ENZYMES R791 ABNORMAL 01-18-2017 [place] [facility] COAGULATION SERV PROFILE FOUNDATION R7989 OTHER SPEC 01-18-2017 [facility] ABNORMAL PHYSICIANS, FINDINGS [facility] BLOOD CHEMISTRY R9431 ABNORMAL 01-18-2017 [facility] ELECTROCARD SERV IOGRAM FOUNDATION Z4682 ENCOUNTER 01-18-2017 [place] [facility] FITTING & SERV ADJUST [facility] NON-VASCULA R CATHETER X48993 ENCOUNTER 01-18-2017 [place] [facility] SURG SERV AFTERCARE [facility] FLW SURG TEETH/ORAL CAV P94356 PERSONAL 01-18-2017 [place] [facility] HISTORY OT SERV VENOUS FOUNDATION THROMBOSIS& EMBOLISM Z951 PRESENCE OF 01-18-2017 [employer] MEDICAL SERV [place] FOUNDATION RY BYPASS GRAFT Z9911 DEPENDENCE 01-18-2017 [place] [facility] ON SERV RESPIRATOR FOUNDATION VENTILATOR STATUS E039 HYPOTHYROID 12-31-2016 [facility] ISM PHYSICIANS UNSPECIFIED GROUP E663 OVERWEIGHT 12-31-2016 [facility] G4730 SLEEP APNEA 11-29-2016 [facility] UNSPECIFIED INC I5043 ACUTE ON 11-18-2016 [facility] CHRONIC HEALTH COMB MEDICAL G SYSTOLIC & DIASTOLIC CHF J449 CHRONIC 10-25-2016 [facility] OBSTRUCTIVE HOME PULMONARY MEDICAL DISEASE UNS EQUIPME I5023 ACUTE CHRON 08-14-2016 [facility] SYSTOLIC HEALTH HEART MEDICAL G FAILURE R931 ABNORMAL 08-14-2016 [facility] DX IMAGING HEART & COR CIRC Z969 PRESENCE OF 08-14-2016 [facility] IMPLANT UNSPECIFIED J23302 VITREOUS 06-26-2016 [facility] HERNANDEZ N RIGHT EYE X84577 VITREOUS 06-26-2016 [facility] HERNANDEZ N LEFT EYE [...] NT ET HI AN A WV 68 09 30 30 00 HO Ac [...] 80 6- 9- 00 06 TO ve VT 21 20 20 09 WN DE 61 17 17 13 0 96 PH 40 AR MA MG CY TA OF BL ET CY NT HI AN A LI 68 09 09 30 30 00 HO Ac SI 18 -0 -2 .0 00 ME ti NO 00 6- 9- 00 06 TO ve WV 51 20 20 09 WN IL 80 [...] 80 6- 8- 00 06 TO ve VT 21 20 20 09 WN DE 61 17 17 13 0 96 PH 40 AR MA MG CY TA OF BL ET CY NT HI AN A LI 68 07 08 30 30 00 HO Ac SI 18 -2 -1 .0 00 ME ti NO 00 6- 8- 00 06 TO ve WV 51 20 20 09 WN IL 80 [...] CY NT HI AN A WV 68 07 08 30 30 00 HO [...] 00 8- 1- 00 06 TO ve WV 51 20 [...] 50 8- 1- 00 06 TO ve VT 11 20 20 07 WN DE 71 17 17 37 0 31 PH 40 AR MA MG CY TA OF BL ET CY NT HI AN A WV 68 06 07 30 30 00 HO [...] 00 1- 3- 00 06 TO ve WV 51 20 [...] CY NT HI AN A WV 68 05 06 30 30 00 HO [...] 80 1- 3- 00 06 TO ve VT 21 20 20 07 WN DE 61 [...] ME ti NO 00 06 TO ve WV 51 20 [...] NT ET HI AN A WV 68 04 05 30 30 00 HO [...] ME ti SE 50 06 TO ve VT 11 20 20 07 WN DE 71 [...] ti NO 00 4- 06 TO ve WV 51 20 20 [...] SE 50 1- 4- 06 TO ve VT 11 20 20 07 WN DE 71 [...] NO 00 6- 7- 06 TO ve WV 51 20 20 [...] 50 6- 7- 00 06 TO ve VT 11 20 20 07 WN DE 71 [...] 50 9- 7- 00 06 TO ve VT 11 20 20 07 WN DE 71 [...] NO 00 0- 7- 06 TO ve WV 51 20 20 [...] SE 50 3- 9- 06 TO ve VT 11 20 20 07 WN DE 71 [...] NO 00 3 9- 06 TO ve WV 51 20 20 [...] SQUARE METERS Comment: If this patient is -Finnish, then multiply the Comment: result by 1.210. [...] SQUARE METERS Comment: If this patient is -Finnish, then multiply the Comment: result by 1.210. [...] Magnesium measurement (06-27-2017 21:34) Comment: COMMENTS TO STEEL PLACER: PER PROTOCOL Magnesi = 1.4 1.4-2.2 complet um 017 mg/dL ed measure 21:34 ment Glucose capillary blood glucometer (06-27-2017 20:46) Glucose = 185 70-110 complet 017 mg/dl ed capilla 20:[address] Glucose capillary blood glucometer (06-27-2017 17:20) Glucose = 127 70-110 complet 017 mg/dl ed capilla 17:[address] UFH PPP Mixer Lever Operator-aCnc (01-23-2017 10:15) UFH PPP 0.30 complet 017 IU/mL ed Mixer Lever Operator-aC 10:15 nc UFH PPP Mixer Lever Operator-aCnc (01-23-2017 04:06) UFH PPP 2 0.23 complet 017 IU/mL ed Mixer Lever Operator-aC 04:06 nc Phosphate SerPl-mCnc (01-22-2017 09:08) Phospha 1.8 2.5-4.5 complet te 017 mg/dL ed SerPl-m 09:08 Cnc Magnesium SerPl-mCnc (01-22-2017 09:08) Magnesi 2 1.8 1.9-2.4 complet um 017 mg/dL ed SerPl-m 09:08 Cnc UFH PPP Mixer Lever Operator-aCnc (01-22-2017 09:06) UFH PPP 0.32 complet 017 IU/mL ed Mixer Lever Operator-aC 09:06 nc Phosphate SerPl-mCnc (01-22-2017 03:13) Phospha 2 1.7 2.5-4.5 complet te 017 mg/dL ed SerPl-m 03:13 Cnc Magnesium SerPl-mCnc (01-22-2017 03:13) Magnesi 1.6 1.9-2.4 complet um 017 mg/dL ed SerPl-m 03:13 Cnc UFH PPP Mixer Lever Operator-aCnc (01-22-2017 03:13) UFH PPP 0.33 complet 017 IU/mL ed Mixer Lever Operator-aC 03:13 nc UFH PPP Mixer Lever Operator-aCnc (01-21-2017 20:29) UFH PPP 0.26 complet 017 IU/mL ed Mixer Lever Operator-aC 20:29 nc UFH PPP Mixer Lever Operator-aCnc (01-21-2017 13:23) UFH PPP 0.18 complet 017 IU/mL ed Mixer Lever Operator-aC 13:23 nc UFH PPP Mixer Lever Operator-aCnc (01-21-2017 06:06) UFH PPP 0.14 complet 017 IU/mL ed Mixer Lever Operator-aC 06:06 nc Phosphate SerPl-mCnc (01-21-2017 03:05) Phospha 1.4 2.5-4.5 complet te 017 mg/dL ed SerPl-m 03:05 Cnc Magnesium SerPl-mCnc (01-21-2017 03:05) Magnesi 1.8 1.9-2.4 complet um 017 mg/dL ed SerPl-m 03:05 Cnc UFH PPP Mixer Lever Operator-aCnc (01-20-2017 22:15) UFH PPP LE11 complet 017 <0.11 L ed Mixer Lever Operator-aC 22:15 IU/mL nc Sodium Ur-sCnc (01-20-2017 20:59) Sodium 39 complet Ur-sCnc 017 mmol/L ed 20:59 Creat Ur-mCnc (01-20-2017 20:59) Creat 68 complet Ur-mCnc 017 mg/dL ed 20:59 UFH PPP Mixer Lever Operator-aCnc (01-20-2017 16:32) UFH PPP LE11 complet 017 <0.11 L ed Mixer Lever Operator-aC 16:32 IU/mL nc UFH PPP Mixer Lever Operator-aCnc (01-20-2017 11:28) UFH PPP > 1.10 complet 017 IU/mL ed Mixer Lever Operator-aC 11:28 nc Phosphate SerPl-mCnc (01-20-2017 04:12) Phospha 2.0 2.5-4.5 complet te 017 mg/dL ed SerPl-m 04:12 Cnc Magnesium SerPl-mCnc (01-20-2017 04:12) Magnesi 1.8 1.9-2.4 complet um 017 mg/dL ed SerPl-m 04:12 Cnc UFH PPP Mixer Lever Operator-aCnc (01-20-2017 04:12) UFH PPP 1.02 complet 017 IU/mL ed Mixer Lever Operator-aC 04:12 nc Hgb A1c MFr Bld (01-20-2017 04:12) Hgb A1c 10.6 % 4.7-6.0 complet MFr 017 ed Bld 04:12 UFH PPP Mixer Lever Operator-aCnc (01-19-2017 21:15) UFH PPP 0.30 complet 017 IU/mL ed Mixer Lever Operator-aC 21:15 nc Digoxin SerPl-mCnc (01-19-2017 13:57) Digoxin 1.6 0.8-2.0 complet 017 ng/mL ed SerPl-m 13:57 Cnc UFH PPP Mixer Lever Operator-aCnc (01-19-2017 13:57) UFH PPP 0.28 complet 017 IU/mL ed Mixer Lever Operator-aC 13:57 nc Phosphate SerPl-mCnc (01-19-2017 05:18) Phospha 2.5 2.5-4.5 complet te 017 mg/dL ed SerPl-m 05:18 Cnc Magnesium SerPl-mCnc (01-19-2017 05:18) Magnesi 2 2.1 1.9-2.4 complet um 017 mg/dL ed SerPl-m 05:18 Cnc UFH PPP Mixer Lever Operator-aCnc (01-19-2017 05:01) UFH PPP 2 0.24 complet 017 IU/mL ed Mixer Lever Operator-aC 05:01 nc UFH PPP Mixer Lever Operator-aCnc (01-18-2017 23:11) UFH PPP 0.24 complet 017 IU/mL ed Mixer Lever Operator-aC 23:11 nc Phosphate SerPl-mCnc (01-18-2017 22:58) Phospha 2.5 2.5-4.5 complet te 017 mg/dL ed SerPl-m 22:58 Cnc Magnesium SerPl-mCnc (01-18-2017 22:58) Magnesi 1.8 1.9-2.4 complet um 017 mg/dL ed SerPl-m 22:58 Cnc UFH PPP Mixer Lever Operator-aCnc (01-18-2017 18:24) UFH PPP 0.27 complet 017 IU/mL ed Mixer Lever Operator-aC 18:24 nc UFH PPP Mixer Lever Operator-aCnc (01-18-2017 11:46) UFH PPP 0.32 complet 017 IU/mL ed Mixer Lever Operator-aC 11:46 nc UFH PPP Mixer Lever Operator-aCnc (01-18-2017 05:40) UFH PPP 0.88 complet 017 IU/mL ed Mixer Lever Operator-aC 05:40 nc Procedures Procedure DOS Code Location Performer Comment RESP ASST E0470 PATIENT PATIENT DEVC 7 AIDS INC AIDS INC BI-LEVL PRSS CAPABILIT Y W/O BACKU HUMDIFIR E0562 PATIENT PATIENT HEATED 7 AIDS INC AIDS INC USED W/POS ARWAY PRESSURE DEVICE PROTHROMB 24141 [facility] INC INC PROTHROMB 01965 [facility] IN TIME 7 [facility] INC INC RESP ASST E0470 PATIENT PATIENT DEVC 7 AIDS INC AIDS INC BI-LEVL PRSS CAPABILIT Y W/O BACKU HUMDIFIR E0562 PATIENT PATIENT HEATED 7 AIDS INC AIDS INC USED W/POS ARWAY PRESSURE DEVICE PROTHROMB 95091 [facility] G[facility]IA IN TIME 7 [facility] INC INC HUMDIFIR E0562 PATIENT PATIENT HEATED 7 AIDS INC AIDS INC USED W/POS ARWAY PRESSURE DEVICE RESP ASST E0470 PATIENT PATIENT DEVC 7 AIDS INC AIDS INC BI-LEVL PRSS CAPABILIT Y W/O BACKU PROTHROMB 23623 [facility]IA IN TIME 7 [facility] INC INC PROTHROMB 08358 [facility] GARCIA IN TIME [address] [facility] [facility] INC PROTHROMB 02325 [facility] GARCIA IN TIME [address] [facility] INC PROTHROMB 96499 [facility] GARCIA IN TIME [address] [facility] INC COLLECTIO 89887 [facility] G[facility] N VENOUS 7 [facility] BLOOD [facility] INC VENIPUNCT URE PROTHROMB 52786 [facility]IA IN TIME [address] [facility] RESP ASST E0470 PATIENT PATIENT DEVC 7 AIDS INC AIDS INC BI-LEVL PRSS CAPABILIT Y W/O BACKU HUMDIFIR E0562 PATIENT PATIENT HEATED 7 AIDS INC AIDS INC USED W/POS ARWAY PRESSURE DEVICE PROTHROMB 42523 [facility] GARCIA IN TIME [address] [facility] INC PROTHROMB 80640 [facility] GARCIA IN TIME [address] [facility] [facility] COLLECTIO 13454 [facility] N VENOUS 7 [facility] BLOOD INC INC VENIPUNCT URE RAD EXP G9501 [place] [facility] INDCS/EXP 7 MEDICAL TM & NO IMAGING FLUORO ASS IMG N DOC N RSN PROTHROMB 32983 [facility] IN TIME 7 [facility] INC INC RADEX 95351 [facility] LOPEZON COLON 7 [facility] BARIUM INC INC ENEMA W/WO KUB PROTHROMB 07646 [facility] G[facility]IA IN TIME 7 [facility] INC PROTHROMB 45377 [facility] IN TIME 7 [facility] INC INC PROTHROMB 70513 [facility] IN TIME 7 [facility] INC INC CUL BACT 68280 [facility] G[facility]IA XCPT 7 [facility] URINE INC INC BLOOD/STO OL AEROBIC ISOL CUL BACT 19600 [facility] AEROBIC 7 [facility] ADDL INC INC METHS DEFINITIV E EA ISOL SUSCEPTIB 92354 [facility] LTY STDY 7 [facility] ANTIMICRB INC INC IAL MICRO/AGA R DILUTJ PROTHROMB 89004 [facility] GARCIA IN TIME 7 [facility] INC INC PROTHROMB 14821 [facility] GARCIA IN TIME 7 [facility] INC INC HUMDIFIR E0562 PATIENT PATIENT HEATED 7 AIDS INC AIDS INC USED W/POS ARWAY PRESSURE DEVICE RESP ASST E0470 PATIENT PATIENT DEVC 7 AIDS [facility] AIDS INC BI-LEVL PRSS CAPABILIT Y W/O BACKU PROTHROMB 61273 [facility] GARCIA IN TIME 7 [facility] INC SBSQ 52402 [facility] 7 NURSE CARE/DAY PRACTITIO 15 NER GR MINUTES SBSQ 32586 [place] [address] NURSE CARE/DAY PRACTITIO 15 NER GR MINUTES SBSQ 00719 [place] [address] NURSE CARE/DAY PRACTITIO 15 NER GR MINUTES SBSQ 90026 [facility] 7 MEDICAL CARE/DAY SERV 25 FOUNDATIO MINUTES N INITIAL 62258 [facility] INPATIENT 7 NURSE CONSULT PRACTITIO NEW/ESTAB NER GR PT 80 MIN ECG 03040 YOU DELFIN ROUTINE 7 MEDICAL ECG SERV W/LEAST FOUNDATIO 12 LDS N I&R ONLY ECHO 26157 YOU KIERRA TTHRC R-T 7 MEDICAL 2D SERV W/WOM-MOD FOUNDATIO E COMPL N SPEC&COLR D ECG 65843 YOU DRIVERAN ROUTINE 7 MEDICAL ECG SERV W/LEAST FOUNDATIO 12 LDS N I&[place] [address] RAD[facility] GARCIA TROPONIN 7 [facility] QUANTITAT INC INC ELYSSA COMPREHEN 99526 [facility] GARCIA SIVE 7 [facility] METABOLIC INC INC PANEL LEVEL III 47373 UNIVERSIT SY SURG 7 Y OF PATHOLOGY [facility] GROSS&KEI ROSCOPIC EXAM BLOOD 49060 [facility] GARCIA COUNT 7 [facility] COMPLETE INC INC AUTO&[place] [address] [facility]IA INFUSION 7 [facility] THERAPY/P INC INC ROPHYLAXI S /DX 1ST TO 1 HR THERAPEUT 05062 [facility] GARCIA IC 7 [facility] INJECTION INC INC IV PUSH EACH NEW DRUG INITIAL 80815 YOU [facility] INPATIENT 7 MEDICAL CONSULT SERV NEW/ESTAB FOUNDATIO PT 110 N MIN GROUND A0425 [facility] AMBULANCE PER SERVICE SERVICE STATUTE MILE RADEX 61699 [facility]HA GARCIA SHOULDER 7 [facility] HOS[facility] COMPLETE INC INC MINIMUM 2 VIEWS GLUC BLD 80041 [facility] GARCIA GLUC MNTR 7 [facility] DEV INC INC CLEARED FDA SPEC HOME USE HEMOGLOBI 99448 [facility] GARCIA N 7 [facility] GLYCOSYLA INC INC AJAY A1C CRITICAL 99287 [facility] 7 PHYSICIAN ILL/INJUR S, [facility] ED PATIENT INIT 30-74 MIN EMBLC/THR 65937 [facility] AX 7 MEDICAL BRACH SERV INNOMINAT FOUNDATIO E SUBCLA N ART EMBLC/THR 09593 [place] [facility] W/WO 7 MEDICAL CATH SERV RADIAL/UL FOUNDATIO TYLER ART N ARM INC INITIAL 78356 [place] [facility] 7 MEDICAL CARE/DAY SERV 70 FOUNDATIO MINUTES N ANESTHESI 84133 [place] GAMBREL A 7 MEDICAL ARTERIES SERV UPPER FOUNDATIO ARM&[place] [address] [place] SOLITARIO ANGIOGRAP 7 MEDICAL HY UPPER SERV EXTREMITY FOUNDATIO N PROTHROMB 52476 [facility] GARCIA IN TIME 7 [facility] INC INC ECG 55539 RADHA GARCIA ROUTINE 7 [facility] ECG INC INC W/LEAST 12 LDS TRCG ONLY W/O I&R AMB A0427 [facility] SERVICE 7 AMBULANCE AMBULANCE ALS SERVICE SERVICE EMERGENCY TRANSPORT LEVEL 1 RADIOLOGI 97221 YOU Ferraro 7 MEDICAL KENYA EXAMINATI SERV ON CHEST FOUNDATIO SINGLE N VIEW FRONTAL EXTIRPATI [id number] [place] ON MATTER 7 [facility]ALTHCAR HEALTHCAR LEFT E E [facility]ILLARY [facility] ARTERY OPEN EXTIRPATI [id number] [place] ON MATTER 7 [facility]ALTHCAR HEALTHCAR LEFT E E SUBCLAVIA HOSPITALS HOSPITALS N ARTERY OPEN EXTIRPATI [id number] [place] ON MATTER 7 [facility]ALTHCAR HEALTHCAR LEFT E E ULNAR HOSPITALS HOSPITALS ARTERY OPEN APPRCH EXTIRPATI [id number] [place] ON MATTER 7 HEALTHCAR HEALTHCAR LT E E RADIAL HOSPITALS HOSPITALS ARTERY OPEN APPRCH PROTHROMB 61268 [facility] GARCIA IN TIME 7 MEM HOS[facility] INC INC PROTHROMB 32757 [facility] GARCIA IN TIME 7 MEM [facility] INC INC PROTHROMB 00793 [facility] GARCIA IN TIME 7 [facility] INC INC PROTHROMB 21478 RADHA AGRCIA IN TIME 7 MEM HOS[facility] INC INC PROTHROMB 13844 [facility] GARCIA IN TIME 7 [facility] INC INC PROTHROMB 38857 [facility] GARCIA IN TIME 7 [facility] INC INC RESP ASST E0470 PATIENT PATIENT DEVC 7 AIDS INC AIDS INC BI-LEVL PRSS CAPABILIT Y W/O BACKU HUMDIFIR E0562 PATIENT PATIENT HEATED 7 AIDS INC AIDS INC USED W/POS ARWAY PRESSURE DEVICE TUBING A7037 PATIENT PATIENT USED WITH 7 AIDS INC AIDS INC POSITIVE AIRWAY PRESSURE DEVICE PROTHROMB 59935 RADHA GARCIA IN TIME 7 [facility] INC INC PROTHROMB 51752 [facility] GARCIA IN TIME 7 [facility] INC INC POLYSOM 46474 RADHA GARCIA 6/>YRS 7 MEM HOSP [facility] SLEEP 4/> INC INC ADDL KENDRA ATTND PROTHROMB 38955 [facility] GARCIA IN TIME 7 [facility] INC INC ECG [address] [facility] ROUTINE 7 [facility]ALTH ECG MEDICAL W/LEAST G 12 LDS W/I&R HEMOGLOBI 13549 RADHA GARCIA N 7 [facility] GLYCOSYLA [place] [address] [address] RADHA GARCIA FREE 7 [facility] [place] [address] RADHA GARCIA THYROID 7 [facility] STIMULATI INC INC NG HORMONE TSH HEADGEAR A7035 TIFFANY TIFFANY USED 7 HOME HOME W/POSITIV MEDICAL MEDICAL E AIRWAY EQUIPME EQUIPME PRESSURE DEVICE TUBING A7037 TIFFANY ALLEN USED WITH 7 HOME HOME POSITIVE MEDICAL MEDICAL AIRWAY EQUIPME EQUIPME PRESSURE DEVICE FULL FACE A7030 TIFFANY TIFFANY MASK 7 HOME HOME USED MEDICAL MEDICAL W/POS EQUIPME EQUIPME ARWAY PRESS DEVICE EA PROTHROMB [id number] RADHA GARCIA IN TIME 7 [facility] HOSP INC INC PROTHROMB [id number] RADHA GARCIA IN TIME 7 [facility] [id number] RADHA [facility]ARCIA OUTPATIEN 7 [facility] H[facility] T CLIN INC INC VISIT ASSESS & MGMT PT HOSPITAL [id number] RADHA GARCIA OUTPATIEN 7 [facility] T CLIN INC INC VISIT ASSESS & MGMT PT PROTHROMB [id number] RADHA GARCIA IN TIME 7 [facility] INC INC PROTHROMB 10356 RADHA [facility]ARCIA IN TIME 6 [facility] G0463 RADHA [facility]ARCIA OUTPATIEN 6 [facility] H[facility] T CLIN INC INC VISIT ASSESS & MGMT PT HOSPITAL G0463 RADHA GARCIA OUTPATIEN 6 [facility] H[facility] T CLIN INC INC VISIT ASSESS & MGMT PT PROTHROMB 67364 RADHA GARCIA IN TIME 6 [facility] INC INC THERAPEUT 06792 RADHA GARCIA IC 6 [facility] HOSP PROPHYLAC INC INC TIC/DX INJECTION SUBQ/IM PROTHROMB 93661 RADHA GARCIA IN TIME 6 [facility] INC INC COLLECTIO 18043 RADHA GARCIA N VENOUS 6 [facility] BLOOD INC INC VENIPUNCT URE PROTHROMB 87575 RADHA GARCIA IN TIME 6 [facility] HOSPITAL G0463 RADHA GARCIA OUTPATIEN 6 [facility] T CLIN INC INC VISIT ASSESS & [place] [address] RADHA GARCIA PARATHORM 6 [facility] ONE INC INC PROTHROMB 97351 RADHA GARCIA IN TIME 6 [facility] INC INC COLLECTIO 60179 RADHA GARCIA N VENOUS 6 [facility] BLOOD INC INC VENIPUNCT URE ALBUMIN 37654 RADHA GARCIA URINE 6 [facility] MICROALBU INC INC MIN QUANTIATI VE 25 08342 RADHA GARCIA HYDROXY 6 [facility] INCLUDES INC INC FRACTIONS IF PERFORMED BLOOD 82754 RADHA GARCIA COUNT 6 [facility] COMPLETE INC INC AUTO&AUTO DIFRNTL WBC RENAL 35576 [facility] GARCIA FUNCTION 6 [facility] PANEL INC INC URNLS DIP 17323 RADHA GARCIA 6 [facility] STICK/TAB INC INC LET REAGENT AUTO MICROSCOP Y CALCIUM 51618 RADHA GARCIA IONIZED 6 [place] [address] RADHA GARCIA BLOOD/URI 6 [facility] [place] [address] RADHA GARCIA RETROPERI 6 [facility] TONEAL [place] [address] [place] [facility] RETROPERI 6 MEDICAL Y[facility] TONEAL IMAGING REAL TIME ASS W/IMAGE LIMITED ECHO 93772 [facility] R[facility]T [address] [place] [address] 2D W/WOM-MOD E COMPL SPEC&COLR D COLLECTIO 07073 [facility] N VENOUS [address] [place] [address] BLOOD VENIPUNCT URE BASIC 33835 [facility] METABOLIC [address] [place] [address] PANEL CALCIUM TOTAL PROTHROMB 56888 [facility] IN TIME [address] [place] [address] PROTHROMB 35545 RADHA GARCIA IN TIME 6 [facility] HOSPITAL G0463 RADHA GARCIA OUTPATIEN 6 [facility] T CLIN INC INC VISIT ASSESS & MGMT PT [facility] [id number] VISIT ASSESS & MGMT PT PROTHROMB 93123 [facility] COLLECTIO 20522 [facility] N VENOUS 6 [facility] BLOOD INC INC VENIPUNCT URE COLLECTIO 41684 [facility] N VENOUS 6 [facility] BLOOD INC INC VENIPUNCT URE PROTHROMB 38458 [facility] TIME [facility] G0463 [facility] OUTPATIEN 6 [facility] INC VISIT ASSESS & [place] [address] [facility] PARATHORM 6 [facility] ONE INC INC CREATININ 08360 [facility] GARC[facility] E OTHER 6 [facility] SOURCE INC INC COLLECTIO 70276 [facility] N VENOUS 6 [facility] BLOOD [facility] INC VENIPUNCT URE 25 98303 [facility] HYDROXY 6 [facility] INCLUDES INC INC FRACTIONS IF PERFORMED BLOOD 66191 [facility] COUNT 6 [facility] COMPLETE INC INC AUTO&AUTO DIFRNTL WBC RENAL 65713 [facility] FUNCTION 6 [facility] PANEL [facility] INC URNLS DIP 90632 [facility] STICK/TAB INC INC LET REAGENT AUTO MICROSCOP Y PROTEIN 80188 [facility] XCPT 6 [facility] REFRACTOM INC INC ETRY SERUM PLASMA/WH L [facility] G0463 [facility]PATIEN [facility] INC VISIT ASSESS & MGMT PT PROTHROMB 61431 [facility] IN TIME 6 [facility] INC PROTHROMB 80567 [facility] IN TIME 6 [facility] G0463 [facility] OUTPATIEN [facility] INC VISIT ASSESS & MGMT PT ECG 57829 [facility] ROUTINE 6 [facility] ECG MEDICAL W/LEAST G 12 LDS [facility] G0463 [facility] LOPEZON [facility]PATIEN 6 [facility] INC VISIT ASSESS & MGMT PT PROTHROMB 87684 [facility] TIME [facility] INC PROTHROMB 77205 [facility] IN TIME [facility] G0463 [facility]PAT[facility] INC VISIT ASSESS & MGMT PT COLLECTIO 76933 [facility] N VENOUS 6 [facility] BLOOD INC INC VENIPUNCT URE COLLECTIO 56256 [facility] N VENOUS 6 [facility] [place] [address] [facility] GARCIA FREE 6 [facility] [place] [address] [facility] THYROID 6 [facility] STIMULATI INC INC NG HORMONE TSH HEMOGLOBI 66991 [facility] N 6 [facility] GLYCOSYLA INC INC AJAY A1C LIPID 34601 [facility] PANEL 6 [facility] INC INC BLOOD 24423 [facility] G[facility]IA COUNT 6 [facility] COMPLETE INC INC AUTO&AUTO DIFRNTL WBC COMPREHEN 06008 [facility] SIVE 6 [facility] METABOLIC INC INC PANEL [facility]OSPITAL G0463 [facility]PATI[facility] INC VISIT ASSESS & MGMT PT PROTHROMB 52917 [facility] IN TIME [facility] INC PROTHROMB 85507 [facility] IN TIME 6 [facility] G0463 [facility] OUTPATIEN 6 [facility] INC INC VISIT ASSESS & MGMT PT COLLECTIO 92782 [facility] N VENOUS 6 [facility] BLOOD INC INC VENIPUNCT URE Encounters Encounter Start End Date Code Location Performer Type Date EMERGENCY 41742 D[facility] WATTS DEPT 7 7 PHYSICIAN VISIT S, PLLC HIGH SEVERITY& THREAT FUNJ OFFICE 12833 [facility] T OFFICE 52661 [facility] OUTPAT[facility] 7 7 PHYSICIAN T VISIT S GROUP 15 [facility]UTES [facility] - 7 7 [facility]IEN INC T OFFICE 13782 [facility] OUTPATIEN 7 7 [facility] T VISIT 5 INC MINUTES OFFICE 00969 [facility] OUTPATIEN 7 7 [facility] V[facility] 7 [facility] INC T OFFICE 52725 [facility]EN 7 7 [facility] V[facility] INC [facility] - 7 7 [facility] - 7 7 [facility] OUTPATIEN INC T OFFICE 09195 [facility] OUT[facility]IEN 7 7 [facility] T VISIT 5 INC MINUTES OFFICE 26895 [facility] OUTPATIEN 7 7 [facility] V[facility] INC [facility] 7 7 [facility] INC T OFFICE 12607 [facility] OUTPAT[facility]EN 7 7 PHYSICIAN T NEW 45 S GROUP MINUTES [facility]OSP[facility] - 7 7 [facility] OUTPATIEN INC T OFFICE 22761 [facility] OUTPATIEN 7 7 [facility] T [facility]IT 5 INC [facility]ES [facility] - 7 7 [facility] OUTPATIEN INC T OFFICE 82104 [facility] OUTPATIEN 7 7 [facility] T V[facility]IT 5 INC [facility] - 7 7 [facility] - 7 7 [facility] OUTPATIEN INC T OFFICE 20205 [facility] OUTPATIEN 7 7 [facility] T V[facility]IT 5 INC [facility] - 7 7 [facility] - 7 7 [facility] OUTPATIEN INC T OFFICE 14768 [facility] OUTPATIEN 7 7 [facility] T VISIT 5 INC MINUTES OFFICE 50546 [facility]PATIEN 7 7 [facility] INC [facility] 7 7 [facility]EN INC T OFFICE 19530 [facility] CONSULTAT 7 7 PHYSICIAN KARMEN S GROUP NEW/ESTAB PATIENT 30 MIN OFFICE 76889 [place] AYCINE[facility] OUTPATIEN 7 7 MEDICAL T VISIT SERV 25 FOUNDATIO MINUTES N OFFICE 73486 [facility] OUTPATIEN 7 7 [facility] V[facility] 5 INC [facility] 7 7 [facility] - 7 7 [facility] OUTPATIEN INC T EMERGENCY 25885 DARLIN CORONEL 7 7 PHYSICIAN JR SHANIQUA Aldana [facility] T VISIT MODERATE SEVERITY EMERGENCY 45310 [facility] 7 7 [facility] DEPARTMEN INC T VISIT LOW/MODER SEVERITY OFFICE 68490 [facility]IEN 7 7 [facility]IT 5 INC [facility] - 7 7 [facility] OUTPATIEN INC T OFFICE 03736 [facility] OUT[facility]IEN 7 7 [facility] T V[facility]IT 5 INC [facility]ES [facility] - 7 7 [facility] INC T OFFICE 78222 [facility] OUTPATIEN 7 7 PHYSICIAN T VISIT S GROUP 25 MINUTES OFFICE 93235 [facility] OUTPATIEN 7 7 [facility] T VISIT 5 INC MINUTES [facility] - 7 7 [facility] OUTPATIEN INC T EMERGENCY 52449 [facility] DEPT 7 7 [facility] VISIT INC HIGH SEVERITY& THREAT [facility] [place] - 7 7 [facility] OFF[facility] 65253 [facility] OUTPATIEN 7 7 [facility] T VISIT 5 INC MINUTES [facility] - 7 7 [facility]PATIEN INC [facility] - 7 7 [facility] OUTPATIEN INC T OFFICE 54279 [facility] OUTPATIEN 7 7 [facility] T VISIT 5 INC MINUTES [facility] RADHA - 7 7 [facility] OUTPATIEN INC T OFFICE 87909 [facility] OUTPATIEN 7 7 [facility] T VISIT 5 INC MINUTES OFFICE 63508 [facility] OUTPATIEN 7 7 [facility] T VISIT 5 INC MINUTES [facility] - 7 7 [facility] OUTPATIEN INC T OFFICE 29179 [facility] OUT[facility]IEN 7 7 [facility] T VISIT 5 INC MINUTES [facility] - 7 7 [facility] - 7 7 [facility] OUTPATIEN INC T OFFICE 06342 [facility]PATIEN 7 7 [facility] T VISIT [address] [facility] OUTPATIEN 7 7 PHYSICIAN T VISIT S GROUP 15 MINUTES [facility]OSP[facility] - 7 7 [facility] OUTPATIEN INC T OFFICE 67318 [facility] OUTPATIEN 7 7 [facility] T VISIT 5 INC MINUTES OFFICE 90475 [facility] OUTPATIEN 7 7 [facility] T VISIT 5 INC MINUTES [facility] - 7 7 [facility]PATIEN [facility] RADHA - 7 7 [facility]IEN [facility] OFFICE 73160 [facility] OUTPATIEN 7 7 [facility] T [facility]ISIT 5 INC MINUTES [facility] - 7 7 [facility] OFFICE 62613 [facility] OUTPATIEN 7 7 [facility] T VISIT MEDICAL 25 G MINUTES [facility] RADHA - 7 7 [facility]PATIEN [facility] OFFICE 29329 [facility] OUTPATIEN 7 7 PHYSICIAN T VISIT S GROUP MINUTES OFFICE 83591 [facility] OUTPATIEN 7 7 [facility] T [facility]ISIT 5 INC MINUTES [facility] - 7 7 [facility] - 7 7 [facility] - 7 7 [facility] 6 6 [facility] - 6 6 [facility] - 6 6 [facility] - 6 6 [facility] - 6 6 [facility] - 6 6 [facility] - 6 6 [facility] 6 6 [facility] - 6 6 [facility] OUTPATIEN INC T [facility] RADHA [facility] 6 6 [facility] OUTPATIEN INC T OFFICE 58410 [place] ALONSO XIANG OUTPATIEN 6 6 MEDICAL T NEW 45 SERV MINUTES [facility] 6 6 [facility] OUTPATIEN INC [facility] RADHA - 6 6 [facility] - 6 6 [facility] OUTPATIEN INC T OFFICE 92209 [facility] OUTPATIEN 6 6 [facility] T [facility]ISIT MEDICAL 40 G MINUTES [facility] RADHA - 6 6 [facility] - 6 6 [facility] OUTPATIEN INC T OFFICE 41487 AMELIA CISNEROS OUTPATIEN 6 6 JAM JAM T VISIT 25 MINUTES [facility]OSPITAL [facility] - 6 6 [facility] INC T OFFICE 03181 [facility] OUTPATIEN 6 6 PHYSICIAN KEI T VISIT S GROUP 25 MINUTES [facility]OSPITAL [facility] - 6 6 [facility] OUTPATIEN INC [facility] RADHA - 6 6 [facility] OUTPATIEN INC
--- OUTSIDE RECORDS SUMMARY | 2017-07-04 05:11 | External Medical Summary Rpt | CCD ---
Author Author , BEKA Organization BEKA Address Unknown Phone [email or web address] Providers Care Bus Transportation Manager Name Role Phone AYCINENA, AYCINENA Unavailable Unavailable BESSON, BESSON Unavailable Unavailable RIOJAS, RIOJSA Unavailable Unavailable [facility] Unavailable Unavailable SERVICE, [facility] Unavailable Unavailable SERVICE, [facility] LEATHA YASMIN, Unavailable Unavailable LEATHA YASMIN GARZA, GARZA Unavailable Unavailable CORONEL, JR, CORONEL, Unavailable Unavailable JR IVON, IVON Unavailable Unavailable IVON KEI, IVON Unavailable Unavailable KEI GAMBREL, GAMBREL Unavailable Unavailable [facility] Un[facility] Unavailable INC, [facility] Unavailable Unavailable HOSPITAL P, [facility], [facility]available Unavailable [facility] DELFIN LENZ Unavailable Unavailable [facility], [facility] Unavailable Unavailable MEDICAL G, [facility] MEDICAL G [facility] NURSE Unavailable Unavailable PRACTITIONER GR, [facility] NURSE PRACTITIONER GR [facility] Un[facility], [facility] SY, SY Unavailable Unavailable AMELIA JAM, Unavailable Unavailable CISNEROSJOSE A CISNEROS JAM, Unavailable Unavailable CISNEROSSOLITARIO HINES Unavailable Unavailable [facility], Unavailable Unavailable [facility], [facility], Unavailable Unavailable [facility], Unavailable Unavailable [facility] PAVEZ, PAVEZ Unavailable Unavailable REALAFSANEH ZAMBRANO, Unavailable Unavailable ADDIE ZAMBRANO AMMON, AMMON Unavailable Unavailable CONNER, CONNER Unavailable Unavailable SADEK, SADEK Unavailable Unavailable RIMA, RIMA Unavailable Unavailable [facility] Unavailable Unavailable EQUIP[facility], [facility] Unavailable Unavailable [facility]QU[facility], [facility], [facility]available [facility]available [facility] Unavailable [facility]available HOSPITALS, [facility] VIOLETA, VIOLETA Unavailable Unavailable [facility]TA [...] W/STAGE 1-4 PLLC CKD OR UNS CKD [id number] ACUTE EMBO 05-26-2017 [facility] THROMB [facility]NS [facility], DEEP VEINS PLLC LOW EXTREM ARIADNA M545 LOW BACK 05-26-2017 [facility] N189 CHRONIC 05-26-2017 [facility] KIDNEY [facility], DISEASE PLLC UNSPECIFIED 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 [facility] CURRENT USE [facility] OF INC ANTICOAGULA NTS Z952 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-14-2017 [facility] PROSTHETIC [facility] HEART INC VALVE Z5181 ENCOUNTER 04-18-2017 [facility] FOR [facility] THERAPEUTIC INC DRUG LEVEL MONITORING E785 HYPERLIPIDE 03-10-2017 [facility] NITIN PHYSICIANS UNSPECIFIED GROUP I10 ESSENTIAL 03-10-2017 [facility] PRIMARY PHYSICIANS HYPERTENSIO GROUP N I4891 UNSPECIFIED 03-10-2017 [facility] ATRIAL PHYSICIANS FIBRILLATIO GROUP N K5730 DIVERTICULO 02-13-2017 [facility] MEDICAL INTEST W/O IMAGING ASS PERF/ABSC W/O BLEED Z1211 ENCOUNTER 02-13-2017 [facility] SCREENING [facility] MALIGNANT INC NEOPLASM OF COLON [id number] ACUTE 02-04-2017 [facility] EMBOLISM & PHYSICIANS THROMBOSIS GROUP DEEP VEINS LT UP EXT D631 ANEMIA IN 02-03-2017 [facility] DISEASE E871 HYPO-OSMOLA 02-03-2017 [facility] HYPONATREMI FOUNDATION A N183 CHRONIC 02-03-2017 [facility] DISEASE [facility] STAGE 3 MODERATE [id number] CUTANEOUS 02-01-2017 [facility] ABSCESS OF [facility] LEFT UPPER INC LIMB L0889 OTH SPEC 02-01-2017 [facility] LOCAL PHYSICIANS, INFECTIONS PLLC THE SKIN & SUBQ TISSUE E119 TYPE 2 01-28-2017 [facility] DIABETES PHYSICIANS MELLITUS GROUP WITHOUT COMPLICATIO NS I998 OTHER 01-28-2017 [facility] DISORDER OF PHYSICIANS GROUP CIRCULATORY SYSTEM E1165 TYPE 2 01-20-2017 [facility] NURSE DIABETES PRACTITIONE MELLITUS R GR WITH HYPERGLYCEM IA 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 [facility] NURSE CURRENT USE PRACTITIONE OF INSULIN R GR I509 HEART 01-19-2017 [facility] FAILURE [facility] UNSPECIFIED FOUNDATION I5189 OTHER 01-19-2017 [facility] ILL-DEFINED SERV HEART [facility]OUND[facility] DISEASES E108 TYPE 1 01-18-2017 [facility] DIABETES PH[facility]ICIANS, MELLITUS PLLC W/UNSPEC COMPLICATIO NS E1122 TYPE 2 01-18-2017 [facility] MELL[facility] HOSPITALS W/DIAB CHRON KIDNEY DZ I2510 [facility] 01-18-2017 [facility] CORONARY [facility] ARTERY W/O FOUNDATION ANGINA PECTORIS I447 LEFT 01-18-2017 [facility] BUNDLE-BRAN SERV CH BLOCK FOUNDATION UNSPECIFIED I454 NONSPECIFIC 01-18-2017 [facility] INTRAVENTRI [facility] CULAR BLOCK I482 CHRONIC 01-18-2017 [facility] ATRIAL PHYSICIANS, FIBRILLATIO [facility] N I498 OTHER 01-18-2017 [facility] SPECIFIED SERV CARDIAC FOUNDATION ARRHYTHMIAS I517 CARDIOMEGAL 01-18-2017 [place] [facility] Y [facility] M01646 OTH 01-18-2017 [facility] P EXTREM OT EXTREMITY I708 ATHEROSCLER 01-18-2017 [facility] OSIS OF SERV OTHER FOUNDATION ARTERIES I742 EMBOLISM & 01-18-2017 [facility] THROM[facility]OS[facility] ART THE HOSPI UPPER EXTREMITIES I8290 ACUTE 01-18-[address] [facility] EMBOLISM & AMBULANCE THROMBOSIS SERVICE OF UNSPECIFIED VEIN I959 HYPOTENSION 01-18-[address] [facility] AMBULANCE UNSPECIFIED SERVICE B01999 OTH INTRAOP 01-18-2017 [facility] CARD FUNC SERV DIST DURING [facility] OTH SURGERY Y03175 PAIN IN 01-18-2017 [place] LEFT MEDICAL SHOULDER IMAGING ASS M7989 OTHER [...] OTHER SPEC 01-18-2017 [facility] ABNORMAL PHYSICIANS, FINDINGS [facility] BLOOD CHEMISTRY R9431 ABNORMAL 01-18-2017 [facility] ELECTROCARD SERV IOGRAM [facility]OUND[facility] Z4682 ENCOUNTER 01-18-2017 [facility] FITTING & SERV ADJUST [facility] NON-VASCULA R CATHETER V21021 ENCOUNTER 01-18-2017 [facility] SURG SERV AFTERCARE [facility] FLW SURG TEETH/ORAL CAV I54995 PERSONAL 01-18-2017 [place] [facility] HISTORY OT X[facility]ex [facility] THROMBOSIS& EMBOLISM Z951 PRESENCE OF 01-18-2017 [facility] RY BYPASS GRAFT Z9911 DEPENDENCE 01-18-2017 [place] [facility] SERV RESPIRATOR [facility] VENTILATOR STATUS E039 HYPOTHYROID 12-31-2016 [facility] ISM PHYSICIANS UNSPECIFIED GROUP E663 OVERWEIGHT 12-31-2016 [facility] G4730 SLEEP APNEA 11-29-2016 [facility] UNSPECIFIED INC I5043 ACUTE ON 11-18-2016 [facility] CHRONIC HEALTH COMB MEDICAL G SYSTOLIC & DIASTOLIC CHF J449 CHRONIC 10-25-2016 [facility] OBSTRUCTIVE HOME PULMONARY MEDICAL DISEASE UNS EQUIPME I5023 ACUTE CHRON 08-14-2016 [facility] SYSTOLIC HEALTH HEART MEDICAL G FAILURE R931 ABNORMAL 08-14-2016 [facility] FINDINGS ON HOSPITAL DX IMAGING HEART & COR CIRC Z969 PRESENCE OF 08-14-2016 [facility] IMPLANT UNSPECIFIED X91378 VITREOUS 06-26-2016 AMELIA MARYCRUZ HERNANDEZ N RIGHT EYE N89996 VITREOUS 06-26-2016 AMELIA HERNANDEZ N LEFT EYE Medications Na ND [...] CY ET NT S HI AN A ME 00 09 09 14 7 00 WA Ac TH 14 -0 -2 .0 00 L- ti OC 31 4- 9- 00 07 MA ve AR 29 20 20 50 RT BA 20 17 17 75 MO 1 58 PH L AR 75 MA 0 CY MG #5 TA 91 BL ET CA 00 09 30 30 00 HO Ac LC 90 -0 -2 .0 00 ME ti IU 43 6- 9- 00 06 TO ve M 23 20 20 09 WN 60 39 17 17 14 0- 2 07 PH AR T MA D3 CY 40 OF 0 TA CY BL NT ET HI AN A LE 00 09 09 30 30 00 HO Ac VO 52 -0 -2 .0 00 ME ti TH 71 6- 9- 00 06 TO ve YR 34 20 20 09 WN OX 70 17 17 14 IN 1 05 PH E AR 12 MA 5 CY MC G OF TA BL CY ET NT HI AN A SP 00 09 09 30 30 00 HO Ac IR 22 -0 -2 .0 00 ME ti ON 82 6- 9- 00 06 TO ve OL 80 20 20 09 WN AC 31 17 17 14 TO 1 02 PH NE AR MA 25 CY MG OF TA CY BL NT ET HI AN A CT 68 09 09 30 30 00 HO Ac AV 18 -0 -2 .0 00 ME ti 00 6- 9- 00 06 TO ve TA 48 20 20 09 WN TI 80 17 17 14 N 9 01 PH SO AR DI MA UM CY 80 OF MG CY NT TA HI B AN A FE 00 09 09 30 30 00 HO Ac NO 37 -0 -2 .0 00 ME ti FI 83 6- 9- 00 06 TO ve BR 06 20 20 09 WN AT 67 17 17 13 E 7 99 PH 14 AR 5 MA MG CY TA OF BL ET CY NT HI AN A CA 68 09 09 60 30 00 HO Ac RV 00 -0 -2 .0 00 ME ti ED 10 6- 9- 00 06 TO ve IL 15 [...] CY NT HI AN A FU 00 09 09 30 30 00 HO Ac RO 37 -0 -2 .0 00 ME ti SE 80 6- 9- 00 06 TO ve CA 21 20 20 09 WN DE 61 17 17 13 0 96 PH 40 AR MA MG CY TA OF BL ET CY NT HI AN A LI 68 09 09 30 30 00 HO Ac SI 18 -0 -2 .0 00 ME ti NO 00 6- 9- [address] 51 20 20 09 WN IL 80 [...] L CY NT AL HI AN A NO 00 07 08 [...] 80 6- 8- 00 06 TO ve CA 21 20 20 09 WN DE 61 17 17 13 0 96 PH 40 AR MA MG CY TA OF BL ET CY NT HI AN A LI 68 07 08 30 30 00 HO Ac SI 18 -2 -1 .0 00 ME ti NO 00 6- 8- [address] 51 20 20 09 WN IL 80 [...] BL ET CY NT HI AN A CT 68 07 08 30 30 00 HO [...] CY NT HI AN A CA 00 07 08 30 30 00 HO Ac LC 90 -2 -1 .0 00 ME ti IU 43 6- 8- 00 06 TO ve M 23 20 20 09 WN 60 39 17 17 14 0- 2 07 PH AR T MA D3 CY 40 OF 0 TA CY BL NT ET HI AN A BD 08 07 07 10 30 00 HO Ac 29 -0 -2 0. 00 ME ti IN 03 5- 8- 00 06 TO ve CARRERO 28 20 20 0 09 WN LI 41 17 17 01 N 8 52 PH SY AR R MA 1 CY ML OF 8M MX CY 31 NT G HI AN A CA 00 06 07 [...] 00 8- 1- [address] 51 20 20 07 WN IL 80 [...] 50 8- 1- 00 06 TO ve CA 11 20 20 07 WN DE 71 17 17 37 0 31 PH 40 AR MA MG CY TA OF BL ET CY NT HI AN A CT 68 06 07 30 30 00 HO Ac AV 18 -2 -2 .0 00 ME ti 00 8- 1- 00 06 TO ve TA 48 20 20 07 WN TI 80 17 17 99 N 9 09 PH SO AR DI MA UM CY 80 OF MG CY NT TA HI B AN A WA 00 06 07 30 [...] BL ET CY NT HI AN A NO 00 06 06 20 [...] 00 1- 3- [address] 51 20 20 07 WN IL 80 [...] BL ET CY NT HI AN A CT 68 05 06 30 30 00 HO [...] 80 1- 3- 00 06 TO ve CA 21 20 20 07 WN DE 61 [...] .0 00 ME ti EP 10 1- 9- 00 06 TO ve IR 17 20 [...] ME ti NO [address] 51 20 20 07 WN IL 80 [...] CY BL NT ET HI AN A CT 68 04 05 30 30 00 HO [...] ME ti SE 50 06 TO ve CA 11 20 20 07 WN DE 71 17 17 37 0 31 PH 40 AR MA MG CY TA OF BL ET CY NT HI AN A DI 00 04 05 30 30 00 HO Ac GO 11 -2 -1 .0 00 ME ti XI 59 06 TO ve N 82 20 20 07 WN 25 20 17 17 37 0 1 30 PH MC AR G MA TA CY BL ET OF CY NT HI AN A CA 00 04 05 30 30 00 HO Ac LC 90 -2 -1 .0 00 ME ti IU 43 1- 9 06 TO ve M 23 20 20 [...] ME ti NO [address] 51 20 20 07 WN IL 80 [...] BL ET CY NT HI AN A CT 68 03 04 30 30 00 HO [...] SE 50 1- 4- 06 TO ve CA 11 20 20 07 WN DE 71 [...] NO 00 6- 7- [address] 51 20 20 07 WN IL 80 [...] BL ET CY NT HI AN A CT 68 02 03 30 30 00 HO Ac AV 18 -1 -1 .0 00 ME ti 00 6- 7- 06 TO ve TA 48 20 20 [...] 50 6- 7- 00 06 TO ve CA 11 20 20 07 WN DE 71 [...] CY ET NT HI AN A FE 01 02 30 30 00 HO Ac [...] 50 9- 7- 00 06 TO ve CA 11 20 20 07 WN DE 71 [...] CY BL NT ET HI AN A CT 68 01 02 30 30 00 HO [...] NO 00 0- 7- [address] 51 20 20 07 WN IL 80 17 17 99 -H [address] AR Z MA 10 CY -1 2. OF 5 MG CY NT TA HI B AN A LE 00 12 30 30 00 HO Ac VO 52 -1 -0 .0 00 ME ti TH 71 3- 06 TO ve YR 34 20 20 07 WN OX 70 16 17 54 IN 1 01 PH E AR 12 MA 5 CY MC G OF TA BL CY ET NT HI AN A FE 00 12 30 30 00 HO Ac NO 37 -1 -0 .0 00 ME ti FI 83 3 06 TO ve BR 06 20 20 07 WN AT 67 16 17 46 E 7 90 PH 14 AR 5 MA MG CY TA OF BL ET CY NT HI AN A FU 69 12 01 45 30 00 HO Ac RO 31 -1 -0 .0 00 ME ti SE 50 06 TO ve CA 11 20 20 07 WN DE 71 16 17 37 0 31 PH 40 AR MA MG CY TA OF BL ET CY NT HI AN A DI 00 12 30 30 00 HO Ac GO 11 -1 -0 .0 00 ME ti XI 59 3 06 TO ve N 82 20 20 07 WN 25 20 16 17 37 0 1 30 PH MC AR G MA TA CY BL ET OF CY NT HI AN A LI 68 12 30 30 00 HO Ac SI 18 -1 -0 .0 00 ME ti NO 00 9- [address] 51 20 20 05 WN IL 80 [...] BL ET CY NT HI AN A CT 68 12 01 30 30 00 HO [...] INC USED W/POS ARWAY PRESSURE DEVICE PROTHROMB 05387 [facility] IN TIME 7 [facility] PROTHROMB 73029 [facility] G[facility] IN TIME 7 [facility] RESP ASST E0470 PATIENT PATIENT DEVC 7 AIDS INC AIDS INC BI-LEVL PRSS CAPABILIT Y W/O BACKU HUMDIFIR E0562 PATIENT PATIENT HEATED 7 AIDS INC AIDS INC USED W/POS ARWAY PRESSURE DEVICE PROTHROMB 01024 [facility] GARCIA IN TIME 7 [facility] RESP ASST E0470 PATIENT PATIENT DEVC 7 AIDS INC AIDS INC BI-LEVL PRSS CAPABILIT Y W/O BACKU HUMDIFIR E0562 PATIENT PATIENT HEATED 7 AIDS INC AIDS INC USED W/POS ARWAY PRESSURE DEVICE PROTHROMB 08335 [facility] GARCIA IN TIME 7 [facility] INC INC PROTHROMB 20320 [facility] GARCIA IN TIME 7 [facility] PROTHROMB 39197 [facility]ARCIA IN TIME 7 [facility] INC INC PROTHROMB 91439 [facility] GARCIA IN TIME 7 [facility] INC INC COLLECTIO 62911 RADHA GARCIA N VENOUS 7 [facility] BLOOD INC INC VENIPUNCT URE PROTHROMB 78750 [facility] GARCIA IN TIME 7 [facility] RESP ASST E0470 PATIENT PATIENT DEVC 7 AIDS INC AIDS INC BI-LEVL PRSS CAPABILIT Y W/O BACKU HUMDIFIR E0562 PATIENT PATIENT HEATED 7 AIDS INC AIDS INC USED W/POS ARWAY PRESSURE DEVICE PROTHROMB 28507 [facility] GARCIA IN TIME 7 [facility] PROTHROMB 62943 [facility] GARCIA IN TIME 7 [facility] COLLECTIO 83024 [facility] N VENOUS 7 [facility] BLOOD [facility] VENIPUNCT URE RAD EXP G9501 [place] [facility] INDCS/EXP 7 MEDICAL TM & NO IMAGING FLUORO ASS IMG N DOC N RSN PROTHROMB 91373 [facility] GARCIA IN TIME 7 [facility] RADEX 78908 [facility]IA COLON 7 [facility] BARIUM [facility] ENEMA W/WO KUB PROTHROMB 73574 [facility]ARCIA IN TIME 7 [facility] PROTHROMB 21829 [facility]ARCIA IN TIME 7 [facility] PROTHROMB 55421 [facility] GARCIA IN TIME 7 [facility] CUL BACT 04542 [facility] GARCIA XCPT 7 [facility] URINE INC INC BLOOD/STO OL AEROBIC ISOL CUL BACT 14465 [facility] AEROBIC 7 [facility] ADDL [facility] METHS DEFINITIV E EA ISOL SUSCEPTIB 37367 [facility]IA LTY STDY 7 [facility] ANTIMICRB INC INC IAL MICRO/AGA R DILUTJ PROTHROMB 03277 [facility] GARCIA IN TIME 7 [facility] PROTHROMB 41207 RAD[facility] GARCIA IN TIME 7 [facility] RESP ASST E0470 PATIENT PATIENT DEVC 7 AIDS INC AIDS INC BI-LEVL PRSS CAPABILIT Y W/O BACKU HUMDIFIR E0562 PATIENT PATIENT HEATED 7 AIDS INC AIDS INC USED W/POS ARWAY PRESSURE DEVICE PROTHROMB 56270 [facility] GARCIA IN TIME 7 [facility] INC INC SBSQ [address]55 [place] [address] NURSE CARE/DAY PRACTITIO 15 NER GR MINUTES SBSQ 77254 [place] [address] NURSE CARE/DAY PRACTITIO 15 NER GR MINUTES SBSQ 33782 [place] [address] NURSE CARE/DAY PRACTITIO 15 NER GR MINUTES INITIAL 11350 [facility] INPATIENT 7 NURSE CONSULT PRACTITIO NEW/ESTAB NER GR PT [address] [facility] 7 MEDICAL CARE/DAY SERV 25 FOUNDATIO MINUTES N ECG 10192 YOU LENZ ROUTINE 7 MEDICAL ECG SERV W/LEAST FOUNDATIO 12 LDS N I&R ONLY ECHO 94811 YOU LOZADA TTC R-T 7 MEDICAL 2D SERV W/WOM-MOD FOUNDATIO E COMPL N SPEC&COLR D ECG 72287 RADHA CRUZ ROUTINE [address] [facility] W/LEAST P 12 LDS I&[place] [address] RADHA GARCIA INFUSION 7 [facility] THERAPY/P INC INC ROPHYLAXI S /DX 1ST TO 1 HR THERAPEUT 52738 [facility] GARCIA IC 7 [facility] INJECTION INC INC IV PUSH EACH NEW DRUG GLUC BLD 70202 [facility]IA GLUC MNTR 7 [facility] DEV INC INC CLEARED FDA SPEC HOME USE RADEX 85854 [facility] GARCIA SHOULDER 7 MEM H[facility] COMPLETE INC INC MINIMUM 2 VIEWS HEMOGLOBI 90461 [facility] GARCIA N 7 [facility] GLYCOSYLA INC INC AJAY A1C CRITICAL 97654 [facility] 7 PHYSICIAN ILL/INJUR S, PLLC ED PATIENT INIT 30-74 MIN AMB A0427 [facility] SERVICE 7 AMBULANCE AMBULANCE ALS SERVICE SERVICE EMERGENCY TRANSPORT LEVEL 1 ANESTHESI 63690 YOU GAMBREL A 7 MEDICAL ARTERIES SERV UPPER FOUNDATIO ARM&ELBOW N EMBOLECTO M COMPREHEN 29585 [facility] GARCIA SIVE 7 [facility] METABOLIC INC INC PANEL RADIOLOGI 46699 [place] REAL C 7 MEDICAL [place] EXAMINATI SERV ON CHE[place] [address] YOU SOLITARIO ANGIOGRAP 7 MEDICAL HY UPPER SERV EXTREMITY FOUNDATIO N ECG 54413 [facility] GARCIA ROUTINE 7 [facility] ECG INC INC W/LEAST 12 LDS TRCG ONLY W/O I&R INITIAL 98272 YOU [facility] 7 MEDICAL CARE/DAY SERV 70 FOUNDATIO MINUTES N EMBLC/THR 70879 [place] BRIANA[facility] MBC AX 7 MEDICAL BRACH SERV INNOMINAT FOUNDATIO E SUBCLA N ART EMBLC/THR 95337 YOU WARRENOS MBC W/WO 7 MEDICAL CATH SERV RADIAL/UL [place]OUNDAT[place] [address] RAD[facility] GARCIA TROPONIN 7 [facility] QUANTITAT INC INC ELYSSA LEVEL III 96367 UNIVERS[facility] SY SURG 7 Y OF PATHOLOGY [facility] GROSS&KEI ROSCOPIC EXAM PROTHROMB 97029 RADHA GRACIA IN TIME 7 MEM H[facility] INC INC BLOOD 05872 [facility] GARCIA COUNT 7 MEM [facility]OS[facility] COMPLETE INC INC AUTO&AUTO DIFRNTL WBC INITIAL 62636 YOU [facility] INPATIENT 7 MEDICAL CONSULT SERV NEW/ESTAB FOUNDATIO PT 110 N MIN GROUND A0425 [facility] MILEAGE 7 AMBULANCE AMBULANCE PER SERVICE SERVICE STATUTE MILE EXTIRPATI [id number] [facility] ON MATTER 7 HEALTHCAR HEALTHCAR LEFT E E ULNAR HOSPITALS HOSPITALS ARTERY OPEN APPRCH EXTIRPATI [id number] [facility] MATTER 7 HEALTHCAR HEALTHCAR LT E E RADIAL HOSPITALS HOSPITALS ARTERY OPEN APPRCH EXTIRPATI [id number] [place] [facility] MATTER 7 HEALTHCAR HEALTHCAR LEFT E E AXILLARY HOSPITALS HOSPITALS ARTERY OPEN EXTIRPATI [id number] [place] [facility] ON MATTER 7 HEALTHCAR HEALTHCAR LEFT E E SUBCLAVIA HOSPITALS HOSPITALS N ARTERY OPEN PROTHROMB 80270 [facility] GARCIA IN TIME 7 [facility] INC INC PROTHROMB 65336 RADHA GARCIA IN TIME 7 [facility] INC INC PROTHROMB 07188 RAD[facility] GARCIA IN TIME 7 [facility] PROTHROMB 13145 RAD[facility] GARCIA IN TIME 7 [facility] PROTHROMB 05978 RADHA GARCIA IN TIME 7 [facility] PROTHROMB 52764 [facility] GARCIA IN TIME 7 [facility] RESP ASST E0470 PATIENT PATIENT DEVC 7 AIDS [facility] INC BI-LEVL PRSS CAPABILIT Y W/O BACKU HUMDIFIR E0562 PATIENT PATIENT HEATED 7 AIDS [facility] AIDS INC USED W/POS ARWAY PRESSURE DEVICE TUBING A7037 PATIENT PATIENT USED WITH 7 AIDS [facility] AIDS [facility] POSITIVE AIRWAY PRESSURE DEVICE PROTHROMB 55530 RADHA GARCIA IN TIME 7 [facility] PROTHROMB 36142 RADHA GARCIA IN TIME 7 [facility] POLYSOM 22151 RADHA GARCIA 6/>YRS 7 [facility] SLEEP 4/> INC INC ADDL KENDRA ATTND PROTHROMB 15708 RADHA RADHA IN TIME 7 [facility] ECG 98697 [facility] ROUTINE 7 [facility] ECG MEDICAL W/LEAST G 12 LDS W/I&[place] [address] RADHA GARCIA FREE 7 [facility] THYRO[place] [address] RADHA GARCIA THYROID 7 [facility] STIMULATI [facility] INC NG HORMONE TSH HEMOGLOBI 76171 RADHA GARCIA N 7 [facility] GLYCOSYLA INC INC AJAY A1C FULL FACE A7030 TIFFANY ALLEN MASK 7 HOME HOME USED MEDICAL MEDICAL W/POS EQUIPME EQUIPME ARWAY PRESS DEVICE EA PROTHROMB 07763 RADHA RADHA IN TIME 7 [facility] INC TUBING A7037 TIFFANY ALLEN USED WITH 7 HOME HOME POSITIVE MEDICAL MEDICAL AIRWAY EQUIPME EQUIPME PRESSURE DEVICE HEADGEAR A7035 TIFFANY ALLEN USED 7 HOME HOME W/POSITIV MEDICAL MEDICAL E AIRWAY EQUIPME EQUIPME PRESSURE DEVICE HOSPITAL G0463 [facility] GARCIA OUTPATIEN 7 [facility] T CLIN INC INC VISIT ASSESS & MGMT PT PROTHROMB 49899 [facility]IA IN TIME 7 [facility] INC INC PROTHROMB 91539 RADHA GARCIA IN TIME 7 [facility] G0463 RADHA [facility]ARCIA OUTPATIEN 7 [facility] T CLIN INC INC VISIT ASSESS & MGMT PT HOSPITAL G0463 RAD[facility] GARCIA OUTPATIEN 6 [facility] T CLIN INC INC VISIT ASSESS & MGMT PT PROTHROMB 63770 RADHA GARCIA IN TIME 6 [facility] INC INC PROTHROMB 76310 RADHA GARCIA IN TIME 6 [facility] G0463 [facility]ARCIA OUTPATIEN 6 [facility] T CLIN INC INC VISIT ASSESS & MGMT PT PROTHROMB 97823 RADHA GARCIA IN TIME 6 [facility] INC COLLECTIO 02273 RADHA GARCIA N VENOUS 6 [facility] BLOOD INC INC VENIPUNCT URE THERAPEUT 62716 RADHA GARCIA IC 6 [facility] PROPHYLAC [facility] INC TIC/DX INJECTION SUBQ/IM PROTHROMB 27984 RADHA GARCIA IN TIME 6 [facility] G0463 RADHA GARCIA OUTPATIEN 6 [facility] INC VISIT ASSESS & MGMT PT PROTHROMB 29096 RADHA GARCIA IN TIME 6 [facility] INC ALBUMIN 22697 RADHA GARCIA URINE 6 [facility] MICROALBU [place] [address] RADHA GARCIA PARATHORM 6 [facility] ONE INC INC COLLECTIO 38548 RADHA GARCIA N VENOUS 6 [facility] BLOOD INC INC VENIPUNCT URE 25 [id number] RADHA GARCIA HYDROXY 6 [facility] INCLUDES INC INC FRACTIONS IF PERFORMED CALCIUM 24196 RADHA GARCIA IONIZED 6 [place] [address] RADHA GARCIA BLOOD/URI 6 [facility] ACID INC INC URNLS DIP 72105 [facility] GARCIA 6 [facility] STICK/TAB INC INC LET REAGENT AUTO MICROSCOP Y BLOOD 74951 RADHA GARCIA COUNT 6 [facility] COMPLETE INC INC AUTO&AUTO DIFRNTL WBC RENAL 67253 RADHA GARCIA FUNCTION 6 [facility] [place] [address] RADHA GARCIA RETROPERI 6 [facility] TONEAL [facility] [place] [address] [facility] Y[facility]MIN TONEAL IMAGING REAL TIME ASS W/IMAGE LIMITED BASIC [id number] PANEL CALCIUM TOTAL ECHO 82519 [facility] 2D MEDICAL W/WOM-MOD G E COMPL SPEC&COLR D COLLECTIO 58508 [facility] N VENOUS [address] [place] [address] BLOOD VENIPUNCT URE PROTHROMB 02012 [facility] IN TIME [address] [place] [address] [id number] RADHA GARCIA OUTPATIEN 6 [facility] INC VISIT ASSESS & MGMT PT PROTHROMB 72072 RADHA GARCIA IN TIME 6 [facility] G0463 [facility] GARCIA OUTPATIEN 6 [facility] INC VISIT ASSESS & MGMT PT PROTHROMB 53101 [facility]HACAROLA GARCIA IN TIME 6 [facility] INC COLLECTIO 57972 RADHA GARCIA N VENOUS 6 [facility] BLOOD INC INC VENIPUNCT URE COLLECTIO 54482 [facility] BLOOD [facility] INC VENIPUNCT URE PROTHROMB 57195 [facility] IN TIME 6 [facility] G0463 [facility] OUTPATIEN 6 [facility] T CLIN INC INC VISIT ASSESS & MGMT PT COLLECTIO 37544 [facility] N VENOUS 6 [facility] BLOOD INC INC VENIPUNCT URE 25 06080 [facility] G[facility] HYDROXY 6 [facility] INCLUDES [place] [address] RADHACAROL[facility] GARC[facility] PARATHORM 6 [facility] ONE INC INC CREATININ 00228 [facility] LOPEZON E OTHER 6 [facility] SOURCE INC INC PROTEIN 84613 [facility] XCPT 6 [facility] REFRACTOM INC INC ETRY SERUM PLASMA/WH L BLD BLOOD 55484 [facility] LOPEZON COUNT 6 [facility] COMPLETE INC INC AUTO&AUTO DIFRNTL WBC URNLS DIP 62646 [facility] RDAHA [facility] STICK/TAB INC INC LET REAGENT AUTO MICROSCOP Y RENAL 21538 [facility] FUNCTION 6 [facility] PANEL [facility] G0463 [facility] OUTPATIEN 6 [facility]IN INC INC VISIT ASSESS & MGMT PT PROTHROMB 25627 [facility]IA IN TIME 6 [facility] G0463 [facility] G[facility] OUTPATIEN 6 [facility] CLIN INC INC VISIT ASSESS & MGMT PT PROTHROMB 88570 [facility] IN TIME 6 [facility] INC ECG 29518 [facility] ROUTINE 6 [facility] ECG MEDICAL W/LEAST G 12 [facility] W/I&R HOSPITAL G0463 RAD[facility] GARCIA OUTPATIEN 6 [facility] T CLIN INC INC VISIT ASSESS & MGMT PT PROTHROMB 99088 RAD[facility] GARCIA IN TIME 6 [facility] G0463 [facility]ARC[facility] OUTPATIEN 6 [facility] CLIN INC INC VISIT ASSESS & MGMT PT PROTHROMB 84041 [facility] G[facility]IA IN TIME 6 [facility] INC INC COLLECTIO 80245 [facility] G[facility] N VENOUS 6 [facility] BLOOD INC INC VENIPUNCT URE COLLECTIO 11940 [facility] N VENOUS 6 [facility] BLOOD INC INC VENIPUNCT URE COMPREHEN 89211 [facility] SIVE 6 [facility] [address] [facility] G[facility] FREE 6 [facility] [place] [address] [facility] GACR[facility] THYROID 6 [facility] STIMULATI INC INC NG HORMONE TSH HEMOGLOBI 71538 [facility] N 6 [facility] GLYCOSYLA INC INC AJAY A1C BLOOD 22379 [facility] COUNT 6 [facility] COMPLETE INC INC AUTO&AUTO DIFRNTL WBC LIPID 18026 [facility] PANEL 6 [facility] G0463 [facility] G[facility] OUTPATIEN 6 [facility] CLIN INC INC VISIT ASSESS & MGMT PT PROTHROMB 94894 [facility]HA IN TIME 6 [facility] INC INC PROTHROMB 00252 [facility] GARCIA IN TIME 6 [facility] INC INC COLLECTIO 34457 [facility] G[facility] N VENOUS 6 [facility] BLOOD INC INC VENIPUNCT [facility] G0463 [facility] GARCIA OUTPATIEN 6 [facility] CLIN INC INC VISIT ASSESS & MGMT PT Encounters Encounter Start End Date Code Location Performer Type Date EMERGENCY 84599 DAR[facility] WATTS DEPT 7 7 PHYSICIAN VISIT S, PLL[facility] HIGH SEVERITY& THREAT FUNJ OFFICE 23912 [facility] MONROYEN 7 7 [facility] OUTPATIEN INC T OFFICE 70288 [facility] MOMO OUTPATIEN 7 7 PHYSICIAN T VISIT S GROUP 15 [facility]UTES [facility] - 7 7 [facility] OUTPATIEN INC T OFFICE 64024 [facility] OUTPATIEN 7 7 [facility] V[facility] - 7 7 [facility] OUTPATIEN INC T OFFICE 65932 [facility] OUTPATIEN 7 7 [facility] V[facility] RAHDA - 7 7 [facility] OUTPATIEN INC T OFFICE 66268 [facility] OUTPATIEN 7 7 [facility] V[facility] - 7 7 [facility] OUTPATIEN INC T OFFICE 17556 [facility] OUTPATIEN 7 7 [facility] T VISIT 5 INC MINUTES OFFICE 42144 [facility] OUTPATIEN 7 7 [facility] T V[facility]IT [facility] INC [facility] - 7 7 [facility] OUTPATIEN INC T OFFICE 13741 [facility] 7 PHYSICIAN T [facility] RADHA - 7 7 [facility] OUTPATIEN INC T OFFICE 67584 [facility] OUTPATIEN 7 7 [facility] T V[facility]IT [facility] INC [facility] - 7 7 [facility]PATIEN INC [facility] - 7 7 [facility] OUTPATIEN INC T OFFICE 43638 [facility] OUTPATIEN 7 7 [facility] T V[facility]IT [facility] INC [facility] - 7 7 [facility]PAT[facility]EN INC [facility] - 7 7 [facility] OUTPATIEN INC T OFFICE 34306 [facility] OUTPATIEN 7 7 [facility] T VISIT 5 INC MINUTES OFFICE 06027 [facility] OUTPATIEN 7 7 [facility] T V[facility]IT [facility] INC [facility] - 7 7 [facility] OUTPATIEN INC T OFFICE 36356 [facility] OUTPATIEN 7 7 [facility] T V[facility]IT 5 INC [facility] - 7 7 [facility] OUTPATIEN INC T OFFICE 66930 [facility] AMMON CONSULTAT 7 7 PHYSICIAN ION S GROUP NEW/ESTAB PATIENT 30 MIN OFFICE 23030 YOU THOMAS OUTPATIEN 7 7 MEDICAL T VISIT SERV 25 FOUNDATIO MINUTES N HOSPITAL [facility] - 7 7 [facility] OUTPATIEN INC T OFFICE 89998 [facility] OUTPATIEN 7 7 [facility] T V[facility]IT [facility] INC [facility] - 7 7 [facility] OUTPATIEN INC T EMERGENCY 32902 DARLIN CORONEL 7 7 PHYSICIAN [facility] T VISIT MODERATE SEVERITY EMERGENCY 59649 [facility] 7 7 [facility] DEPARTMEN INC T VISIT LOW/MODER SEVERITY [facility]OSP[facility] - 7 7 [facility] OUTPATIEN INC T OFFICE 89889 [facility] OUTPATIEN 7 7 [facility] T VISIT 5 INC MINUTES OFFICE 47138 [facility] IVON OUTPATIEN 7 7 PHYSICIAN T VISIT S GROUP 25 MINUTES OFFICE 57931 [facility] OUTPATIEN 7 7 [facility] T VISIT 5 INC [facility] - 7 7 [facility] OUTPATIEN INC T [facility] - 7 7 [facility] OUTPATIEN INC T OFFICE 54972 [facility] OUTPATIEN 7 7 [facility] T VISIT 5 INC MINUTES [facility] EMERGENC[facility] 74411 [facility] DEPT 7 7 [facility] VISIT INC HIGH SEVERITY& THREAT [facility] RADHA - 7 7 [facility] OUTPATIEN INC T OFFICE 94014 [facility] OUTPATIEN 7 7 [facility] T VISIT 5 INC [facility] - 7 7 [facility] OUTPATIEN INC T OFFICE 40520 [facility] OUTPATIEN 7 7 [facility] T VISIT 5 INC MINUTES OFFICE 17455 [facility] OUTPATIEN 7 7 [facility] T V[facility]IT 5 INC [facility] - 7 7 [facility] OUTPATIEN INC T OFFICE 74590 [facility] OUTPATIEN 7 7 [facility] T V[facility]IT 5 INC [facility] - 7 7 [facility] OUTPATIEN INC T OFFICE 84992 [facility] OUTPATIEN 7 7 [facility] T V[facility]IT 5 INC [facility] - 7 7 [facility]PATIEN INC [facility] - 7 7 [facility] OUTPATIEN INC T OFFICE 21140 [facility] OUTPATIEN 7 7 [facility] T VISIT 5 INC MINUTES OFFICE 97190 [facility] OUTPATIEN 7 7 PHYSICIAN T VISIT S GROUP 15 MINUTES [facility] RADHA - 7 7 [facility] OUTPATIEN INC T OFFICE 99540 [facility] OUTPATIEN 7 7 [facility] T VISIT 5 INC [facility] - 7 7 [facility] OUTPATIEN INC T OFFICE 89596 [facility] OUTPATIEN 7 7 [facility] T VISIT 5 INC [facility] - 7 7 [facility] OUTPATIEN INC T OFFICE 92811 [facility] OUTPATIEN 7 7 [facility] T VISIT 5 INC [facility] - 7 7 [facility] 61020 [facility] - 7 7 [facility] OFF[facility] 05365 [facility] OUTPATIEN 7 7 PHYSICIAN T VISIT S GROUP 25 MINUT[facility] OFFICE 45520 [facility] OUTPATIEN 7 7 [facility] VISIT 5 INC MINUTES [facility]PITAL [facility] - 7 7 [facility] RADHA - 7 7 [facility] - 7 7 [facility] RAD[facility] - 6 6 [facility] RAD[facility] - 6 6 [facility] - 6 6 [facility] - 6 6 [facility] - 6 6 [facility] - 6 6 [facility] [address] [place] [address] [facility] - 6 6 [facility] RADHA - 6 6 [facility] RADHA - 6 6 [facility]EN [facility] OFFICE 87795 [place] [facility] XIANG OUTPATIEN 6 6 MEDICAL T NEW 45 SERV MINUTES [facility] RADHA [facility] 6 6 [facility]EN [facility] - 6 6 [facility] RADHA - 6 6 [facility] OFFICE 96159 [facility]PATI[facility] 6 6 [facility] T [facility]ISIT MEDICAL 40 G MINUTES HOSPITAL RAD[facility] - 6 6 [facility] RADHA - 6 6 [facility] OUTPATIEN [facility] OFFICE 51301 AMELIA CISNEROS OUTPATIEN 6 6 JAM JAM T VISIT 25 MINUTES [facility] RADHA - 6 6 [facility]EN [facility] T OFFICE 70789 [facility] OUTPATIEN 6 6 [facility] T [facility]ISIT S GROUP 25 MINUTES [facility] RADHA - 6 6 [facility] RADHA - 6 6 [facility]
--- OUTSIDE RECORDS SUMMARY | 2017-07-04 05:11 | External Medical Summary Rpt | CCD ---
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 Name Role Phone AYCINENA, AYCINENA Unavailable Unavailable BESSON, BESSON Unavailable Unavailable RIOJAS, RIOJAS Unavailable Unavailable [facility] Unavailable Unavailable SERVICE, [facility] Unavailable Unavailable SERVICE, [facility] LEATHA YASMIN, Unavailable Unavailable LEATHA YASMIN GARZA, GARZA Unavailable Unavailable CORONEL, JR, CORONEL, Unavailable Unavailable JR IVON, IVON Unavailable Unavailable IVON KEI, IVON Unavailable Unavailable KEI GAMBREL, GAMBREL Unavailable Unavailable [facility] Un[facility] Un[facility] INC, [facility] Unavailable Unavailable HOSPITAL P, [facility], Unavailable Unavailable [facility] DELFIN LENZ [facility]available Unavailable [facility] Unavailable Unavailable MEDICAL G, [facility] MEDICAL G [facility] NURSE Unavailable Unavailable PRACTITIONER GR, [facility] NURSE PRACTITIONER GR [facility] Un[facility], [facility] SY, SY Unavailable Unavailable [...] Unavailable Unavailable EQUIPME, [facility], Unavailable Unavailable [facility] Unavailable Unavailable HOSPITALS, [facility], [facility] VIOLETA, VIOLETA Unavailable Unavailable VIOLETA [...] W/STAGE 1-4 PLLC CKD OR UNS CKD [id number] ACUTE EMBO 05-26-2017 [facility] THROMB UNS PHYSICIANS, DEEP VEINS PLLC LOW EXTREM ARIADNA M545 LOW BACK 05-26-2017 [facility] PAIN [facility], PLLC N189 CHRONIC 05-26-2017 [facility] KIDNEY [facility], DISEASE PLLC UNSPECIFIED 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 05-14-2017 [facility] CURRENT USE [facility] OF INC ANTICOAGULA NTS Z952 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-14-2017 [facility] PROSTHETIC [facility] HEART INC VALVE Z5181 ENCOUNTER 04-18-2017 [facility] FOR [facility] THERAPEUTIC INC DRUG LEVEL MONITORING E785 HYPERLIPIDE 03-10-2017 [facility] NITIN PHYSICIANS UNSPECIFIED GROUP I10 ESSENTIAL 03-10-2017 [facility] PRIMARY PHYSICIANS HYPERTENSIO GROUP N I4891 UNSPECIFIED 03-10-2017 [facility] ATRIAL PHYSICIANS FIBRILLATIO GROUP N K5730 DIVERTICULO 02-13-2017 [facility] MEDICAL INTEST W/O IMAGING ASS PERF/ABSC W/O BLEED Z1211 ENCOUNTER 02-13-2017 [facility] SCREENING [facility] MALIGNANT INC NEOPLASM OF COLON [id number] ACUTE 02-04-2017 [facility] EMBOLISM & PHYSICIANS THROMBOSIS GROUP DEEP VEINS LT UP EXT D631 ANEMIA IN 02-03-2017 [facility] DISEASE E871 HYPO-OSMOLA 02-03-2017 [facility] HYPONATREMI FOUNDATION A N183 CHRONIC 02-03-2017 [facility] DISEASE [facility] STAGE 3 MODERATE [id number] CUTANEOUS 02-01-2017 [facility] ABSCESS OF [facility] LEFT UPPER INC LIMB L0889 OTH SPEC 02-01-2017 [facility] LOCAL PHYSICIANS, INFECTIONS PLLC THE SKIN & SUBQ TISSUE E119 TYPE 2 01-28-2017 [facility] DIABETES PHYSICIANS MELLITUS GROUP WITHOUT COMPLICATIO NS I998 OTHER 01-28-2017 [facility] DISORDER OF PHYSICIANS GROUP CIRCULATORY SYSTEM E1165 TYPE 2 01-20-2017 [facility] NURSE DIABETES PRACTITIONE MELLITUS R GR WITH HYPERGLYCEM IA Z794 REPAIR SERVICE DISPATCHER 01-20-2017 [facility] NURSE CURRENT USE PRACTITIONE OF INSULIN R GR I509 HEART 01-19-2017 [facility] UNSPECIFIED [facility] I5189 OTHER 01-19-2017 [facility] ILL-DEFINED [facility] HEART [facility] DISEASES E108 TYPE 1 01-18-2017 [facility] DIABETES PHYSICIANS, MELLITUS PLLC W/UNSPEC COMPLICATIO NS E1122 TYPE 2 01-18-2017 [facility] W/DIAB CHRON KIDNEY DZ I2510 ASHD GAMBELL 01-18-2017 [facility] CORONARY [facility] ARTERY W/O [facility]OUNDATION ANGINA PECTORIS I447 LEFT 01-18-2017 [facility] BUNDLE-BRAN SERV CH BLOCK FOUNDATION UNSPECIFIED I454 NONSPECIFIC 01-18-2017 [facility] INTRAVENTRI [facility] CULAR BLOCK I482 CHRONIC 01-18-2017 [facility] ATRIAL PHYSICIANS, FIBRILLATIO [facility] N I498 OTHER 01-18-2017 [place] [facility] SPECIFIED SERV CARDIAC FOUNDATION ARRHYTHMIAS I517 CARDIOMEGAL 01-18-2017 [facility] Y [facility] F85500 OTH 01-18-2017 [facility] P EXTREM OT EXTREMITY I708 ATHEROSCLER 01-18-2017 [facility] OSIS OF SERV OTHER FOUNDATION ARTERIES I742 EMBOLISM & 01-18-2017 [place] [facility] ART THE HOSPI UPPER EXTREMITIES I8290 ACUTE 01-18-2017 [facility] EMBOLISM & AMBULANCE THROMBOSIS SERVICE OF UNSPECIFIED VEIN I959 HYPOTENSION 01-18-2017 [facility] AMBULANCE UNSPECIFIED SERVICE L07566 OTH INTRAOP 01-18-2017 [place] [facility] C[facility] FUNC SERV DIST DURING [facility] OTH SURGERY W97057 PAIN IN 01-18-2017 [place] [facility] MEDICAL SHOULDER IMAGING ASS M7989 OTHER 01-18-2017 [place] [facility] SPECIFIED [facility] SOFT TISSUE FOUNDATION DISORDERS R001 BRADYCARDIA 01-18-2017 [facility] UNSPECIFIED [facility]OUNDATION R0989 OTH SPEC SX 01-18-2017 [facility] SIGNS SERV INVLV THE FOUNDATION CIRC & RESP SYS R748 ABNORMAL 01-18-2017 [place] [facility] LEVELS OF SERV OTHER SERUM FOUNDATION ENZYMES R791 ABNORMAL 01-18-2017 [place] [facility] COAGULATION SERV PROFILE FOUNDATION R7989 OTHER SPEC 01-18-2017 [facility] ABNORMAL PHYSICIANS, FINDINGS [facility] BLOOD CHEMISTRY R9431 ABNORMAL 01-18-2017 [place] [facility] ELECTROCARD SERV IOGRAM [facility] Z4682 ENCOUNTER 01-18-2017 [place] [facility] FITTING [facility] SERV ADJUST [facility] NON-VASCULA R CATHETER B45111 ENCOUNTER 01-18-2017 [place] [facility] SURG [facility] AFTERCARE [facility] FLW SURG TEETH/ORAL CAV Y81659 PERSONAL 01-18-2017 [place] [facility] H[facility] OT Aqdot VENOUS FOUNDATION THROMBOSIS& EMBOLISM Z951 PRESENCE OF 01-18-2017 [facility] [place] [facility] RY BYPASS GRAFT Z9911 DEPENDENCE 01-18-2017 [place] [facility] RESPIRATOR [facility] VENTILATOR STATUS E039 HYPOTHYROID 12-31-2016 [facility] ISM PHYSICIANS UNSPECIFIED GROUP E663 OVERWEIGHT 12-31-2016 [facility] PH[facility]ICIANS GROUP G4730 SLEEP APNEA 11-29-2016 [facility] HOSP UNSPECIFIED INC I5043 ACUTE ON 11-18-2016 [facility] CHRONIC HEALTH COMB MEDICAL G SYSTOLIC & DIASTOLIC CHF J449 CHRONIC 10-25-2016 [facility] OBSTRUCTIVE HOME PULMONARY MEDICAL DISEASE UNS EQUIPME I5023 ACUTE CHRON 08-14-2016 [facility] SYSTOLIC HEALTH HEART MEDICAL G FAILURE R931 ABNORMAL 08-14-2016 [facility] FINDINGS ON HOSPITAL DX IMAGING HEART & COR CIRC Z969 PRESENCE OF 08-14-2016 [facility] IMPLANT UNSPECIFIED R23343 VITREOUS 06-26-2016 [facility] MARYCRUZ HERNANDEZ N RIGHT EYE I44083 VITREOUS 06-26-2016 [facility] HERNANDEZ N LEFT EYE [...] CY BL NT ET HI AN A WY 68 09 09 30 30 00 HO [...] 80 6- 9- 00 06 TO ve [place] 21 20 20 09 WN DE 61 17 17 13 0 96 PH 40 AR MA MG CY TA OF BL ET CY NT HI AN A LI 68 09 09 30 30 00 HO Ac SI 18 -0 -2 .0 00 ME ti NO 00 6- 9- 00 06 TO ve WY 51 20 20 09 WN IL 80 [...] 80 6- 8- 00 06 TO ve [place] 21 20 20 09 WN DE 61 17 17 13 0 96 PH 40 AR MA MG CY TA OF BL ET CY NT HI AN A LI 68 07 08 30 30 00 HO Ac SI 18 -2 -1 .0 00 ME ti NO 00 6- 8- 00 06 TO ve WY 51 20 20 09 WN IL 80 [...] BL ET CY NT HI AN A WY 68 07 08 30 30 00 HO [...] 00 8- 1- 00 06 TO ve WY 51 20 20 07 WN IL 80 [...] 50 8- 1- 00 06 TO ve [place] 11 20 20 07 WN DE 71 17 17 37 0 31 PH 40 AR MA MG CY TA OF BL ET CY NT HI AN A WY 68 06 07 30 30 00 HO [...] 00 1- 3- 00 06 TO ve WY 51 20 20 07 WN IL 80 [...] BL ET CY NT HI AN A WY 68 05 06 30 30 00 HO [...] 80 1- 3- 00 06 TO ve [place] 21 20 20 07 WN DE 61 [...] ME ti NO 00 06 TO ve WY 51 20 20 07 WN IL 80 [...] CY BL NT ET HI AN A WY 68 04 05 30 30 00 HO [...] ME ti SE 50 06 TO ve [place] 11 20 20 07 WN DE 71 [...] ME ti NO 00 06 TO ve WY 51 20 20 07 WN IL 80 [...] BL ET CY NT HI AN A WY 68 03 04 30 30 00 HO [...] SE 50 1- 4- 06 TO ve [place] 11 20 20 07 WN DE 71 [...] NO 00 6- 7- 06 TO ve WY 51 20 20 07 WN IL 80 [...] BL ET CY NT HI AN A WY 68 02 03 30 30 00 HO [...] 50 6- 7- 00 06 TO ve [place] 11 20 20 07 WN DE 71 [...] 50 9- 7- 00 06 TO ve [place] 11 20 20 07 WN DE 71 [...] CY BL NT ET HI AN A WY 68 01 02 30 30 00 HO [...] NO 00 0- 7- 06 TO ve WY 51 20 20 07 WN IL 80 [...] ME ti SE 50 06 TO ve [place] 11 20 20 07 WN DE 71 [...] ti NO 00 9- 06 TO ve WY 51 20 20 05 WN IL 80 [...] BL ET CY NT HI AN A WY 68 12 01 30 30 00 HO [...] INC USED W/POS ARWAY PRESSURE DEVICE PROTHROMB 27788 [facility] IN TIME 7 [facility] INC PROTHROMB 12873 [facility] GARCIA IN TIME 7 [facility] RESP ASST E0470 PATIENT PATIENT DEVC 7 AIDS INC AIDS INC BI-LEVL PRSS CAPABILIT Y W/O BACKU HUMDIFIR E0562 PATIENT PATIENT HEATED 7 AIDS INC AIDS INC USED W/POS ARWAY PRESSURE DEVICE PROTHROMB 63682 [facility] GARCIA IN TIME 7 [facility] INC RESP ASST E0470 PATIENT PATIENT DEVC 7 AIDS INC AIDS INC BI-LEVL PRSS CAPABILIT Y W/O BACKU HUMDIFIR E0562 PATIENT PATIENT HEATED 7 AIDS INC AIDS INC USED W/POS ARWAY PRESSURE DEVICE PROTHROMB 74215 [facility] GARCIA IN TIME 7 [facility] INC INC PROTHROMB 80499 [facility] GARCIA IN TIME 7 [facility] INC PROTHROMB 66165 [facility] GARCIA IN TIME 7 [facility] INC INC PROTHROMB 57463 [facility] GARCIA IN TIME 7 [facility] INC INC COLLECTIO 61999 [facility] GARCIA N VENOUS 7 [facility] BLOOD INC INC VENIPUNCT URE PROTHROMB 56181 [facility] GARCIA IN TIME 7 [facility] RESP ASST E0470 PATIENT PATIENT DEVC 7 AIDS INC AIDS INC BI-LEVL PRSS CAPABILIT Y W/O BACKU HUMDIFIR E0562 PATIENT PATIENT HEATED 7 AIDS INC AIDS INC USED W/POS ARWAY PRESSURE DEVICE PROTHROMB 31003 [facility] GARCIA IN TIME 7 [facility] PROTHROMB 79414 [facility] GARCIA IN TIME 7 [facility] COLLECTIO 23085 [facility] G[facility] N VENOUS 7 [facility] BLOOD [facility] INC VENIPUNCT URE RAD EXP G9501 [place] [facility] INDCS/EXP 7 MEDICAL TM & NO IMAGING FLUORO ASS IMG N DOC N RSN PROTHROMB 74466 [facility] IN TIME 7 [facility] RADEX 69732 [facility] COLON 7 [facility] BARIUM [facility] INC ENEMA W/WO KUB PROTHROMB 29554 [facility] IN TIME 7 [facility] PROTHROMB 66598 [facility]IA IN TIME 7 [facility] PROTHROMB 86292 [facility] GARCIA IN TIME 7 [facility] CUL BACT 71071 [facility]IA XCPT 7 [facility] URINE INC INC BLOOD/STO OL AEROBIC ISOL CUL BACT 12030 [facility] GACRIA AEROBIC 7 [facility] ADDL [facility] INC METHS DEFINITIV E EA ISOL SUSCEPTIB 81875 [facility] LTY STDY 7 [facility] ANTIMICRB INC INC IAL MICRO/AGA R DILUTJ PROTHROMB 36706 [facility] GARCIA IN TIME 7 [facility] PROTHROMB 69632 [facility] G[facility]IA IN TIME 7 [facility] RESP ASST E0470 PATIENT PATIENT DEVC 7 AIDS INC AIDS INC BI-LEVL PRSS CAPABILIT Y W/O BACKU HUMDIFIR E0562 PATIENT PATIENT HEATED 7 AIDS INC AIDS INC USED W/POS ARWAY PRESSURE DEVICE PROTHROMB 67324 [facility] G[facility]IA IN TIME 7 [facility] INC INC SBSQ 12303 [place] [address] NURSE CARE/DAY PRACTITIO 15 NER GR MINUTES SBSQ 06398 [place] [address] NURSE CARE/DAY PRACTITIO 15 NER GR MINUTES SBSQ 49747 [place] [address] NURSE CARE/DAY PRACTITIO 15 NER GR MINUTES INITIAL 11242 [facility] INPATIENT 7 NURSE CONSULT PRACTITIO NEW/ESTAB NER GR PT 80 MIN SBSQ 10923 [facility] 7 MEDICAL CARE/DAY SERV 25 FOUNDATIO MINUTES N ECG 80566 YOU LENZ ROUTINE 7 MEDICAL ECG SERV W/LEAST FOUNDATIO 12 LDS N I&R ONLY ECHO 72617 YOU LOZADA TTC R-T 7 MEDICAL 2D SERV W/WOM-MOD FOUNDATIO E COMPL N SPEC&COLR D ECG 57301 [facility] CRUZ ROUTINE 7 [facility] W/LEAST P 12 LDS I&[place] [address] RAD[facility] GARCIA INFUSION 7 [facility] THERAPY/P INC INC ROPHYLAXI S /DX 1ST TO 1 HR THERAPEUT 84170 [facility] IC 7 [facility] INJECTION INC INC IV PUSH EACH NEW DRUG GLUC BLD 73033 [facility] GLUC MNTR 7 [facility] DEV INC INC CLEARED FDA SPEC HOME USE RADEX 50041 [facility]IA SHOULDER 7 [facility] COMPLETE INC INC MINIMUM 2 VIEWS HEMOGLOBI 11143 [facility] N 7 [facility] GLYCOSYLA INC INC AJAY A1C CRITICAL 77995 [facility] 7 PHYSICIAN ILL/INJUR S, PLLC ED PATIENT INIT 30-74 MIN AMB A0427 [facility] 7 AMBULANCE AMBULANCE ALS SERVICE SERVICE EMERGENCY TRANSPORT LEVEL 1 ANESTHESI 16153 YOU GAMBREL A 7 MEDICAL ARTERIES SERV UPPER FOUNDATIO ARM&ELBOW N EMBOLECTO M COMPREHEN 30387 [facility]IA SIVE 7 [facility] METABOLIC INC INC PANEL RADIOLOGI 87123 [place] REAL C 7 MEDICAL KENYA EXAMINATI SERV ON [place] [address] YOU SOLITARIO ANGIOGRAP 7 MEDICAL HY UPPER SERV EXTREMITY FOUNDATIO N ECG 44140 [facility] G[facility]IA ROUTINE 7 [facility] ECG INC INC W/LEAST 12 LDS TRCG ONLY W/O I&R INITIAL 95869 [facility] 7 MEDICAL CARE/DAY SERV 70 FOUNDATIO MINUTES N EMBLC/THR 13539 [place] BRIANA[place] MBC AX 7 MEDICAL BRACH SERV INNOMINAT FOUNDATIO E SUBCLA N ART EMBLC/THR 52836 YOU WARRENOS MBC W/WO 7 MEDICAL CATH SERV RADIAL/UL [place]OUNDAT[place] [address] [facility] GARCIA TROPONIN 7 [facility] QUANTITAT INC INC ELYSSA LEVEL III 45824 UNIVERSIT SY SURG 7 Y OF PATHOLOGY [facility] GROSS&KEI ROSCOPIC EXAM PROTHROMB 24593 [facility] GARCIA IN TIME 7 [facility] INC INC BLOOD 95329 [facility] G[facility]IA COUNT 7 [facility] COMPLETE INC INC AUTO&AUTO DIFRNTL WBC INITIAL 04922 YOU [facility] INPATIENT 7 MEDICAL CONSULT SERV NEW/ESTAB FOUNDATIO PT 110 N MIN GROUND A0425 [facility] MILEAGE 7 AMBULANCE AMBULANCE PER SERVICE SERVICE STATUTE MILE EXTIRPATI [id number] [facility]TER 7 [facility] LEFT E E ULNAR HOSPITALS HOSPITALS ARTERY OPEN APPRCH EXTIRPATI [id number] [facility] 7 HEALTHCAR HEALTHCAR LT E E RADIAL HOSPITALS HOSPITALS ARTERY OPEN APPRCH EXTIRPATI [id number] [facility] MATTER 7 HEALTHCAR HEALTHCAR LEFT E E AXILLARY HOSPITALS HOSPITALS ARTERY OPEN EXTIRPATI [id number] [facility] MATTER 7 HEALTHCAR HEALTHCAR LEFT E E SUBCLAVIA HOSPITALS HOSPITALS N ARTERY OPEN PROTHROMB 48392 [facility] GARCIA IN TIME 7 [facility] INC INC PROTHROMB 91011 RAD[facility] GARCIA IN TIME 7 [facility] INC INC PROTHROMB 56140 [facility] GARCIA IN TIME 7 [facility] PROTHROMB 32293 [facility] GARCIA IN TIME 7 [facility] PROTHROMB 58183 [facility] IN TIME 7 [facility] PROTHROMB 01246 [facility] GARCIA IN TIME 7 [facility] RESP ASST E0470 PATIENT PATIENT DEVC 7 AIDS [facility] AIDS INC BI-LEVL PRSS CAPABILIT Y W/O BACKU HUMDIFIR E0562 PATIENT PATIENT HEATED 7 AIDS [facility] AIDS INC USED W/POS ARWAY PRESSURE DEVICE TUBING A7037 PATIENT PATIENT USED WITH 7 AIDS [facility] AIDS [facility] POSITIVE AIRWAY PRESSURE DEVICE PROTHROMB 05394 [facility] GARCIA IN TIME 7 [facility] PROTHROMB 21717 [facility] GARCIA IN TIME 7 [facility] POLYSOM 01739 [facility] GARCIA 6/>YRS 7 [facility] SLEEP 4/> INC INC ADDL KENDRA ATTND PROTHROMB 30941 [facility] RADHA IN TIME 7 [facility] ECG 43591 [facility] ROUTINE 7 COUNT [facility]CLUDES [facility] ECG MEDICAL W/LEAST G 12 LDS W/I&[place] [address] RAD[facility] GARCIA FREE 7 [facility] THYROXINE [place] [address] [facility] G[facility] THYROID 7 [facility] STIMULATI [facility] INC NG HORMONE TSH HEMOGLOBI 61775 [facility] GARCIA N 7 MEM H[facility] GLYCOSYLA INC INC AJAY A1C FULL FACE A7030 TIFF[facility] ALLEN MASK 7 HOME HOME USED MEDICAL MEDICAL W/POS EQUIPME EQUIPME ARWAY PRESS DEVICE EA PROTHROMB 11908 RAD[facility] RADHA IN TIME 7 [facility] H[facility] INC TUBING A7037 TIFFANY ALLEN USED WITH 7 HOME HOME POSITIVE MEDICAL MEDICAL AIRWAY EQUIPME EQUIPME PRESSURE DEVICE HEADGEAR A7035 [facility] ALLEN USED 7 HOME HOME W/POSITIV MEDICAL MEDICAL E AIRWAY EQUIPME EQUIPME PRESSURE DEVICE HOSPITAL G0463 [facility] G[facility]IA OUTPATIEN 7 [facility] T CLIN INC INC VISIT ASSESS & MGMT PT PROTHROMB 59727 [facility] IN TIME 7 [facility] INC INC PROTHROMB 53467 [facility] GARCIA IN TIME 7 [facility] G0463 [facility] GARCIA OUTPATIEN 7 [facility] T CLIN INC INC VISIT ASSESS & MGMT PT HOSPITAL G0463 [facility] OUTPATIEN 6 [facility] T CLIN INC INC VISIT ASSESS & MGMT PT PROTHROMB 27019 [facility] GARCIA IN TIME 6 [facility] INC INC PROTHROMB 26734 [facility] GARCIA IN TIME 6 [facility] INC [facility] G0463 [facility] GARCIA OUTPATIEN 6 [facility] T CLIN INC INC VISIT ASSESS & MGMT PT PROTHROMB 20909 [facility] GARCIA IN TIME 6 [facility] INC INC COLLECTIO 46108 [facility] GARCIA N VENOUS 6 [facility] BLOOD INC INC VENIPUNCT URE THERAPEUT 13202 [facility] GARCIA IC 6 [facility] PROPHYLAC INC INC TIC/DX INJECTION SUBQ/IM PROTHROMB 75777 [facility] GARCIA IN TIME 6 [facility] INC [facility] G0463 [facility] GARCIA OUTPATIEN 6 [facility] T CLIN INC INC VISIT ASSESS & MGMT PT PROTHROMB 71469 [facility] GARCIA IN TIME 6 [facility] INC INC ALBUMIN 15354 RAD[facility] GARCIA URINE 6 [facility] MICROALBU [place] [address] RADHA GARCIA PARATHORM 6 [facility] ONE INC INC COLLECTIO 61485 RAD[facility] GARCIA N VENOUS 6 [facility] BLOOD INC INC VENIPUNCT URE 25 42416 RADHA GARCIA HYDROXY 6 [facility] INCLUDES INC INC FRACTIONS IF PERFORMED CALCIUM 28955 [facility] G[facility] IONIZED 6 [place] [address] [facility] GARCIA BLOOD/URI 6 [facility] C ACID INC INC URNLS DIP 88292 [facility] G[facility]IA 6 [facility] STICK/TAB INC INC LET REAGENT AUTO MICROSCOP Y BLOOD 09821 [facility] G[facility]IA COUNT 6 [facility] COMPLETE INC INC AUTO&AUTO DIFRNTL WBC RENAL 47178 [facility] G[facility]IA FUNCTION 6 [place] [address] RADHA GARCIA RETROPERI 6 [facility] TONEAL INC [place] [address] [facility] RETROPERI 6 MEDICAL YASMIN TONEAL IMAGING REAL TIME ASS W/IMAGE LIMITED BASIC [address] PANEL CALCIUM TOTAL ECHO 42400 [facility] R[facility]T 6 [facility] 2D MEDICAL W/WOM-MOD G E COMPL SPEC&COLR D COLLECTIO 74283 [facility] N VENOUS [address] [place] [place] [address] BLOOD VENIPUNCT URE PROTHROMB 06486 [facility] IN TIME [address] [place] [address] G0463 [facility] G[facility]IA OUTPATIEN 6 [facility] T CLIN INC INC VISIT ASSESS & MGMT PT PROTHROMB 96095 [facility] GARCIA IN TIME 6 [facility] INC [facility] G0463 RADHACAROLA GARCIA OUTPATIEN 6 [facility] T CLIN INC INC VISIT ASSESS & MGMT PT PROTHROMB 07354 RADHACAROLA GARCIA IN TIME 6 MEM H[facility] HOSP INC INC COLLECTIO 96349 RADHA GARCIA N VENOUS 6 MEM [facility] HOSP BLOOD INC INC VENIPUNCT URE COLLECTIO 23557 RADHA GARCIA N VENOUS 6 MEM [facility]OS[facility] BLOOD INC INC VENIPUNCT URE PROTHROMB 16186 RADHA GARCIA IN TIME 6 [facility] INC [facility] G0463 RADHA GARCIA OUTPATIEN 6 MEM H[facility] T CLIN INC INC VISIT ASSESS & MGMT PT COLLECTIO 31850 [facility] GARCIA N VENOUS 6 [facility] BLOOD INC INC VENIPUNCT URE 25 08751 [facility] G[facility] HYDROXY 6 [facility] INCLUDES [place] [address] RADHACAROLA GARCIA PARATHORM 6 [facility] ONE INC INC CREATININ 56500 [facility] LOPEZON E OTHER 6 [facility] SOURCE INC INC PROTEIN 34795 [facility] XCPT 6 [facility] REFRACTOM INC INC ETRY SERUM PLASMA/WH L BLD BLOOD 54751 [facility] LOPEZON COUNT 6 [facility] COMPLETE INC INC AUTO&AUTO DIFRNTL WBC URNLS DIP 12289 [facility]HA [facility] STICK/TAB INC INC LET REAGENT AUTO MICROSCOP Y RENAL 44550 [facility] FUNCTION 6 [facility] PANEL [facility] G0463 [facility] OUTPATIEN 6 [facility]IN INC INC VISIT ASSESS & MGMT PT PROTHROMB 03639 [facility] IN TIME 6 [facility] G0463 [facility] G[facility] OUTPATIEN 6 [facility]IN INC INC VISIT ASSESS & MGMT PT PROTHROMB 81618 [facility] G[facility]IA IN TIME 6 [facility] INC ECG 90699 [facility] ROUTINE 6 [facility] ECG MEDICAL W/LEAST G [address] [facility] W/I&R HOSPITAL G0463 RADHA GARCIA OUTPATIEN 6 [facility] CLIN INC INC VISIT ASSESS & MGMT PT PROTHROMB 75093 [facility]ARCIA IN TIME 6 [facility] G0463 [facility] GARCIA OUTPATIEN 6 [facility]IN INC INC VISIT ASSESS & MGMT PT PROTHROMB 04044 [facility] G[facility]IA IN TIME 6 [facility] INC INC COLLECTIO 07045 RAHDA GARCIA N VENOUS 6 [facility] BLOOD INC INC VENIPUNCT URE COLLECTIO 57108 [facility] GARCIA N VENOUS 6 [facility] BLOOD INC INC VENIPUNCT URE COMPREHEN 29413 [facility] SIVE 6 [facility] [place] [address] [facility] GARCIA FREE 6 [facility] [place] [address] [facility] THYROID 6 [facility] STIMULATI INC INC NG HORMONE TSH HEMOGLOBI 23735 [facility] N 6 [facility] GLYCOSYLA INC INC AJAY A1C BLOOD 33241 [facility] COUNT 6 [facility] COMPLETE INC INC AUTO&AUTO DIFRNTL WBC LIPID 09559 [facility] PANEL 6 [facility] G0463 [facility] G[facility] OUTPATIEN 6 [facility] INC VISIT ASSESS & MGMT PT PROTHROMB 82872 [facility]HA IN TIME 6 [facility] INC PROTHROMB 34012 [facility] IN TIME 6 [facility] INC COLLECTIO 53217 [facility] G[facility] N VENOUS 6 [facility] BLOOD INC INC VENIPUNCT [facility] G0463 [facility] OUTPATIEN 6 [facility] INC VISIT ASSESS & MGMT PT Encounters Encounter Start End Date Code Location Performer Type Date EMERGENCY 90344 [facility] DEPT 7 7 [facility] HIGH SEVERITY& THREAT FUNJ OFFICE 19032 [facility] MONROYEN 7 7 [facility] V[facility] OUTPATIEN INC T OFFICE 74290 [facility] OUTPATIEN 7 7 PHYSICIAN T VISIT S GROUP [facility] - 7 7 [facility] OUT[facility]IEN [facility] T OFFICE [id number] [facility] OFF[facility] 93871 [facility] T OFFICE 68541 [facility] T OFFICE 99033 [facility] 7 [facility]ISIT 5 INC MINUTES OFFICE 32674 [facility] T OFF[facility] 12700 [facility] 7 [facility]IC[facility] T [facility] [address] [facility] - 7 7 [facility] T OFFICE 14289 [facility] 7 [facility] - 7 7 [facility] INC T OFFICE 18492 [facility] T OFFICE 66043 [facility] 7 [facility] T VISIT 5 INC MINUTES OFFICE 57374 [facility] T OFFICE 55487 [facility] T OFFICE 10076 [facility] AMMON CONSULTAT 7 7 PHYSICIAN ION S GROUP NEW/ESTAB PATIENT 30 MIN OFFICE 92529 [facility]AS OUTPATIEN 7 7 MEDICAL T VISIT SERV 25 FOUNDATIO MINUTES N [facility]OSP[facility] 7 [facility] T OFFICE 92941 [facility] V[facility] 7 [facility] INC T EMERGENCY 70122 DAR[facility] CORONEL 7 7 [facility] T VISIT MODERATE SEVERITY EMERGENCY 12986 [facility] 7 7 [facility] DEPARTMEN INC T VISIT LOW/MODER SEVERITY [facility] T OFFICE 55982 [facility] 7 7 [facility] T VISIT 5 INC MINUTES OFFICE 84510 [facility] IVON OUTPATIEN 7 7 PHYSICIAN T VISIT S GROUP 25 MINUTES OFFICE 04841 [facility] 7 [facility] 7 [facility] T OFFICE 78520 [facility] 7 [facility] V[facility] 5 [facility] EMERGENC[facility] 28426 [facility] DEPT 7 7 [facility] VISIT INC HIGH SEVERITY& THREAT [facility] - 7 7 [facility] OUTPATIEN INC T OFFICE 71235 [facility] 7 [facility] 7 7 [facility] INC T OFFICE 63333 [facility] 7 7 [facility] T [facility]ISIT 5 INC MINUTES OFFICE 27084 [facility] 7 7 [facility] V[facility] 7 7 [facility] INC T OFFICE 66261 [facility] 7 7 [facility] 7 [facility] INC T OFFICE 68433 [facility] 7 7 [facility] T [facility] INC [facility] 7 7 [facility] OUTPATIEN INC [facility] - 7 7 [facility] OUTPATIEN INC T OFFICE 91015 [facility] 7 7 [facility] T [facility]ISIT 5 INC MINUTES OFFICE 29793 [facility] OUTPATIEN 7 7 PHYSICIAN T [facility]ISIT S GROUP 15 MINUTES [facility] INC T OFFICE 41047 [facility] 7 [facility] 7 7 [facility] INC T OFFICE 83489 [facility] 7 7 [facility] 7 7 [facility] INC T OFFICE 65145 [facility] 7 7 [facility] T [facility] 5 INC [facility] 7 7 [facility] 7 7 [facility] OFFICE 09724 [facility] OUTPATIEN 7 7 PHYSICIAN T VISIT S GROUP 25 MINUT[facility] OFFICE 67868 [facility] 7 7 [facility] VISIT 5 INC MINUTES [facility] - 7 7 [facility] - 7 7 [facility] - 7 7 [facility] - 6 6 [facility] - 6 6 [facility] - 6 6 [facility] - 6 6 [facility] - 6 6 [facility] - 6 6 [facility] [address] [place] [address] [facility] 6 6 [facility] - 6 6 [facility] - 6 6 [facility]PATI[facility] OFFICE 50946 [place] [facility] OUTPATIEN 6 6 MEDICAL T NEW 45 SERV MINUTES [facility] - 6 6 [facility]IEN [facility] - 6 6 [facility] - 6 6 [facility] OFFICE 75936 [facility] 6 6 [facility] T VISIT MEDICAL 40 G MINUTES [facility]OSP[facility] - 6 6 [facility] OUTPATIEN [facility] - 6 6 [facility]IEN [facility] OFFICE 88389 [facility] CISNEROS OUTPAT[facility]EN 6 6 JAM JAM T [facility]ISIT 25 MINUTES [facility] 6 6 [facility] OUTPATIEN [facility] T OFFICE 68045 [facility] OUTPATIEN 6 6 PHYSICIAN [facility] T [facility]ISIT S GROUP 25 MINUTES [facility] - 6 6 [facility] - 6 6 [facility]
--- OUTSIDE RECORDS SUMMARY | 2017-07-04 05:13 | External Medical Summary Rpt | CCD ---
Demographics Preferred Language Kazakh Marital Status Unknown Yarsani Affiliation Unknown Race Unknown Ethnic Group Unknown Author Author , MITA IRELAND Address Unknown Phone Immunization No patient found.
--- OUTSIDE RECORDS SUMMARY | 2017-07-04 05:13 | External Medical Summary Rpt | CCD ---
Demographics Preferred Language Latvian Marital Status Unknown Jainism Affiliation Unknown Race Unknown Ethnic Group Unknown Author Author , MITA IRELAND Address Unknown Phone Immunization No patient found.
--- OUTSIDE RECORDS SUMMARY | 2017-07-04 07:20 | External Medical Summary Rpt | CCD ---
Author Author , BEKA Organization BEKA Address Unknown Phone [email or web address] Care Team Providers Care Silverware Buffer Name Role Phone AYCINENA, AYCINENA Unavailable Unavailable BESSON, BESSON Unavailable Unavailable RIOJAS, RIOJAS Unavailable Unavailable [facility] Unavailable Unavailable SERVICE, [facility] Unavailable Unavailable SERVICE, [facility] LEATHA YASMIN, Unavailable Unavailable LEATHA YASMIN GARZA, GARZA Unavailable Unavailable JR CORONEL FULLER, Unavailable Unavailable JR IVON, IVON Unavailable Unavailable IVON KEI, IVON Unavailable Unavailable KEI GAMBREL, GAMBREL Unavailable Unavailable [facility] Unavailable Unavailable INC, [facility] Unavailable Unavailable HOSPITAL P, [facility], Unavailable Unavailable [facility] DELFIN LENZ Unavailable Unavailable [facility], [facility] Unavailable Unavailable MEDICAL G, [facility] NURSE Unavailable Unavailable PRACTITIONER GR, [facility] NURSE PRACTITIONER GR [facility] Un[facility], [facility] SY DAN Unavailable Unavailable AMELIA HERNANDEZ, Unavailable Unavailable CISNEROSJOSE A CISNEROS JAM, Unavailable Unavailable CISNEROSSOLITARIO HINES Unavailable Unavailable [facility], Unavailable Unavailable PLL[facility], [facility], Unavailable Unavailable [facility], Unavailable Unavailable [facility] PAVEZ, PAVEZ Unavailable Unavailable REAL KENYA, Unavailable Unavailable REAL KENYA AMMON, AMMON Unavailable Unavailable CONNER, CONNER Unavailable Unavailable SADEK, SADEK Unavailable Unavailable RIMA, RIMA Unavailable Unavailable [facility] Unavailable Unavailable EQUIPME, [facility] Unavailable Unavailable [facility]QU[facility]ME, [facility], Unavailable Unavailable [facility] Unavailable Unavailable HOSPITALS, [facility] Unavailable [facility] VIOLETA, VIOLETA Unavailable Unavailable VIOLETA XIANG, [...] W/STAGE 1-4 PLLC CKD OR UNS CKD [id number] ACUTE EMBO 05-26-2017 [facility] THROMB UNS [facility]YSICIANS, DEEP VEINS PLLC LOW EXTREM ARIADNA M545 LOW BACK 05-26-2017 [facility] PAIN [facility] N189 CHRONIC 05-26-2017 [facility] KIDNEY [facility], DISEASE PLLC UNSPECIFIED Z7901 PENITENTIARY 05-14-2017 [facility] CURRENT USE [facility] OF INC ANTICOAGULA NTS Z952 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-14-2017 [facility] PROSTHETIC [facility] HEART INC VALVE Z5181 ENCOUNTER 04-18-2017 [facility] FOR [facility] THERAPEUTIC INC DRUG LEVEL MONITORING E785 HYPERLIPIDE 03-10-2017 [facility] NITIN PHYSICIANS UNSPECIFIED GROUP I10 ESSENTIAL 03-10-2017 [facility] PRIMARY PHYSICIANS HYPERTENSIO GROUP N I4891 UNSPECIFIED 03-10-2017 [facility] ATRIAL PHYSICIANS FIBRILLATIO GROUP N K5730 DIVERTICULO 02-13-2017 [facility] INTEST W/O IMAGING ASS PERF/ABSC W/O BLEED Z1211 ENCOUNTER 02-13-2017 [facility] SCREENING [facility] MALIGNANT INC NEOPLASM OF COLON K04562 ACUTE 02-04-2017 [facility] EMBOLISM & PHYSICIANS THROMBOSIS GROUP DEEP VEINS LT UP EXT D631 ANEMIA IN 02-03-2017 [facility] DISEASE E871 HYPO-OSMOLA 02-03-2017 [facility] HYPONATREMI FOUNDATION A N183 CHRONIC 02-03-2017 [facility] DISEASE [facility] STAGE 3 MODERATE [id number] CUTANEOUS 02-01-2017 [facility] ABSCESS OF [facility] LEFT UPPER INC LIMB L0889 OTH SPEC 02-01-2017 [facility] LOCAL [facility]YSIC[facility]ANS, INFECTIONS PLLC THE SKIN & SUBQ TISSUE E119 TYPE 2 01-28-2017 [facility] DIABETES PHYSICIANS MELLITUS GROUP WITHOUT COMPLICATIO NS I998 OTHER 01-28-2017 [facility] DISORDER OF PHYSICIANS GROUP CIRCULATORY SYSTEM E1165 TYPE 2 01-20-2017 [facility] NURSE DIABETES PRACTITIONE MELLITUS R GR WITH HYPERGLYCEM IA Z794 PENITENTIARY 01-20-2017 [facility] NURSE CURRENT USE PRACTITIONE OF INSULIN R GR I509 HEART 01-19-2017 [place] [facility] FAILURE [facility] UNSPECIFIED FOUNDATION I5189 OTHER 01-19-2017 [facility] I[facility]-DEFINED SERV HEART [facility]OUND[facility] DISEASES E108 TYPE 1 01-18-2017 [facility] DIABETES PHYSICIANS, MELLITUS PLLC W/UNSPEC COMPLICATIO NS E1122 TYPE 2 01-18-2017 [facility] W/DIAB CHRON KIDNEY DZ I2510 ASHD WIYOT 01-18-2017 [facility] COR[facility]ARY [facility] ARTERY W/O FOUNDATION ANGINA PECTORIS I447 LEFT 01-18-2017 [facility] BUNDLE-BRAN SERV CH BLOCK FOUNDATION UNSPECIFIED I454 NONSPECIFIC 01-18-2017 [facility] INTRAVENTRI [facility] CULAR BLOCK I482 CHRONIC 01-18-2017 [facility] ATRIAL PHYSICIANS, FIBRILLATIO [facility] N I498 OTHER 01-18-2017 [facility] SPECIFIED SERV CARDIAC FOUNDATION ARRHYTHMIAS I517 CARDIOMEGAL 01-18-2017 [facility] Y [facility] R94432 OTH 01-18-2017 [facility] P EXTREM OT EXTREMITY I708 ATHEROSCLER 01-18-2017 [facility] OSIS OF SERV OTHER FOUNDATION ARTERIES I742 EMBOLISM & 01-18-2017 [place] THROMBOSIS [facility] ART THE HOSPI UPPER EXTREMITIES I8290 ACUTE 01-18-2017 [facility] EMBOLISM & AMBULANCE THROMBOSIS SERVICE OF UNSPECIFIED VEIN I959 HYPOTENSION 01-18-2017 [facility] AMBULANCE UNSPECIFIED SERVICE J36185 OTH INTRAOP 01-18-2017 [facility] C[facility] FUNC SERV DIST DURING FOUNDATION OTH SURGERY Y08415 PAIN IN 01-18-2017 [facility] LEFT MEDICAL SHOULDER IMAGING ASS M7989 OTHER 01-18-2017 [facility] SPECIFIED SERV SOFT TISSUE FOUNDATION DISORDERS R001 BRADYCARDIA 01-18-2017 [facility] UNSPECIFIED FOUNDATION R0989 OTH SPEC SX 01-18-2017 [facility] SIGNS SERV INVLV THE FOUNDATION CIRC & RESP SYS R748 ABNORMAL 01-18-2017 [facility] LEVELS OF SERV OTHER SERUM FOUNDATION ENZYMES R791 ABNORMAL 01-18-2017 [facility] COAGULATION SERV PROFILE FOUNDATION R7989 OTHER SPEC 01-18-2017 [facility] ABNORMAL PHYSICIANS, FINDINGS PLL BLOOD CHEMISTRY R9431 ABNORMAL 01-18-2017 [facility] ELECTROCARD SERV IOGRAM FOUNDATION Z4682 ENCOUNTER 01-18-2017 [facility] FITTING [facility] SERV ADJUST [facility] NON-VASCULA R CATHETER X74398 ENCOUNTER 01-18-2017 [facility] SURG [facility] FLW SURG TEETH/ORAL CAV X01980 PERSONAL 01-18-2017 [facility] MEDICAL HISTORY OT [employer] VENOUS Do It In Person THROMBOSIS& EMBOLISM Z951 PRESENCE OF 01-18-2017 [employer] MEDICAL SERV AORTOCORONA [facility] RY [place]PASS GRAFT Z9911 DEPENDENCE 01-18-2017 [facility] ON SERV RESPIRATOR [facility] VENTILATOR STATUS E039 HYPOTHYROID 12-31-2016 [facility] ISM PHYSICIANS UNSPECIFIED GROUP E663 OVERWEIGHT 12-31-2016 [facility] G4730 SLEEP APNEA 11-29-2016 [facility] UNSPECIFIED INC I5043 ACUTE ON 11-18-2016 [facility] CHRONIC HEALTH COMB MEDICAL G SYSTOLIC & DIASTOLIC CHF J449 CHRONIC 10-25-2016 [facility] OBSTRUCTIVE HOME PULMONARY MEDICAL DISEASE UNS EQUIPME I5023 ACUTE CHRON 08-14-2016 [facility] SYSTOLIC HEALTH HEART MEDICAL G FAILURE R931 ABNORMAL 08-14-2016 [facility] FINDINGS ON HOSPITAL DX IMAGING HEART & COR CIRC Z969 PRESENCE OF 08-14-2016 [facility] IMPLANT UNSPECIFIED V23228 VITREOUS 06-26-2016 AM[facility]IA HERNANDEZ N RIGHT EYE R01463 VITREOUS 06-26-2016 AM[facility]IA HERNANDEZ N LEFT EYE [...] de te s n re d ON 09 10 50 25 00 HO Ac [...] #5 TA 91 BL ET CA 00 05 31 30 30 00 [...] CY BL NT ET HI AN A MA 68 09 09 30 30 00 HO [...] 00 6- 9- 00 06 TO ve MA 51 20 20 09 WN IL 80 [...] 00 6- 8- 00 06 TO ve MA 51 20 20 09 WN IL 80 [...] BL ET CY NT HI AN A MA 68 07 08 30 30 00 HO [...] 00 8- 1- 00 06 TO ve MA 51 20 20 07 WN IL 80 [...] BL ET CY NT HI AN A MA 68 06 07 30 30 00 HO [...] 00 1- 3- 00 06 TO ve MA 51 20 20 07 WN IL 80 [...] BL ET CY NT HI AN A MA 68 05 06 30 30 00 HO [...] ME ti NO 00 06 TO ve MA 51 20 20 07 WN IL 80 [...] CY BL NT ET HI AN A MA 68 04 05 30 30 00 HO [...] -1 .0 00 ME ti SE 50 09-30- 06 TO ve VT 11 20 20 07 WN DE 71 17 17 37 0 31 PH 40 AR MA MG CY TA OF BL ET CY NT HI AN A DI 00 04 05 30 30 00 HO Ac GO 11 -2 -1 .0 00 ME ti XI 59 1- 9- 00 06 TO ve N 82 20 20 07 WN 25 20 17 17 37 0 1 30 PH MC AR G MA TA CY BL ET OF CY NT HI AN A CA 00 04 05 30 30 00 HO Ac LC 90 -2 -1 .0 00 ME ti IU 43 1- 9- 00 06 TO ve M 23 [...] 00 ME ti EP 10 1- 4- 06 TO ve IR 17 20 [...] 00 ME ti NO 00 1- 4- 06 TO ve MA 51 20 20 07 WN IL 80 17 17 99 -H [address] AR Z MA 10 CY -1 2. OF 5 MG CY NT TA HI B AN A SP 53 03 04 15 30 00 HO Ac IR 74 -2 -1 .0 00 ME ti ON 60 4- 00 06 TO ve OL 51 [...] BL ET CY NT HI AN A MA 68 03 04 30 30 00 HO Ac AV 18 -2 -1 .0 00 ME ti 00 1- 4- 06 TO ve TA 48 20 [...] NO 00 6- 7- 06 TO ve MA 51 20 20 07 WN IL 80 [...] BL ET CY NT HI AN A MA 68 02 03 30 30 00 HO [...] BL NT ET HI AN A LE 01 02 30 30 00 HO Ac [...] OF CY NT HI AN A GL 01 02 45 30 00 HO Ac IM 00 -1 -1 .0 00 ME ti EP 10 9- 7- 00 06 TO ve IR 17 20 20 07 WN ID 80 17 17 46 E 3 91 PH 2 AR MG MA CY TA BL OF ET CY NT HI AN A WA 01 02 30 30 00 HO Ac RF 09 -1 -1 .0 00 ME ti AR 31 9- 7- 00 06 TO ve IN 71 20 20 07 WN 50 17 17 59 SO 1 09 PH DI AR UM MA 3 CY MG OF TA CY BL NT ET HI AN A MA 01 02 30 30 00 HO Ac AV 18 -2 -1 .0 00 ME ti 00 0- 7- 00 06 TO ve TA 48 20 20 07 WN TI 80 17 17 99 N 9 09 PH SO AR DI MA UM CY 80 OF MG CY NT TA HI B AN A CA 02 60 30 00 HO Ac RV [...] 00 0- 7- 00 06 TO ve MA 51 20 20 07 WN IL 80 [...] 50 3- 9- 00 06 TO ve VT 11 20 [...] 00 3- 9- 00 06 TO ve MA 51 20 20 05 WN IL 80 [...] BL ET CY NT HI AN A MA 68 12 01 30 30 00 HO Ac AV 18 -1 -0 .0 00 ME ti 00 3- 9- 06 TO ve TA 48 20 20 05 WN TI 80 16 17 65 N 9 58 PH SO AR DI MA UM CY 80 OF MG CY NT TA HI B AN A SP 53 12 01 15 30 00 HO Ac IR 74 -1 -0 .0 00 ME ti ON 60 3- 9- 06 TO ve OL 51 20 20 [...] SQUARE METERS Comment: If this patient is -Montserratian, then multiply the Comment: result by 1.210. [...] SQUARE METERS Comment: If this patient is -[place]serratian, then multiply the Comment: result by 1.210. [...] 017 mmoL/L ed measure 06:10 ment Serum = 4.1 3.5-5.1 complet potassi 017 mmoL/L ed um 06:10 measure ment Magnesium measurement (06-27-2017 21:34) Comment: COMMENTS TO BRICKLAYER APPRENTICE: PER PROTOCOL Magnesi = 1.4 1.4-2.2 complet um 017 mg/dL ed measure 21:34 ment Glucose capillary blood glucometer (06-27-2017 20:46) Glucose = 185 70-110 complet 017 mg/dl ed capilla 20:[address] Glucose capillary blood glucometer (06-27-2017 17:20) Glucose = 127 70-110 complet 017 mg/dl ed capilla 17:[address] UFH PPP Afternoon Babysitter-aCnc (01-23-2017 10:15) UFH PPP 0.30 complet 017 IU/mL ed Afternoon Babysitter-aC 10:15 nc UFH PPP Afternoon Babysitter-aCnc (01-23-2017 04:06) UFH PPP 0.23 complet 017 IU/mL ed Afternoon Babysitter-aC 04:06 nc Phosphate SerPl-mCnc (01-22-2017 09:08) Phospha 1.8 2.5-4.5 complet te 017 mg/dL ed SerPl-m 09:08 Cnc Magnesium SerPl-mCnc (01-22-2017 09:08) Magnesi 1.8 1.9-2.4 complet um 017 mg/dL ed SerPl-m 09:08 Cnc UFH PPP Afternoon Babysitter-aCnc (01-22-2017 09:06) UFH PPP 0.32 complet 017 IU/mL ed Afternoon Babysitter-aC 09:06 nc Phosphate SerPl-mCnc (01-22-2017 03:13) Phospha 1.7 2.5-4.5 complet te 017 mg/dL ed SerPl-m 03:13 Cnc Magnesium SerPl-mCnc (01-22-2017 03:13) Magnesi 1.6 1.9-2.4 complet um 017 mg/dL ed SerPl-m 03:13 Cnc UFH PPP Afternoon Babysitter-aCnc (01-22-2017 03:13) UFH PPP 0.33 complet 017 IU/mL ed Afternoon Babysitter-aC 03:13 nc UFH PPP Afternoon Babysitter-aCnc (01-21-2017 20:29) UFH PPP 0.26 complet 017 IU/mL ed Afternoon Babysitter-aC 20:29 nc UFH PPP Afternoon Babysitter-aCnc (01-21-2017 13:23) UFH PPP 0.18 complet 017 IU/mL ed Afternoon Babysitter-aC 13:23 nc UFH PPP Afternoon Babysitter-aCnc (01-21-2017 06:06) UFH PPP 0.14 complet 017 IU/mL ed Afternoon Babysitter-aC 06:06 nc Phosphate SerPl-mCnc (01-21-2017 03:05) Phospha 1.4 2.5-4.5 complet te 017 mg/dL ed SerPl-m 03:05 Cnc Magnesium SerPl-mCnc (01-21-2017 03:05) Magnesi 1.8 1.9-2.4 complet um 017 mg/dL ed SerPl-m 03:05 Cnc UFH PPP Afternoon Babysitter-aCnc (01-20-2017 22:15) UFH PPP LE11 complet 017 <0.11 L ed Afternoon Babysitter-aC 22:15 IU/mL nc Sodium Ur-sCnc (01-20-2017 20:59) Sodium 39 complet Ur-sCnc 017 mmol/L ed 20:59 Creat Ur-mCnc (01-20-2017 20:59) Creat 68 complet Ur-mCnc 017 mg/dL ed 20:59 UFH PPP Afternoon Babysitter-aCnc (01-20-2017 16:32) UFH PPP LE11 complet 017 <0.11 L ed Afternoon Babysitter-aC 16:32 IU/mL nc UFH PPP Afternoon Babysitter-aCnc (01-20-2017 11:28) UFH PPP > 1.10 complet 017 IU/mL ed Afternoon Babysitter-aC 11:28 nc Phosphate SerPl-mCnc (01-20-2017 04:12) Phospha 2.0 2.5-4.5 complet te 017 mg/dL ed SerPl-m 04:12 Cnc Magnesium SerPl-mCnc (01-20-2017 04:12) Magnesi 1.8 1.9-2.4 complet um 017 mg/dL ed SerPl-m 04:12 Cnc UFH PPP Afternoon Babysitter-aCnc (01-20-2017 04:12) UFH PPP 1.02 complet 017 IU/mL ed Afternoon Babysitter-aC 04:12 nc Hgb A1c MFr Bld (01-20-2017 04:12) Hgb A1c 10.6 % 4.7-6.0 complet MFr 017 ed Bld 04:12 UFH PPP Afternoon Babysitter-aCnc (01-19-2017 21:15) UFH PPP 0.30 complet 017 IU/mL ed Afternoon Babysitter-aC 21:15 nc Digoxin SerPl-mCnc (01-19-2017 13:57) Digoxin 1.6 0.8-2.0 complet 017 ng/mL ed SerPl-m 13:57 Cnc UFH PPP Afternoon Babysitter-aCnc (01-19-2017 13:57) UFH PPP 0.28 complet 017 IU/mL ed Afternoon Babysitter-aC 13:57 nc Phosphate SerPl-mCnc (01-19-2017 05:18) Phospha 2.5 2.5-4.5 complet te 017 mg/dL ed SerPl-m 05:18 Cnc Magnesium SerPl-mCnc (01-19-2017 05:18) Magnesi 2 2.1 1.9-2.4 complet um 017 mg/dL ed SerPl-m 05:18 Cnc UFH PPP Afternoon Babysitter-aCnc (01-19-2017 05:01) UFH PPP 2 0.24 complet 017 IU/mL ed Afternoon Babysitter-aC 05:01 nc UFH PPP Afternoon Babysitter-aCnc (01-18-2017 23:11) UFH PPP 0.24 complet 017 IU/mL ed Afternoon Babysitter-aC 23:11 nc Phosphate SerPl-mCnc (01-18-2017 22:58) Phospha 2.5 2.5-4.5 complet te 017 mg/dL ed SerPl-m 22:58 Cnc Magnesium SerPl-mCnc (01-18-2017 22:58) Magnesi 1.8 1.9-2.4 complet um 017 mg/dL ed SerPl-m 22:58 Cnc UFH PPP Afternoon Babysitter-aCnc (01-18-2017 18:24) UFH PPP 0.27 complet 017 IU/mL ed Afternoon Babysitter-aC 18:24 nc UFH PPP Afternoon Babysitter-aCnc (01-18-2017 11:46) UFH PPP 0.32 complet 017 IU/mL ed Afternoon Babysitter-aC 11:46 nc UFH PPP Afternoon Babysitter-aCnc (01-18-2017 05:40) UFH PPP 0.88 complet 017 IU/mL ed Afternoon Babysitter-aC 05:40 nc Procedures Procedure DOS Code Location Performer Comment RESP ASST E0470 PATIENT PATIENT DEVC 7 [facility] INC AIDS INC BI-LEVL PRSS CAPABILIT Y W/O BACKU HUMDIFIR E0562 PATIENT PATIENT HEATED 7 [facility] INC AIDS INC USED W/POS ARWAY PRESSURE DEVICE PROTHROMB 84922 [facility]IA [facility] INC PROTHROMB 42192 [facility] GARCIA IN TIME 7 [facility] INC RESP ASST E0470 PATIENT PATIENT DEVC 7 [facility] INC AIDS INC BI-LEVL PRSS CAPABILIT Y W/O BACKU HUMDIFIR E0562 PATIENT PATIENT HEATED 7 AIDS INC AIDS INC USED W/POS ARWAY PRESSURE DEVICE PROTHROMB 43270 [facility] GARCIA IN TIME 7 [facility] INC INC RESP ASST E0470 PATIENT PATIENT DEVC 7 AIDS INC AIDS INC BI-LEVL PRSS CAPABILIT Y W/O BACKU HUMDIFIR E0562 PATIENT PATIENT HEATED 7 AIDS INC AIDS INC USED W/POS ARWAY PRESSURE DEVICE PROTHROMB 74921 [facility] GARCIA IN TIME 7 [facility] INC PROTHROMB 32241 RADHA GARCIA IN TIME 7 [facility] INC INC PROTHROMB 95225 [facility] IN TIME 7 [facility] INC INC PROTHROMB 79189 [facility] GARCIA IN TIME 7 [facility] INC INC COLLECTIO 32345 [facility] GARCIA N VENOUS 7 [facility] BLOOD INC INC VENIPUNCT URE PROTHROMB 49996 [facility] GARCIA IN TIME 7 [facility] INC HUMDIFIR E0562 PATIENT PATIENT HEATED 7 AIDS INC AIDS INC USED W/POS ARWAY PRESSURE DEVICE RESP ASST E0470 PATIENT PATIENT DEVC 7 AIDS INC AIDS INC BI-LEVL PRSS CAPABILIT Y W/O BACKU PROTHROMB 06393 [facility] GARCIA IN TIME 7 [facility] INC INC PROTHROMB 54878 [facility] GARCIA IN TIME 7 [facility] INC INC COLLECTIO 00207 RADHACAROLA GARCIA N VENOUS 7 [facility] BLOOD INC INC VENIPUNCT URE RAD EXP G9501 [facility] INDCS/EXP 7 MEDICAL TM & NO IMAGING FLUORO ASS IMG N DOC N RSN PROTHROMB 18895 [facility]IA IN TIME 7 [facility] INC INC RADEX 85905 [facility] GARCIA COLON 7 [facility] BARIUM INC INC ENEMA W/WO KUB PROTHROMB 86251 [facility] GARCIA IN TIME 7 [facility] INC INC PROTHROMB 02046 RADHA RADHA IN TIME 7 [facility] INC INC PROTHROMB 97002 RADHA RADHA IN TIME 7 [facility] INC INC CUL BACT 77339 [facility] GARCIA XCPT 7 [facility] URINE INC INC BLOOD/STO OL AEROBIC ISOL CUL BACT 29637 [facility] GARCIA AEROBIC 7 [facility] ADDL INC INC METHS DEFINITIV E EA ISOL SUSCEPTIB 19681 [facility] GARCIA LTY STDY 7 [facility] ANTIMICRB INC INC IAL MICRO/AGA R DILUTJ PROTHROMB 47631 RADHA GARCIA IN TIME 7 [facility] INC PROTHROMB 57668 RADHA GARCIA IN TIME 7 [facility] INC HUMDIFIR E0562 PATIENT PATIENT HEATED 7 AIDS INC AIDS INC USED W/POS ARWAY PRESSURE DEVICE RESP ASST E0470 PATIENT PATIENT DEVC 7 AIDS INC AIDS INC BI-LEVL PRSS CAPABILIT Y W/O BACKU PROTHROMB 10659 [facility] GARCIA IN TIME 7 REPLACED BY [facility] SBSQ 22419 [place] [address] NURSE CARE/DAY PRACTITIO 15 NER GR MINUTES SBSQ 76677 [place] [address] NURSE CARE/DAY PRACTITIO 15 NER GR MINUTES SBSQ 20650 [place] [address] NURSE CARE/DAY PRACTITIO 15 NER GR MINUTES SBSQ 99262 [facility] 7 MEDICAL CARE/DAY SERV 25 FOUNDATIO MINUTES N INITIAL 18206 [facility] INPATIENT 7 NURSE CONSULT PRACTITIO NEW/ESTAB NER GR PT 80 MIN ECG 72646 YOU DELFIN ROUTINE 7 MEDICAL ECG SERV W/LEAST FOUNDATIO 12 LDS N I&R ONLY ECHO 16824 YOU KIERRA TTHRC R-T 7 MEDICAL 2D SERV W/WOM-MOD FOUNDATIO E COMPL N SPEC&COLR D ECG 35590 RAD[facility] NANCY ROUTINE 7 [facility] W/LEAST P 12 LDS I&R ONLY RADEX 95005 RAD[facility] GARCIA SHOULDER 7 [facility] COMPLETE INC INC MINIMUM 2 VIEWS CRITICAL 98456 [facility] 7 PHYSICIAN ILL/INJUR S, PLLC ED PATIENT INIT 30-74 MIN AMB A0427 [facility] SERVICE 7 AMBULANCE AMBULANCE ALS SERVICE SERVICE EMERGENCY TRANSPORT LEVEL 1 RADIOLOGI 04-29-201 47970 YOU REAL C 7 MEDICAL KENYA EXAMINATI SERV ON CHEST FOUNDATIO SINGLE N VIEW FRONTAL EMBLC/THR 32348 YOU LUNA MBC AX 7 MEDICAL BRACH SERV INNOMINAT FOUNDATIO E SUBCLA N ART EMBLC/THR 49303 YOU LUNA [facility] W/WO 7 MEDICAL CATH SERV RADIAL/UL FOUNDATIO TYLER ART N ARM INC INITIAL 51527 [facility] 7 MEDICAL CARE/DAY [place] [address] RADHA GARCIA INFUSION 7 [facility] THERAPY/P INC INC ROPHYLAXI S /DX 1ST TO 1 HR THERAPEUT 28218 [facility] GARCIA IC 7 [facility] INJECTION INC INC IV PUSH EACH NEW DRUG ECG 52412 [facility] GARCIA ROUTINE 7 [facility] ECG INC INC W/LEAST 12 LDS TRCG ONLY W/O I&R PROTHROMB 70053 [facility] GARCIA IN TIME 7 [facility] INC INC COMPREHEN 30898 [facility] GARCIA SIVE 7 [facility] METABOLIC INC INC PANEL ANESTHESI 10967 [place] GAM[facility] A 7 MEDICAL ARTERIES SERV UPPER FOUNDATIO ARM&[place] [address] [place] SOLITARIO ANGIOGRAP 7 MEDICAL HY UPPER SERV EXTREMITY FOUNDATIO N LEVEL III 21593 [facility]OLOGY [place] [facility] GROSS&KEI ROSCOPIC EXAM INITIAL 61019 [facility] INPATIENT 7 MEDICAL CONSULT SERV NEW/ESTAB FOUNDATIO PT 110 N MIN GROUND A0425 [facility] MILEAGE 7 AMBULANCE AMBULANCE PER SERVICE SERVICE STATUTE MILE GLUC BLD 69526 RADHA GARCIA GLUC MNTR 7 [facility] DEV INC INC CLEARED FDA SPEC HOME USE HEMOGLOBI 27117 [facility] GARCIA N 7 MEM [facility] MEM HOSP GLYCOSYLA [place] [address] RADHA GARCIA TROPONIN 7 [facility] QUANTITAT INC INC ELYSSA BLOOD 79505 [facility] GARCIA COUNT 7 [facility] COMPLETE INC INC AUTO&AUTO DIFRNTL WBC EXTIRPATI [id number] [place] ON MATTER 7 [facility]ALTH[facility]ALTHCAR LEFT E E SUBCLAVIA HOSPITALS HOSPITALS N ARTERY OPEN EXTIRPATI [id number] [place] [facility] MATTER 7 [facility]ALTHCAR HEALTHCAR LEFT E E AXILLARY HOSPITALS HOSPITALS ARTERY OPEN EXTIRPATI [id number] [place] ON MATTER 7 HEALTHCAR HEALTHCAR LEFT E E ULNAR HOSPITALS HOSPITALS ARTERY OPEN APPRCH EXTIRPATI [id number] [place] ON MATTER 7 HEALTHCAR HEALTHCAR LT E E RADIAL HOSPITALS HOSPITALS ARTERY OPEN APPRCH PROTHROMB 62546 RADHA GARCIA IN TIME 7 [facility] INC PROTHROMB 21577 RADHA [facility]ARCIA IN TIME 7 [facility] INC PROTHROMB 68136 RADHA [facility]ARCIA IN TIME 7 [facility] PROTHROMB 58752 RADHA [facility]ARCIA IN TIME 7 [facility] PROTHROMB 80926 RADHA [facility]ARCIA IN TIME 7 [facility] INC PROTHROMB 16306 RADHA [facility]ARCIA IN TIME 7 [facility] INC HUMDIFIR [id number] PATIENT PATIENT HEATED 7 AIDS INC AIDS INC USED W/POS ARWAY PRESSURE DEVICE RESP ASST [id number] PATIENT PATIENT DEVC 7 AIDS INC AIDS INC BI-LEVL PRSS CAPABILIT Y W/O BACKU TUBING A7037 PATIENT PATIENT USED WITH 7 AIDS INC AIDS INC POSITIVE AIRWAY PRESSURE DEVICE PROTHROMB 62741 RADHA GARCIA IN TIME 7 [facility] INC INC PROTHROMB 86734 RADHA GARCIA IN TIME 7 [facility] INC POLYSOM 48593 RADHA GARCIA 6/>YRS 7 [facility] SLEEP 4/> INC INC ADDL KENDRA ATTND PROTHROMB 59837 RADHA GARCIA IN TIME 7 [facility] ECG [id number] [facility] ECG MEDICAL W/LEAST G 12 LDS W/I&[place] [address] RADHA GARCIA THYROID 7 [facility] STIMULATI [place] [address] RADHA GARCIA FREE 7 [facility] THYROXINE INC INC HEMOGLOBI 25081 RADHA GARCIA N 7 [facility] GLYCOSYLA INC INC AJAY A1C TUBING A7037 TIFFANY ALLEN USED WITH 7 HOME HOME POSITIVE MEDICAL MEDICAL AIRWAY EQUIPME EQUIPME PRESSURE DEVICE PROTHROMB 99317 RADHA GARCIA IN TIME 7 [facility] HOSP INC INC FULL FACE A7030 TIFFANY CUNNINGHAMRELL MASK 7 HOME HOME USED MEDICAL MEDICAL W/POS EQUIPME EQUIPME ARWAY PRESS DEVICE EA HEADGEAR A7035 TIFFANY ALLEN USED 7 HOME HOME W/POSITIV MEDICAL MEDICAL E AIRWAY EQUIPME EQUIPME PRESSURE DEVICE HOSPITAL G0463 RADHA GARCIA OUTPATIEN 7 [facility] HOSP T CLIN INC INC VISIT ASSESS & MGMT PT PROTHROMB 46737 RADHA GARCIA IN TIME 7 [facility] HOS[facility] INC INC PROTHROMB 95398 RADHA GARCIA IN TIME 7 [facility] HOSP [facility] G0463 RADHA GARCIA OUTPATIEN 7 [facility] HOSP T CLIN INC INC VISIT ASSESS & MGMT PT HOSPITAL G0463 RAD[facility]IEN 6 [facility] [facility] VISIT ASSESS & MGMT PT PROTHROMB 04452 RADHA GARCIA IN TIME 6 [facility] PROTHROMB 31269 RADHA [facility]ARCIA IN TIME 6 [facility] G0463 RADHA GARCIA OUTPATIEN 6 [facility]IN INC INC VISIT ASSESS & MGMT PT THERAPEUT 15166 RADHA GARCIA IC 6 [facility] HOSP PROPHYLAC INC INC TIC/DX INJECTION SUBQ/IM PROTHROMB 83684 RADHA GARCIA IN TIME 6 [facility] INC INC COLLECTIO 21734 RADHA GARCIA N VENOUS 6 [facility] BLOOD INC INC VENIPUNCT URE PROTHROMB 06899 RADHA GARCIA IN TIME 6 [facility] G0463 RADHA GARCIA OUTPATIEN 6 [facility] CLIN INC INC VISIT ASSESS & MGMT PT ALBUMIN 05421 RADHA GARCIA URINE 6 [facility] MICROALBU INC INC MIN QUANTIATI VE 25 79447 RADHA GARCIA HYDROXY 6 [facility] INCLUDES [place] [address] RADHA GARCIA PARATHORM 6 [facility] ONE INC INC PROTHROMB 09122 RADHA GARCIA IN TIME 6 [facility] INC INC CALCIUM 26124 RADHA GARCIA IONIZED 6 [place] [address] RADHA GARCIA BLOOD/URI 6 [facility] C ACID INC INC COLLECTIO 58075 RADHA GARCIA N VENOUS 6 [facility] BLOOD INC INC VENIPUNCT URE RENAL 59510 RADHA GARCIA FUNCTION 6 [facility] PANEL INC INC URNLS DIP 98460 RADHA GARCIA 6 [facility] STICK/TAB INC INC LET REAGENT AUTO MICROSCOP Y BLOOD 27683 RADHA GARCIA COUNT 6 [facility] COMPLETE INC INC AUTO&[place] [address] RADHA GARCIA RETROPERI 6 [facility] TONEAL INC [place] [address] CARI LEATHA RETROPERI 6 MEDICAL YASMIN TONEAL IMAGING REAL TIME ASS W/IMAGE LIMITED BASIC 945[address] [facility] METABOLIC [address] [place] [address] PANEL CALCIUM TOTAL ECHO 48160 SYDNEE [facility] R-T 6 [facility] 2D MEDICAL W/WOM-MOD G E COMPL SPEC&COLR D COLLECTIO 55533 [facility] N VENOUS [address] [place] [address] BLOOD VENIPUNCT URE PROTHROMB 45598 [facility] IN TIME [address] [place] [address] [id number] RADHA GARCIA OUTPATIEN 6 [facility] CLIN INC INC VISIT ASSESS & MGMT PT PROTHROMB 92142 RADHA GARCIA IN TIME 6 [facility]PITAL G0463 RADHA RADHA OUTPATIEN 6 [facility] CLIN INC INC VISIT ASSESS & MGMT PT PROTHROMB 11917 RADHA GARCIA IN TIME 6 [facility] INC INC COLLECTIO 72967 RADHA GACRIA N VENOUS 6 [facility] BLOOD INC INC VENIPUNCT URE COLLECTIO 83798 RADHA GARCIA N VENOUS 6 [facility] BLOOD INC INC VENIPUNCT URE PROTHROMB 86389 RADHA GARCIA IN TIME 6 [facility] G0463 RADHA RADHA OUTPATIEN 6 [facility] T CLIN INC INC VISIT ASSESS & [place] [address] RADHA GARCIA PARATHORM 6 [facility] ONE INC INC 25 97240 RADHA GARCIA HYDROXY 6 [facility] INCLUDES INC INC FRACTIONS IF PERFORMED RENAL 23961 RADHA GARCIA FUNCTION 6 [facility] PANEL INC INC CREATININ 13293 RADHA GARCIA E OTHER 6 [facility] SOURCE INC INC COLLECTIO 95583 RADHA GARCIA N VENOUS 6 [facility] BLOOD INC INC VENIPUNCT URE URNLS DIP 07420 RADHA GARCIA 6 [facility] STICK/TAB INC INC LET REAGENT AUTO MICROSCOP Y BLOOD 04837 RADHA GARCIA COUNT 6 [facility] COMPLETE INC INC AUTO&AUTO DIFRNTL WBC PROTEIN 35785 RADHA GARCIA XCPT 6 [facility] REFRACTOM INC INC ETRY SERUM PLASMA/WH L BLD PROTHROMB 17937 RADHA GARCIA IN TIME 6 [facility]OSPITAL G0463 RADHA GARCIA OUTPATIEN 6 [facility] CLIN INC INC VISIT ASSESS & MGMT PT HOSPITAL G0463 RADHA GARCIA OUTPATIEN 6 [facility] CLIN INC INC VISIT ASSESS & MGMT PT PROTHROMB 37023 RADHA GARCIA IN TIME 6 [facility] INC INC ECG 21198 [facility] 6 [facility] ECG MEDICAL W/LEAST G 12 LDS [facility] G0463 RADHA GARCIA OUTPATIEN 6 [facility] CLIN INC INC VISIT ASSESS & MGMT PT PROTHROMB 71891 RADHA GARCIA IN TIME 6 [facility] INC INC COLLECTIO 84428 RADHA GARCIA N VENOUS 6 [facility] BLOOD INC INC VENIPUNCT URE HOSPITAL G0463 RADHA GARCIA OUTPATIEN 6 [facility] CLIN INC INC VISIT ASSESS & MGMT PT PROTHROMB 61852 RADHA GARCIA IN TIME 6 [facility] INC INC LIPID 77873 RADHA GARCIA PANEL 6 [facility] INC INC COLLECTIO 38884 RADHA GARCIA N VENOUS 6 [facility] BLOOD INC INC VENIPUNCT URE COMPREHEN 49062 RADHA GARCIA SIVE 6 [facility] [address] RADHA [facility]ARCIA FREE 6 [facility] [place] [address] RADHA GARCIA THYROID 6 [facility] STIMULATI INC INC NG HORMONE TSH BLOOD 55902 RADHA GARCIA COUNT 6 [facility] COMPLETE INC INC AUTO&AUTO DIFRNTL WBC HEMOGLOBI 30045 RADHA GARCIA N 6 [facility] GLYCOSYLA INC INC [facility] G0463 RADHA GARCIA OUTPATIEN 6 [facility] CLIN INC INC VISIT ASSESS & MGMT PT PROTHROMB 58514 RADHA GARCIA IN TIME 6 [facility] INC INC PROTHROMB 02438 RADHA GARCIA IN TIME 6 [facility] G0463 RADHA GARCIA OUTPATIEN 6 [facility] T CLIN INC INC VISIT ASSESS & MGMT PT COLLECTIO 46341 RADHA GARCIA N VENOUS 6 [facility] BLOOD INC INC VENIPUNCT URE Encounters Encounter Start End Date Code Location Performer Type Date EMERGENCY 95827 DARLIN WATTS DEPT 7 7 PHYSICIAN VISIT S, [facility] HIGH SEVERITY& THREAT [facility] RADHA - 7 7 [facility] OUTPATIEN INC T OFFICE 21031 RADHA OUTPATIEN 7 7 [facility] T VISIT 5 INC MINUTES OFFICE 16593 [facility] OUTPATIEN 7 7 PHYSICIAN T VISIT S GROUP 15 MINUTES OFFICE 02495 RADHA OUTPATIEN 7 7 [facility] T VISIT 5 INC MINUTES [facility]OSPITAL [facility] - 7 7 [facility] - 7 7 [facility] OUTPATIEN INC T OFFICE 68902 RADHA OUTPATIEN 7 7 [facility] T VISIT 5 INC MINUTES OFFICE 26892 [facility]HA OUTPATIEN 7 7 [facility]ISIT 5 INC MINUTES [facility] - 7 7 [facility] OUTPATIEN INC T OFFICE 60316 [facility] OUTPATIEN 7 7 [facility] T VISIT 5 INC MINUTES [facility]OSP[facility] - 7 7 [facility] OUTPATIEN INC T OFFICE 53098 [facility] OUTPATIEN 7 7 [facility] T VISIT 5 INC MINUTES [facility]OSPITAL [facility] - 7 7 [facility] OUTPATIEN INC T OFFICE 25060 [facility] OUTPATIEN 7 7 PHYSICIAN T NEW 45 S GROUP MINUTES HOSPITAL RAD[facility] - 7 7 [facility] OUTPATIEN INC T OFFICE 44029 [facility]HA OUTPATIEN 7 7 [facility] T VISIT 5 INC MINUTES [facility]OSPITAL RAD[facility] - 7 7 [facility] OUTPATIEN INC T OFFICE 38941 [facility] OUTPATIEN 7 7 [facility] T VISIT 5 INC MINUTES [facility]OSPITAL [facility] - 7 7 [facility]EN [facility] - 7 7 [facility] - 7 7 [facility] OUTPATIEN INC T OFFICE 71284 RADHA OUTPATIEN 7 7 [facility] T VISIT 5 INC MINUTES OFFICE 95718 [facility] OUTPATIEN 7 7 [facility] T VISIT 5 INC MINUTES [facility]OSPITAL [facility] - 7 7 [facility] OUTPATIEN INC T [facility] - 7 7 [facility] OUTPATIEN INC T OFFICE 06119 [facility] OUTPATIEN 7 7 [facility] T VISIT 5 INC MINUTES OFFICE 27383 [facility] AMMON CONSULTAT 7 7 PHYSICIAN KARMEN [place] GROUP NEW/ESTAB PATIENT 30 MIN OFFICE 31688 RAD[facility] OUTPATIEN 7 7 [facility] T VISIT 5 INC MINUTES [facility]OSP[facility] - 7 7 [facility] OUTPATIEN INC T OFFICE 00670 [place] [facility] OUTPATIEN 7 7 MEDICAL T VISIT SERV 25 FOUNDATIO MINUTES N EMERGENCY 36660 RADHA 7 7 [facility] DEPARTMEN INC T VISIT LOW/MODER SEVERITY HOSPITAL [facility] - 7 7 [facility] OUTPATIEN INC T EMERGENCY 40210 DARLIN CORONEL 7 7 PHYSICIAN JR MCGOVERN S, [facility] T VISIT MODERATE SEVERITY HOSPITAL RAD[facility] - 7 7 [facility] OUTPATIEN INC T OFFICE 97657 [facility] OUTPATIEN 7 7 [facility] T VISIT 5 INC MINUTES [facility]OSPITAL RAD[facility] - 7 7 [facility] OUTPATIEN INC T OFFICE 05703 [facility] OUTPATIEN 7 7 [facility] T VISIT 5 INC MINUTES OFFICE 62142 [facility] IVON OUTPATIEN 7 7 PHYSICIAN T VISIT S GROUP 25 MINUTES OFFICE 17797 [facility] OUTPATIEN 7 7 [facility] T VISIT 5 INC [facility] RADHA - 7 7 [facility] OUTPATIEN INC T EMERGENCY 43441 [facility] DEPT 7 7 [facility] VISIT INC HIGH SEVERITY& [facility] 79044 [facility] OUTPATIEN 7 7 [facility] T VISIT 5 INC [facility] RADHA - 7 7 [facility] OUTPATIEN [facility] RADHA - 7 7 [facility] OUTPATIEN INC T OFFICE 16917 RAD[facility] OUTPATIEN 7 7 [facility] T VISIT 5 INC [facility] RADHA - 7 7 [facility] OUTPATIEN INC T OFFICE 38931 [facility] OUTPATIEN 7 7 [facility] T [facility]ISIT 5 INC [facility] OFFICE 75549 RAD[facility] OUTPATIEN 7 7 [facility] T VISIT 5 INC [facility] RADHA - 7 7 [facility] OUTPATIEN [facility] RADAH - 7 7 [facility] OUTPATIEN INC T OFFICE 47831 [facility] OUTPATIEN 7 7 [facility] T VISIT 5 INC MINUTES OFFICE 74123 [facility] OUTPATIEN 7 7 [facility] T VISIT 5 INC [facility] RADHA - 7 7 [facility] OUTPATIEN INC T OFFICE 63801 [facility] IV[facility] OUTPATIEN 7 7 PHYSICIAN T VISIT S GROUP 15 MINUTES HOSPITAL [facility] - 7 7 [facility] OUTPATIEN INC T OFFICE 43583 [facility] OUTPATIEN 7 7 [facility] T VISIT 5 INC MINUTES OFFICE 21519 [facility] OUTPATIEN 7 7 [facility] T VISIT 5 INC MINUTES [facility]OSPITAL RAD[facility] - 7 7 [facility] OUTPATIEN [facility] RADHA - 7 7 [facility]PATIEN [facility] RADHA - 7 7 [facility] OUTPATIEN [facility] OFFICE 99843 RAD[facility] OUTPATIEN 7 7 [facility] T VISIT 5 INC MINUTES OFFICE 93013 [facility] OUTPATIEN 7 7 [facility] T VISIT MEDICAL 25 G [facility] RADHA - 7 7 [facility] OUTPATIEN [facility] OFFICE 32285 [facility] OUTPATIEN 7 7 PHYSICIAN T VISIT S GROUP 25 MINUTES [facility] RADHA - 7 7 [facility] OUTPATIEN [facility] OFFICE 99084 RAD[facility] OUTPATIEN 7 7 [facility] T [facility]ISIT 5 INC [facility] RADHA - 7 7 [facility] OUTPATIEN [facility] RADHA - 7 7 [facility]PATIEN [facility] RADHA - 6 6 [facility] OUTPATIEN [facility] RADHA - 6 6 [facility] OUTPATIEN [facility] RADHA - 6 6 [facility] OUTPATIEN [facility] RADHA - 6 6 [facility] OUTPATIEN [facility] RADHA - 6 6 [facility] OUTPATIEN [facility] RADHA - 6 6 [facility] OUTPATIEN [facility] MARCOS - 6 6 [facility] RADHA - 6 6 [facility] OUTPATIEN [facility] RADHA - 6 6 [facility] OUTPATIEN [facility] RADHA - 6 6 [facility] OUTPATIEN INC T OFFICE 61524 [place] [facility] [facility]ANG OUTPATIEN 6 6 MEDICAL T NEW 45 SERV MINUTES [facility] RADHA - 6 6 [facility] OUTPATIEN [facility] RADHA - 6 6 [facility] OUTPATIEN [facility] RADHA - 6 6 [facility] OUTPATIEN [facility] T OFFICE 73363 [facility] VIOLETA OUTPATIEN 6 6 [facility] T [facility]ISIT MEDICAL 40 G MINUTES HOSPITAL RADHA - 6 6 [facility] OUTPATIEN [facility] RADHA - 6 6 [facility] OUTPATIEN [facility] T OFFICE 19812 AMELIA CISNEROS OUTPATIEN 6 6 DAVID HERNANDEZ T VISIT 25 MINUTES HOSPITAL RADHA - 6 6 [facility] OUTPATIEN INC OFFICE 49514 [facility] IVON OUTPATIEN 6 6 PHYSICIAN KEI T VISIT S GROUP 25 MINUTES HOSPITAL RADHA - 6 6 [facility]PATIEN [facility] RADHA - 6 6 [facility]
--- OUTSIDE RECORDS SUMMARY | 2017-07-04 07:20 | External Medical Summary Rpt | CCD ---
Author Author , BEKA Organization BEKA Address Unknown Phone [email or web address] Care Team Providers Care Tier Lift Operator Name Role Phone AYCINENA, AYCINENA Unavailable Unavailable BESSON, BESSON Unavailable Unavailable RIOJAS, RIOJAS Unavailable Unavailable [facility] Unavailable Unavailable SERVICE, [facility] Unavailable Unavailable SERVICE, [facility] LEATHA YASMIN, Unavailable Unavailable LEATHA YASMIN GARZA, GARZA Unavailable Unavailable JR CORONEL FULLER, Unavailable Unavailable JR IVON, IVON Unavailable Unavailable IVON KEI, IVON Unavailable Unavailable KEI GAMBREL, GAMBREL Unavailable Unavailable [facility] Unavailable Unavailable INC, [facility] Unavailable Unavailable HOSPITAL P, [facility], Unavailable Unavailable [facility] DELFIN LENZ Unavailable Unavailable [facility] Un[facility] Unavailable [facility], [facility]PLACED BY [facility] Unavailable Unavailable MEDICAL G, REPLACED BY [facility] NURSE Unavailable Unavailable PRACTITIONER GR, [facility] NURSE PRACTITIONER GR [facility] Un[facility] Unavailable [facility] SY DAN Unavailable Unavailable [...] Unavailable Unavailable EQUIPME, [facility], Unavailable Unavailable [facility] Unavailable [facility]available HOSPITALS, [facility] Unavailable [facility], [facility] VIOLETA, VIOLETA Unavailable Unavailable VIOLETA XIANG, [...] W/STAGE 1-4 PLLC CKD OR UNS CKD [id number] ACUTE EMBO 05-26-2017 [facility] THROMB UNS PHYSICIANS, DEEP VEINS PLLC LOW EXTREM ARIADNA M545 LOW BACK 05-26-2017 [facility] PAIN [facility]YSICIANS, PLLC N189 CHRONIC 05-26-2017 [facility] KIDNEY PH[facility], DISEASE PLLC UNSPECIFIED Z7901 INTERMEDIATE 05-14-2017 [facility] CURRENT USE [facility] OF INC ANTICOAGULA NTS Z952 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-14-2017 [facility] 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[facility] HEART INC VALVE Z5181 ENCOUNTER 04-18-2017 [facility] FOR [facility] THERAPEUTIC INC DRUG LEVEL MONITORING E785 HYPERLIPIDE 03-10-2017 [facility] NITIN PHYSICIANS UNSPECIFIED GROUP I10 ESSENTIAL 03-10-2017 [facility] PRIMARY PHYSICIANS HYPERTENSIO GROUP N I4891 UNSPECIFIED 03-10-2017 [facility] ATRIAL PHYSICIANS FIBRILLATIO GROUP N K5730 DIVERTICULO 02-13-2017 [facility] MEDICAL INTEST W/O IMAGING ASS PERF/ABSC W/O BLEED Z1211 ENCOUNTER 02-13-2017 [facility] SCREENING [facility] MALIGNANT INC NEOPLASM OF COLON M17810 ACUTE 02-04-2017 [facility] EMBOLISM & PHYSICIANS THROMBOSIS GROUP DEEP VEINS LT UP EXT D631 ANEMIA IN 02-03-2017 [facility] CHRONIC [facility] KIDNEY FOUNDATION DISEASE E871 HYPO-OSMOLA 02-03-2017 [facility] LITY AND SERV HYPONATREMI FOUNDATION A N183 CHRONIC 02-03-2017 [facility] KIDNEY SERV DISEASE FOUNDATION STAGE 3 MODERATE X41603 CUTANEOUS 02-01-2017 [facility] ABSCESS OF [facility] LEFT UPPER INC LIMB L0889 OTH SPEC 02-01-2017 [facility] LOCAL PHYSICIANS, INFECTIONS PLLC THE SKIN & SUBQ TISSUE E119 TYPE 2 01-28-2017 [facility] DIABETES PHYSICIANS MELLITUS GROUP WITHOUT COMPLICATIO NS I998 OTHER 01-28-2017 [facility] DISORDER OF PHYSICIANS GROUP CIRCULATORY SYSTEM E1165 TYPE 2 01-20-2017 [facility] NURSE DIABETES PRACTITIONE MELLITUS R GR WITH HYPERGLYCEM IA Z794 INTERMEDIATE 01-20-2017 [facility] NURSE CURRENT USE PRACTITIONE OF INSULIN R GR I509 HEART 01-19-2017 [place] [facility] FAILURE SERV UNSPECIFIED FOUNDATION I5189 OTHER 01-19-2017 [facility] ILL-DEFINED SERV HEART FOUNDATION DISEASES E108 TYPE 1 01-18-2017 [facility] DIABETES PHYSICIANS, MELLITUS PLLC W/UNSPEC COMPLICATIO NS E1122 TYPE 2 01-18-2017 [facility] W/DIAB CHRON KIDNEY DZ I2510 ASHD SHISHMAREF IRA 01-18-2017 [facility] CORONARY SERV ARTERY W/O FOUNDATION ANGINA PECTORIS I447 LEFT 01-18-2017 [facility] BUNDLE-BRAN SERV CH BLOCK FOUNDATION UNSPECIFIED I454 NONSPECIFIC 01-18-2017 [facility] INTRAVENTRI FOUNDATION CULAR BLOCK I482 CHRONIC 01-18-2017 [facility] ATRIAL PHYSICIANS, FIBRILLATIO [facility] N I498 OTHER 01-18-2017 [facility] SPECIFIED SERV CARDIAC FOUNDATION ARRHYTHMIAS I517 CARDIOMEGAL 01-18-2017 [facility] Y SERV FOUNDATION T81962 OTH 01-18-2017 [facility] P EXTREM OT EXTREMITY I708 ATHEROSCLER 01-18-2017 [facility] OSIS OF SERV OTHER FOUNDATION ARTERIES I742 EMBOLISM & 01-18-2017 [facility] THROMBOSIS [facility] ART THE HOSPI UPPER EXTREMITIES I8290 ACUTE 01-18-2017 [facility] EMBOLISM & AMBULANCE THROMBOSIS SERVICE OF UNSPECIFIED VEIN I959 HYPOTENSION 01-18-2017 [facility] AMBULANCE UNSPECIFIED SERVICE P16961 OTH INTRAOP 01-18-2017 [facility] CARD FUNC SERV DIST DURING FOUNDATION OTH SURGERY C14484 PAIN IN 01-18-2017 [place] LEFT MEDICAL SHOULDER IMAGING ASS M7989 OTHER 01-18-2017 [facility] SPECIFIED SERV SOFT TISSUE FOUNDATION DISORDERS R001 BRADYCARDIA 01-18-2017 [facility] UNSPECIFIED FOUNDATION R0989 OTH SPEC SX 01-18-2017 [facility] & SIGNS SERV INVLV THE FOUNDATION CIRC & RESP SYS R748 ABNORMAL 01-18-2017 [facility] LEVELS OF SERV OTHER SERUM FOUNDATION ENZYMES R791 ABNORMAL 01-18-2017 [facility] COAGULATION SERV PROFILE FOUNDATION R7989 OTHER SPEC 01-18-2017 [facility] ABNORMAL PHYSICIANS, FINDINGS PLL BLOOD CHEMISTRY R9431 ABNORMAL 01-18-2017 [facility] ELECTROCARD SERV IOGRAM FOUNDATION Z4682 ENCOUNTER 01-18-2017 [facility] FITTING & SERV ADJUST [facility] NON-VASCULA R CATHETER E56735 ENCOUNTER 01-18-2017 [facility] SURG SERV [facility] FLW SURG TEETH/ORAL CAV W81812 PERSONAL 01-18-2017 YOU MEDICAL HISTORY OT [place] VENOUS [place] THROMBOSIS& EMBOLISM Z951 PRESENCE OF 01-18-2017 [facility] AORTOCORONA [facility] RY [place]PASS GRAFT Z9911 DEPENDENCE 01-18-2017 [facility] ON SERV RESPIRATOR [facility] VENTILATOR STATUS E039 HYPOTHYROID 12-31-2016 [facility] ISM PHYSICIANS UNSPECIFIED GROUP E663 OVERWEIGHT 12-31-2016 [facility] G4730 SLEEP APNEA 11-29-2016 [facility] UNSPECIFIED INC I5043 ACUTE ON 11-18-2016 [facility] CHRONIC HEALTH COMB MEDICAL G SYSTOLIC & DIASTOLIC CHF J449 CHRONIC 10-25-2016 [facility] PULMONARY MEDICAL DISEASE UNS EQUIPME I5023 ACUTE CHRON 08-14-2016 [facility] SYSTOLIC HEALTH HEART MEDICAL G FAILURE R931 ABNORMAL 08-14-2016 [facility] DX IMAGING HEART & COR CIRC Z969 PRESENCE OF 08-14-2016 [facility] IMPLANT UNSPECIFIED Y38796 VITREOUS 06-26-2016 [facility] HERNANDEZ N RIGHT EYE Y97572 VITREOUS 06-26-2016 [facility] HERNANDE[facility] N LEFT EYE [...] NT ET HI AN A CA 68 09 09 30 30 00 HO [...] 80 6- 9- 00 06 TO ve NE 21 20 20 09 WN DE 61 17 17 13 0 96 PH 40 AR MA MG CY TA OF BL ET CY NT HI AN A LI 68 09 09 30 30 00 HO Ac SI 18 -0 -2 .0 00 ME ti NO 00 6- 9- 00 06 TO ve CA 51 20 20 09 WN IL 80 [...] 80 6- 8- 00 06 TO ve NE 21 20 20 09 WN DE 61 17 17 13 0 96 PH 40 AR MA MG CY TA OF BL ET CY NT HI AN A LI 68 07 08 30 30 00 HO Ac SI 18 -2 -1 .0 00 ME ti NO 00 6- 8- 00 06 TO ve CA 51 20 20 09 WN IL 80 [...] HI AN A CA 68 07 08 30 30 00 HO [...] 00 8- 1- 00 06 TO ve CA 51 20 20 07 WN IL 80 [...] 50 8- 1- 00 06 TO ve NE 11 20 20 07 WN DE 71 17 17 37 0 31 PH 40 AR MA MG CY TA OF BL ET CY NT HI AN A CA 68 06 07 30 30 00 HO [...] 00 1- 3- 00 06 TO ve CA 51 20 20 07 WN IL 80 [...] CY NT HI AN A CA 68 05 06 30 30 00 HO [...] 80 1- 3- 00 06 TO ve NE 21 20 20 07 WN DE 61 [...] ME ti NO 00 06 TO ve CA 51 20 20 07 WN IL 80 [...] NT ET HI AN A CA 68 04 05 30 30 00 HO [...] ti SE 50 09-30- 06 TO ve NE 11 20 20 07 WN DE 71 [...] NO 00 1- 4- 06 TO ve CA 51 20 20 07 WN IL 80 [...] CY NT HI AN A CA 68 03 04 30 30 00 HO [...] SE 50 1- 4- 06 TO ve NE 11 20 20 07 WN DE 71 [...] NO 00 6- 7- 06 TO ve CA 51 20 20 07 WN IL 80 [...] CY NT HI AN A CA 68 02 03 30 30 00 HO [...] 50 6- 7- 00 06 TO ve NE 11 20 20 07 WN DE 71 [...] 50 9- 7- 00 06 TO ve NE 11 20 20 07 WN DE 71 [...] BL NT ET HI AN A CA 01 02 30 30 00 HO Ac [...] 00 0- 7- 00 06 TO ve CA 51 20 20 07 WN IL 80 [...] 50 3- 9- 00 06 TO ve NE 11 20 20 07 WN DE 71 [...] 00 3- 9- 00 06 TO ve CA 51 20 20 05 WN IL 80 [...] CY NT HI AN A CA 68 12 01 30 30 00 HO [...] SQUARE METERS Comment: If this patient is -Maltese, then multiply the Comment: result by 1.210. [...] SQUARE METERS Comment: If this patient is -Maltese, then multiply the Comment: result by 1.210. [...] Magnesium measurement (06-27-2017 21:34) Comment: COMMENTS TO ANTIQUE JEWELRY REPAIRER: PER PROTOCOL Magnesi = 1.4 1.4-2.2 complet um 017 mg/dL ed measure 21:34 ment Glucose capillary blood glucometer (06-27-2017 20:46) Glucose = 185 70-110 complet 017 mg/dl ed capilla 20:[address] Glucose capillary blood glucometer (06-27-2017 17:20) Glucose = 127 70-110 complet 017 mg/dl ed capilla 17:[address] UFH PPP Chief Writer-aCnc (01-23-2017 10:15) UFH PPP 0.30 complet 017 IU/mL ed Chief Writer-aC 10:15 nc UFH PPP Chief Writer-aCnc (01-23-2017 04:06) UFH PPP 0.23 complet 017 IU/mL ed Chief Writer-aC 04:06 nc Phosphate SerPl-mCnc (01-22-2017 09:08) Phospha 1.8 2.5-4.5 complet te 017 mg/dL ed SerPl-m 09:08 Cnc Magnesium SerPl-mCnc (01-22-2017 09:08) Magnesi 1.8 1.9-2.4 complet um 017 mg/dL ed SerPl-m 09:08 Cnc UFH PPP Chief Writer-aCnc (01-22-2017 09:06) UFH PPP 0.32 complet 017 IU/mL ed Chief Writer-aC 09:06 nc Phosphate SerPl-mCnc (01-22-2017 03:13) Phospha 1.7 2.5-4.5 complet te 017 mg/dL ed SerPl-m 03:13 Cnc Magnesium SerPl-mCnc (01-22-2017 03:13) Magnesi 1.6 1.9-2.4 complet um 017 mg/dL ed SerPl-m 03:13 Cnc UFH PPP Chief Writer-aCnc (01-22-2017 03:13) UFH PPP 0.33 complet 017 IU/mL ed Chief Writer-aC 03:13 nc UFH PPP Chief Writer-aCnc (01-21-2017 20:29) UFH PPP 0.26 complet 017 IU/mL ed Chief Writer-aC 20:29 nc UFH PPP Chief Writer-aCnc (01-21-2017 13:23) UFH PPP 0.18 complet 017 IU/mL ed Chief Writer-aC 13:23 nc UFH PPP Chief Writer-aCnc (01-21-2017 06:06) UFH PPP 0.14 complet 017 IU/mL ed Chief Writer-aC 06:06 nc Phosphate SerPl-mCnc (01-21-2017 03:05) Phospha 1.4 2.5-4.5 complet te 017 mg/dL ed SerPl-m 03:05 Cnc Magnesium SerPl-mCnc (01-21-2017 03:05) Magnesi 1.8 1.9-2.4 complet um 017 mg/dL ed SerPl-m 03:05 Cnc UFH PPP Chief Writer-aCnc (01-20-2017 22:15) UFH PPP LE11 complet 017 <0.11 L ed Chief Writer-aC 22:15 IU/mL nc Sodium Ur-sCnc (01-20-2017 20:59) Sodium 39 complet Ur-sCnc 017 mmol/L ed 20:59 Creat Ur-mCnc (01-20-2017 20:59) Creat 68 complet Ur-mCnc 017 mg/dL ed 20:59 UFH PPP Chief Writer-aCnc (01-20-2017 16:32) UFH PPP LE11 complet 017 <0.11 L ed Chief Writer-aC 16:32 IU/mL nc UFH PPP Chief Writer-aCnc (01-20-2017 11:28) UFH PPP > 1.10 complet 017 IU/mL ed Chief Writer-aC 11:28 nc Phosphate SerPl-mCnc (01-20-2017 04:12) Phospha 2.0 2.5-4.5 complet te 017 mg/dL ed SerPl-m 04:12 Cnc Magnesium SerPl-mCnc (01-20-2017 04:12) Magnesi 1.8 1.9-2.4 complet um 017 mg/dL ed SerPl-m 04:12 Cnc UFH PPP Chief Writer-aCnc (01-20-2017 04:12) UFH PPP 1.02 complet 017 IU/mL ed Chief Writer-aC 04:12 nc Hgb A1c MFr Bld (01-20-2017 04:12) Hgb A1c 10.6 % 4.7-6.0 complet MFr 017 ed Bld 04:12 UFH PPP Chief Writer-aCnc (01-19-2017 21:15) UFH PPP 0.30 complet 017 IU/mL ed Chief Writer-aC 21:15 nc Digoxin SerPl-mCnc (01-19-2017 13:57) Digoxin 1.6 0.8-2.0 complet 017 ng/mL ed SerPl-m 13:57 Cnc UFH PPP Chief Writer-aCnc (01-19-2017 13:57) UFH PPP 0.28 complet 017 IU/mL ed Chief Writer-aC 13:57 nc Phosphate SerPl-mCnc (01-19-2017 05:18) Phospha 2.5 2.5-4.5 complet te 017 mg/dL ed SerPl-m 05:18 Cnc Magnesium SerPl-mCnc (01-19-2017 05:18) Magnesi 2 2.1 1.9-2.4 complet um 017 mg/dL ed SerPl-m 05:18 Cnc UFH PPP Chief Writer-aCnc (01-19-2017 05:01) UFH PPP 2 0.24 complet 017 IU/mL ed Chief Writer-aC 05:01 nc UFH PPP Chief Writer-aCnc (01-18-2017 23:11) UFH PPP 0.24 complet 017 IU/mL ed Chief Writer-aC 23:11 nc Phosphate SerPl-mCnc (01-18-2017 22:58) Phospha 2.5 2.5-4.5 complet te 017 mg/dL ed SerPl-m 22:58 Cnc Magnesium SerPl-mCnc (01-18-2017 22:58) Magnesi 1.8 1.9-2.4 complet um 017 mg/dL ed SerPl-m 22:58 Cnc UFH PPP Chief Writer-aCnc (01-18-2017 18:24) UFH PPP 0.27 complet 017 IU/mL ed Chief Writer-aC 18:24 nc UFH PPP Chief Writer-aCnc (01-18-2017 11:46) UFH PPP 0.32 complet 017 IU/mL ed Chief Writer-aC 11:46 nc UFH PPP Chief Writer-aCnc (01-18-2017 05:40) UFH PPP 0.88 complet 017 IU/mL ed Chief Writer-aC 05:40 nc Procedures Procedure DOS Code Location Performer Comment RESP ASST E0470 PATIENT PATIENT DEVC 7 AIDS INC AIDS INC BI-LEVL PRSS CAPABILIT Y W/O BACKU HUMDIFIR E0562 PATIENT PATIENT HEATED 7 AIDS INC AIDS INC USED W/POS ARWAY PRESSURE DEVICE PROTHROMB 12816 [facility] INC INC PROTHROMB 97452 [facility] GARCIA IN TIME 7 [facility] INC INC RESP ASST E0470 PATIENT PATIENT DEVC 7 AIDS INC AIDS INC BI-LEVL PRSS CAPABILIT Y W/O BACKU HUMDIFIR E0562 PATIENT PATIENT HEATED 7 AIDS INC AIDS INC USED W/POS ARWAY PRESSURE DEVICE PROTHROMB 36255 [facility] GARCIA IN TIME 7 [facility] INC INC RESP ASST E0470 PATIENT PATIENT DEVC 7 AIDS INC AIDS INC BI-LEVL PRSS CAPABILIT Y W/O BACKU HUMDIFIR E0562 PATIENT PATIENT HEATED 7 AIDS INC AIDS INC USED W/POS ARWAY PRESSURE DEVICE PROTHROMB 95583 [facility] GARCIA IN TIME 7 [facility] INC INC PROTHROMB 31643 [facility] GARCIA IN TIME 7 [facility] INC INC PROTHROMB 89793 [facility] IN TIME 7 [facility] INC INC PROTHROMB 18011 [facility] GARCIA IN TIME 7 [facility] INC INC COLLECTIO 74415 RAD[facility]ARCIA N VENOUS 7 [facility] BLOOD INC INC VENIPUNCT URE PROTHROMB 70096 RAD[facility] GARCIA IN TIME 7 [facility] INC HUMDIFIR E0562 PATIENT PATIENT HEATED 7 AIDS INC AIDS INC USED W/POS ARWAY PRESSURE DEVICE RESP ASST E0470 PATIENT PATIENT DEVC 7 AIDS INC AIDS INC BI-LEVL PRSS CAPABILIT Y W/O BACKU PROTHROMB 52858 [facility] GARCIA IN TIME 7 [facility] INC INC PROTHROMB 32296 [facility] GARCIA IN TIME 7 [facility] INC INC COLLECTIO 11536 RADHACAROLA GARCIA N VENOUS 7 [facility] BLOOD INC INC VENIPUNCT URE RAD EXP G9501 [facility] INDCS/EXP 7 MEDICAL TM & NO IMAGING FLUORO ASS IMG N DOC N RSN PROTHROMB 06260 [facility]ARCIA IN TIME 7 [facility] INC INC RADEX 13045 [facility] GARCIA COLON 7 [facility] BARIUM INC INC ENEMA W/WO KUB PROTHROMB 42645 [facility] GARCIA IN TIME 7 [facility] INC INC PROTHROMB 39686 RADHA RADHA IN TIME 7 [facility] INC INC PROTHROMB 87380 RADHA RADHA IN TIME 7 [facility] INC INC CUL BACT 36096 [facility] G[facility]IA XCPT 7 [facility] URINE INC INC BLOOD/STO OL AEROBIC ISOL CUL BACT 47843 [facility] AEROBIC 7 [facility] ADDL INC INC METHS DEFINITIV E EA ISOL SUSCEPTIB 42699 [facility] LTY STDY 7 [facility] ANTIMICRB INC INC IAL MICRO/AGA R DILUTJ PROTHROMB 12044 [facility] GARCIA IN TIME 7 [facility] INC PROTHROMB 70235 RAD[facility] GARCIA IN TIME 7 [facility] INC HUMDIFIR E0562 PATIENT PATIENT HEATED 7 AIDS INC AIDS INC USED W/POS ARWAY PRESSURE DEVICE RESP ASST E0470 PATIENT PATIENT DEVC 7 AIDS INC AIDS INC BI-LEVL PRSS CAPABILIT Y W/O BACKU PROTHROMB 91862 [facility] GARCIA IN TIME 7 [facility] SBSQ [address]9316 [place] [address] NURSE CARE/DAY PRACTITIO 15 NER GR MINUTES SBSQ 72823 [place] [address] NURSE CARE/DAY PRACTITIO 15 NER GR MINUTES SBSQ 04031 [place] [address] NURSE CARE/DAY PRACTITIO 15 NER GR MINUTES SBSQ 84201 [facility] 7 MEDICAL CARE/DAY SERV 25 FOUNDATIO MINUTES N INITIAL 34326 [facility] INPATIENT 7 NURSE CONSULT PRACTITIO NEW/ESTAB NER GR PT 80 MIN ECG 70193 YOU DELFIN ROUTINE 7 MEDICAL ECG SERV W/LEAST FOUNDATIO 12 LDS N I&R ONLY ECHO 04877 YOU KIERRA TTHRC R-T 7 MEDICAL 2D SERV W/WOM-MOD FOUNDATIO E COMPL N SPEC&COLR D ECG 98165 [facility] NANCY ROUTINE 7 [facility] W/LEAST P 12 LDS I&R ONLY RADEX 36423 [facility] GARCIA SHOULDER 7 [facility] COMPLETE INC INC MINIMUM 2 VIEWS CRITICAL 39685 [facility] 7 PHYSICIAN ILL/INJUR S, PLLC ED PATIENT INIT 30-74 MIN AMB A0427 [facility] SERVICE 7 AMBULANCE AMBULANCE ALS SERVICE SERVICE EMERGENCY TRANSPORT LEVEL 1 RADIOLOGI 04-29-201 67879 YOU REAL C 7 MEDICAL KENYA EXAMINATI SERV ON CHEST FOUNDATIO SINGLE N VIEW FRONTAL EMBLC/THR 58589 YOU LUNA MBC AX 7 MEDICAL BRACH SERV INNOMINAT FOUNDATIO E SUBCLA N ART EMBLC/THR 76203 YOU LUNA [facility] W/WO 7 MEDICAL CATH SERV RADIAL/UL FOUNDATIO TYLER ART N ARM INC INITIAL 17904 YOU [facility] 7 MEDICAL CARE/DAY [place] [address] RADHA GARCIA INFUSION 7 [facility] THERAPY/P INC INC ROPHYLAXI S /DX 1ST TO 1 HR THERAPEUT 67531 [facility] GARCIA IC 7 [facility] INJECTION INC INC IV PUSH EACH NEW DRUG ECG 90550 [facility] GARCIA ROUTINE 7 [facility] ECG INC INC W/LEAST 12 LDS TRCG ONLY W/O I&R PROTHROMB 89452 [facility] GARCIA IN TIME 7 [facility] INC INC COMPREHEN 10996 [facility] GARCIA SIVE 7 [facility] METABOLIC INC INC PANEL ANESTHESI 77316 [place] GAMBREL A 7 MEDICAL ARTERIES SERV UPPER FOUNDATIO ARM&[place] [address] [place] SOLITARIO ANGIOGRAP 7 MEDICAL HY UPPER SERV EXTREMITY FOUNDATIO N LEVEL III 91417 [facility] 7 Y OF PATHOLOGY [place] [facility] GROSS&KEI ROSCOPIC EXAM INITIAL 77972 YOU [facility] INPATIENT 7 MEDICAL CONSULT SERV NEW/ESTAB FOUNDATIO PT 110 N MIN GROUND A0425 [facility] MILEAGE 7 AMBULANCE AMBULANCE PER SERVICE SERVICE STATUTE MILE GLUC BLD 63313 RADHA GARCIA GLUC MNTR 7 [facility] DEV INC INC CLEARED FDA SPEC HOME USE HEMOGLOBI 05213 [facility] GARCIA N 7 [facility]OS[facility] GLYCOSYLA [place] [address] RADHA GARCIA TROPONIN 7 [facility] QUANTITAT INC INC ELYSSA BLOOD 19687 [facility] GARCIA COUNT 7 [facility] COMPLETE INC INC AUTO&AUTO DIFRNTL WBC EXTIRPATI [id number] [facility] ON MATTER 7 [facility]ALTH[facility] HEALTHCAR LEFT E E SUBCLAVIA HOSPITALS HOSPITALS N ARTERY OPEN EXTIRPATI [id number] [facility] [place] ON MATTER 7 [facility]ALTHCAR LEFT E E AXILLARY HOSPITALS HOSPITALS ARTERY OPEN EXTIRPATI [id number] [facility] ON MATTER 7 [facility]ALTHCAR HEALTHCAR LEFT E E ULNAR HOSPITALS HOSPITALS ARTERY OPEN APPRCH EXTIRPATI [id number] [facility] [place] ON MATTER 7 HEALTHCAR HEALTHCAR LT E E RADIAL HOSPITALS HOSPITALS ARTERY OPEN APPRCH PROTHROMB 79637 [facility] GARCIA IN TIME 7 [facility] INC INC PROTHROMB 34210 [facility] GARCIA IN TIME 7 [facility] INC PROTHROMB 33236 RADHA GARCIA IN TIME 7 [facility] INC PROTHROMB 92308 [facility]HA GARCIA IN TIME 7 [facility] INC PROTHROMB 10879 [facility]ARCIA IN TIME 7 [facility] INC PROTHROMB 06207 [facility] GARCIA IN TIME 7 [facility] INC HUMDIFIR E0562 PATIENT PATIENT HEATED 7 AIDS INC AIDS INC USED W/POS ARWAY PRESSURE DEVICE RESP ASST E0470 PATIENT PATIENT DEVC 7 AIDS INC AIDS INC BI-LEVL PRSS CAPABILIT Y W/O BACKU TUBING A7037 PATIENT PATIENT USED WITH 7 AIDS INC AIDS INC POSITIVE AIRWAY PRESSURE DEVICE PROTHROMB 07845 RADHA GARCIA IN TIME 7 [facility] INC INC PROTHROMB 07151 RAD[facility] GARCIA IN TIME 7 [facility] INC INC POLYSOM 07165 RADHA GARCIA 6/>YRS 7 [facility] SLEEP 4/> INC INC ADDL KENDRA ATTND PROTHROMB 55545 [facility] GARCIA IN TIME 7 [facility] INC INC ECG 12874 [facility] R[facility] 7 [facility] ECG MEDICAL W/LEAST G 12 LDS W/[place] [address] RADHA GARCIA THYROID 7 [facility] STIMULATI [place] [id number] RADHA GARCIA FREE 7 [facility] THYROXINE [facility] INC HEMOGLOBI 88976 RADHA GARCIA N 7 [facility] GLYCOS[facility]LA [facility] AJAY A1C TUBING A7037 TIFFANY ALLEN USED WITH 7 HOME HOME POSITIVE MEDICAL MEDICAL AIRWAY EQUIPME EQUIPME PRESSURE DEVICE PROTHROMB 84759 RADHA GARCIA IN TIME 7 [facility]P INC INC FULL FACE A7030 TIFFANY CUNNINGHAMRELL MASK 7 HOME HOME USED MEDICAL MEDICAL W/POS EQUIPME EQUIPME ARWAY PRESS DEVICE EA HEADGEAR A7035 TIFFANY ALLEN USED 7 HOME HOME W/POSITIV MEDICAL MEDICAL E AIRWAY EQUIPME EQUIPME PRESSURE DEVICE HOSPITAL G0463 RADHA GARCIA OUTPATIEN 7 [facility] T CLIN INC INC VISIT ASSESS & MGMT PT PROTHROMB 70034 RADHA GARCIA IN TIME 7 [facility] INC PROTHROMB 35632 RADHA [facility]ARCIA IN TIME 7 [facility] G0463 RADHA GARCIA OUTPATIEN 7 [facility] T CLIN INC INC VISIT ASSESS & MGMT PT HOSPITAL G0463 RADHA GARCIA OUTPATIEN 6 [facility] T CLIN INC INC VISIT ASSESS & MGMT PT PROTHROMB 65393 RADHA GARCIA IN TIME 6 [facility] INC PROTHROMB 51541 RADHA GARCIA IN TIME 6 [facility] INC HOSPITAL G0463 RADHA GARCIA OUTPATIEN 6 [facility] T CLIN INC INC VISIT ASSESS & MGMT PT THERAPEUT 22364 RADHA GARCIA IC 6 [facility] PROPHYLAC INC INC TIC/DX INJECTION SUBQ/IM PROTHROMB 47315 RADHA GARCIA IN TIME 6 [facility] INC INC COLLECTIO 63958 RADHA GARCIA N VENOUS 6 [facility] BLOOD INC INC VENIPUNCT URE PROTHROMB 32093 RADHA GARCIA IN TIME 6 [facility] G0463 RADHA GARCIA OUTPATIEN 6 [facility] CLIN INC INC VISIT ASSESS & MGMT PT ALBUMIN 18307 RADHA GARCIA URINE 6 [facility] MICROALBU INC INC MIN QUANTIATI VE 25 33773 RADHA GARCIA HYDROXY 6 [facility] INCLUDES [place] [address] RADHA GARCIA PARATHORM 6 [facility] ONE INC INC PROTHROMB 90210 RADHA GARCIA IN TIME 6 [facility] INC INC CALCIUM 00886 RADHA GARCIA IONIZED 6 [place] [address] RADHA GARCIA BLOOD/URI 6 [facility] C ACID INC INC COLLECTIO 25551 RADHA GARCIA N VENOUS 6 [facility] BLOOD INC INC VENIPUNCT URE RENAL 36020 RADHA GARCIA FUNCTION 6 [facility] PANEL INC INC URNLS DIP 02751 RADHA GARCIA 6 [facility] STICK/TAB INC INC LET REAGENT AUTO MICROSCOP Y BLOOD 29396 RADHA GARCIA COUNT 6 [facility] COMPLETE INC INC AUTO&[place] [address] RADHA GARCIA RETROPERI 6 [facility] [facility] [place] REAL TIME W/[place] [address] CARI LEATHA RETROPERI 6 MEDICAL YASMIN TONEAL IMAGING REAL TIME ASS W/IMAGE LIMITED BASIC 85505 [facility] METABOLIC [address] [place] [address] PANEL CALCIUM TOTAL ECHO 35387 SYDNEE [facility] R-T 6 [place] [facility] 2D MEDICAL W/WOM-MOD G E COMPL SPEC&COLR D COLLECTIO 60028 [facility] N VENOUS [address] [place] [address] BLOOD VENIPUNCT URE PROTHROMB 85703 [facility] IN TIME [address] [place] [address] [id number] RAD[facility] G[facility]IA OUTPATIEN 6 [facility] INC VISIT ASSESS & MGMT PT PROTHROMB 09957 [facility] GARCIA IN TIME 6 [facility] G0463 RAD[facility] RADHA OUTPATIEN 6 [facility] INC VISIT ASSESS & MGMT PT PROTHROMB 70962 RAD[facility] GARCIA IN TIME 6 [facility] INC INC COLLECTIO 75003 RAD[facility] GARCIA N VENOUS 6 [facility] BLOOD INC INC VENIPUNCT URE COLLECTIO 69453 RAD[facility] GARCIA N VENOUS 6 [facility] BLOOD INC INC VENIPUNCT URE PROTHROMB 59507 RADHA GARCIA IN TIME 6 [facility] G0463 RADHA RADHA OUTPATIEN 6 [facility] CLIN INC INC VISIT ASSESS & [place] [address] RADHA GARCIA PARATHORM 6 [facility] ONE INC INC 25 85181 RADHA GARCIA HYDROXY 6 [facility] INCLUDES INC INC FRACTIONS IF PERFORMED RENAL 64313 RADHA GARCIA FUNCTION 6 [facility] PANEL INC INC CREATININ 96142 RADHA [facility]ARCIA E OTHER 6 [facility] SOURCE INC INC COLLECTIO 24277 RADHA [facility]ARCIA N VENOUS 6 [facility] BLOOD INC INC VENIPUNCT URE URNLS DIP 99805 RADHA GARCIA 6 [facility] STICK/TAB INC INC LET REAGENT AUTO MICROSCOP Y BLOOD 43717 RADHA GARCIA COUNT 6 [facility] COMPLETE INC INC AUTO&AUTO DIFRNTL WBC PROTEIN 12285 RADHA GARCIA XCPT 6 [facility] REFRACTOM INC INC ETRY SERUM PLASMA/WH L BLD PROTHROMB 31702 RAD[facility] GARCIA IN TIME 6 [facility] G0463 RAD[facility] GARCIA OUTPATIEN 6 [facility] CLIN INC INC VISIT ASSESS & MGMT PT HOSPITAL G0463 [facility] GARCIA OUTPATIEN 6 [facility]IN INC INC VISIT ASSESS & MGMT PT PROTHROMB 47061 RAD[facility] GARCIA IN TIME 6 [facility] INC INC ECG 96269 [facility] 6 [facility] ECG MEDICAL W/LEAST G 12 LDS [facility] G0463 RAD[facility] GARCIA OUTPATIEN 6 [facility] CLIN INC INC VISIT ASSESS & MGMT PT PROTHROMB 40173 RADHA GARCIA IN TIME 6 [facility] INC INC COLLECTIO 50805 RADHA GARCIA N VENOUS 6 [facility] BLOOD INC INC VENIPUNCT URE HOSPITAL G0463 RAD[facility] GARCIA OUTPATIEN 6 [facility] CLIN INC INC VISIT ASSESS & MGMT PT PROTHROMB 27137 [facility] GARCIA IN TIME 6 [facility] INC INC LIPID 55586 RADHA GARCIA PANEL 6 [facility] INC INC COLLECTIO 11775 RAD[facility] GARCIA N VENOUS 6 [facility] BLOOD INC INC VENIPUNCT URE COMPREHEN 97303 RAD[facility]ARCIA SIVE 6 [facility] [address] RADHA GARCIA FREE 6 [facility] [place] [address] RADHA [facility]ARCIA THYROID 6 [facility] STIMULATI INC INC NG HORMONE TSH BLOOD 93283 RADHA GARCIA COUNT 6 [facility] COMPLETE INC INC AUTO&AUTO DIFRNTL WBC HEMOGLOBI 36382 RAD[facility] GARCIA N 6 [facility] GLYCOSYLA INC INC [facility] G0463 RADHA GARCIA OUTPATIEN 6 [facility] CLIN INC INC VISIT ASSESS & MGMT PT PROTHROMB 73500 RADHA GARCIA IN TIME 6 [facility] INC INC PROTHROMB 49420 RADHA GARCIA IN TIME 6 [facility]PITAL G0463 RAD[facility] GARCIA OUTPATIEN 6 [facility] T CLIN INC INC VISIT ASSESS & MGMT PT COLLECTIO 34690 RADHA GARCIA N VENOUS 6 [facility] BLOOD INC INC VENIPUNCT URE Encounters Encounter Start End Date Code Location Performer Type Date EMERGENCY 40419 DARLIN WATTS DEPT 7 7 PHYSICIAN VISIT S, [facility] HIGH SEVERITY& THREAT [facility] RADHA - 7 7 [facility] OUTPATIEN INC T OFFICE 28898 RADHA OUTPATIEN 7 7 [facility] T VISIT 5 INC MINUTES OFFICE 08843 [facility] OUTPATIEN 7 7 PHYSICIAN T VISIT S GROUP 15 MINUTES OFFICE 36950 RADHA OUTPATIEN 7 7 [facility] T VISIT 5 INC MINUTES [facility]OSPITAL RAD[facility] - 7 7 [facility] OUTPATIEN INC [facility] - 7 7 [facility] OUTPATIEN INC T OFFICE 13841 [facility] OUTPATIEN 7 7 [facility] T VISIT 5 INC MINUTES OFFICE 34065 [facility] OUTPATIEN 7 7 [facility] T VISIT 5 INC MINUTES [facility]OSP[facility] - 7 7 [facility] OUTPATIEN INC T OFFICE 50573 [facility] OUTPATIEN 7 7 [facility] T VISIT 5 INC MINUTES [facility]OSPITAL [facility] - 7 7 [facility] OUTPATIEN INC T OFFICE 16119 [facility] OUTPATIEN 7 7 [facility] T VISIT 5 INC MINUTES [facility]OSPITAL [facility] - 7 7 [facility] OUTPATIEN INC T OFFICE 38164 [facility] OUTPATIEN 7 7 PHYSICIAN T NEW 45 S GROUP MINUTES HOSPITAL RAD[facility] - 7 7 [facility] OUTPATIEN INC T OFFICE 77604 [facility] OUTPATIEN 7 7 [facility] T VISIT 5 INC MINUTES [facility]OSPITAL [facility] - 7 7 [facility] OUTPATIEN INC T OFFICE 87026 [facility] OUTPATIEN 7 7 [facility] T VISIT 5 INC MINUTES [facility]OSPITAL [facility] - 7 7 [facility]PAT[facility]EN [facility] - 7 7 [facility]EN INC [facility] - 7 7 [facility] OUTPATIEN INC T OFFICE 52422 [facility] OUTPATIEN 7 7 [facility] T VISIT 5 INC MINUTES OFFICE 46945 [facility] OUTPATIEN 7 7 [facility] T VISIT 5 INC MINUTES [facility]OSPITAL [facility] - 7 7 [facility] OUTPATIEN INC T [facility] - 7 7 [facility] OUTPATIEN INC T OFFICE 03726 [facility] OUTPATIEN 7 7 [facility] T VISIT 5 INC MINUTES OFFICE 57161 [facility] AMMON CONSULTAT 7 7 PHYSICIAN KARMEN Aldana GROUP NEW/ESTAB PATIENT 30 MIN OFFICE 84518 RAD[facility] OUTPATIEN 7 7 [facility] T VISIT 5 INC MINUTES HOSPITAL RAD[facility] - 7 7 [facility] OUTPATIEN INC T OFFICE 68544 [place] [facility] OUT[facility] 7 7 MEDICAL T VISIT SERV 25 FOUNDATIO MINUTES N EMERGENCY 96838 RAD[facility] 7 7 [facility] DEPARTMEN INC T VISIT LOW/MODER SEVERITY HOSPITAL [facility] - 7 7 [facility] OUTPATIEN INC T EMERGENCY 42588 DARLIN CORONEL 7 7 PHYSICIAN JR MCGOVERN S, [facility] T VISIT MODERATE SEVERITY HOSPITAL [facility] - 7 7 [facility] OUTPATIEN INC T OFFICE 90160 [facility] OUTPATIEN 7 7 [facility] T VISIT 5 INC MINUTES [facility]OSPITAL RAD[facility] - 7 7 [facility] OUTPATIEN INC T OFFICE 66701 [facility] OUTPATIEN 7 7 [facility] T VISIT 5 INC MINUTES OFFICE 66490 [facility] IVON OUTPATIEN 7 7 PHYSICIAN T VISIT S GROUP 25 MINUTES OFFICE 82622 [facility] OUTPATIEN 7 7 [facility] T VISIT 5 INC [facility] RADHA - 7 7 [facility] OUTPATIEN INC T EMERGENCY 19430 [facility] DEPT 7 7 [facility] VISIT INC HIGH SE[facility]ITY& [facility] OFFICE 31377 [facility] OUTPATIEN 7 7 [facility] T VISIT 5 INC [facility] RADHA - 7 7 [facility] OUTPATIEN [facility] RADHA - 7 7 [facility] OUTPATIEN INC T OFFICE 79177 [facility] OUTPATIEN 7 7 [facility] T [facility]ISIT 5 INC [facility] RADHA - 7 7 [facility] OUTPATIEN INC T OFFICE 76238 [facility] OUTPATIEN 7 7 [facility] T VISIT 5 INC [facility] OFFICE 49913 [facility] OUTPATIEN 7 7 [facility] T VISIT 5 INC [facility] RADHA - 7 7 [facility] OUTPATIEN [facility] RADHA - 7 7 [facility] OUTPATIEN INC T OFFICE 01107 [facility] OUTPATIEN 7 7 [facility] T VISIT 5 INC MINUTES OFFICE 12643 [facility] OUTPATIEN 7 7 [facility] T VISIT 5 INC [facility] RADHA - 7 7 [facility] OUTPATIEN INC T OFFICE 29484 [facility] IVON OUTPATIEN 7 7 PHYSICIAN T VISIT S GROUP 15 MINUTES HOSPITAL [facility] - 7 7 [facility] OUTPATIEN INC T OFFICE 81915 [facility] OUTPATIEN 7 7 [facility] T VISIT 5 INC MINUTES OFFICE 37879 [facility] OUTPATIEN 7 7 [facility] T VISIT 5 INC MINUTES [facility]OSPITAL [facility] - 7 7 [facility] OUTPATIEN [facility] RADHA - 7 7 [facility]PATIEN [facility] RADHA - 7 7 [facility]PATIEN [facility] OFFICE 61880 [facility] OUTPATIEN 7 7 [facility] T VISIT 5 INC MINUTES OFFICE 19255 [facility] OUTPATIEN 7 7 [facility] T VISIT MEDICAL 25 G [facility] RADHA - 7 7 [facility] OUTPATIEN [facility] OFFICE 75335 [facility] OUTPATIEN 7 7 PHYSICIAN T VISIT S GROUP 25 MINUTES [facility] RADHA - 7 7 [facility] OUTPATIEN [facility] OFFICE 59842 [facility] OUTPATIEN 7 7 [facility] T [facility]ISIT 5 INC [facility] RADHA - 7 7 [facility] OUTPATIEN [facility] RADHA - 7 7 [facility]PATIEN [facility] RADHA - 6 6 [facility] OUTPATIEN [facility] RADHA - 6 6 [facility] OUTPATIEN [facility] RADHA - 6 6 [facility] OUTPATIEN [facility] RADHA - 6 6 [facility]PATIEN [facility] RADHA - 6 6 [facility] OUTPATIEN [facility] RADHA - 6 6 [facility] OUTPATIEN [facility] MARCOS - 6 6 [facility] RAD[facility] - 6 6 [facility] RADHA - 6 6 [facility] OUTPATIEN [facility] RADHA [facility] 6 6 [facility] OUTPATIEN INC T OFFICE 82642 [place] ALONSO XIANG OUTPATIEN 6 6 MEDICAL T NEW 45 SERV MINUTES [facility] RADHA [facility] 6 6 [facility] OUTPATIEN INC [facility] RAD[facility] - 6 6 [facility] OUTPATIEN [facility] RADHA - 6 6 [facility] OUTPATIEN [facility] T OFFICE 44142 [facility] OUTPATIEN 6 6 [facility] T [facility]ISIT MEDICAL 40 G MINUTES HOSPITAL RADHA [facility] 6 6 [facility] OUTPATIEN [facility] RADHA - 6 6 [facility] OUTPATIEN [facility] T OFFICE 15768 AMELIA CISNEROS OUTPATIEN 6 6 DAVID HERNANDEZ T VISIT 25 MINUTES HOSPITAL RADHA - 6 6 [facility] OUTPATIEN INC OFFICE 48333 [facility] IVON OUTPATIEN 6 6 PHYSICIAN KEI T VISIT S GROUP 25 MINUTES HOSPITAL [facility] - 6 6 [facility] OUTPATIEN INC [facility] RAD[facility] - 6 6 [facility]
--- OUTSIDE RECORDS SUMMARY | 2017-07-04 07:28 | External Medical Summary Rpt | CCD ---
Author Author , [facility] Organization [facility] Address Unknown Phone Care Team Providers Care Auditing Control Clerk Name Role Phone AYCINENA, AYCINENA Unavailable Unavailable BESSON, BESSON Unavailable Unavailable RIOJAS, RIOJAS Unavailable Unavailable [facility] Unavailable Unavailable SERVICE, [facility] Unavailable Unavailable SERVICE, [facility] LEATHA YASMIN, Unavailable Unavailable LEATHA YASMIN GARZA, GARZA Unavailable Unavailable CORONEL, JR, CORONEL, Unavailable Unavailable JR IVON, IVON Unavailable Unavailable IVON KEI, IVON Unavailable Unavailable KEI GAMBREL, GAMBREL Unavailable Unavailable [facility] Un[facility] Unavailable [facility], [facility] Unavailable Unavailable [facility]PITAL P, [facility], Unavailable Unavailable [facility] DELFIN LENZ Unavailable Unavailable [facility] Un[facility] Un[facility], [facility] Unavailable Unavailable MEDICAL G, [facility] N[facility] Unavailable Unavailable PRACTITIONER GR, [facility] NURSE PRACTITIONER GR [facility] Un[facility], [facility], SY Unavailable Unavailable [...] Unavailable Unavailable EQUIPME, [facility], Unavailable Unavailable [facility] Unavailable Un[facility] VIOLETA, VIOLETA Unavailable Unavailable V[facility]TA [...] W/STAGE 1-4 PLLC CKD OR UNS CKD [id number] ACUTE EMBO 05-26-2017 [facility] THROMB UNS PHYSICIANS, DEEP VEINS PLLC LOW EXTREM ARIADNA M545 LOW BACK 05-26-2017 [facility] PAIN [facility], PLLC N189 CHRONIC 05-26-2017 [facility] KIDNEY [facility], DISEASE PLLC UNSPECIFIED Z7901 STORAGE MANAGEMENT ARCHITECT 05-14-2017 [facility] CURRENT USE [facility] OF INC ANTICOAGULA NTS Z952 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-14-2017 [facility] PROSTHETIC [facility] HEART INC VALVE Z5181 ENCOUNTER 04-18-2017 [facility] FOR [facility] THERAPEUTIC INC DRUG LEVEL MONITORING E785 HYPERLIPIDE 03-10-2017 [facility] NITIN PHYSICIANS UNSPECIFIED GROUP I10 ESSENTIAL 03-10-2017 [facility] PRIMARY PHYSICIANS HYPERTENSIO GROUP N I4891 UNSPECIFIED 03-10-2017 [facility] ATRIAL PHYSICIANS FIBRILLATIO GROUP N K5730 DIVERTICULO 02-13-2017 [facility] MEDICAL INTEST W/O IMAGING ASS PERF/ABSC W/O BLEED Z1211 ENCOUNTER 02-13-2017 [facility] SCREENING [facility] MALIGNANT INC NEOPLASM OF COLON V68072 ACUTE 02-04-2017 [facility] EMBOLISM & PHYSICIANS THROMBOSIS GROUP DEEP VEINS LT UP EXT D631 ANEMIA IN 02-03-2017 [facility] DISEASE E871 HYPO-OSMOLA 02-03-2017 [facility] HYPONATREMI [facility] A N183 CHRONIC 02-03-2017 [facility] DISEASE [facility] STAGE 3 MODERATE Z66507 CUTANEOUS 02-01-2017 [facility] ABSCESS OF [facility] LEFT UPPER INC LIMB L0889 OTH SPEC 02-01-2017 [facility] LOCAL PHYSICIANS, INFECTIONS PLLC THE SKIN & SUBQ TISSUE E119 TYPE 2 01-28-2017 [facility] DIABETES PHYSICIANS MELLITUS GROUP WITHOUT COMPLICATIO NS I998 OTHER 01-28-2017 [facility] DISORDER OF PHYSICIANS GROUP CIRCULATORY SYSTEM E1165 TYPE 2 01-20-2017 [facility] NURSE DIABETES PRACTITIONE MELLITUS R GR WITH HYPERGLYCEM IA Z794 STORAGE MANAGEMENT ARCHITECT 01-20-2017 [facility] NURSE CURRENT USE PRACTITIONE OF INSULIN R GR I509 HEART 01-19-2017 [facility] UNSPECIFIED [facility]ATION I5189 OTHER 01-19-2017 [facility] I[facility]ED [facility] HEART [facility] DISEASES E108 TYPE 1 01-18-2017 [facility] DIABETES PHYSICIANS, MELLITUS PLLC W/UNSPEC COMPLICATIO NS E1122 TYPE 2 01-18-2017 [facility] W/DIAB CHRON KIDNEY DZ I2510 [facility] [place] 01-18-2017 [facility] CORONARY [facility] ARTERY W/O [facility]OUNDATION ANGINA PECTORIS I447 LEFT 01-18-2017 [facility]DLE-[facility]AN [facility] CH BLOCK [facility]OUNDATION UNSPECIFIED I454 NONSPECIFIC 01-18-2017 [facility] INTRAVENTRI [facility] CULAR BLOCK I482 CHRONIC 01-18-2017 [facility] ATRIAL PHYSICIANS, FIBRILLATIO [facility] N I498 OTHER 01-18-2017 [facility] SPECIFIED [facility] CARDIAC [facility] ARRHYTHMIAS I517 CARDIOMEGAL 01-18-2017 [facility] Y [facility] J61827 OTH 01-18-2017 [facility] P EXTREM OT EXTREMITY I708 ATHEROSCLER 01-18-2017 [facility] OF SERV OTHER FOUND[facility] ARTERIES I742 EMBOLISM & 01-18-2017 [facility] ART THE HOSPI UPPER EXTREMITIES I8290 ACUTE 01-18-2017 [facility] THROMBOSIS SERVICE OF UNSPECIFIED VEIN I959 HYPOTENSION 01-18-2017 [facility] UNSPECIFIED SERVICE N36526 OTH INTRAOP 01-18-2017 [facility] FUNC SERV DIST DURING [facility] OTH SURGERY V64959 PAIN IN 01-18-2017 [place] LEFT MEDICAL SHOULDER IMAGING ASS M7989 OTHER 01-18-2017 [facility] SPEC[facility] SOFT TISSUE [facility]OUNDATION DISORDERS R001 BRADYCARDIA 01-18-2017 [facility] UNSPECIFIED [facility]OUNDATION R0989 OTH SPEC SX 01-18-2017 [facility] SIGNS [facility] INVLV THE [facility]OUNDATION CIRC & RESP SYS R748 ABNORMAL 01-18-2017 [facility] L[facility]ELS OF SERV OTHER SERUM [facility]OUNDATION ENZYMES R791 ABNORMAL 01-18-2017 [facility]AGUL[facility] SERV PROFILE [facility] R7989 OTHER SPEC 01-18-2017 [facility] ABNORMAL PHYSICIANS, FINDINGS [facility] BLOOD CHEMISTRY R9431 ABNORMAL 01-18-2017 [facility] ELECTROCARD SERV IOGRAM [facility] Z4682 ENCOUNTER 01-18-2017 [facility] ADJUST [facility] NON-VASCULA R CATHETER Z40429 ENCOUNTER 01-18-2017 [facility] AFTERCARE [facility] FLW SURG TEETH/ORAL CAV R33396 PERSONAL 01-18-2017 [place] [facility] HISTORY OT [address] VENOUS FOUNDATION THROMBOSIS& EMBOLISM Z951 PRESENCE OF 01-18-2017 [facility] [place] [facility] RY [place]PASS GRAFT Z9911 DEPENDENCE 01-18-2017 [place] [facility] RESPIRATOR [facility] VENTILATOR STATUS E039 HYPOTHYROID 12-31-2016 [facility] ISM PHYSICIANS UNSPECIFIED GROUP E663 OVERWEIGHT 12-31-2016 [facility] G4730 SLEEP APNEA 11-29-2016 [facility] H[facility]P UNSPECIFIED INC I5043 ACUTE ON 11-18-2016 [facility] CHRONIC HEALTH COMB MEDICAL G SYSTOLIC & DIASTOLIC CHF J449 CHRONIC 10-25-2016 [facility] OBSTRUCTIVE HOME PULMONARY MEDICAL DISEASE UNS EQUIPME I5023 ACUTE CHRON 08-14-2016 [facility] SYSTOLIC HEALTH HEART MEDICAL G FAILURE R931 ABNORMAL 08-14-2016 [facility] DX IMAGING HEART & COR CIRC Z969 PRESENCE OF 08-14-2016 [facility] IMPLANT UNSPECIFIED D45015 VITREOUS 06-26-2016 [facility] HER[facility] N RIGHT EYE [id number] VITREOUS 06-26-2016 [facility] HERNANDE[facility] N LEFT EYE [...] CY BL NT ET HI AN A OR 68 09 09 30 30 00 HO [...] 80 6- 9- 00 06 TO ve ND 21 20 20 09 WN DE 61 17 17 13 0 96 PH 40 AR MA MG CY TA OF BL ET CY NT HI AN A LI 68 09 09 30 30 00 HO Ac SI 18 -0 -2 .0 00 ME ti NO 00 6- 9- 00 06 TO ve OR 51 20 20 09 WN IL 80 [...] 80 6- 8- 00 06 TO ve ND 21 20 20 09 WN DE 61 17 17 13 0 96 PH 40 AR MA MG CY TA OF BL ET CY NT HI AN A LI 68 07 08 30 30 00 HO Ac SI 18 -2 -1 .0 00 ME ti NO 00 6- 8- 00 06 TO ve OR 51 20 20 09 WN IL 80 [...] BL ET CY NT HI AN A OR 68 07 08 30 30 00 HO [...] 00 8- 1- 00 06 TO ve OR 51 20 20 07 WN IL 80 [...] 50 8- 1- 00 06 TO ve ND 11 20 20 07 WN DE 71 17 17 37 0 31 PH 40 AR MA MG CY TA OF BL ET CY NT HI AN A OR 68 06 07 30 30 00 HO [...] 00 1- 3- 00 06 TO ve OR 51 20 20 07 WN IL 80 [...] BL ET CY NT HI AN A OR 68 05 06 30 30 00 HO [...] 80 1- 3- 00 06 TO ve ND 21 20 20 07 WN DE 61 [...] ME ti NO 00 06 TO ve OR 51 20 20 07 WN IL 80 [...] CY BL NT ET HI AN A OR 68 04 05 30 30 00 HO [...] ME ti SE 50 06 TO ve ND 11 20 20 07 WN DE 71 [...] ME ti NO 00 06 TO ve OR 51 20 20 07 WN IL 80 [...] BL ET CY NT HI AN A OR 68 03 04 30 30 00 HO [...] SE 50 1- 4- 06 TO ve ND 11 20 20 07 WN DE 71 [...] NO 00 6- 7- 06 TO ve OR 51 20 20 07 WN IL 80 [...] BL ET CY NT HI AN A OR 68 02 03 30 30 00 HO [...] 50 6- 7- 00 06 TO ve ND 11 20 20 07 WN DE 71 [...] 50 9- 7- 00 06 TO ve ND 11 20 20 07 WN DE 71 [...] CY BL NT ET HI AN A OR 68 01 02 30 30 00 HO [...] NO 00 0- 7- 06 TO ve OR 51 20 20 07 WN IL 80 [...] ME ti SE 50 06 TO ve ND 11 20 20 07 WN DE 71 [...] ti NO 00 9- 06 TO ve OR 51 20 20 05 WN IL 80 [...] BL ET CY NT HI AN A OR 68 12 01 30 30 00 HO [...] INC USED W/POS ARWAY PRESSURE DEVICE PROTHROMB 38607 [facility] IN TIME 7 [facility] INC PROTHROMB 44277 [facility] G[facility] IN TIME 7 [facility] RESP ASST E0470 PATIENT PATIENT DEVC 7 AIDS INC AIDS INC BI-LEVL PRSS CAPABILIT Y W/O BACKU HUMDIFIR E0562 PATIENT PATIENT HEATED 7 AIDS INC AIDS INC USED W/POS ARWAY PRESSURE DEVICE PROTHROMB 11696 [facility] G[facility] IN TIME 7 [facility] INC HUMDIFIR E0562 PATIENT PATIENT HEATED 7 AIDS INC AIDS INC USED W/POS ARWAY PRESSURE DEVICE RESP ASST E0470 PATIENT PATIENT DEVC 7 AIDS INC AIDS INC BI-LEVL PRSS CAPABILIT Y W/O BACKU PROTHROMB 10188 [facility] IN TIME 7 [facility] INC INC PROTHROMB 03655 [facility] IN TIME 7 [facility] INC INC PROTHROMB 08691 [facility] GARCIA IN TIME 7 [facility] INC INC PROTHROMB 04708 [facility] GARCIA IN TIME 7 [facility] INC INC COLLECTIO 24103 [facility] G[facility]IA N VENOUS 7 ON LICENSE OF [facility] BLOOD INC INC VENIPUNCT URE PROTHROMB 60503 [facility] GARCIA IN TIME 7 [facility] INC INC HUMDIFIR E0562 PATIENT PATIENT HEATED 7 AIDS INC AIDS INC USED W/POS ARWAY PRESSURE DEVICE RESP ASST E0470 PATIENT PATIENT DEVC 7 AIDS INC AIDS INC BI-LEVL PRSS CAPABILIT Y W/O BACKU PROTHROMB 48631 [facility] IN TIME 7 [facility] PROTHROMB 21324 [facility] GARCIA IN TIME 7 [facility] COLLECTIO 26426 [facility] GARCIA N VENOUS 7 [facility] BLOOD [facility] INC VENIPUNCT URE RAD EXP G9501 [facility] INDCS/EXP 7 MEDICAL TM & NO IMAGING FLUORO ASS IMG N DOC N RSN PROTHROMB 19191 [facility] IN TIME 7 [facility] RADEX 44189 [facility] COLON 7 ON LICENSE OF [facility] BARIUM [facility] INC ENEMA W/WO KUB PROTHROMB 48963 [facility] IN TIME 7 [facility] PROTHROMB 54736 [facility] GARCIA IN TIME 7 [facility] PROTHROMB 94208 [facility] GARCIA IN TIME 7 [facility] INC SUSCEPTIB 07005 [facility] LTY STDY 7 ON LICENSE OF [facility] ANTIMICRB INC INC IAL MICRO/AGA R DILUTJ CUL BACT 60453 [facility] XCPT 7 [facility] URINE INC INC BLOOD/STO OL AEROBIC ISOL CUL BACT 43741 [facility] AEROBIC 7 [facility] ADDL INC INC METHS DEFINITIV E EA ISOL PROTHROMB 12987 [facility] G[facility]IA IN TIME 7 [facility] PROTHROMB 25512 [facility] G[facility] IN TIME 7 [facility] HUMDIFIR E0562 PATIENT PATIENT HEATED 7 AIDS INC AIDS INC USED W/POS ARWAY PRESSURE DEVICE RESP ASST E0470 PATIENT PATIENT DEVC 7 AIDS INC AIDS INC BI-LEVL PRSS CAPABILIT Y W/O BACKU PROTHROMB 40420 [facility] G[facility] IN TIME 7 [facility] INC INC SBSQ 85328 [facility] 7 NURSE CARE/DAY PRACTITIO 15 NER GR MINUTES SBSQ 99355 [facility] 7 NURSE CARE/DAY PRACTITIO 15 NER GR MINUTES SBSQ 62136 [place] [address] NURSE CARE/DAY PRACTITIO 15 NER GR MINUTES SBSQ 01894 [place] [facility] 7 MEDICAL CARE/DAY SERV 25 FOUNDATIO MINUTES N INITIAL 85159 [facility] 7 NURSE CONSULT PRACTITIO NEW/ESTAB NER GR PT 80 MIN ECG 06435 YOU DELFIN ROUTINE 7 MEDICAL ECG SERV W/LEAST FOUNDATIO 12 LDS N I&R ONLY ECHO 08880 YOU LOZADA TTHRC R-T 7 MEDICAL 2D SERV W/WOM-MOD FOUNDATIO E COMPL N SPEC&COLR D ECG 65375 [facility] CRUZ ROUTINE [address] [facility] W/LEAST P 12 LDS I&R ONLY RADEX 38489 [facility]IA SHOULDER 7 [facility] COMPLETE INC INC MINIMUM 2 [place] [address] [facility] INFUSION 7 [facility] THERAPY/P INC INC ROPHYLAXI S /DX 1ST TO 1 HR THERAPEUT 12425 [facility] IC 7 [facility] INJECTION INC INC IV PUSH EACH NEW DRUG EXTIRPATI [id number] [facility]TER 7 [facility]ALTHCAR HEALTHCAR LEFT E E AXILLARY HOSPITALS HOSPITALS ARTERY OPEN EXTIRPATI [id number] [facility] 7 [facility]ALTHCAR HEALTHCAR LEFT E E ULNAR HOSPITALS HOSPITALS ARTERY OPEN APPRCH EXTIRPATI [id number] [facility] MATTER 7 HEALTHCAR HEALTHCAR LT E E RADIAL HOSPITALS HOSPITALS ARTERY OPEN APPRCH EXTIRPATI [id number] [facility] MATTER 7 [facility]ALTHCAR HEALTHCAR LEFT E E [facility]CLAV[place] [facility] [address] YOU SOLITARIO ANGIOGRAP 7 MEDICAL HY UPPER SERV EXTREMITY FOUNDATIO N GROUND A0425 [facility]RIST[facility] JIMÉNEZ 7 AMBULANCE AMBULANCE PER SERVICE SERVICE STATUTE MILE INITIAL 18124 [facility] INPATIENT 7 MEDICAL CONSULT SERV NEW/ESTAB FOUNDATIO PT 110 N MIN COMPREHEN 00920 [facility]IA SIVE 7 [facility] HOSP METABOLIC INC INC PANEL CRITICAL 93747 [facility] 7 PHYSICIAN ILL/INJUR S, PLLC ED PATIENT INIT 30-74 MIN AMB A0427 [facility] SERVICE 7 AMBULANCE AMBULANCE ALS SERVICE SERVICE EMERGENCY TRANSPORT LEVEL 1 INITIAL 81018 [facility] 7 MEDICAL CARE/DAY SERV 70 FOUNDATIO MINUTES N EMBLC/THR 46492 [facility] AX 7 MEDICAL BRACH SERV INNOMINAT FOUNDATIO E SUBCLA N ART EMBLC/THR 68006 [facility] W/WO 7 MEDICAL CATH SERV RADIAL/UL FOUNDATIO TYLER ART N ARM INC ECG 24059 [facility] G[facility]IA ROUTINE 7 [facility] HOSP ECG INC INC W/LEAST 12 LDS TRCG ONLY W/O I&R RADIOLOGI 50174 YOU REAL C 7 MEDICAL KENYA EXAMINATI SERV ON CHEST FOUNDATIO SINGLE N VIEW FRONTAL BLOOD 57238 [facility] G[facility]IA COUNT 7 [facility] COMPLETE INC INC AUTO&AUTO DIFRNTL WBC GLUC BLD 05177 [facility]IA GLUC MNTR 7 [facility] HOSP DEV INC INC CLEARED FDA SPEC HOME USE HEMOGLOBI 31054 [facility] GARCIA N 7 [facility] H[facility] GLYCOSYLA [place] [address] RAD[facility] GARCIA TROPONIN 7 [facility] QUANTITAT INC INC ELYSSA PROTHROMB 37661 [facility] GARCIA IN TIME 7 [facility] HOSP [facility] HOSP INC INC LEVEL III 77267 UNIVERSIT SY SURG 7 Y OF PATHOLOGY [place] [facility] GROSS&KEI ROSCOPIC EXAM ANESTHESI 51130 YOU GAMBREL A 7 MEDICAL ARTERIES SERV UPPER FOUNDATIO ARM&ELBOW N EMBOLECTO M PROTHROMB 22513 [facility] G[facility]IA IN TIME 7 [facility] HOS[facility] INC INC PROTHROMB 35799 [facility] GARCIA IN TIME 7 [facility] INC PROTHROMB 29938 [facility] IN TIME 7 [facility] INC PROTHROMB 57727 [facility] GARCIA IN TIME 7 [facility] PROTHROMB 41661 [facility] GARCIA IN TIME 7 [facility] PROTHROMB 92130 [facility] GARCIA IN TIME 7 [facility] HUMDIFIR E0562 PATIENT PATIENT HEATED 7 AIDS [facility] AIDS INC USED W/POS ARWAY PRESSURE DEVICE RESP ASST E0470 PATIENT PATIENT DEVC 7 AIDS [facility] AIDS INC BI-LEVL PRSS CAPABILIT Y W/O BACKU TUBING A7037 PATIENT PATIENT USED WITH 7 AIDS [facility] AIDS [facility] POSITIVE AIRWAY PRESSURE DEVICE PROTHROMB 55461 [facility] GARCIA IN TIME 7 [facility] PROTHROMB 57266 [facility] GARCIA IN TIME 7 [facility] POLYSOM 55164 RADHA GARCIA 6/>YRS 7 ON LICENSE OF [facility] SLEEP 4/> INC INC ADDL KENDRA ATTND PROTHROMB 46685 [facility]HA IN TIME 7 [facility] ECG 32090 [facility] ROUTINE 7 [facility] ECG MEDICAL W/LEAST G 12 LDS W/I&R HEMOGLOBI 73553 [facility] GARCIA N 7 ON LICENSE OF [facility] GLYCOSY[place] [address] [facility] GARCIA FREE 7 ON LICENSE OF [facility] [place] [address] RAD[facility] GARCIA THYROID 7 ON LICENSE OF [facility] STIMULATI INC INC NG HORMONE TSH PROTHROMB 55992 [facility] GARCIA IN TIME 7 [facility] HEADGEAR A7035 TIFFANY ALLEN USED 7 HOME HOME W/POSITIV MEDICAL MEDICAL E AIRWAY EQUIPME EQUIPME PRESSURE DEVICE TUBING A7037 [facility] ALLEN USED WITH 7 HOME HOME POSITIVE MEDICAL MEDICAL AIRWAY EQUIPME EQUIPME PRESSURE DEVICE FULL FACE A7030 TIFFANY TIFFANY MASK 7 HOME HOME USED MEDICAL MEDICAL W/POS EQUIPME EQUIPME ARWAY PRESS DEVICE HOSPITAL G0463 [facility] GARCIA OUTPATIEN 7 [facility] T CLIN INC INC VISIT ASSESS & MGMT PT PROTHROMB 26937 [facility] GARC[facility] IN TIME 7 [facility]ICAL [facility]ITAL INC PROTHROMB 98901 [facility] GARCIA IN TIME 7 [facility] G0463 RAD[facility] GARCIA OUTPATIEN 7 [facility] HOSP T CLIN INC INC VISIT ASSESS & MGMT PT HOSPITAL G0463 [facility]ARCIA OUTPATIEN 6 [facility] HOSP T CLIN INC INC VISIT ASSESS & MGMT PT PROTHROMB 35006 [facility] GARCIA IN TIME 6 [facility] HOSP [facility] INC PROTHROMB 82756 RAD[facility] GARCIA IN TIME 6 [facility] G0463 RAD[facility] GARCIA OUTPATIEN 6 [facility]OS[facility] CLIN INC INC VISIT ASSESS & MGMT PT PROTHROMB 35268 RADHA GARCIA IN TIME 6 [facility] HOSP INC [facility] THERAPEUT 22158 RAD[facility] GARCIA IC 6 ON LICENSE OF [facility] PROPHYLAC INC INC TIC/DX INJECTION SUBQ/IM COLLECTIO 65137 [facility] GARCIA N VENOUS 6 ON LICENSE OF [facility] BLOOD INC INC VENIPUNCT URE PROTHROMB 31912 [facility] GARCIA IN TIME 6 [facility] G0463 [facility] GARCIA OUTPATIEN 6 [facility] HOSP T CLIN INC INC VISIT ASSESS & MGMT PT CALCIUM 77465 [facility] GARCIA IONIZED 6 [facility] [place] [address] RAD[facility] GARCIA BLOOD/URI 6 ON LICENSE OF [facility] C ACID INC INC BLOOD 05853 [facility] GARCIA COUNT 6 [facility] HOSP COMPLETE INC INC AUTO&AUTO DIFRNTL WBC RENAL 55055 [facility] GARCIA FUNCTION 6 [facility] HOSP PANEL INC INC PROTHROMB 90187 [facility] GARCIA IN TIME 6 [facility] HOS[facility] INC INC COLLECTIO 91685 RAD[facility] GARCIA N VENOUS 6 MEM HOSP MEM HOSP BLOOD INC INC VENIPUNCT URE ALBUMIN 05173 RAD[facility] GARCIA URINE 6 [facility] MICROALBU INC INC MIN QUANTIATI VE 25 30115 RAD[facility] GARCIA HYDROXY 6 MEM HOSP [facility]OSP INCLUDES [place] [address] RAD[facility] GARCIA PARATHORM 6 [facility] ONE INC INC URNLS DIP 31489 [facility] GARCIA 6 [facility] STICK/TAB INC [place] [address] RAD[facility] GARCIA RETROPERI 6 [facility] TONEAL INC [place] [address] [place] [facility]HA RETROPERI 6 MEDICAL YASMIN TONEAL IMAGING REAL TIME ASS W/IMAGE LIMITED BASIC 15035 [facility] METABOLIC [address] [place] [address] PANEL CALCIUM TOTAL COLLECTIO 94930 [facility] VENOUS [address] [place] [address] BLOOD VENIPUNCT URE PROTHROMB 17528 [facility] IN TIME [address] [place] [address] HOSPITAL ECHO 88174 [facility] R-T 6 [facility] MEDICAL W/WOM-MOD G E COMPL SPEC&COLR D [facility] G0463 [facility] LOPEZON OUTPATIEN 6 MEM [facility] T CLIN INC INC VISIT ASSESS & MGMT PT PROTHROMB 37540 [facility] GARCIA IN TIME 6 [facility]OS[facility] INC INC PROTHROMB 21689 [facility] GARCAI IN TIME 6 [facility] INC INC HOSPITAL G0463 RADHA RADHA OUTPATIEN 6 [facility] T CLIN INC INC VISIT ASSESS & MGMT PT COLLECTIO 69921 [facility] GARCIA N VENOUS 6 [facility]OS[facility] BLOOD INC INC VENIPUNCT URE COLLECTIO 38555 RADHA RADHA N VENOUS 6 [facility]OS[facility] BLOOD INC INC VENIPUNCT URE PROTHROMB 89309 RADHA GARCIA IN TIME 6 [facility] INC INC HOSPITAL G0463 RAD[facility] GARCIA OUTPATIEN 6 [facility]OS[facility] T CLIN INC INC VISIT ASSESS & MGMT PT URNLS DIP 48352 [facility] GARCIA 6 [facility] STICK/TAB INC INC LET REAGENT AUTO MICROSCOP Y BLOOD 22718 [facility] GARCIA COUNT 6 [facility] COMPLETE INC INC AUTO&AUTO DIFRNTL WBC PROTEIN 22668 [facility] GARCIA XCPT 6 [facility] REFRACTOM INC INC ETRY SERUM PLASMA/WH L BLD COLLECTIO 66362 RAD[facility] GARCIA N VENOUS 6 [facility] BLOOD INC INC VENIPUNCT URE CREATININ 36482 RADHA GARCIA E OTHER 6 [facility] [place] [address] RADHA GARCIA PARATHORM 6 [facility] H[facility] ONE INC INC 25 82211 RADHA GARCIA HYDROXY 6 [facility] MEM HOSP INCLUDES INC INC FRACTIONS IF PERFORMED RENAL 20885 RADHA GARCIA FUNCTION 6 [facility] PANEL INC INC PROTHROMB 63414 RADHA GARCIA IN TIME 6 [facility] INC HOSP[facility] G0463 [facility] GARCIA OUTPATIEN 6 [facility] T [facility]IN INC INC VISIT ASSESS & MGMT PT HOSPITAL G0463 [facility]ARC[facility] OUTPATIEN 6 [facility] INC INC VISIT ASSESS & MGMT PT PROTHROMB 09736 RAD[facility] GARCIA IN TIME 6 [facility] INC INC ECG 22981 [facility] ROUTINE 6 [facility] ECG MEDICAL W/LEAST G 12 LDS [facility] [id number] RADHA GARCIA OUTPATIEN 6 [facility]IN INC INC VISIT ASSESS & MGMT PT PROTHROMB 99228 RAD[facility] GARCIA IN TIME 6 [facility] INC [facility]OSPITAL G0463 RAD[facility]ARCIA OUTPATIEN 6 [facility] INC INC VISIT ASSESS & MGMT PT PROTHROMB 26510 [facility] GARCIA IN TIME 6 [facility] INC INC COLLECTIO 65138 RAD[facility] GARCIA N VENOUS 6 [facility] BLOOD INC INC VENIPUNCT URE COLLECTIO 51867 [facility] G[facility]IA N VENOUS 6 [facility] [place] [address] [facility] GARCIA FREE 6 [facility] [place] [address] [facility] G[facility] THYROID 6 [facility] STIMULATI INC INC NG HORMONE TSH COMPREHEN 26897 [facility] SIVE 6 [facility] METABOLIC INC INC PANEL HEMOGLOBI 32310 [facility] N 6 [facility] GLYCOSYLA INC INC AJAY A1C BLOOD 17909 [facility] GARCIA COUNT 6 [facility] COMPLETE INC INC AUTO&AUTO DIFRNTL WBC LIPID 23781 [facility]IA PANEL 6 [facility] G0463 [facility] G[facility] OUTPATIEN 6 [facility] INC INC VISIT ASSESS & MGMT PT PROTHROMB 68804 [facility] IN TIME 6 [facility] INC INC PROTHROMB 65550 [facility] GARCIA IN TIME 6 [facility] INC INC COLLECTIO 09678 RAD[facility] GARC[facility] N VENOUS 6 [facility] BLOOD INC INC VENIPUNCT [facility] G0463 RAD[facility] GARCIA OUTPATIEN 6 [facility]IN INC INC VISIT ASSESS & MGMT PT Encounters Encounter Start End Date Code Location Performer Type Date EMERGENCY 92567 DARLIN WATTS DEPT 7 7 PHYSICIAN VISIT S, PLL HIGH SEVERITY& THREAT [facility] RAD[facility] - 7 7 [facility] OUTPATIEN INC T OFFICE 48571 RAD[facility] OUTPATIEN 7 7 [facility] T VISIT 5 INC MINUTES OFFICE 07315 [facility] OUT[facility] 7 7 PHYSICIAN T VISIT S GROUP 15 MINUTES [facility] - 7 7 [facility] OUTPATIEN INC T OFFICE 99878 [facility] OUTPATIEN 7 7 [facility] T [facility]ISIT 5 INC MINUTES OFFICE 01543 [facility] OUTPATIEN 7 7 [facility] V[facility] INC MINUTES [facility] - 7 7 [facility] OUT[facility]IEN INC T OFFICE 96920 [facility] OUTPATIEN 7 7 MEM [facility] T VISIT 5 INC [facility]UTES [facility] INC T OFFICE 20775 [facility] 7 [facility] T OFFICE 50542 [facility] 7 7 [facility] T [facility]ISIT 5 INC [facility]ES [facility] 83559 [facility] T [facility] - 7 7 [facility] INC T OFFICE 91053 [facility] 7 7 [facility] T [facility]IT 5 INC [facility]ES [facility] 7 [facility] INC T OFFICE 31095 [facility] 7 7 [facility] V[facility] INC [facility]ES [facility] 7 [facility] INC T OFFICE 06755 [facility] 7 7 [facility] T V[facility]IT 5 INC MIN[facility]ES [facility] 7 [facility] INC T OFFICE 80127 [facility] 7 7 [facility] T V[facility] 5 INC [facility]ES [facility] 7 [facility] INC T OFFICE 96991 [facility] OUT[facility] 7 7 [facility] T VISIT 5 INC MINUTES OFFICE 21475 [facility] AMMON CONSULTAT 7 7 PHYSICIAN ION S GROUP NEW/ESTAB PATIENT 30 MIN OFFICE [id number] [facility] OUTPATIEN 7 7 MEDICAL T VISIT SERV 25 FOUNDATIO MINUTES [facility] - 7 7 [facility] OUTPATIEN INC T OFFICE 82746 [facility] 7 7 [facility] T VISIT 5 INC MINUTES EMERGENCY 29844 DARLIN CORONEL 7 7 PHYSICIAN JR MCGOVERN S, [facility] T VISIT MODERATE SEVERITY EMERGENCY 06843 [facility] 7 7 [facility] DEPARTMEN INC T VISIT LOW/MODER SEVERITY [facility] INC T OFFICE 39368 [facility] 7 7 [facility] T VISIT 5 INC MINUTES [facility] 7 7 [facility]IEN INC T OFFICE 85993 [facility] IVON OUTPATIEN 7 7 PHYSICIAN T VISIT S GROUP 25 MINUTES OFFICE 32319 [facility] 7 7 [facility] T VISIT 5 INC MINUTES [facility] 7 7 [facility] 7 [facility] INC T OFFICE 72904 [facility] 7 7 [facility] T VISIT 5 INC MINUTES EMERGENCY 52581 [facility] DEPT 7 7 [facility] VISIT INC HIGH SEVERITY& THREAT [facility] OUTPATIEN INC T OFFICE 54929 [facility] OUT[facility]IEN 7 7 [facility] T VISIT 5 INC MINUTES OFFICE 84380 [facility] OUTPATIEN 7 7 [facility] T VISIT 5 INC MINUTES [facility] 7 7 [facility] 7 7 [facility] INC T OFFICE 09332 [facility] OUT[facility]IEN 7 7 [facility] T [facility]ISIT 5 INC MINUTES [facility] 7 7 [facility]PATIEN INC T OFFICE 54485 [facility] OUT[facility] 7 7 [facility] T VISIT 5 INC MINUTES OFFICE 49762 [facility] 7 7 [facility] T VISIT 5 INC MINUTES [facility] 7 7 [facility] INC T OFFICE 85014 [facility] OUT[facility] 7 7 [facility] T VISIT 5 INC MINUTES [facility] 7 7 [facility] PHYS[facility] T VISIT S GROUP 15 MINUTES OFFICE 76527 [facility] OUT[facility]IEN 7 7 [facility] T VISIT 5 INC MINUTES [facility] 7 7 [facility] INC T OFFICE 17933 [facility] 7 7 [facility] T VISIT 5 INC MINUTES [facility] 7 7 [facility] 7 7 [facility] 7 7 [facility]PATIEN INC T OFFICE 95693 [facility] OUT[facility]IEN 7 7 [facility] T VISIT 5 INC MINUTES OFFICE 30773 [facility] 7 7 [facility] 25 G MINUT[facility] OFFICE 80782 [facility] OUTPATIEN 7 7 PHYSICIAN T VISIT S GROUP 25 MINUTES [facility] 7 [facility] OFF[facility] 62227 [facility] OUT[facility]IEN 7 7 [facility] T [facility]ISIT 5 INC MINUTES [facility] RAD[facility] - 7 7 [facility] OUTPATIEN [facility] - 7 7 [facility] - 7 7 [facility] - 6 6 [facility]PATIEN [facility] - 6 6 [facility]PATIEN [facility] - 6 6 [facility] - 6 6 [facility] - 6 6 [facility] - 6 6 [facility] [address] [place] [address] [facility] 6 6 [facility] - 6 6 [facility] - 6 6 [facility] OFFICE 10685 [place] [facility] [facility] OUTPATIEN 6 6 MEDICAL T NEW 45 SERV MINUTES [facility] - 6 6 [facility]PATIEN [facility] - 6 6 [facility] - 6 6 [facility] OFFICE 60077 [facility]PATI[facility] 6 6 [facility] T VISIT MEDICAL 40 G MINUTES HOSP[facility] 6 6 [facility] - 6 6 [facility] OFFICE 34200 AMELIA CISNEROS OUTPATIEN 6 6 JAM JAM T [facility]ISIT 25 MINUTES [facility] - 6 6 [facility] OUTPATIEN [facility] T OFFICE 47603 [facility] OUTPATIEN 6 6 PHYSICIAN [facility] T [facility]ISIT S GROUP 25 MINUTES [facility] - 6 6 [facility] OUTPATIEN [facility] - 6 6 [facility]
--- OUTSIDE RECORDS SUMMARY | 2017-07-04 07:28 | External Medical Summary Rpt | CCD ---
Author Author , BEKA Organization BEKA Address Unknown Phone [email or web address] Tech Care Team Providers Care Pulper Tender Name Role Phone AYCINENA, AYCINENA Unavailable Unavailable BESSON, BESSON Unavailable Unavailable RIOJAS, RIOJAS Unavailable Unavailable [facility] Unavailable Unavailable SERVICE, [facility] Unavailable Unavailable SERVICE, [facility] LEATHA YASMIN, Unavailable Unavailable LEATHA YASMIN GARZA, GARZA Unavailable Unavailable CORONEL, JR, CORONEL, Unavailable Unavailable JR IVON, IVON Unavailable Unavailable IVON KEI, IVON Unavailable Unavailable KEI GAMBREL, GAMBREL Unavailable [facility]available [facility] Un[facility] Unavailable INC, [facility] Unavailable Unavailable HOSPITAL P, [facility], Unavailable Unavailable [facility] DELFIN LENZ Unavailable Unavailable [facility], [facility] Unavailable Unavailable MEDICAL G, [facility] G [facility] NURSE Unavailable Unavailable PRACTITIONER GR, [facility] NURSE PRACTITIONER GR [facility], [facility], SY Unavailable Unavailable [...] Unavailable Unavailable EQUIPME, [facility], Unavailable Unavailable [facility] Unavailable Unavailable HOSPITALS, [facility] Un[facility], [facility] VIOLETA, VIOLETA Unavailable Unavailable VIOLETA [...] W/STAGE 1-4 PLLC CKD OR UNS CKD [id number] ACUTE EMBO 05-26-2017 [facility] THROMB UNS PHYSICIANS, DEEP VEINS PLLC LOW EXTREM ARIADNA M545 LOW BACK 05-26-2017 [facility] PAIN [facility]YS[facility]ANS, PLLC N189 CHRONIC 05-26-2017 [facility] KIDNEY [facility], DISEASE PLLC UNSPECIFIED Z7901 ADVANCED PRACTICE PROFESSIONAL 05-14-2017 [facility] CURRENT USE [facility] OF INC ANTICOAGULA NTS Z952 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-14-2017 [facility] PROSTHETIC [facility] HEART INC VALVE Z5181 ENCOUNTER 04-18-2017 [facility] FOR [facility] THERAPEUTIC INC DRUG LEVEL MONITORING E785 HYPERLIPIDE 03-10-2017 [facility] NITIN PHYSICIANS UNSPECIFIED GROUP I10 ESSENTIAL 03-10-2017 [facility] PRIMARY PHYSICIANS HYPERTENSIO GROUP N I4891 UNSPECIFIED 03-10-2017 [facility] ATRIAL PHYSICIANS FIBRILLATIO GROUP N K5730 DIVERTICULO 02-13-2017 [facility] MEDICAL INTEST W/O IMAGING ASS PERF/ABSC W/O BLEED Z1211 ENCOUNTER 02-13-2017 [facility] SCREENING [facility] MALIGNANT INC NEOPLASM OF COLON Q16921 ACUTE 02-04-2017 [facility] EMBOLISM & PHYSICIANS THROMBOSIS GROUP DEEP VEINS LT UP EXT D631 ANEMIA IN 02-03-2017 [facility] K[facility] DISEASE E871 HYPO-OSMOLA 02-03-2017 [facility] HYPONATREMI FOUNDATION A N183 CHRONIC 02-03-2017 [facility] DISEASE [facility] STAGE 3 MODERATE M30478 CUTANEOUS 02-01-2017 [facility] ABSCESS OF [facility] LEFT UPPER INC LIMB L0889 OTH SPEC 02-01-2017 [facility] LOCAL PHYSICIANS, INFECTIONS PLLC THE SKIN & SUBQ TISSUE E119 TYPE 2 01-28-2017 [facility] DIABETES PHYSICIANS MELLITUS GROUP WITHOUT COMPLICATIO NS I998 OTHER 01-28-2017 [facility] DISORDER OF PHYSICIANS GROUP CIRCULATORY SYSTEM E1165 TYPE 2 01-20-2017 [facility] [place]SE DIABETES PRACTITIONE MELLITUS R GR WITH HYPERGLYCEM IA Z794 ADVANCED PRACTICE PROFESSIONAL 01-20-2017 [facility] [place]SE CURRENT USE PRACTITIONE OF INSULIN R GR I509 HEART 01-19-2017 [place] [facility] FAILURE [facility] UNSPECIFIED FOUNDATION I5189 OTHER 01-19-2017 [facility] ILL-DEFINED SERV HEART [facility] DISEASES E108 TYPE 1 01-18-2017 [facility] DIABETES PHYSICIANS, MELLITUS PLLC W/UNSPEC COMPLICATIO NS E1122 TYPE 2 01-18-2017 [facility]ALS W/DIAB CHRON KIDNEY DZ I2510 ASHD KOTZEBUE 01-18-2017 [facility] CORONARY [facility] ARTERY W/O [facility]OUNDATION ANGINA PECTORIS I447 LEFT 01-18-2017 [facility] B[facility]DLE-BRAN SERV CH BLOCK FOUNDATION UNSPECIFIED I454 NONSPECIFIC 01-18-2017 [facility] INTRAVENTRI [facility] CULAR BLOCK I482 CHRONIC 01-18-2017 [facility] ATRIAL PHYSICIANS, FIBRILLATIO [facility] N I498 OTHER 01-18-2017 [place] [facility] SPECIFIED [facility] CARDIAC [facility] ARRHYTHMIAS I517 CARDIOMEGAL 01-18-2017 [place] [facility] Y SERV [facility] K95684 OTH 01-18-2017 [facility] P EXTREM OT EXTREMITY I708 ATHEROSCLER 01-18-2017 [facility] OSIS OF SERV OTHER FOUNDATION ARTERIES I742 EMBOLISM & 01-18-2017 [facility] THROMBOSIS [facility] ART THE HOSPI UPPER EXTREMITIES I8290 ACUTE 01-18-2017 [facility] EMBOLISM & AMBULANCE THROMBOSIS SERVICE OF UNSPECIFIED VEIN I959 HYPOTENSION 01-18-2017 [facility] AMBULANCE UNSPECIFIED SERVICE O24260 OTH INTRAOP 01-18-2017 [place] [facility] CARD FUNC SERV DIST DURING [facility] OTH SURGERY W17573 PAIN IN 01-18-2017 [place] LEFT MEDICAL SHOULDER IMAGING ASS M7989 OTHER 01-18-2017 [place] [facility] SPECIFIED SERV SOFT TISSUE FOUNDATION DISORDERS R001 BRADYCARDIA 01-18-2017 [facility] UNSPECIFIED FOUNDATION R0989 OTH SPEC SX 01-18-2017 [facility] SIGNS SERV INVLV THE FOUNDATION CIRC & RESP SYS R748 ABNORMAL 01-18-2017 [place] [facility] LEVELS OF SERV OTHER SERUM [facility]OUND[facility] ENZYMES R791 ABNORMAL 01-18-2017 [place] [facility] COAGULATION SERV PROFILE [facility]OUND[facility] R7989 OTHER SPEC 01-18-2017 [facility] ABNORMAL PHYSICIANS, FINDINGS [facility] BLOOD CHEMISTRY R9431 ABNORMAL 01-18-2017 [place] [facility] ELECTROCARD SERV IOGRAM [facility] Z4682 ENCOUNTER 01-18-2017 [place] [facility] FITTING & SERV ADJUST [facility] NON-VASCULA R CATHETER K55710 ENCOUNTER 01-18-2017 [place] [facility] SURG [facility] AFTERCARE [facility] FLW SURG TEETH/ORAL CAV B30002 PERSONAL 01-18-2017 [place] [facility] HISTORY OT [place] VENOUS FOUNDATION THROMBOSIS& EMBOLISM Z951 PRESENCE OF 01-18-2017 [facility] AORTOCORONA F[facility] RY BYPASS GRAFT Z9911 DEPENDENCE 01-18-2017 [place] [facility] [place] [facility] RESPIRATOR [facility] VENTILATOR STATUS E039 HYPOTHYROID 12-31-2016 [facility] ISM PHYSICIANS UNSPECIFIED GROUP E663 OVERWEIGHT 12-31-2016 [facility] G4730 SLEEP APNEA 11-29-2016 [facility] UNSPECIFIED INC I5043 ACUTE ON 11-18-2016 [facility] CHRONIC HEALTH COMB MEDICAL G SYSTOLIC & DIASTOLIC CHF J449 CHRONIC 10-25-2016 [facility] OBSTRUCTIVE HOME PULMONARY MEDICAL DISEASE UNS EQUIPME I5023 ACUTE CHRON 08-14-2016 [facility] SYSTOLIC HEALTH HEART MEDICAL G FAILURE R931 ABNORMAL 08-14-2016 [facility] FINDINGS ON HOSPITAL DX IMAGING HEART & COR CIRC Z969 PRESENCE OF 08-14-2016 [facility] IMPLANT UNSPECIFIED Q88714 VITREOUS 06-26-2016 [facility] MARYCRUZ HERNANDEZ N RIGHT EYE R01716 VITREOUS 06-26-2016 [facility] HERNANDEZ N LEFT EYE [...] 80 6- 9- 00 06 TO ve AZ 21 20 20 09 WN DE 61 [...] 80 6- 8- 00 06 TO ve AZ 21 20 20 09 WN DE 61 [...] 50 8- 1- 00 06 TO ve AZ 11 20 20 07 WN DE 71 [...] 80 1- 3- 00 06 TO ve AZ 21 20 20 07 WN DE 61 [...] ME ti SE 50 06 TO ve AZ 11 20 20 07 WN DE 71 [...] SE 50 1- 4- 06 TO ve AZ 11 20 20 07 WN DE 71 [...] 50 6- 7- 00 06 TO ve AZ 11 20 20 07 WN DE 71 [...] 50 9- 7- 00 06 TO ve AZ 11 20 20 07 WN DE 71 [...] HI AN A CA 68 01 02 30 30 00 HO [...] NO 00 0- 7- 06 TO ve CA 51 20 [...] ME ti SE 50 06 TO ve AZ 11 20 20 07 WN DE 71 [...] ti NO 00 9- 06 TO ve CA 51 20 20 [...] INC USED W/POS ARWAY PRESSURE DEVICE PROTHROMB 68123 [facility] IN TIME 7 [facility] INC PROTHROMB 82752 [facility] G[facility]IA IN TIME 7 [facility] RESP ASST E0470 PATIENT PATIENT DEVC 7 AIDS INC AIDS INC BI-LEVL PRSS CAPABILIT Y W/O BACKU HUMDIFIR E0562 PATIENT PATIENT HEATED 7 AIDS INC AIDS INC USED W/POS ARWAY PRESSURE DEVICE PROTHROMB 45283 [facility] GARCIA IN TIME 7 [facility] INC HUMDIFIR E0562 PATIENT PATIENT HEATED 7 AIDS INC AIDS INC USED W/POS ARWAY PRESSURE DEVICE RESP ASST E0470 PATIENT PATIENT DEVC 7 AIDS INC AIDS INC BI-LEVL PRSS CAPABILIT Y W/O BACKU PROTHROMB 78433 [facility] GARCIA IN TIME 7 [facility] INC INC PROTHROMB 49993 [facility] GARCIA IN TIME 7 [facility] INC INC PROTHROMB 65446 RAD[facility]ARCIA IN TIME 7 [facility] INC INC PROTHROMB 79257 [facility] IN TIME 7 [facility] INC INC COLLECTIO 55135 [facility] GARCIA N VENOUS 7 [facility] BLOOD INC INC VENIPUNCT URE PROTHROMB 41421 [facility] GARCIA IN TIME 7 [facility] INC INC HUMDIFIR E0562 PATIENT PATIENT HEATED 7 AIDS INC AIDS INC USED W/POS ARWAY PRESSURE DEVICE RESP ASST E0470 PATIENT PATIENT DEVC 7 AIDS INC AIDS INC BI-LEVL PRSS CAPABILIT Y W/O BACKU PROTHROMB 56489 [facility] GARC[facility] IN TIME 7 [facility] PROTHROMB 00123 [facility] GARCIA IN TIME 7 [facility] COLLECTIO 45840 [facility] G[facility] N VENOUS 7 [facility] BLOOD [facility] INC VENIPUNCT URE RAD EXP G9501 [facility] INDCS/EXP 7 MEDICAL TM & NO IMAGING FLUORO ASS IMG N DOC N RSN PROTHROMB 32680 [facility] IN TIME 7 [facility] RADEX 49148 [facility] COLON 7 [facility] BARIUM [facility] INC ENEMA W/WO KUB PROTHROMB 33028 [facility] IN TIME 7 [facility] PROTHROMB 79645 [facility] GARCIA IN TIME 7 [facility] PROTHROMB 23725 [facility] GARCIA IN TIME 7 [facility] INC SUSCEPTIB 12056 [facility] G[facility]IA LTY STDY 7 [facility] ANTIMICRB INC INC IAL MICRO/AGA R DILUTJ CUL BACT 16587 [facility]IA XCPT 7 [facility] URINE INC INC BLOOD/STO OL AEROBIC ISOL CUL BACT 60841 [facility] AEROBIC 7 [facility] ADDL INC INC METHS DEFINITIV E EA ISOL PROTHROMB 76402 [facility] GARCIA IN TIME 7 [facility] PROTHROMB 29860 [facility] GARCIA IN TIME 7 [facility] HUMDIFIR E0562 PATIENT PATIENT HEATED 7 AIDS INC AIDS INC USED W/POS ARWAY PRESSURE DEVICE RESP ASST E0470 PATIENT PATIENT DEVC 7 AIDS INC AIDS INC BI-LEVL PRSS CAPABILIT Y W/O BACKU PROTHROMB 05873 [facility] G[facility] IN TIME 7 [facility] INC INC SBSQ 58678 [facility] 7 NURSE CARE/DAY PRACTITIO 15 NER GR MINUTES SBSQ 25083 [facility] 7 NURSE CARE/DAY PRACTITIO 15 NER GR MINUTES SBSQ 90010 [place] [address] NURSE CARE/DAY PRACTITIO 15 NER GR MINUTES SBSQ [address] [facility] 7 MEDICAL CARE/DAY SERV 25 FOUNDATIO MINUTES N INITIAL 91954 [facility] 7 NURSE CONSULT PRACTITIO NEW/ESTAB NER GR PT 80 MIN ECG 02015 YOU DELFIN ROUTINE 7 MEDICAL ECG SERV W/LEAST FOUNDATIO 12 LDS N I&R ONLY ECHO 14487 YOU LOZADA TTHRC R-T 7 MEDICAL 2D SERV W/WOM-MOD FOUNDATIO E COMPL N SPEC&COLR D ECG 27916 [facility] CRUZ ROUTINE 7 [facility] W/LEAST P 12 LDS I&R ONLY RADEX 98494 [facility] GARCIA SHOULDER 7 [facility] COMPLETE INC INC MINIMUM 2 [place] [address] [facility] G[facility]IA INFUSION 7 [facility] THERAPY/P INC INC ROPHYLAXI S /DX 1ST TO 1 HR THERAPEUT 47194 [facility] IC 7 [facility] INJECTION INC INC IV PUSH EACH NEW DRUG EXTIRPATI [id number] [facility]TER 7 [facility]ALTH[facility] LEFT E E AXILLARY [facility]OS[facility]ALS [facility] ARTERY OPEN EXTIRPATI [id number] [facility] 7 [facility]ALTHCAR HEALTHCAR LEFT E E ULNAR HOSPITALS HOSPITALS ARTERY OPEN APPRCH EXTIRPATI [id number] [facility] MAT[facility] 7 HEALTHCAR HEALTHCAR LT E E RADIAL HOSPITALS HOSPITALS ARTERY OPEN APPRCH EXTIRPATI [id number] [facility] MATTER 7 [facility]ALTHCAR HEALTHCAR LEFT E E [facility]CLAV[place] [address] YOU SOLITARIO ANGIOGRAP 7 MEDICAL HY UPPER SERV EXTREMITY FOUNDATIO N GROUND A0425 CHRISTIANE JIMÉNEZ 7 AMBULANCE AMBULANCE PER SERVICE SERVICE STATUTE MILE INITIAL 88964 YOU [facility] INPATIENT 7 MEDICAL CONSULT SERV NEW/ESTAB FOUNDATIO PT 110 N MIN COMPREHEN 24059 [facility] G[facility]IA SIVE 7 [facility] METABOLIC INC INC PANEL CRITICAL 58550 [facility] 7 PHYSICIAN ILL/INJUR S, PLLC ED PATIENT INIT 30-74 MIN AMB A0427 [facility] SERVICE 7 AMBULANCE AMBULANCE ALS SERVICE SERVICE EMERGENCY TRANSPORT LEVEL 1 INITIAL 57729 [facility] 7 MEDICAL CARE/DAY SERV 70 FOUNDATIO MINUTES N EMBLC/THR 37840 YOU [facility] AX 7 MEDICAL BRACH SERV INNOMINAT FOUNDATIO E SUBCLA N ART EMBLC/THR 04707 YOU [facility] W/WO 7 MEDICAL CATH SERV RADIAL/UL FOUNDATIO TYLER ART N ARM INC ECG 07707 [facility] G[facility]IA ROUTINE 7 [facility] ECG INC INC W/LEAST 12 LDS TRCG ONLY W/O I&R RADIOLOGI 75768 YOU REAL C 7 MEDICAL KENYA EXAMINATI SERV ON CHEST FOUNDATIO SINGLE N VIEW FRONTAL BLOOD 66242 [facility] GARCIA COUNT 7 [facility] COMPLETE INC INC AUTO&AUTO DIFRNTL WBC GLUC BLD 06063 [facility] GARCIA GLUC MNTR 7 [facility] DEV INC INC CLEARED FDA SPEC HOME USE HEMOGLOBI 17522 RAD[facility] GARCIA N 7 [facility] GLYCOSYLA [place] [address] RAD[facility] GARCIA TROPONIN 7 [facility] QUANTITAT INC INC ELYSSA PROTHROMB 76297 [facility] GARCIA IN TIME 7 [facility] INC INC LEVEL III 93215 UNIVERSIT SY SURG 7 Y OF PATHOLOGY [facility] GROSS&KEI ROSCOPIC EXAM ANESTHESI 59407 YOU GAMBREL A 7 MEDICAL ARTERIES SERV UPPER FOUNDATIO ARM&ELBOW N EMBOLECTO M PROTHROMB 66733 [facility] G[facility]IA IN TIME 7 [facility] INC INC PROTHROMB 05916 RADHA GARCIA IN TIME 7 [facility] INC PROTHROMB 69897 RAD[facility] GARCIA IN TIME 7 [facility] INC PROTHROMB 69378 [facility] GARCIA IN TIME 7 [facility] PROTHROMB 88901 RADHA GARCIA IN TIME 7 [facility] PROTHROMB 26198 RAD[facility] GARCIA IN TIME 7 [facility] HUMDIFIR E0562 PATIENT PATIENT HEATED 7 AIDS [facility] AIDS INC USED W/POS ARWAY PRESSURE DEVICE RESP ASST E0470 PATIENT PATIENT DEVC 7 AIDS [facility] AIDS INC BI-LEVL PRSS CAPABILIT Y W/O BACKU TUBING A7037 PATIENT PATIENT USED WITH 7 AIDS [facility] AIDS [facility] POSITIVE AIRWAY PRESSURE DEVICE PROTHROMB 09302 [facility] GARCIA IN TIME 7 [facility] PROTHROMB 27063 [facility] GARCIA IN TIME 7 [facility] POLYSOM 88351 [facility] GARCIA 6/>YRS 7 [facility] SLEEP 4/> INC INC ADDL KENDRA ATTND PROTHROMB 35954 RADHA RADHA IN TIME 7 [facility] ECG 17982 [facility] ROUTINE 7 [facility] ECG MEDICAL W/LEAST G 12 LDS W/I&R HEMOGLOBI 79590 [facility] GARCIA N 7 [facility] GLYCOSYLA [place] [address] RADHA GARCIA FREE 7 [facility] [place] [address] RAD[facility] GARCIA THYROID 7 [facility] STIMULATI INC INC NG HORMONE TSH PROTHROMB 49669 RAD[facility] GARCIA IN TIME 7 [facility] HEADGEAR A7035 TIFFANY ALLEN USED 7 HOME HOME W/POSITIV MEDICAL MEDICAL E AIRWAY EQUIPME EQUIPME PRESSURE DEVICE TUBING A7037 TIFFANY ALLEN USED WITH 7 HOME HOME POSITIVE MEDICAL MEDICAL AIRWAY EQUIPME EQUIPME PRESSURE DEVICE FULL FACE A7030 TIFFANY TIFFANY MASK 7 HOME HOME USED MEDICAL MEDICAL W/POS EQUIPME EQUIPME ARWAY PRESS DEVICE HOSPITAL G0463 [facility] GARCIA OUTPATIEN 7 [facility] T CLIN INC INC VISIT ASSESS & MGMT PT PROTHROMB 26977 [facility] GARCIA IN TIME 7 [facility] INC PROTHROMB 19934 [facility] GARCIA IN TIME 7 [facility] G0463 RAD[facility] GARCIA OUTPATIEN 7 [facility] T CLIN INC INC VISIT ASSESS & MGMT PT HOSPITAL G0463 RAD[facility] GARCIA OUTPATIEN 6 [facility] T CLIN INC INC VISIT ASSESS & MGMT PT PROTHROMB 13189 RADHA GARCIA IN TIME 6 [facility] INC PROTHROMB 36317 RAD[facility] GARCIA IN TIME 6 [facility] G0463 RAD[facility] GARCIA OUTPATIEN 6 [facility] CLIN INC INC VISIT ASSESS & MGMT PT PROTHROMB 31438 [facility] GARCIA IN TIME 6 [facility] INC [facility] THERAPEUT 00524 RADHA GARCIA IC 6 [facility] PROPHYLAC INC INC TIC/DX INJECTION SUBQ/IM COLLECTIO 30356 RADHA GARCIA N VENOUS 6 [facility] BLOOD INC INC VENIPUNCT URE PROTHROMB 30741 RAD[facility] GARCIA IN TIME 6 [facility] G0463 RAD[facility] GARCIA OUTPATIEN 6 [facility] T CLIN INC INC VISIT ASSESS & MGMT PT CALCIUM 29834 [facility] GARCIA IONIZED 6 [facility] [place] [address] RAD[facility] GARCIA BLOOD/URI 6 [facility] C ACID INC INC BLOOD 84583 [facility] GARCIA COUNT 6 [facility] COMPLETE INC INC AUTO&AUTO DIFRNTL WBC RENAL 47203 [facility] GARCIA FUNCTION 6 [facility] PANEL INC INC PROTHROMB 51963 RAD[facility] GARCIA IN TIME 6 [facility] INC INC COLLECTIO 39453 RADHA GARCIA N VENOUS 6 MEM H[facility]OS[facility] BLOOD INC INC VENIPUNCT URE ALBUMIN 36375 RAD[facility] GARCIA URINE 6 [facility] MICROALBU INC INC MIN QUANTIATI VE 25 39102 [facility] GARCIA HYDROXY 6 [facility] INCLUDES [place] [address] RAD[facility] GARCIA PARATHORM 6 [facility] ONE INC INC URNLS DIP 17322 [facility] GARCIA 6 [facility] STICK/TAB INC [place] [address] RAD[facility] GARCIA RETROPERI 6 [facility] TONEAL INC [place] [address] [place] [facility] RETROPERI 6 MEDICAL YASMIN TONEAL IMAGING REAL TIME ASS W/IMAGE LIMITED BASIC 29172 [facility] METABOLIC [address] [place] [address] PANEL CALCIUM TOTAL COLLECTIO 80078 [facility] VENOUS [address] [place] [address] BLOOD VENIPUNCT URE PROTHROMB 02954 [facility] IN TIME [address] [place] [address] HOSPITAL ECHO 33547 [facility] R-T 6 CRITICAL ACCESS HOSPITALN 2D MEDICAL W/WOM-MOD G E COMPL SPEC&COLR D [facility] G0463 RADHA LOPEZON OUTPATIEN 6 [facility] T CLIN INC INC VISIT ASSESS & MGMT PT PROTHROMB 89639 [facility] GARCIA IN TIME 6 [facility] INC INC PROTHROMB 69175 [facility] GARCIA IN TIME 6 [facility] INC INC HOSPITAL G0463 RADHA RADHA OUTPATIEN 6 [facility] T CLIN INC INC VISIT ASSESS & MGMT PT COLLECTIO 56767 [facility] GARCIA N VENOUS 6 [facility] BLOOD INC INC VENIPUNCT URE COLLECTIO 79405 RADHA RADHA N VENOUS 6 [facility] BLOOD INC INC VENIPUNCT URE PROTHROMB 47966 RAD[facility] GARCIA IN TIME 6 [facility]OSPITAL G0463 [facility] GARCIA OUTPATIEN 6 [facility] T CLIN INC INC VISIT ASSESS & MGMT PT URNLS DIP 16059 [facility] GARCIA 6 [facility] STICK/TAB INC INC LET REAGENT AUTO MICROSCOP Y BLOOD 37619 [facility] GARCIA COUNT 6 [facility] COMPLETE INC INC AUTO&AUTO DIFRNTL WBC PROTEIN 73380 RAD[facility] GARCIA XCPT 6 [facility] REFRACTOM INC INC ETRY SERUM PLASMA/WH L BLD COLLECTIO 82241 RADHA GARCIA N VENOUS 6 [facility] BLOOD INC INC VENIPUNCT URE CREATININ 38459 RADHA GARCIA E OTHER 6 [facility] [place] [address] RADHA GARCIA PARATHORM 6 [facility] ONE INC INC 25 60064 [facility] GARCIA HYDROXY 6 [facility]OS[facility] INCLUDES INC INC FRACTIONS IF PERFORMED RENAL 06047 RAD[facility] GARCIA FUNCTION 6 [facility] PANEL INC INC PROTHROMB 75856 RADHA GARCIA IN TIME 6 [facility] INC INC HOSPITAL G0463 RAD[facility] GARCIA OUTPATIEN 6 [facility] T CLIN INC INC VISIT ASSESS & MGMT PT HOSPITAL G0463 RADHA GARCIA OUTPATIEN 6 [facility] T CLIN INC INC VISIT ASSESS & MGMT PT PROTHROMB 20199 RADHA GARCIA IN TIME 6 [facility] INC INC ECG 15952 [facility] ROUTINE 6 [facility] ECG MEDICAL W/LEAST G 12 LDS W/I&R HOSPITAL G0463 RAD[facility] GARCIA OUTPATIEN 6 [facility] T CLIN INC INC VISIT ASSESS & MGMT PT PROTHROMB 32395 RADHA GARCIA IN TIME 6 [facility] INC INC HOSPITAL G0463 RADHA GARCIA OUTPATIEN 6 [facility] T CLIN INC INC VISIT ASSESS & MGMT PT PROTHROMB 52706 RADHA GARCIA IN TIME 6 [facility]OS[facility] INC INC COLLECTIO 00388 RADHA GARCIA N VENOUS 6 [facility]OS[facility] BLOOD INC INC VENIPUNCT URE COLLECTIO 92825 RADHA GARCIA N VENOUS 6 [facility] [place] [address] RADHA GARCIA FREE 6 [facility] [place] [address] RADHA GARCIA THYROID 6 [facility] STIMULATI INC INC NG HORMONE TSH COMPREHEN 92290 [facility] SIVE 6 [facility] METABOLIC INC INC PANEL HEMOGLOBI 46624 [facility] N [facility] GLYCOSYLA INC INC AJAY A1C BLOOD 75313 [facility] COUNT 6 [facility] COMPLETE INC INC AUTO&AUTO DIFRNTL WBC LIPID 54895 [facility] PANEL [facility] G0463 [facility] OUTPATIEN [facility] INC VISIT ASSESS & MGMT PT PROTHROMB 97919 [facility] TIME 6 [facility] INC PROTHROMB 06227 [facility] IN TIME 6 [facility] INC COLLECTIO 42206 [facility] N VENOUS 6 [facility] BLOOD INC INC VENIPUNCT [facility] G0463 [facility]PATIEN 6 [facility] INC VISIT ASSESS & MGMT PT Encounters Encounter Start End Date Code Location Performer Type Date EMERGENCY 88595 DARLIN WATTS DEPT 7 7 PHYSICIAN VISIT S, PLL HIGH SEVERITY& THREAT COUNT INCLUDES THE [facility] - 7 7 [facility] OUTPATIEN INC T OFFICE 79490 [facility] OUTPATIEN 7 7 [facility] T VISIT 5 INC MINUTES OFFICE 36758 [facility] OUTPATIEN 7 7 PHYSICIAN T VISIT S GROUP 15 MINUT[facility] - 7 7 [facility]PATI[facility] INC T OFFICE 77012 [facility] OUTPATIEN 7 7 [facility] VISIT 5 INC MINUTES OFFICE 34994 [facility] OUTPATIEN 7 7 [facility] INC [facility]ES [facility] - 7 7 [facility] INC T OFFICE 64905 [facility] OUTPATIEN 7 7 [facility] V[facility] 5 INC [facility] - 7 7 [facility] - 7 7 [facility] OUTPATIEN INC T OFFICE 24383 [facility] OUTPATIEN 7 7 [facility] INC MINUTES [facility] - 7 7 [facility] OUT[facility] INC T OFFICE 85411 [facility] OUTPATIEN 7 7 [facility] T VISIT 5 INC MINUTES OFFICE 31323 [facility] OUTPATIEN 7 7 PHYSICIAN T BANNER [address] [facility] - 7 7 [facility] INC T OFFICE 12757 [facility] OUTPATIEN 7 7 [facility] V[facility]IT 5 INC [facility]ES [facility] - 7 7 [facility] OUT[facility] INC T OFFICE 52276 [facility] OUTPATIEN 7 7 [facility] V[facility] INC [facility] - 7 7 [facility] 7 7 [facility] INC T OFFICE 14375 [facility] OUT[facility]IEN 7 7 [facility] V[facility] 5 INC [facility]ES [facility] - 7 7 [facility] INC T OFFICE 56251 [facility]IEN 7 7 [facility] V[facility] 5 INC [facility] - 7 7 [facility] OUTPATIEN INC T OFFICE 24378 [facility] OUTPATIEN 7 7 [facility] T VISIT 5 INC MINUTES OFFICE 44236 [facility] CONSULTAT 7 7 PHYSICIAN ION S GROUP NEW/ESTAB PATIENT 30 MIN OFFICE 45135 [facility] OUTPATIEN 7 7 MEDICAL T VISIT SERV 25 FOUNDATIO MINUTES [facility] - 7 7 [facility] OUTPATIEN INC T OFFICE 89256 [facility] OUTPATIEN 7 7 [facility] T VISIT 5 INC MINUTES EMERGENCY 23633 DARLIN CORONEL 7 7 PHYSICIAN JR MCGOVERN S, [facility] T VISIT MODERATE SEVERITY EMERGENCY 08503 [facility] 7 7 [facility] DEPARTMEN [facility] T VISIT LOW/MODER SEVERITY [facility] OUTPATIEN [facility] T OFFICE [id number] [facility] 7 [facility] T [facility]ISIT 5 INC MINUTES [facility] 7 [facility] T OFFICE 12524 [facility] OUTPATIEN 7 7 PHYSICIAN T VISIT S GROUP 25 MINUTES OFFICE 15074 [facility] OUT[facility] 7 7 [facility] T V[facility]IT 5 INC MINUTES [facility] - 7 7 [facility] 7 [facility] INC T OFFICE 16276 [facility] OUT[facility] 7 7 [facility] T VISIT 5 INC MINUTES EMERGENCY 90809 [facility] DEPT 7 7 [facility] VISIT INC HIGH [facility]VERITY& THREAT [facility] OUTPATIEN INC T OFFICE 68759 [facility] OUT[facility]IEN 7 7 [facility] T VISIT 5 INC MINUTES OFFICE 80609 [facility] OUT[facility]IEN 7 7 [facility] T VISIT 5 INC MINUTES [facility] - 7 7 [facility] T [facility] - 7 7 [facility] OUTPATIEN INC T OFFICE 80028 [facility] 7 7 [facility] T V[facility] INC [facility]ES [facility] - 7 7 [facility] OUTPATIEN INC T OFFICE 78459 [facility] 7 7 [facility] T VISIT 5 INC MINUTES OFFICE 28035 [facility] OUT[facility]IEN 7 7 [facility] T V[facility] 5 INC MIN[facility]ES [facility] 7 7 [facility] OUT[facility]IEN INC T OFFICE 15049 [facility] OUT[facility] 7 7 [facility] T V[facility]IT 5 INC MINUTES [facility] - 7 7 [facility] 86743 [facility] PHYSICIAN T VISIT S GROUP 15 MINUT[facility] OFFICE 36431 [facility] OUT[facility]IEN 7 7 [facility] 5 INC MINUTES [facility] 7 7 [facility] INC T OFFICE 42299 [facility] OUT[facility]IEN 7 7 [facility] V[facility] 5 INC [facility]UTES [facility] 7 7 [facility] 7 7 [facility] 7 7 [facility] OUTPATIEN INC T OFFICE 46246 [facility] OUT[facility]IEN 7 7 [facility] T VISIT 5 INC MINUTES OFFICE 51044 [facility]UT[facility] OFF[facility] 08552 [facility] 7 7 PHYSICIAN T [facility]ISIT S GROUP 25 MINUTES [facility] 7 7 [facility] OFFICE 92152 [facility] OUTPATIEN 7 7 [facility] T [facility]ISIT 5 INC MINUTES [facility] RAD[facility] - 7 7 [facility] OUTPATIEN [facility] - 7 7 [facility] - 7 7 [facility] - 6 6 [facility] 6 6 [facility] - 6 6 [facility] - 6 6 [facility] - 6 6 [facility] - 6 6 [facility] [address] [place] [address] [facility] 6 6 [facility] 6 6 [facility] OFFICE [address]34 [place] ALONSO XIANG OUTPATIEN 6 6 MEDICAL T NEW 45 SERV MINUTES [facility] - 6 6 [facility] 6 6 [facility] - 6 6 [facility] OFFICE 40502 [facility]PATI[facility] 6 6 [facility] T VISIT MEDICAL 40 G MINUTES [facility] - 6 6 [facility] - 6 6 [facility] OFFICE 57603 AMELIA CISNEROS OUTPATIEN 6 6 JAM JAM T [facility]ISIT 25 MINUTES [facility] RADHA - 6 6 [facility] OFFICE 58041 [facility] 6 [facility] T VISIT S GROUP 25 MINUTES [facility] - 6 6 [facility] - 6 6 [facility]
--- OUTSIDE RECORDS SUMMARY | 2017-07-04 07:30 | External Medical Summary Rpt | CCD ---
Demographics Preferred Language Sami Marital Status Unknown Gnosticism Affiliation Unknown Race Unknown Ethnic Group Unknown Author Author , MITA IRELAND Address Unknown Phone Immunization No patient found.
--- OUTSIDE RECORDS SUMMARY | 2017-07-04 07:30 | External Medical Summary Rpt | CCD ---
Demographics Preferred Language Korean Marital Status Unknown Hoahaoism Affiliation Unknown Race Unknown Ethnic Group Unknown Author Author , MITA IRELAND Address Unknown Phone Immunization No patient found.
== END 2017-06-30 11:30 | disposition home or self-care (01) | DRG 293 ==
LOC: ER 12:50 → 2ND 15:56
PROVIDERS: Emergency Medicine
DX: I50.9 Heart failure, unspecified (principal); E11.22 Type 2 diabetes mellitus with diabetic chronic kidney disease; Z95.2 Presence of prosthetic heart valve; I12.9 Hypertensive chronic kidney disease with stage 1 through stage 4 chronic kidney disease, or unspecified chronic kidney disease; N18.9 Chronic kidney disease, unspecified; Z95.5 Presence of coronary angioplasty implant and graft; Z95.1 Presence of aortocoronary bypass graft; Z79.4 Long term (current) use of insulin; Z79.01 Long term (current) use of anticoagulants

== ENCOUNTER → 2017-07-03 | Outpatient (CLI) | payer MEDICAID ==
[~2017-07-03] MED LIST changes: +COUMADIN4 MG PO; +LISINOPRIL HCTZ1 TAB PO; +LISINOPRIL2.5 MG PO
== END ==
LOC: ACC 11:20
DX: Z95.2 Presence of prosthetic heart valve (principal); Z79.01 Long term (current) use of anticoagulants; Z51.81 Encounter for therapeutic drug level monitoring
CPT/HCPCS: G0463

== ENCOUNTER 2017-07-07 11:27 | Outpatient (CLI) | payer MEDICAID | END 2017-07-07 15:02 | LOC: ACC 11:27 | DX: Z95.2 Presence of prosthetic heart valve (principal); Z79.01 Long term (current) use of anticoagulants; Z51.81 Encounter for therapeutic drug level monitoring | CPT/HCPCS: G0463 ==

== ENCOUNTER 2017-07-17 11:28 | Outpatient (CLI) | payer MEDICAID | END 2017-07-17 14:14 | LOC: LAB 11:28 → ACC 11:28 | DX: Z95.2 Presence of prosthetic heart valve (principal); Z79.01 Long term (current) use of anticoagulants; Z51.81 Encounter for therapeutic drug level monitoring | CPT/HCPCS: G0463 ==

== ENCOUNTER 2017-07-29 12:14 | Outpatient (CLI) | payer MEDICAID | END 2017-07-29 15:45 | LOC: ACC 12:14 | DX: Z95.2 Presence of prosthetic heart valve (principal); Z79.01 Long term (current) use of anticoagulants; Z51.81 Encounter for therapeutic drug level monitoring | CPT/HCPCS: G0463 ==

== ENCOUNTER 2017-08-07 11:00 | Outpatient (CLI) | payer MEDICAID | END 2017-08-07 11:58 | LOC: ACC 11:00 | DX: Z95.2 Presence of prosthetic heart valve (principal); Z79.01 Long term (current) use of anticoagulants; Z51.81 Encounter for therapeutic drug level monitoring | CPT/HCPCS: G0463 ==

== ENCOUNTER → 2017-08-21 | Outpatient (CLI) | payer MEDICAID | LOC: ACC 11:00 → LAB 11:01 | DX: Z95.2 Presence of prosthetic heart valve (principal); Z79.01 Long term (current) use of anticoagulants; Z51.81 Encounter for therapeutic drug level monitoring | CPT/HCPCS: G0463 ==

== ENCOUNTER 2017-08-25 10:55 | Outpatient (CLI) | payer MEDICAID | END 2017-08-25 13:45 | LOC: ACC 10:55 | DX: Z95.2 Presence of prosthetic heart valve (principal); Z79.01 Long term (current) use of anticoagulants; Z51.81 Encounter for therapeutic drug level monitoring | CPT/HCPCS: G0463 ==

== ENCOUNTER → 2017-08-29 | Outpatient (CLI) | payer MEDICAID ==
[2017-08-29 14:02] LABS: LYMPH # 1.4 K/mm3 (0.7-4.5); LYMPH % 21.6 % (10-50)
[2017-08-29 14:08] LABS: HEMOGLOBIN 10.7 g/dL (14.1-18.0)
[2017-08-29 14:21] LABS: URINE BILIRUBIN - DIPSTICK NEGATIVE (NEG); URINE BLOOD 1+ (NEG)
[2017-08-29 15:03] LABS: URINE SQUAMOUS CELLS OCC #/hpf (OCC)
[2017-08-29 15:50] LABS: BUN 36 mg/dL (7-18)
[2017-08-29 16:09] LABS: GFR (ESTIMATED) 34 ML/MIN (>60)
[2017-08-30 07:37] LABS: Vitamin D, 25-Hydroxy 26.7 ng/mL (30.0-100.0)
[2017-08-30 14:39] LABS: Calcium, Ionized 6.3 mg/dL (4.5-5.6)
== END ==
LOC: ACC 12:48 → LAB 12:48
PROVIDERS: Internal Medicine Nephrology
DX: N18.3 Chronic kidney disease, stage 3 (moderate) (principal); Z95.2 Presence of prosthetic heart valve; Z79.01 Long term (current) use of anticoagulants; Z51.81 Encounter for therapeutic drug level monitoring